=== PATIENT | male | born 1945 | race Caucasian/White ===

== ENCOUNTER 2018-10-06 15:22 | Emergency (ER) | payer OTHER ==
[2018-10-06 15:27] VITALS: TEMP 97.4; BMI 30.2
--- NOTE | 2018-10-06 16:39 | PDOC ---
History of Present Illness - General Chief Complaint: Urinary Catheter Problem Stated Complaint: CATHETER REPLACEMENT Time Seen by Provider: 10/06/18 16:17 History Source: Patient Exam Limitations: No Limitations - History of Present Illness Initial Comments: 10/06/18 16:38 Pedro Pablo Resendiz is a 73M with PMH DM, HTN, HLD presenting with hematuria after accidentally pulling his urinary catheter. Patient reports having 2 days of grossly bloody urine with dysuria. Urine was previously clear yellow about 2 days ago, but then suddenly became bloody. Thomas catheter was inserted under anesthesia due to patient complaining of great pain. Blood has not resolved for the last 2 days, Thomas removed this morning and bleeding persists. Complains of blood leaking from urethra, but denies flank pain, suprapubic pain, or polyuria. Is given "pain pills" for pain but are only mildly effective. Has also had bloody BM for the last 2-3 years. Unsure of why. Denies pain with BM. Says belly has increased in size over the last year, unsure of why. Denies CHO, N/V, fevers/chills. Says he has had bloody stools and lower back pain for a few years now, denies pain with BM, constipation, diarrhea.. Past History - Past Medical History Allergies/Adverse Reactions: Allergies Allergy/AdvReac Type Severity Reaction Status Date / Time Cephalosporins Allergy Intermediate Rash Verified 10/06/18 16:08 Penicillins Allergy Intermediate Rash Verified 10/06/18 16:08 Home Medications: Ambulatory Orders Ascorbic Acid [Vitamin C -] 500 mg PO DAILY 10/06/18 Aspirin [ASA -] 81 mg PO DAILY 10/06/18 Dulaglutide [Trulicity] 0.75 mg SQ WEEKLY 10/06/18 Famotidine 20 mg PO BID 10/06/18 Ferrous Sulfate [Feosol] 325 mg PO DAILY 10/06/18 Finasteride [Proscar -] 5 mg PO DAILY 10/06/18 Folic Acid - 1 mg PO DAILY 10/06/18 Folic Acid/Multivit,Iron,[employer] [One Daily Complete Tablet] 1 each PO DAILY 10/06 Furosemide [Lasix -] 60 mg PO DAILY 10/06/18 Insulin Glargine,Hum.rec.anlog [Lantus Solostar] 22 unit SQ HS 10/06/18 Lactulose (Oral Use) [Cephulac -] 20 gm PO BID 10/06/18 Losartan Potassium [Cozaar -] 50 mg PO DAILY 10/06/18 Metformin HCl [Glucophage] 1,000 mg PO BID 10/06/18 Polyvinyl Alcohol [Tears Again] 1 drop OU BID 10/06/18 Potassium Chloride [K-Dur -] 20 meq PO DAILY 10/06/18 Simethicone [Mylicon -] 80 mg PO TID 10/06/18 Simvastatin [Zocor -] 20 mg PO HS 10/06/18 Tamsulosin HCl [Flomax -] 0.4 mg PO DAILY 10/06/18 Thiamine HCl [Vitamin B1] 100 mg PO DAILY 10/06/18 Anemia: Yes COPD: No CHF: Yes Diabetes: Yes (Type 2) HTN: Yes Seizures: Yes - Suicide/Smoking/Psychosocial Hx Smoking History: Unknown if ever smoked If you are a former smoker, when did you quit?: 25 yrs ago Review of Systems - Review of Systems Constitutional: No: Chills, Fever, Weakness HEENTM: No: Blurred Vision, Hearing Loss, Throat Pain Respiratory: No: Cough, Orthopnea, Shortness of Breath Cardiac (ROS): No: Chest Pain, Lightheadedness, Palpitations ABD/GI: Yes: Abdominal Distended (last 1 year), Blood Streaked Bowels. No: Constipated, Diarrhea, Vomiting : Yes: Dysuria, Hematuria, Urgency. No: Discharge, Frequency, Flank Pain Musculoskeletal: Yes: Back Pain Integumentary: No: Bruising, Erythema Neurological: No: Headache, Numbness, Paresthesia, Unsteady Gait *Physical Exam - Vital Signs Last Vital Signs Temp Pulse Resp BP Pulse Ox 97.4 F L 88 18 127/72 100 10/06/18 15:25 10/06/18 15:25 10/06/18 15:25 10/06/18 15:25 10/06/18 15:25 - Physical Exam General Appearance: Yes: Nourished, Appropriately Dressed, Obese. No: Apparent Distress HEENT: positive: EOMI, ASHLEY, Normal Voice, Symmetrical, Hearing Grossly Normal. negative: Scleral Icterus (R), Scleral Icterus (L), Pharyngeal Erythema, Tonsillar Exudate, Rhinorrhea Neck: positive: Supple. negative: Tender, Lymphadenopathy (R), Lymphadenopathy (L) Respiratory/Chest: positive: Lungs Clear, Normal Breath Sounds. negative: Chest Tender, Respiratory Distress, Accessory Muscle Use, Crackles, Rales, Rhonchi Cardiovascular: positive: Regular Rhythm, Regular Rate. negative: Murmur Gastrointestinal/Abdominal: positive: Normal Bowel Sounds, Tender (Tender to suprapubic region), Soft, Protuberent, Rebound. negative: Organomegaly, Pulsatile Mass, Hernia Male Genitalia: positive: other (Uncircumcised penis with 1cm clot under foreskin, no signs of injury to meatus, tender to palpation. Scrotum grossly normal appearing, non-tender. Blood streaks on diaper.) Musculoskeletal: positive: Normal Inspection. negative: CVA Tenderness (R), CVA Tenderness (L) Extremity: positive: Normal Capillary Refill, Normal Inspection, Normal Range of Motion Integumentary: positive: Normal Color, Dry, Warm Neurologic: positive: Alert, Normal Mood/Affect, Normal Response ED Treatment Course - LABORATORY CBC & Chemistry Diagram: 10/06/18 18:15 10/06/18 17:18 Medical Decision Making - Medical Decision Making 10/06/18 16:38 Pedro Pablo Resendiz is a 73M with PMH DM, HTN, HLD presenting with hematuria after accidentally pulling his urinary catheter. Given blood at meatus with penile tenderness, will evaluate urethral bleeding via CMP, CBC, UA, UC, GC NAAT, and abd/bladder US. POCUS shows 188cc bladder volume with what appears to be 2 diverticuli and some scant clots. Bilateral kidneys grossly normal. Will proceed with UA and likely catheter placement. 10/06/18 18:16 Called [facility] for collateral, reports that patient had a cystoscopy on 10/04 for hematuria, had Thomas placed after but patient accidentally removed when standing out of bed, and is likely the cause of current penile pain and bleeding. Will contact Dr. Alvarado and Dr. Cruz his urologist for dispo. 10/06/18 19:[address] Cruz, urologist on-call, who recommended dispo home and f /u in office with Dr. Cruz. *DC/Admit/Observation/Transfer Diagnosis at time of Disposition: Hematuria Qualifiers: Hematuria type: gross Qualified Code(s): R31.0 - Gross hematuria Dislodged Thomas catheter Qualifiers: Encounter type: initial encounter Qualified Code(s): T83.021A - Displacement of indwelling urethral catheter, initial encounter - Discharge Dispostion Disposition: NURSING HOME FACILITY Condition at time of disposition: Improved Decision to Admit order: No - Referrals - Patient Instructions Printed Discharge Instructions: DI for Hematuria Additional Instructions: Today you were evaluated for blood in your urine. Because your catheter was pulled out today, you experienced an injury to your penis that is likely the cause of the blood in your urine. We have replaced the catheter by using some lidocaine so that it will not hurt, and evaluation of your urine shows signs of bleeding but no infection. We also performed an ultrasound evaluation of your bladder and kidneys, and while we found some pockets in your bladder, we did not see any significant clots that could cause you issues. We examined your blood, and your potassium was elevated, so we gave you a medication called kayexelate to bring this down. Please be mindful of your catheter in the future, and follow-up with your doctor Dr. Alvarado and urologist Dr. Cruz next week for check-up of your potassium and catheter placement. If you experience any worsening bleeding, worse pain in your belly, nausea, vomiting, headache, fever, or any other concerning symptoms, please return to an emergency room as soon as possible. - Post Discharge Activity
[2018-10-06] MEDS ORDERED: LIDOCAINE HCL 2% JELLY 10 ML CARTRIDGE ONE (17:55)
--- NOTE | 2018-10-06 18:11 | PDOC ---
Documentation entered by Vani Mcallister SCRIBE, acting as scribe for Franca Alvarez MD. Franca Alvarez MD: This documentation has been prepared by the Ary rios Nirvannie, SCRIBE, under my direction and personally reviewed by me in its entirety. I confirm that the documentation accurately reflects all work, treatment, procedures, and medical decision making performed by me. Attending Attestation - Resident Resident Name: Eitan Quintanilla - ED Attending Attestation I have performed the following: I have examined & evaluated the patient, The case was reviewed & discussed with the resident, I agree w/resident's findings & plan - HPI HPI: 10/06/18 17:21 The patient is a 73 year old male, with a significant past medical history of dementia, CHF, Depression, anemia, BPH, GERD, DM, HTN, HLD, who presents to the emergency department with, hematuria. Patient recently had a fernandez catheter placed for dysuria and hematuria. Fernandez catheter was removed today, however, hematuria persists prompting her arrival to the ED. He denies any recent chest pain or shortness of breath. Allergies: Cephalosporins, Penicillins Primary Care Physician: Jayjay. Dr. Lucho Alvarado - Physicial Exam PE: 10/06/18 18:07 awake alert lungs clear bilat heart rrr no mrg abd soft distended, mild suprapubic ttp ext wwp. testes nontender. penis uncircumcised, clot at meatus. - Medical Decision Making 10/06/18 18:08 73 yo male s/p fernandez pulled out. with blood at meatus. differential retention, traumatic urethritis, clot, plan focused ED us bladder and renal. us for bladder with small clot, noted irregular bladder wall with diverticuli, volume 188 mL will call [facility] for more information and get name urology. replace fernandez. iv hydration. 10/06/18 19:10 pt fernandez draining urine after being replaced, awaiting call back from pt urologist. awaiting call back. pt signed out to oncoming physician dr chamberlain. pending discussion with urologist if urine clears possible dc back to [facility].
[2018-10-06 18:36] LABS: BASO % 0.6 % (0-2.0); EOS % 4.4 % (0-4.5); HEMATOCRIT 34.3 % (35.4-49); HEMOGLOBIN 11.5 GM/dL (11.7-16.9); LYMPH % 27.2 % (8-40); MCHC 33.4 g/dl (32.0-35.9); MEAN CELL VOLUME 86.8 fl (80-96); MEAN PLT VOLUME 10.6 fl (7.5-11.1); MONO % 11.2 % (3.8-10.2); NEUT % 56.6 % (42.8-82.8); PLATELET COUNT 150 K/MM3 (134-434); RBC 3.95 M/mm3 (4.00-5.60); RDW 15.1 % (11.9-15.9); WHITE BLOOD COUNT 6.3 K/mm3 (4.0-10.0)
[2018-10-06 18:43] LABS: HYALINE CASTS 22 /lpf (0-8); PH,URINE 5.5 (5.0-8.0); URINE APPEARANCE TURBID; URINE BACTERIA 0.8 /hpf (NEGATIVE); URINE BILIRUBIN 1+ (NEGATIVE); URINE COLOR RED; URINE GLUCOSE (UA) NEGATIVE (NEGATIVE); URINE KETONE NEGATIVE (NEGATIVE); URINE LEUK ESTERASE 3+ (NEGATIVE); URINE NITRITE NEGATIVE (NEGATIVE); URINE PROTEIN 3+ (NEGATIVE); URINE RBC 7222 /hpf (0-4); URINE WBC 279 /hpf (0-5)
[2018-10-06 19:13] LABS: ALBUMIN 2.6 g/dl (3.4-5.0); BILIRUBIN,TOTAL 0.5 mg/dL (0.2-1); BLOOD UREA NITROGEN 18.8 mg/dL (7-18); CALCIUM 8.9 mg/dL (8.5-10.1); CREATININE 1.1 mg/dL (0.55-1.3); POTASSIUM 5.6 mmol/L (3.5-5.1); TOT PROT 6.8 g/dl (6.4-8.2)
[2018-10-06] MEDS ORDERED: SODIUM POLYSTYRENE SULFONATE 15 GM/60 ML BOTTLE PO ONE (19:27)
[2018-10-06] MEDS ORDERED: SODIUM POLYSTYRENE SULFONATE 15 GM/60 ML BOTTLE ONE ×2 (20:07→20:08)
[2018-10-06 20:20] VITALS: BP 147/68; PULSE 79
== END 2018-10-06 22:02 ==
LOC: JER 15:22
PROC: 0T9B70Z Drainage of Bladder with Drainage Device, Via Natural or Artificial Opening (ICD-10-PCS; principal; 2018-10-06)
DX: R31.0 Gross hematuria (principal); T83.021A Displacement of indwelling urethral catheter, initial encounter; Y73.1 Therapeutic (nonsurgical) and rehabilitative gastroenterology and urology devices associated with adverse incidents; Y92.89 Other specified places as the place of occurrence of the external cause; I11.0 Hypertensive heart disease with heart failure; E78.5 Hyperlipidemia, unspecified; F03.90 Unspecified dementia, unspecified severity, without behavioral disturbance, psychotic disturbance, mood disturbance, and anxiety; I50.9 Heart failure, unspecified; F32.9 Major depressive disorder, single episode, unspecified; D64.9 Anemia, unspecified; N40.0 Benign prostatic hyperplasia without lower urinary tract symptoms; K21.9 Gastro-esophageal reflux disease without esophagitis; E11.9 Type 2 diabetes mellitus without complications; G40.909 Epilepsy, unspecified, not intractable, without status epilepticus; E66.9 Obesity, unspecified; Z68.30 Body mass index [BMI] 30.0-30.9, adult; Z88.0 Allergy status to penicillin; Z88.1 Allergy status to other antibiotic agents; Z79.82 Long term (current) use of aspirin; Z79.4 Long term (current) use of insulin; Z79.84 Long term (current) use of oral hypoglycemic drugs
CPT/HCPCS: 36415; 51702; 80053; 81003; 85025; 87086; 87491; 87591; 87661; 99283-25

== ENCOUNTER 2018-11-17 19:32 | Emergency (ER) | payer OTHER ==
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
[2018-11-17] MEDS ORDERED: ACETAMINOPHEN 500 MG TABLET (FP) PO ONE (20:22)
[2018-11-17 21:01] VITALS: TEMP 97.8; BMI 30.9
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
[2018-11-17] MEDS ORDERED: ACETAMINOPHEN 325 MG TABLET (FP) ONE (22:19)
[2018-11-18 00:34] VITALS: BP 153/84; PULSE 80
[2018-11-18] MEDS ORDERED: LOSARTAN POTASSIUM 50 MG TABLET (FP) ONE (00:47)
[2018-11-18] MEDS ORDERED: LOSARTAN POTASSIUM 50 MG TABLET (FP) PO SCH (10:00)
== END 2018-11-18 01:12 ==
LOC: JER 19:32
DX: S09.8XXA Other specified injuries of head, initial encounter (principal); Y00.XXXA Assault by blunt object, initial encounter; Y93.89 Activity, other specified; Y92.122 Bedroom in nursing home as the place of occurrence of the external cause; Y99.8 Other external cause status; I11.0 Hypertensive heart disease with heart failure; Y07.9 Unspecified perpetrator of maltreatment and neglect; I50.9 Heart failure, unspecified; E11.9 Type 2 diabetes mellitus without complications; Z79.4 Long term (current) use of insulin; E78.00 Pure hypercholesterolemia, unspecified; G40.909 Epilepsy, unspecified, not intractable, without status epilepticus; F33.9 Major depressive disorder, recurrent, unspecified
CPT/HCPCS: 70450-TC; 72125-TC; 99281-25

== ENCOUNTER 2019-04-23 17:32 | Inpatient (IN) | payer OTHER ==
[2019-04-23] MEDS ORDERED: LIDOCAINE HCL 2% JELLY 10 ML CARTRIDGE ONE (19:09)
--- NOTE | 2019-04-23 19:15 | PDOC ---
Documentation entered by Kings Randall SCRIBE, acting as scribe for Elizabeth Ramirez DO. Elizbaeth Ramirez, : This documentation has been prepared by the Tonia rios Elijah, SCRIBE, under my direction and personally reviewed by me in its entirety. I confirm that the documentation accurately reflects all work, treatment, procedures, and medical decision making performed by me. History of Present Illness - General Chief Complaint: Abnormal Lab Results (Outside) Stated Complaint: LOW HEMOGLOBIN Time Seen by Provider: 04/23/19 18:28 History Source: Patient Exam Limitations: No Limitations - History of Present Illness Initial Comments: 04/23/19 18:44 Patient is a 74 year of male with a significant pmh of dementia, CHF, MDD, anemia, BPH, GERD, DM, HTN, HLD who presents today via [facility] with a low hemoglobin level of 6.8 as of yesterday. Patient reports that he had a fernandez catheter placed and has since associated dysuria and blood in the urine. Of note , patient has described intermittient CP. Patient denies blood in the stool and SOB. Allergies: Cephalosporins, Penicillins PCP: Dr. Karin High Past History - Past Medical History Allergies/Adverse Reactions: Allergies Allergy/AdvReac Type Severity Reaction Status Date / Time Cephalosporins Allergy Intermediate Rash Verified 04/23/19 17:54 Penicillins Allergy Intermediate Rash Verified 04/23/19 17:54 Home Medications: Ambulatory Orders Ascorbic Acid [Vitamin C -] 500 mg PO DAILY 10/06/18 Dulaglutide [Trulicity] 0.75 mg SQ WEEKLY 10/06/18 Famotidine 20 mg PO BID 10/06/18 Ferrous Sulfate [Feosol] 325 mg PO DAILY 10/06/18 Finasteride [Proscar -] 5 mg PO DAILY 10/06/18 Folic Acid - 1 mg PO DAILY 10/06/18 Folic Acid/Multivit,Iron,Schleicher [One Daily Complete Tablet] 1 each PO DAILY 10/06 Furosemide [Lasix -] 60 mg PO DAILY 10/06/18 Insulin Glargine,Hum.rec.anlog [Lantus Solostar] 24 unit SQ HS 10/06/18 Lactulose (Oral Use) [Cephulac -] 20 gm PO BID 10/06/18 Losartan Potassium [Cozaar -] 50 mg PO DAILY 10/06/18 Metformin HCl [Glucophage] 1,000 mg PO BID 10/06/18 Polyvinyl Alcohol [Tears Again] 1 drop OU BID 10/06/18 Potassium Chloride [K-Dur -] 20 meq PO DAILY 10/06/18 Simethicone [Mylicon -] 80 mg PO TID 10/06/18 Simvastatin [Zocor -] 20 mg PO HS 10/06/18 Tamsulosin HCl [Flomax -] 0.8 mg PO DAILY 10/06/18 Thiamine HCl [Vitamin B1] 100 mg PO DAILY 10/06/18 Guaifenesin [Christina-Tussin] 300 mg PO QID PRN 11/17/18 Ibuprofen [Motrin -] 400 mg PO QID PRN 11/17/18 Magnesium Hydrox 2400MG/30Ml [Milk of Magnesia -] 30 ml PO ONCE PRN 11/17/18 Anemia: Yes COPD: No CHF: Yes Diabetes: Yes (Type 2) HTN: Yes Seizures: Yes - Psycho Social/Smoking Cessation Hx Smoking History: Never smoked If you are a former smoker, when did you quit?: 25 yrs ago Review of Systems - Review of Systems Comments:: 04/23/19 18:55 GENERAL/CONSTITUTIONAL: No fever or chills. No weakness. HEAD, EYES, EARS, NOSE AND THROAT: No change in vision. No ear pain or discharge. No sore throat. GASTROINTESTINAL: No nausea, vomiting, diarrhea or constipation. GENITOURINARY: +dysuria +Blood in Urine. No Urinary frequency, or change in urination. CARDIOVASCULAR: +chest pain, No shortness of breath. RESPIRATORY: No cough, wheezing, or hemoptysis. MUSCULOSKELETAL: No joint or muscle swelling or pain. No neck or back pain. SKIN: No rash NEUROLOGIC: No headache, vertigo, loss of consciousness, or change in strength/ sensation. ENDOCRINE: No increased thirst. No abnormal weight change. HEMATOLOGIC/LYMPHATIC: No anemia, easy bleeding, or history of blood clots. ALLERGIC/IMMUNOLOGIC: No hives or skin allergy. *Physical Exam - Vital Signs Last Vital Signs Temp Pulse Resp BP Pulse Ox 97.5 F L 80 18 165/56 L 100 04/23/19 17:46 04/23/19 17:46 04/23/19 17:46 04/23/19 17:46 04/23/19 17:46 - Physical Exam 04/23/19 18:56 Constitutional: Awake, alert, oriented. No acute distress. Head: Normocephalic. Atraumatic Eyes: +Pale Conjunctiva +Pale Mucous Membrane ENT: Mucous membranes are moist and intact. Posterior pharynx without exudates or erythema. Uvula midline. Neck: Supple. Full ROM. No lymphadenopathy. Cardiovascular: Regular rate. Regular rhythm. S1, S2 regular. Distal pulses are 2+ and symmetric. Pulmonary/Chest: No evidence of respiratory distress. Clear to auscultation bilaterally No wheezing, rales or rhonchi. Abdominal: Soft and non-distended. There is no tenderness. No rebound, guarding or rigidity. No organomegaly. No palpable masses. Good bowel sounds. Rectal: No Masses. No Hemorrhoids. No Tone Pelvic Exam: + Dried Blood in Diaper, none active located by tip of miadus of Penis Back: No CVA tenderness. Musculoskeletal: No edema. No cyanosis. No clubbing. Full range of motion in all extremities. Nocalf tenderness. Radial/pedal pulses are intact and 2+ bilaterally Skin: Skin is warm and dry. No petechiae. No purpura. Neurological: Alert and oriented to person, place, and time. Cranial nerves II -XII are grossly intact. Normal speech. Strength is grossly symmetric. No sensory deficits. Psychiatric: Good eye contact. Normal interaction, affect and behavior. ED Treatment Course - LABORATORY CBC & Chemistry Diagram: 04/23/19 19:26 04/23/19 19:26 - RADIOLOGY Radiology Studies Ordered: Category Date Time Status CHEST X-RAY PORTABLE* [RAD] Stat Radiology 04/23/19 18:41 Ordered Medical Decision Making - Medical Decision Making 04/23/19 19:04 a/p: 74yo male presents to the ER for eval of low hgb -pt states he has had hematuria and blood in his urine since having a catheter -pt with small specks of dry blood in the diaper -pt with hgb 6.8 per the paperwork -pt states hematuria since having the catheter and feels like he needs to "have a baby" -denies blood in stool -will send labs, type and screen -pt with leopoldo hematuria in the ER -will place fernandez cathter -will most likely need transfusion and admission -Dr. Wendy Cruz is Urology and Dr. Davide Alvarado is PMD 04/23/19 20:36 pt with hbg 7 rosa maria will need blood transfusion 04/23/19 20:49 discussed with Lucretia Martín (patients sister) who gave verbal consent to blood transfusion verbal consent obtained with the nurse Kimber 04/23/19 21:00 cxr with mild congestive changes clear lungs, pulse ox normal 04/23/19 21:07 case discussed with CARLY Abel who accepts pt to service 04/23/19 21:07 pt with UTI will start merrem for uti Discharge - Discharge Information Problems reviewed: Yes Clinical Impression/Diagnosis: Hematuria, Anemia, ROSA MARIA (acute kidney injury) Condition: Guarded - Admission Yes - Follow up/Referral Referrals: Davide Alvarado MD [Primary Care Provider] - - Patient Discharge Instructions - Post Discharge Activity
[2019-04-23] MEDS ORDERED: LIDOCAINE HCL 2% JELLY 10 ML CARTRIDGE UR ONE (19:16)
[2019-04-23 20:03] LABS: BASO % 0.3 % (0-2.0); EOS % 1.4 % (0-4.5); HEMATOCRIT 21.8 % (35.4-49); LYMPH % 12.1 % (8-40); MCH 27.9 pg (25.7-33.7); MEAN PLT VOLUME 8.4 fl (7.5-11.1); MONO % 11.1 % (3.8-10.2); NEUT % 75.1 % (42.8-82.8); PLATELET COUNT 229 K/MM3 (134-434); RDW 14.6 % (11.9-15.9); WHITE BLOOD COUNT 7.6 K/mm3 (4.0-10.0)
[2019-04-23 20:18] LABS: INR 1.16 (0.83-1.09); PROTHROMBIN TIME (PATIENT) 13.7 SEC (9.7-13.0)
[2019-04-23 20:20] LABS: ACTIVATED PTT 33.9 SECONDS (25.2-36.5)
[2019-04-23 20:31] LABS: ALBUMIN 2.5 g/dl (3.4-5.0); ALK PHOS 130 U/L (45-117); ANION GAP 12 MMOL/L (8-16); BILIRUBIN,TOTAL 0.4 mg/dL (0.2-1); BLOOD UREA NITROGEN 54.2 mg/dL (7-18); CALCIUM 8.3 mg/dL (8.5-10.1); CHLORIDE 111 mmol/L (98-107); CO2 16 mmol/L (21-32); CREATININE 2.8 mg/dL (0.55-1.3); GLUCOSE,RANDOM 102 mg/dL (74-106); MAGNESIUM 2.4 mg/dL (1.8-2.4); POTASSIUM 5.7 mmol/L (3.5-5.1); SGOT/AST 20 U/L (15-37); SGPT/ALT 14 U/L (13-61); SODIUM 139 mmol/L (136-145); TOT PROT 6.6 g/dl (6.4-8.2)
[2019-04-23] MEDS ORDERED: ACETAMINOPHEN 325 MG TABLET (FP) PO ONE (20:38)
[2019-04-23] MEDS ORDERED: SODIUM CHLORIDE 0.9% 1000 ML INFUS.BAG IV ONE (20:38)
[2019-04-23 21:04] LABS: URINE APPEARANCE TURBID; URINE BILIRUBIN 1+ (NEGATIVE); URINE COLOR RED; URINE GLUCOSE (UA) NEGATIVE (NEGATIVE); URINE KETONE NEGATIVE (NEGATIVE); URINE LEUK ESTERASE 3+ (NEGATIVE); URINE NITRITE POSITIVE (NEGATIVE); URINE PROTEIN 2+ (NEGATIVE); URINE UROBILINOGEN 0.2 mg/dL (0.2-1.0)
[2019-04-23] MEDS ORDERED: MEROPENEM 1 GM in DEXTROSE 5%-WATER 100 ML IVPB ONE (21:05)
--- NOTE | 2019-04-23 21:14 | HP ---
Admitting History and Physical - Primary Care Physician PCP: Davide Alvarado - Admission Chief Complaint: Abnormal Lab Value, Hematuria History of Present Illness: This is a 74 y/o man from [facility] with a PMHx of Dementia, CHF, HTN, HLD, DM , GERD, Anemia, BPH, MDD. Who presents to the ED with an abnormal lab value and hematuria. Patient states" I was hurting down there" pointing to his diaper. Patient has Dementia unable to provide HPI. Patient denies fever, chills, cough , SOB, CP, palpitations, N/V. 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 Cardiovascular: Yes: CHF, HTN, Hyperlipdemia Gastrointestinal: Yes: GERD Renal/: Yes: BPH Heme/Onc: Yes: Anemia Psych: Yes: Depression Endocrine: Yes: Diabetes Mellitus - Smoking History Smoking history: Former smoker If you are a former smoker, when did you quit?: 25 yrs ago - Alcohol/Substance Use Hx Alcohol Use: Yes (Former) History of Substance Use: reports: None - Social History Usual Living Arrangement: Yes: [facility] ADL: Support Services History of Recent Travel: No Home Medications - Allergies Allergies/Adverse Reactions: Allergies Allergy/AdvReac Type Severity Reaction Status Date / Time Cephalosporins Allergy Intermediate Rash Verified 04/23/19 17:54 Penicillins Allergy Intermediate Rash Verified 04/23/19 17:54 - Home Medications Home Medications: Ambulatory Orders Ascorbic Acid [Vitamin C -] 500 mg PO DAILY 10/06/18 Dulaglutide [Trulicity] 0.75 mg SQ WEEKLY 10/06/18 Famotidine 20 mg PO BID 10/06/18 Ferrous Sulfate [Feosol] 325 mg PO DAILY 10/06/18 Finasteride [Proscar -] 5 mg PO DAILY 10/06/18 Folic Acid - 1 mg PO DAILY 10/06/18 Folic Acid/Multivit,Iron,Bartacker [One Daily Complete Tablet] 1 each PO DAILY 10/06 Furosemide [Lasix -] 60 mg PO DAILY 10/06/18 Insulin Glargine,Hum.rec.anlog [Lantus Solostar] 24 unit SQ HS 10/06/18 Lactulose (Oral Use) [Cephulac -] 20 gm PO BID 10/06/18 Losartan Potassium [Cozaar -] 50 mg PO DAILY 10/06/18 Metformin HCl [Glucophage] 1,000 mg PO BID 10/06/18 Polyvinyl Alcohol [Tears Again] 1 drop OU BID 10/06/18 Potassium Chloride [K-Dur -] 20 meq PO DAILY 10/06/18 Simethicone [Mylicon -] 80 mg PO TID 10/06/18 Simvastatin [Zocor -] 20 mg PO HS 10/06/18 Tamsulosin HCl [Flomax -] 0.8 mg PO DAILY 10/06/18 Thiamine HCl [Vitamin B1] 100 mg PO DAILY 10/06/18 Guaifenesin [Christina-Tussin] 300 mg PO QID PRN 11/17/18 Ibuprofen [Motrin -] 400 mg PO QID PRN 11/17/18 Magnesium Hydrox 2400MG/30Ml [Milk of Magnesia -] 30 ml PO ONCE PRN 11/17/18 Family Medical History Family History: Unable to Obtain Review of Systems Unable to obtain ROS, reason: Dementia Physical Examination Vital Signs: Vital Signs Temperature 97.5 F L 04/23/19 17:46 Pulse Rate 80 04/23/19 17:46 Respiratory Rate 18 04/23/19 17:46 Blood Pressure 165/56 L 04/23/19 17:46 O2 Sat by Pulse Oximetry (%) 98 04/23/19 18:28 Constitutional: Yes: No Distress, Calm Eyes: Yes: WNL, Conjunctiva Clear, EOM Intact, PERRL HENT: Yes: Atraumatic, Normocephalic, Other (Poor Dentition) Neck: Yes: WNL, Supple, Trachea Midline Cardiovascular: Yes: Regular Rate and Rhythm, S1, S2 Respiratory: Yes: Diminished, On Nasal O2, SOB on Exertion, Wheezes. No: Accessory Muscle Use, Tachypnea Gastrointestinal: Yes: Normal Bowel Sounds, Soft, Distention ...Rectal Exam: Yes: Guaiac Negative Renal/: Yes: Thomas Present (leopoldo blood noted in drainage bag) Breast(s): Yes: WNL Musculoskeletal: Yes: WNL Extremities: Yes: WNL Edema: No Peripheral Pulses WNL: Yes Neurological: Yes: Alert, Confusion, Cran Nerves II-XII Intact ...Motor Strength: WNL Psychiatric: Yes: Alert Labs: CBC, BMP 04/23/19 19:26 04/23/19 19:26 Laboratory Results - last 24 hr 04/23/19 04/23/19 04/23/19 17:00 19:26 19:26 WBC RBC Hgb Hct MCV MCH MCHC RDW Plt Count MPV Absolute Neuts (auto) Neutrophils % Lymphocytes % Monocytes % Eosinophils % Basophils % Nucleated RBC % PT with INR 13.70 H INR 1.16 H PTT (Actin FS) 33.9 Sodium 139 Potassium 5.7 H Chloride 111 H Carbon Dioxide 16 L Anion Gap 12 BUN 54.2 H Creatinine 2.8 H Est GFR (CKD-EPI)AfAm 24.29 Est GFR (CKD-EPI)NonAf 20.96 Random Glucose 102 Lactic Acid Calcium 8.3 L Magnesium 2.4 Total Bilirubin 0.4 AST 20 ALT 14 Alkaline Phosphatase 130 H Creatine Kinase 51 Troponin I < 0.02 B-Natriuretic Peptide Total Protein 6.6 Albumin 2.5 L Urine Color Red Urine Appearance Turbid Urine pH 5.0 Ur Specific [place] 1.015 Urine Protein 2+ H Urine Glucose (UA) Negative Urine Ketones Negative Urine Blood 1+ H Urine Nitrite Positive H Urine Bilirubin 1+ H Urine Urobilinogen 0.2 Ur Leukocyte Esterase 3+ H Stool Occult Blood Blood Type Antibody Screen Crossmatch 04/23/19 04/23/19 04/23/19 19:26 19:26 19:26 WBC 7.6 RBC 2.50 L Hgb 7.0 L Hct 21.8 L D MCV 87.0 MCH 27.9 MCHC 32.0 RDW 14.6 Plt Count 229 D MPV 8.4 D Absolute Neuts (auto) 5.7 Neutrophils % 75.1 D Lymphocytes % 12.1 D Monocytes % 11.1 H Eosinophils % 1.4 Basophils % 0.3 Nucleated RBC % 0 PT with INR INR PTT (Actin FS) Sodium Potassium Chloride Carbon Dioxide Anion Gap BUN Creatinine Est GFR (CKD-EPI)AfAm Est GFR (CKD-EPI)NonAf Random Glucose Lactic Acid 3.1 H* Calcium Magnesium Total Bilirubin AST ALT Alkaline Phosphatase Creatine Kinase Troponin I B-Natriuretic Peptide Total Protein Albumin Urine Color Urine Appearance Urine pH Ur Specific [place] Urine Protein Urine Glucose (UA) Urine Ketones Urine Blood Urine Nitrite Urine Bilirubin Urine Urobilinogen Ur Leukocyte Esterase Stool Occult Blood Blood Type O POSITIVE Antibody Screen Negative Crossmatch See Detail 04/23/19 04/23/19 04/23/19 19:26 19:35 21:10 WBC RBC Hgb Hct MCV MCH MCHC RDW Plt Count MPV Absolute Neuts (auto) Neutrophils % Lymphocytes % Monocytes % Eosinophils % Basophils % Nucleated RBC % PT with INR INR PTT (Actin FS) Sodium Potassium Chloride Carbon Dioxide Anion Gap BUN Creatinine Est GFR (CKD-EPI)AfAm Est GFR (CKD-EPI)NonAf Random Glucose Lactic Acid Calcium Magnesium Total Bilirubin AST ALT Alkaline Phosphatase Creatine Kinase Troponin I B-Natriuretic Peptide 1952.2 H Total Protein Albumin Urine Color Urine Appearance Urine pH Ur Specific [place] Urine Protein Urine Glucose (UA) Urine Ketones Urine Blood Urine Nitrite Urine Bilirubin Urine Urobilinogen Ur Leukocyte Esterase Stool Occult Blood Negative Blood Type O POSITIVE Antibody Screen Negative Crossmatch Intake & Output 04/20/19 04/21/19 04/22/19 04/23/19 23:59 23:59 23:59 23:59 Output Total 210 Balance -210 Weight 72.575 kg Current Medications Generic Name Dose Route Start Last Admin Trade Name Freq PRN Reason Stop Dose Admin Albuterol/Ipratropium 1 amp 04/23/19 22:24 Duoneb - NEB Q6H PRN SHORTNESS OF BREATH Artificial Tears 1 drop 04/24/19 10:00 Artificial Tears OU BID [facility] Atorvastatin Calcium 10 mg 04/24/19 22:00 Lipitor - PO HS [facility] Famotidine 20 mg 04/24/19 10:00 Pepcid - PO BID CHAVEZ Folic Acid 1 mg 04/24/19 10:00 Folic Acid - PO DAILY [facility] Losartan Potassium 50 mg 04/24/19 10:00 Cozaar - PO DAILY [facility]Z Tamsulosin HCl 0.8 mg 04/24/19 10:00 Flomax - PO DAILY CHAVEZ Thiamine HCl 100 mg 04/24/19 10:00 Vitamin B1 - PO DAILY [facility] Imaging - Results Chest X-ray: Report Reviewed, Image Reviewed Problem List - Problems (1) Anemia Assessment/Plan: hx JERMAINE Hgb 7.0 PRBC ordered in ED-pending Repeat CBC in am Continue ferrous Sulfate Check Folate, B12 Code(s): D64.9 - ANEMIA, UNSPECIFIED (2) UTI (urinary tract infection) Assessment/Plan: UA- +2 protein, +1 blood, + nitrate, +3 leukocyte esterase Urine Culture-pending PCN, Cephalosporin allergies Meropenem given in ED, will continue renal dosing Appreciate ID consult Monitor CBC, BMP Monitor vitals Code(s): N39.0 - URINARY TRACT INFECTION, SITE NOT SPECIFIED (3) Hematuria Assessment/Plan: Appreciate Urology consult Hold NSAIDs Monitor CBC Monitor vitals Code(s): R31.9 - HEMATURIA, UNSPECIFIED (4) ROSA MARIA (acute kidney injury) Assessment/Plan: Likely secondary to dehydration vs medication Cr 2.8 (baseline 1.7) NS bolus given in ED Monitor BMP Appreciate Nephrology consult Renal US r/o stenosis Code(s): N17.9 - ACUTE KIDNEY FAILURE, UNSPECIFIED (5) HTN (hypertension) Assessment/Plan: stable Continue home meds Monitor renal function Code(s): I10 - ESSENTIAL (PRIMARY) HYPERTENSION (6) HLD (hyperlipidemia) Assessment/Plan: stable Continue home med monitor LFTs Code(s): E78.5 - HYPERLIPIDEMIA, UNSPECIFIED (7) Diabetes mellitus Assessment/Plan: stable BGMs ISS Hold metformin secondary to Lactic Acid 3.1 Monitor BMP Code(s): E11.9 - TYPE 2 DIABETES MELLITUS WITHOUT COMPLICATIONS (8) Lactic acidosis Assessment/Plan: Likely due to UTI vs medication NS bolus given in ED Repeat Lactic Acid Monitor vitals Monitor CBC Code(s): E87.2 - ACIDOSIS (9) GERD (gastroesophageal reflux disease) Assessment/Plan: stable Continue Famotidine Code(s): K21.9 - GASTRO-ESOPHAGEAL REFLUX DISEASE WITHOUT ESOPHAGITIS (10) CHF (congestive heart failure) Assessment/Plan: Chest Xray- some congestive changes Continue Lasix Strict INOs Daily weight Code(s): I50.9 - HEART FAILURE, UNSPECIFIED (11) BPH (benign prostatic hyperplasia) Assessment/Plan: stable Continue Flomax Code(s): N40.0 - BENIGN PROSTATIC HYPERPLASIA WITHOUT LOWER URINRY TRACT SYMP (12) Dementia Assessment/Plan: continue home med Fall Precautions Code(s): F03.90 - UNSPECIFIED DEMENTIA WITHOUT BEHAVIORAL DISTURBANCE (13) MDD (major depressive disorder) Assessment/Plan: Continue home meds Code(s): F32.9 - MAJOR DEPRESSIVE DISORDER, SINGLE EPISODE, UNSPECIFIED Assessment/Plan This is a 74 y/o man from [facility] with a PMHx of Dementia, CHF, HTN, HLD, DM , GERD, Anemia, BPH, MDD. Admitted for Symptomatic Anemia, UTI, Hematuria, ROSA MARIA for further evaluation of their emergent condition. Plan: See Problem List FEN Fluid Restriction Replete lytes prn Low Na, Diabetic Diet DVT ppx OOB SCDs Hold AC secondary to Hematuria, Anemia Dispo: Requires Inpatient Care Visit type - Emergency Visit Emergency Visit: Yes ED Registration Date: 04/23/19 Care time: The patient presented to the Emergency Department on the above date and was hospitalized for further evaluation of their emergent condition. - New Patient This patient is new to me today: Yes Date on this admission: 04/23/19 - Critical Care Critical Care patient: No
[2019-04-23] MEDS ORDERED: ACETAMINOPHEN 325 MG TABLET (FP) ONE (23:39)
[2019-04-24 06:48] LABS: BASO % 0.2 % (0-2.0); EOS % 2.1 % (0-4.5); HEMATOCRIT 24.7 % (35.4-49); HEMOGLOBIN 8.2 GM/dL (11.7-16.9); LYMPH % 10.7 % (8-40); MCH 28.8 pg (25.7-33.7); MCHC 33.1 g/dl (32.0-35.9); MEAN CELL VOLUME 87.2 fl (80-96); MEAN PLT VOLUME 7.9 fl (7.5-11.1); MONO % 13.6 % (3.8-10.2); NEUT % 73.4 % (42.8-82.8); PLATELET COUNT 215 K/MM3 (134-434); RBC 2.83 M/mm3 (4.00-5.60); RDW 14.8 % (11.9-15.9); WHITE BLOOD COUNT 8.1 K/mm3 (4.0-10.0)
[2019-04-24 07:59] LABS: BLOOD UREA NITROGEN 56.2 mg/dL (7-18); CALCIUM 8.2 mg/dL (8.5-10.1); CREATININE 2.9 mg/dL (0.55-1.3); POTASSIUM 5.8 mmol/L (3.5-5.1)
[2019-04-24] MEDS: TAMSULOSIN HCL 0.4 MG CAP PO SCH (08:30)
[2019-04-24] MEDS ORDERED: LOSARTAN POTASSIUM 50 MG TABLET (FP) PO SCH (10:00)
[2019-04-24] MEDS: FOLIC ACID 1 MG TABLET (FP) PO SCH (10:45)
[2019-04-24] MEDS: FAMOTIDINE 20 MG TABLET PO SCH ×2 (10:45→23:08)
[2019-04-24] MEDS: THIAMINE HCL 100 MG TABLET (FP) PO SCH (10:45)
[2019-04-24] MEDS: ARTIFICIAL TEARS (POLYVINYL ALCOHOL) OPTH DROPS OU SCH ×2 (11:25→23:01)
[2019-04-24] MEDS ORDERED: MEROPENEM 500 MG in DEXTROSE 5%-WATER 100 ML IVPB SCH (12:00)
--- NOTE | 2019-04-24 13:22 | PN ---
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 (short form) - Note 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: Pt sent from [facility] for hematuria and acute severe anemia Confused at baseline He recently had cystscopy and bladder biospy done on 04/12/19-- done with DR Wendy Cruz Started to have hematuria for the last 2 days-- cbc done in [place] -- Hb 6.8 pt denies any pain no fever Vital Signs - 24 hr 04/23/19 04/23/19 04/23/19 17:46 18:28 22:50 Temperature 97.5 F L 98.2 F Pulse Rate 80 Pulse Rate [ Left Radial] Pulse Rate [ 82 Radial] Respiratory 18 18 Rate Blood Pressure 165/56 L Blood Pressure 160/54 L [Left Arm] Blood Pressure [Right Arm] O2 Sat by Pulse 100 98 99 Oximetry (%) 04/23/19 04/24/19 04/24/19 23:05 06:32 08:30 Temperature 98.2 F Pulse Rate Pulse Rate [ 77 80 Left Radial] Pulse Rate [ 83 Radial] Respiratory 18 18 18 Rate Blood Pressure Blood Pressure 159/62 [Left Arm] Blood Pressure 119/51 L 149/63 [Right Arm] O2 Sat by Pulse 100 100 100 Oximetry (%) 04/24/19 11:37 Temperature 98 F Pulse Rate Pulse Rate [ 80 Left Radial] Pulse Rate [ Radial] Respiratory 18 Rate Blood Pressure Blood Pressure [Left Arm] Blood Pressure 144/58 L [Right Arm] O2 Sat by Pulse 100 Oximetry (%) Current Medications Generic Name Dose Route Start Last Admin Trade Name Freq PRN Reason Stop Dose Admin Albuterol/Ipratropium 1 amp 04/23/19 22:24 Duoneb - NEB Q6H PRN SHORTNESS OF BREATH Artificial Tears 1 drop 04/24/19 10:00 04/24/19 11:25 Artificial Tears OU Not Given BID CHAVEZ Atorvastatin Calcium 10 mg 04/24/19 22:00 Lipitor - PO HS [facility]Z Famotidine 20 mg 04/24/19 10:00 04/24/19 10:45 Pepcid - PO 20 mg BID CHAVEZ Administration Folic Acid 1 mg 04/24/19 10:00 04/24/19 10:45 Folic Acid - PO 1 mg DAILY [facility]AVEZ Administration Meropenem 500 mg/ Dextrose 100 mls @ 200 mls/hr 04/24/19 12:00 IVPB Q12H CHAVEZ Meropenem 500 mg/ Dextrose 100 mls @ 200 mls/hr 04/24/19 12:00 IVPB 04/25/19 00:29 Q12H CHAVEZ Losartan Potassium 50 mg 04/24/19 10:00 04/24/19 10:45 Cozaar - PO 50 mg DAILY [facility]Z Administration Tamsulosin HCl 0.8 mg 04/24/19 08:30 04/24/19 08:30 Flomax - PO 0.8 mg DAILY@0830 CHAVEZ Administration Thiamine HCl 100 mg 04/24/19 10:00 04/24/19 10:45 Vitamin B1 - PO 100 mg DAILY [facility]Z Administration Laboratory Results - last 24 hr 04/23/19 04/23/19 04/23/19 17:00 19:26 19:26 WBC RBC Hgb Hct MCV MCH MCHC RDW Plt Count MPV Absolute Neuts (auto) Neutrophils % Lymphocytes % Monocytes % Eosinophils % Basophils % Nucleated RBC % PT with INR 13.70 H INR 1.16 H PTT (Actin FS) 33.9 Sodium 139 Potassium 5.7 H Chloride 111 H Carbon Dioxide 16 L Anion Gap 12 BUN 54.2 H Creatinine 2.8 H Est GFR (CKD-EPI)AfAm 24.29 Est GFR (CKD-EPI)NonAf 20.96 Random Glucose 102 Lactic Acid Calcium 8.3 L Magnesium 2.4 Total Bilirubin 0.4 AST 20 ALT 14 Alkaline Phosphatase 130 H Creatine Kinase 51 Troponin I < 0.02 B-Natriuretic Peptide Total Protein 6.6 Albumin 2.5 L Urine Color Red Urine Appearance Turbid Urine pH 5.0 Ur Specific [place] 1.015 Urine Protein 2+ H Urine Glucose (UA) Negative Urine Ketones Negative Urine Blood 1+ H Urine Nitrite Positive H Urine Bilirubin 1+ H Urine Urobilinogen 0.2 Ur Leukocyte Esterase 3+ H Stool Occult Blood Blood Type Antibody Screen Crossmatch 04/23/19 04/23/19 04/23/19 19:26 19:26 19:26 WBC 7.6 RBC 2.50 L Hgb 7.0 L Hct 21.8 L D MCV 87.0 MCH 27.9 MCHC 32.0 RDW 14.6 Plt Count 229 D MPV 8.4 D Absolute Neuts (auto) 5.7 Neutrophils % 75.1 D Lymphocytes % 12.1 D Monocytes % 11.1 H Eosinophils % 1.4 Basophils % 0.3 Nucleated RBC % 0 PT with INR INR PTT (Actin FS) Sodium Potassium Chloride Carbon Dioxide Anion Gap BUN Creatinine Est GFR (CKD-EPI)AfAm Est GFR (CKD-EPI)NonAf Random Glucose Lactic Acid 3.1 H* Calcium Magnesium Total Bilirubin AST ALT Alkaline Phosphatase Creatine Kinase Troponin I B-Natriuretic Peptide Total Protein Albumin Urine Color Urine Appearance Urine pH Ur Specific [place] Urine Protein Urine Glucose (UA) Urine Ketones Urine Blood Urine Nitrite Urine Bilirubin Urine Urobilinogen Ur Leukocyte Esterase Stool Occult Blood Blood Type O POSITIVE Antibody Screen Negative Crossmatch See Detail 04/23/19 04/23/19 04/23/19 19:26 19:35 21:10 WBC RBC Hgb Hct MCV MCH MCHC RDW Plt Count MPV Absolute Neuts (auto) Neutrophils % Lymphocytes % Monocytes % Eosinophils % Basophils % Nucleated RBC % PT with INR INR PTT (Actin FS) Sodium Potassium Chloride Carbon Dioxide Anion Gap BUN Creatinine Est GFR (CKD-EPI)AfAm Est GFR (CKD-EPI)NonAf Random Glucose Lactic Acid Calcium Magnesium Total Bilirubin AST ALT Alkaline Phosphatase Creatine Kinase Troponin I B-Natriuretic Peptide 1952.2 H Total Protein Albumin Urine Color Urine Appearance Urine pH Ur Specific [place] Urine Protein Urine Glucose (UA) Urine Ketones Urine Blood Urine Nitrite Urine Bilirubin Urine Urobilinogen Ur Leukocyte Esterase Stool Occult Blood Negative Blood Type O POSITIVE Antibody Screen Negative Crossmatch 04/24/19 04/24/19 04/24/19 05:40 06:30 06:30 WBC 8.1 RBC 2.83 L Hgb 8.2 L Hct 24.7 L MCV 87.2 MCH 28.8 MCHC 33.1 RDW 14.8 Plt Count 215 MPV 7.9 Absolute Neuts (auto) 6.0 Neutrophils % 73.4 Lymphocytes % 10.7 Monocytes % 13.6 H Eosinophils % 2.1 Basophils % 0.2 Nucleated RBC % 0 PT with INR INR PTT (Actin FS) Sodium 139 Potassium 5.8 H Chloride 114 H Carbon Dioxide 16 L Anion Gap 10 BUN 56.2 H Creatinine 2.9 H Est GFR (CKD-EPI)AfAm 23.29 Est GFR (CKD-EPI)NonAf 20.09 Random Glucose 96 Lactic Acid 1.6 Calcium 8.2 L Magnesium Total Bilirubin AST ALT Alkaline Phosphatase Creatine Kinase Troponin I B-Natriuretic Peptide Total Protein Albumin Urine Color Urine Appearance Urine pH Ur Specific [place] Urine Protein Urine Glucose (UA) Urine Ketones Urine Blood Urine Nitrite Urine Bilirubin Urine Urobilinogen Ur Leukocyte Esterase Stool Occult Blood Blood Type Antibody Screen Crossmatch S1 S2 RRR Lungs clear Abd- soft, obese, NT no edema Thomas-- hematuria++ PLAN Iv fluids Give kayexalate iv antibiotics Urology eval ID eval transfuse as needed Problem List - Problems (1) ROSA MARIA (acute kidney injury) Code(s): N17.9 - ACUTE KIDNEY FAILURE, UNSPECIFIED (2) Anemia Code(s): D64.9 - ANEMIA, UNSPECIFIED (3) BPH (benign prostatic hyperplasia) Code(s): N40.0 - BENIGN PROSTATIC HYPERPLASIA WITHOUT LOWER URINRY TRACT SYMP (4) Dementia Code(s): F03.90 - UNSPECIFIED DEMENTIA WITHOUT BEHAVIORAL DISTURBANCE (5) Diabetes mellitus Code(s): E11.9 - TYPE 2 DIABETES MELLITUS WITHOUT COMPLICATIONS (6) HLD (hyperlipidemia) Code(s): E78.5 - HYPERLIPIDEMIA, UNSPECIFIED
[2019-04-24] MEDS ORDERED: SODIUM POLYSTYRENE SULFONATE 15 GM/60 ML BOTTLE PO ONE (13:45)
[2019-04-24] MEDS: SODIUM CHLORIDE 1,000 ML IV SCH (14:00)
[2019-04-24] MEDS ORDERED: SODIUM POLYSTYRENE SULFONATE 15 GM/60 ML BOTTLE ONE (14:24)
--- NOTE | 2019-04-24 14:26 | EKG ---
Test Reason : Blood Pressure : / mmHG Vent. Rate : 083 BPM Atrial Rate : 083 BPM P-R Int : 194 ms QRS Dur : 084 ms QT Int : 382 ms P-R-T Axes : 082 029 062 degrees QTc Int : 448 ms NORMAL SINUS RHYTHM NONSPECIFIC ST ABNORMALITY ABNORMAL ECG NO PREVIOUS ECGS AVAILABLE Confirmed by MARY BLACK, ANUJ ([id number]) on 04/24/2019 2:25:41 PM Referred By: Confirmed By:ANUJ HERNANDEZ MD
[2019-04-24] MEDS: INSULIN SLIDING SCALE (NOVOLOG) 1 VIAL SQ SCH (17:36)
--- NOTE | 2019-04-24 18:26 | PN ---
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 (short form) - Note 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: ID consult dictated imp/reccd 74 yo man s/p cystoscopy and bladder biopsy admitted with anemia and gross hematuria urine culture is pending multiple antiibotic allergies no fevers, normal wbc received meropenem in the ED will switch to azactam adjsuted for his renal failure and f/u cultures Problem List - Problems (1) Hematuria Code(s): R31.9 - HEMATURIA, UNSPECIFIED (2) Anemia Code(s): D64.9 - ANEMIA, UNSPECIFIED (3) Bladder cancer Code(s): C67.9 - MALIGNANT NEOPLASM OF BLADDER, UNSPECIFIED (4) Allergy to multiple antibiotics Code(s): Z88.1 - ALLERGY STATUS TO OTHER ANTIBIOTIC AGENTS STATUS
--- NOTE | 2019-04-24 20:04 | CONS ---
DATE OF CONSULTATION: DATE OF DICTATION: 04/24/2019 HISTORY OF PRESENT ILLNESS: This is a 74-year-old man who was sent to the emergency room yesterday evening for [facility]. She has a history of confusion at baseline, and he had a recent cystoscopy and bladder biopsy done on April [address] Cruz. He started having hematuria for the last 2 days. He was found to be very anemic with a hemoglobin of 6.8 in the penitentiary and was transferred to the hospital for further evaluation. He has no pain, and he has not been having any fever. I am asked to see him for possible UTI. PAST MEDICAL HISTORY: He has a past medical history of hypertension, anemia, chronic systolic heart failure, diabetes, depression. Allergies to antibiotics. He is allergic to PENICILLIN and CEPHALOSPORIN; the nature of the allergies is not known, and he has had cellulitis in the past. MEDICATION: His medications [facility] the [facility] include: 1. Folic acid. 2. Multivitamins. 3. D1. 4. Flomax. 5. Potassium. 6. Lasix. 7. Simethicone. 8. Simvastatin. 9. Metformin. 10. Proscar. 11. Losartan. 12. Famotidine. 13. Feosol. 14. Motrin as needed. 15. Trulicity. 16. Insulin. Per Dr. High, his bleeding was reported only for the last 2 days. The patient states he has been bleeding for months. He is a resident of the penitentiary, it is unclear for how long. REVIEW OF SYSTEMS: As per HPI. PHYSICAL EXAMINATION: Vital Signs: Temperature is 98, blood pressure 142/68, respiratory rate 18, heart rate 80, saturating 100% on 2 L. He is in no distress. HEENT: Normocephalic. Eyes are anicteric. Neck: Supple. Lungs: Clear to auscultation. Abdomen: Mildly distended. The Thomas is draining very blood urine. Extremities: Venous stasis changes. LABORATORY: White count 8.1, hemoglobin is 8.2, platelets are 215, INR is 1. BUN and creatinine are 56 and 2.9. Lactic acid was 3.1 and on repeat was 1.6. Urinalysis had 3+ leukocytes, no differential was done. Blood cultures are pending. He was started on meropenem in the ER given his unspecified allergies to PENICILLIN and CEPHALOSPORINS. IMPRESSION: In summary, this is a 74-year-old man who is status post recent bladder biopsy and cysto who now has gross hematuria. Awaiting results of the pathology. His acute renal failure is probably multifactorial related to probably medications as well as benign prostatic hypertrophy. I doubt he has a urinary tract infection, suspect what we are seeing is just the gross blood from probably this biopsy site, but until the cultures are back, it would be reasonable to continue antibiotics. Would treat him with aztreonam adjusted for his renal failure at this time. His complete blood count will be monitored and he is to be seen by urology as well. PAULA VILCHIS M.D. [id number] MTDPatrick
--- NOTE | 2019-04-24 20:04 | CONSULT ---
Consult - text type - Consultation Consultation Note: Patient is a 74 year of male with a significant pmh of dementia, CHF, MDD, anemia, BPH, GERD, DM, HTN, HLD who presents today via [facility] with a low hemoglobin level of 6.8 as of yesterday. Patient reports that he had a fernandez catheter placed and has since associated dysuria and blood in the urine. verbal, tnential, incoherent. speaks full sentences, tangent[place]. Reports that he is estranged from his family Not oriented in place and time Allergies: Cephalosporins, Penicillins Allergies/Adverse Reactions: Allergies Allergy/AdvReac Type Severity Reaction Status Date / Time Cephalosporins Allergy Intermediate Rash Verified 04/23/19 17:54 Penicillins Allergy Intermediate Rash Verified 04/23/19 17:54 Home Medications: Ambulatory Orders Ascorbic Acid [Vitamin C -] 500 mg PO DAILY 10/06/18 Dulaglutide [Trulicity] 0.75 mg SQ WEEKLY 10/06/18 Famotidine 20 mg PO BID 10/06/18 Ferrous Sulfate [Feosol] 325 mg PO DAILY 10/06/18 Finasteride [Proscar -] 5 mg PO DAILY 10/06/18 Folic Acid - 1 mg PO DAILY 10/06/18 Folic Acid/Multivit,Iron,[place] [One Daily Complete Tablet] 1 each PO DAILY 10/06 Furosemide [Lasix -] 60 mg PO DAILY 10/06/18 Insulin Glargine,Hum.rec.anlog [Lantus Solostar] 24 unit SQ HS 10/06/18 Lactulose (Oral Use) [Cephulac -] 20 gm PO BID 10/06/18 Losartan Potassium [Cozaar -] 50 mg PO DAILY 10/06/18 Metformin HCl [Glucophage] 1,000 mg PO BID 10/06/18 Polyvinyl Alcohol [Tears Again] 1 drop OU BID 10/06/18 Potassium Chloride [K-Dur -] 20 meq PO DAILY 10/06/18 Simethicone [Mylicon -] 80 mg PO TID 10/06/18 Simvastatin [Zocor -] 20 mg PO HS 10/06/18 Tamsulosin HCl [Flomax -] 0.8 mg PO DAILY 10/06/18 Thiamine HCl [Vitamin B1] 100 mg PO DAILY 10/06/18 Guaifenesin [Christina-Tussin] 300 mg PO QID PRN 11/17/18 Ibuprofen [Motrin -] 400 mg PO QID PRN 11/17/18 Magnesium Hydrox 2400MG/30Ml [Milk of Magnesia -] 30 ml PO ONCE PRN 11/17/18 Anemia: Yes CHF: Yes Diabetes: Yes (Type 2) HTN: Yes Seizures: Yes - Psycho Social/Smoking Cessation Hx Smoking History: Never smoked - Vital Signs Last Vital Signs Temp Pulse Resp BP Pulse Ox 99.3 F 92 H 20 156/68 100 04/24/19 18:54 04/24/19 18:54 04/24/19 18:54 04/24/19 18:54 04/24/19 18:54 Cor: RSR, No murmurs, No gallops Lungs: Clear to P&A Abd: Soft, Normal bowel sounds, No organomegaly Ext:No significant edema Abnormal Lab Results 04/23/19 04/23/19 04/23/19 17:00 19:26 19:26 RBC Hgb Hct Monocytes % PT with INR 13.70 H INR 1.16 H Potassium 5.7 H Chloride 111 H Carbon Dioxide 16 L BUN 54.2 H Creatinine 2.8 H Lactic Acid Calcium 8.3 L Alkaline Phosphatase 130 H B-Natriuretic Peptide Albumin 2.5 L Urine Protein 2+ H Urine Blood 1+ H Urine Nitrite Positive H Urine Bilirubin 1+ H Ur Leukocyte Esterase 3+ H Crossmatch 04/23/19 04/23/19 04/23/19 19:26 19:26 19:26 RBC Hgb Hct Monocytes % PT with INR INR Potassium Chloride Carbon Dioxide BUN Creatinine Lactic Acid 3.1 H* Calcium Alkaline Phosphatase B-Natriuretic Peptide 1952.2 H Albumin Urine Protein Urine Blood Urine Nitrite Urine Bilirubin Ur Leukocyte Esterase Crossmatch See Detail 04/24/19 04/24/19 06:30 06:30 RBC 2.83 L Hgb 8.2 L Hct 24.7 L Monocytes % 13.6 H PT with INR INR Potassium 5.8 H Chloride 114 H Carbon Dioxide 16 L BUN 56.2 H Creatinine 2.9 H Lactic Acid Calcium 8.2 L Alkaline Phosphatase B-Natriuretic Peptide Albumin Urine Protein Urine Blood Urine Nitrite Urine Bilirubin Ur Leukocyte Esterase Crossmatch Home Medication List Medication Instructions Recorded Confirmed Type Ascorbic Acid [Vitamin C -] 500 mg PO DAILY 10/06/18 04/23/19 History Dulaglutide [Trulicity] 0.75 mg SQ WEEKLY 10/06/18 04/23/19 History Famotidine 20 mg PO BID 10/06/18 04/23/19 History Ferrous Sulfate [Feosol] 325 mg PO DAILY 10/06/18 04/23/19 History Finasteride [Proscar -] 5 mg PO DAILY 10/06/18 04/23/19 History Folic Acid - 1 mg PO DAILY 10/06/18 04/23/19 History Folic Acid/Multivit,Iron,[place] 1 each PO DAILY 10/06/18 04/23/19 History [One Daily Complete Tablet] Furosemide [Lasix -] 60 mg PO DAILY 10/06/18 04/23/19 History Insulin Glargine,Hum.rec.anlog 24 unit SQ 10/06/18 04/23/19 History [Lantus Solostar] Lactulose (Oral Use) [Cephulac -] 20 gm PO BID 10/06/18 04/23/19 History Losartan Potassium [Cozaar -] 50 mg PO DAILY 10/06/18 04/23/19 History Metformin HCl [Glucophage] 1,000 mg PO BID 10/06/18 04/23/19 History Polyvinyl Alcohol [Tears Again] 1 drop OU BID 10/06/18 04/23/19 History Potassium Chloride [K-Dur -] 20 meq PO DAILY 10/06/18 04/23/19 History Simethicone [Mylicon -] 80 mg PO TID 10/06/18 04/23/19 History Simvastatin [Zocor -] 20 mg PO HS 10/06/18 04/23/19 History Tamsulosin HCl [Flomax -] 0.8 mg PO DAILY 10/06/18 04/23/19 History Thiamine HCl [Vitamin B1] 100 mg PO DAILY 10/06/18 04/23/19 History Guaifenesin [Christina-Tussin] 300 mg PO QID PRN 11/17/18 04/23/19 History Ibuprofen [Motrin -] 400 mg PO QID PRN 11/17/18 04/23/19 History Magnesium Hydrox 2400MG/30Ml [Milk 30 ml PO ONCE PRN 11/17/18 04/23/19 History of Magnesia -] Active Medications Generic Name Dose Route Start Last Admin Trade Name Jefry PRN Reason Stop Dose Admin Albuterol/Ipratropium 1 amp 04/23/19 22:24 Duoneb - NEB Q6H PRN SHORTNESS OF BREATH Artificial Tears 1 drop 04/24/19 10:00 04/24/19 11:25 Artificial Tears OU Not Given BID CHAVEZ Atorvastatin Calcium 10 mg 04/24/19 22:00 Lipitor - PO HS CHAVEZ Famotidine 20 mg 04/24/19 10:00 04/24/19 10:45 Pepcid - PO 20 mg BID CHAVEZ Administration Finasteride 5 mg 04/25/19 10:00 Proscar - PO DAILY CHAVEZ Folic Acid 1 mg 04/24/19 10:00 04/24/19 10:45 Folic Acid - PO 1 mg DAILY CHAVEZ Administration Sodium Chloride 1,000 mls @ 83 mls/hr 04/24/19 13:30 04/24/19 14:00 Normal Saline - IV 83 mls/hr ASDIR CHAVEZ Administration Aztreonam 1 gm/ Dextrose 50 mls @ 100 mls/hr 04/24/19 22:00 IVPB Q12H [facility] Protocol Insulin Aspart 1 vial 04/24/19 16:30 04/24/19 17:36 Novolog Vial Sliding Scale - SQ Not Given TIDAC [facility] Protocol Insulin Detemir 10 units 04/24/19 22:00 Levemir Vial SQ BID@0700,2200 [facility] Tamsulosin HCl 0.8 mg 04/24/19 08:30 04/24/19 08:30 Flomax - PO 0.8 mg DAILY@0830 CHAVEZ Administration Thiamine HCl 100 mg 04/24/19 10:00 04/24/19 10:45 Vitamin B1 - PO 100 mg DAILY CHAVEZ Administration A/P Patient is a 74 year of male with a significant pmh of dementia, CHF, MDD, anemia, BPH, GERD, DM, HTN, HLD who presents via [facility] with a low hemoglobin level of 6.8 /hematuria s/p cystoscopy/ biopsy --? prelimimarily carcinoma On broad spectrum antibiotics pending urine cultures also acute renall failure Also h/o Cirhosis/varices/splenomegaly on imaging in 02/04 last scans 02/05/19 will discuss with urology
[2019-04-24] MEDS ORDERED: AZTREONAM 1 GM VIAL (RESTRICTED TO ID) ONE (22:56)
[2019-04-24] MEDS ORDERED: DEXTROSE 5%-WATER - 50 ML IVPB ONE (22:56)
[2019-04-24] MEDS: AZTREONAM 1 GM in DEXTROSE 5%-WATER - 50 ML IVPB SCH (22:58)
[2019-04-24] MEDS: INSULIN (LEVEMIR) 100 UNITS/ML UNITS SQ SCH (22:59)
[2019-04-24] MEDS: ATORVASTATIN CA 10 MG TABLET (FP) PO SCH (22:59)
[2019-04-25] MEDS: INSULIN SLIDING SCALE (NOVOLOG) 1 VIAL SQ SCH ×3 (06:47→18:13)
[2019-04-25] MEDS: INSULIN (LEVEMIR) 100 UNITS/ML UNITS SQ SCH ×2 (06:47→22:22)
[2019-04-25 08:34] LABS: BASO % 0.3 % (0-2.0); EOS % 1.2 % (0-4.5); HEMATOCRIT 23.3 % (35.4-49); HEMOGLOBIN 7.7 GM/dL (11.7-16.9); LYMPH % 10.7 % (8-40); MCH 28.9 pg (25.7-33.7); MCHC 32.9 g/dl (32.0-35.9); MEAN CELL VOLUME 87.9 fl (80-96); MEAN PLT VOLUME 8.1 fl (7.5-11.1); MONO % 13.7 % (3.8-10.2); NEUT % 74.1 % (42.8-82.8); PLATELET COUNT 231 K/MM3 (134-434); RBC 2.65 M/mm3 (4.00-5.60); RDW 14.7 % (11.9-15.9); WHITE BLOOD COUNT 8.5 K/mm3 (4.0-10.0)
[2019-04-25 09:00] LABS: ALBUMIN 2.1 g/dl (3.4-5.0); BILIRUBIN,TOTAL 0.6 mg/dL (0.2-1); CALCIUM 7.7 mg/dL (8.5-10.1); CREATININE 2.9 mg/dL (0.55-1.3); POTASSIUM 5.1 mmol/L (3.5-5.1)
[2019-04-25] MEDS ORDERED: AZTREONAM 1 GM VIAL (RESTRICTED TO ID) ONE (09:54)
[2019-04-25] MEDS ORDERED: DEXTROSE 5%-WATER - 50 ML IVPB ONE (09:54)
[2019-04-25] MEDS: AZTREONAM 1 GM in DEXTROSE 5%-WATER - 50 ML IVPB SCH (10:29)
[2019-04-25] MEDS: FAMOTIDINE 20 MG TABLET PO SCH ×2 (10:29→22:22)
[2019-04-25] MEDS: SODIUM CHLORIDE 1,000 ML IV SCH ×2 (10:30→18:13)
[2019-04-25] MEDS: FINASTERIDE 5 MG TABLET (FP) PO SCH (10:30)
[2019-04-25] MEDS: THIAMINE HCL 100 MG TABLET (FP) PO SCH (10:30)
[2019-04-25] MEDS: FOLIC ACID 1 MG TABLET (FP) PO SCH (10:30)
[2019-04-25] MEDS: TAMSULOSIN HCL 0.4 MG CAP PO SCH (10:30)
--- NOTE | 2019-04-25 10:59 | PN ---
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, Physician History of Present Illness: Pt seen/ examined chart is reviewed awake/ comfortable feels better denies pain afebrile - Current Medication List Current Medications: Active Medications Albuterol/Ipratropium (Duoneb -) 1 amp NEB Q6H PRN PRN Reason: SHORTNESS OF BREATH Artificial Tears (Artificial Tears) 1 drop OU BID [facility] Last Admin: 04/24/19 23:01 Dose: Not Given Atorvastatin Calcium (Lipitor -) 10 mg PO HS [facility] Last Admin: 04/24/19 22:59 Dose: 10 mg Famotidine (Pepcid -) 20 mg PO BID [facility] Last Admin: 04/25/19 10:29 Dose: 20 mg Finasteride (Proscar -) 5 mg PO DAILY [facility] Last Admin: 04/25/19 10:30 Dose: 5 mg Folic Acid (Folic Acid -) 1 mg PO DAILY [facility] Last Admin: 04/25/19 10:30 Dose: 1 mg Sodium Chloride (Normal Saline -) 1,000 mls @ 83 mls/hr IV ASDIR [facility] Last Admin: 04/25/19 10:30 Dose: 83 mls/hr Aztreonam 1 gm/ Dextrose 50 mls @ 100 mls/hr IVPB Q12H [facility]; Protocol Last Admin: 04/25/19 10:29 Dose: 100 mls/hr Insulin Aspart (Novolog Vial Sliding Scale -) 1 vial SQ TIDAC [facility]; Protocol Last Admin: 04/25/19 06:47 Dose: Not Given Insulin Detemir (Levemir Vial) 10 units SQ BID@0700,2200 [facility] Last Admin: 04/25/19 06:47 Dose: 10 units Tamsulosin HCl (Flomax -) 0.8 mg PO DAILY@0830 [facility] Last Admin: 04/25/19 10:30 Dose: 0.8 mg Thiamine HCl (Vitamin B1 -) 100 mg PO DAILY [facility] Last Admin: 04/25/19 10:30 Dose: 100 mg - Objective Vital Signs: Vital Signs Temperature 98.4 F 04/25/19 06:00 Pulse Rate 79 04/25/19 06:00 Respiratory Rate 20 04/25/19 06:00 Blood Pressure 143/67 04/25/19 06:00 O2 Sat by Pulse Oximetry (%) 99 04/24/19 21:00 Constitutional: Yes: No Distress, Calm Eyes: Yes: Conjunctiva Clear Neck: Yes: Supple Cardiovascular: Yes: Regular Rate and Rhythm Respiratory: Yes: Diminished Gastrointestinal: Yes: Soft, Abdomen, Obese Genitourinary: Yes: Thomas Present, Hematuria Edema: No Neurological: Yes: Alert Labs: CBC, BMP 04/25/19 08:10 04/25/19 08:10 INR, PTT INR 1.16 (0.83-1.09) H 04/23/19 19:26 Problem List - Problems (1) Bladder cancer Code(s): C67.9 - MALIGNANT NEOPLASM OF BLADDER, UNSPECIFIED (2) Cirrhosis Code(s): K74.60 - UNSPECIFIED CIRRHOSIS OF LIVER (3) ROSA MARIA (acute kidney injury) Code(s): N17.9 - ACUTE KIDNEY FAILURE, UNSPECIFIED (4) Anemia Code(s): D64.9 - ANEMIA, UNSPECIFIED (5) HTN (hypertension) Code(s): I10 - ESSENTIAL (PRIMARY) HYPERTENSION (6) Hematuria Code(s): R31.9 - HEMATURIA, UNSPECIFIED Assessment/Plan Continue present care abx monitor lytes transfuse prn Maintain Thomas Will follow d/w Rn also
[2019-04-25] MEDS: ARTIFICIAL TEARS (POLYVINYL ALCOHOL) OPTH DROPS OU SCH ×2 (12:42→22:23)
--- NOTE | 2019-04-25 17:07 | PN ---
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 (short form) - Note 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: complains of suprapubic pain fernandez with hematuria Vital Signs Period Temp Pulse Resp BP Sys/Gordon Pulse Ox Last 24 Hr 98.3 F-99.3 F 77-92 20-20 140-159/54-71 99-100 cor-rrr lungs clear abd soft, suprapubic discomfort to palpation ext no edema CBC, BMP 04/25/19 08:10 04/25/19 08:10 Microbiology 04/23/19 17:00 Urine - Urine Fernandez Urine Culture - Final NO GROWTH OBTAINED a/p 74 yo man s/p cystoscopy and bladder biopsy admitted with anemia and gross hematuria urine culture is negative no fevers, normal wbc will d/c antibiotics forest/ckd- per primary service awaiting urology f/u multiple antibiotic allergies please call back if needed- no active ID issues at this time
--- NOTE | 2019-04-25 17:29 | CONSULT ---
Consult Consult Specialty:: UROLOGY Reason for Consultation:: Gross hematuria - History of Present Illness Chief Complaint: 74 Y/O male patient with history of Bladder tumor S/P TURBT with high grade bladder tumor, he developed gross hematuria, no fever no pain. leaking around the catheter. O/E distended bladder. [address] - Past Medical History [employer]: Yes: Dementia Cardio/Vascular: Yes: CHF, HTN, Hyperlipdemia Gastrointestinal: Yes: GERD Renal/: Yes: BPH Psych: Yes: Depression Endocrine: Yes: Diabetes Mellitus - Alcohol/Substance Use Hx Alcohol Use: Yes (Former) History of Substance Use: reports: None - Smoking History Smoking history: Former smoker Have you smoked in the past 12 months: No If you are a former smoker, when did you quit?: 25 yrs ago - Social History ADL: Support Services History of Recent Travel: No Home Medications - Allergies Allergies/Adverse Reactions: Allergies Allergy/AdvReac Type Severity Reaction Status Date / Time Cephalosporins Allergy Intermediate Rash Verified 04/23/19 17:54 Penicillins Allergy Intermediate Rash Verified 04/23/19 17:54 - Home Medications Home Medications: Ambulatory Orders Ascorbic Acid [Vitamin C -] 500 mg PO DAILY 10/06/18 Dulaglutide [Trulicity] 0.75 mg SQ WEEKLY 10/06/18 Famotidine 20 mg PO BID 10/06/18 Ferrous Sulfate [Feosol] 325 mg PO DAILY 10/06/18 Finasteride [Proscar -] 5 mg PO DAILY 10/06/18 Folic Acid - 1 mg PO DAILY 10/06/18 Folic Acid/Multivit,Iron,[place] [One Daily Complete Tablet] 1 each PO DAILY 10/06 Furosemide [Lasix -] 60 mg PO DAILY 10/06/18 Insulin Glargine,Hum.rec.anlog [Lantus Solostar] 24 unit SQ HS 10/06/18 Lactulose (Oral Use) [Cephulac -] 20 gm PO BID 10/06/18 Losartan Potassium [Cozaar -] 50 mg PO DAILY 10/06/18 Metformin HCl [Glucophage] 1,000 mg PO BID 10/06/18 Polyvinyl Alcohol [Tears Again] 1 drop OU BID 10/06/18 Potassium Chloride [K-Dur -] 20 meq PO DAILY 10/06/18 Simethicone [Mylicon -] 80 mg PO TID 10/06/18 Simvastatin [Zocor -] 20 mg PO HS 10/06/18 Tamsulosin HCl [Flomax -] 0.8 mg PO DAILY 10/06/18 Thiamine HCl [Vitamin B1] 100 mg PO DAILY 10/06/18 Guaifenesin [Christina-Tussin] 300 mg PO QID PRN 11/17/18 Ibuprofen [Motrin -] 400 mg PO QID PRN 11/17/18 Magnesium Hydrox 2400MG/30Ml [Milk of Magnesia -] 30 ml PO ONCE PRN 11/17/18 Physical Exam Vital Signs: Vital Signs Temperature 98.3 F 04/25/19 14:00 Pulse Rate 79 04/25/19 14:00 Respiratory Rate 20 04/25/19 14:00 Blood Pressure 150/70 04/25/19 14:00 O2 Sat by Pulse Oximetry (%) 99 04/25/19 09:00 Labs: CBC, BMP 04/25/19 08:10 04/25/19 08:10 Assessment/Plan Bladder tumor S/P TURBT Gross hematuria ROSA MARIA [address] catheter inserted, bladder irrigation done and connected into CBI Plan: Renal and pelvic U/S keep fernandez catheter with CBI will do BCG bladder installation later
[2019-04-25] MEDS: ACETAMINOPHEN 325 MG TABLET (FP) PO PRN (20:21)
[2019-04-25] MEDS: ATORVASTATIN CA 10 MG TABLET (FP) PO SCH (22:22)
--- NOTE | 2019-04-26 01:53 | HOSP ---
Subjective - Review of Symptoms Events since last encounter: Hospitalist Encounter Notified by the RN that the patient is reporting bladder pain. Bladder scan showed 436ml. Per the RN, there appears to be leaking around the tube. Was asked to assess. Arrived at bedside, patient is awake, alert at baseline, moaning and grimacing when abdomen/bladder was palpated. Inspected the fernandez catheter and tubing.Leaking noted around catheter. Diaper appears wet. Dark Red/brown colored urine noted in drainage bag. Advised the RN to check the Fernandez balloon, to see if possible deflated. Reviewed Urology's note from 04/25/19, same noted. Assessment: This is a 74 y/o man from [facility] with a PMHx of Dementia, CHF, HTN, HLD, DM , GERD, Anemia, BPH, MDD. Admitted for Symptomatic Anemia, UTI, Hematuria, ROSA MARIA Plan: Morphine Sulfate IV ordered Gastrointestinal: Yes: Abdominal Pain Genitourinary: Yes: Other (bladder distention) Physical Examination Vital Signs: Vital Signs Temperature 99.5 F 04/25/19 21:00 Pulse Rate 92 H 04/25/19 21:00 Respiratory Rate 04/25/19 21:00 Blood Pressure 152/64 04/25/19 21:00 O2 Sat by Pulse Oximetry (%) 99 04/25/19 09:00 Constitutional: Yes: Mild Distress, Other (moaning) Eyes: Yes: WNL, Conjunctiva Clear, PERRL HENT: Yes: WNL, Atraumatic, Normocephalic Neck: Yes: WNL, Supple, Trachea Midline Cardiovascular: Yes: WNL, Regular Rate and Rhythm, S1, S2 Respiratory: Yes: WNL, Regular, CTA Bilaterally Gastrointestinal: Yes: Normal Bowel Sounds, Distention Renal/: Yes: Fernandez Present, Hematuria Edema: No Peripheral Pulses WNL: Yes Neurological: Yes: Alert Psychiatric: Yes: Alert Labs: CBC, BMP 04/25/19 08:10 04/25/19 08:10 Laboratory Results - last 24 hr 04/25/19 04/25/19 04/25/19 05:40 08:10 08:10 WBC 8.5 RBC 2.65 L Hgb 7.7 L Hct 23.3 L MCV 87.9 MCH 28.9 MCHC 32.9 RDW 14.7 Plt Count 231 MPV 8.1 Absolute Neuts (auto) 6.3 Neutrophils % 74.1 Lymphocytes % 10.7 Monocytes % 13.7 H Eosinophils % 1.2 Basophils % 0.3 Nucleated RBC % 0 Sodium 142 Potassium 5.1 Chloride 118 H Carbon Dioxide 16 L Anion Gap 8 BUN 44.0 H Creatinine 2.9 H Est GFR (CKD-EPI)AfAm 23.29 Est GFR (CKD-EPI)NonAf 20.09 POC Glucometer 95 Random Glucose 91 Calcium 7.7 L Total Bilirubin 0.6 AST 23 ALT 13 Alkaline Phosphatase 105 Total Protein 6.0 L Albumin 2.1 L 04/25/19 04/25/19 04/25/19 11:38 16:47 22:08 WBC RBC Hgb Hct MCV MCH MCHC RDW Plt Count MPV Absolute Neuts (auto) Neutrophils % Lymphocytes % Monocytes % Eosinophils % Basophils % Nucleated RBC % Sodium Potassium Chloride Carbon Dioxide Anion Gap BUN Creatinine Est GFR (CKD-EPI)AfAm Est GFR (CKD-EPI)NonAf POC Glucometer 127 134 152 Random Glucose Calcium Total Bilirubin AST ALT Alkaline Phosphatase Total Protein Albumin Current Medications Generic Name Dose Route Start Last Admin Trade Name Freq PRN Reason Stop Dose Admin Acetaminophen 650 mg 04/25/19 19:59 04/25/19 20:21 Tylenol - PO 650 mg Q6H PRN Administration PAIN LEVEL 6-10 Albuterol/Ipratropium 1 amp 04/23/19 22:24 Duoneb - NEB Q6H PRN SHORTNESS OF BREATH Artificial Tears 1 drop 04/24/19 10:00 04/25/19 22:23 Artificial Tears OU 1 drop BID CHAVEZ Administration Atorvastatin Calcium 10 mg 04/24/19 22:00 04/25/19 22:22 Lipitor - PO 10 mg HS CHAVEZ Administration Famotidine 20 mg 04/24/19 10:00 04/25/19 22:22 Pepcid - PO 20 mg BID CHAVEZ Administration Finasteride 5 mg 04/25/19 10:00 04/25/19 10:30 Proscar - PO 5 mg DAILY CHAVEZ Administration Folic Acid 1 mg 04/24/19 10:00 04/25/19 10:30 Folic Acid - PO 1 mg DAILY CHAVEZ Administration Sodium Chloride 1,000 mls @ 83 mls/hr 04/24/19 13:30 04/25/19 18:13 Normal Saline - IV Not Given ASDIR CHAVEZ Insulin Aspart 1 vial 04/24/19 16:30 04/25/19 18:13 Novolog Vial Sliding Scale - SQ Not Given TIDAC [facility] Protocol Insulin Detemir 10 units 04/24/19 22:00 04/25/19 22:22 Levemir Vial SQ 10 units BID@0700,2200 CHAVEZ Administration Morphine Sulfate 1 mg 04/26/19 01:46 Morphine Sulfate IVPUSH Q6H PRN PAIN LEVEL 7 - 10 Tamsulosin HCl 0.8 mg 04/24/19 08:30 04/25/19 10:30 Flomax - PO 0.8 mg DAILY@0830 [facility] Administration Thiamine HCl 100 mg 04/24/19 10:00 04/25/19 10:30 Vitamin B1 - PO 100 mg DAILY CHAVEZ Administration Intake & Output 04/23/19 04/24/19 04/25/19 04/26/19 23:59 23:59 23:59 23:59 Intake Total 400 410 Output Total 210 1500 950 Balance -210 1100 -540 Weight 72.575 kg 75.325 kg 73.164 kg
[2019-04-26] MEDS: MORPHINE SULFATE 2 MG/ML VIAL IVPUSH PRN ×2 (02:10→10:17)
[2019-04-26] MEDS: ACETAMINOPHEN 325 MG TABLET (FP) PO PRN ×3 (03:30→21:06)
[2019-04-26] MEDS: SODIUM CHLORIDE 1,000 ML IV SCH (05:37)
[2019-04-26] MEDS: INSULIN (LEVEMIR) 100 UNITS/ML UNITS SQ SCH ×2 (06:35→22:29)
[2019-04-26] MEDS: INSULIN SLIDING SCALE (NOVOLOG) 1 VIAL SQ SCH ×3 (06:36→17:48)
[2019-04-26] MEDS: FOLIC ACID 1 MG TABLET (FP) PO SCH (09:18)
[2019-04-26] MEDS: FINASTERIDE 5 MG TABLET (FP) PO SCH (09:18)
[2019-04-26] MEDS: THIAMINE HCL 100 MG TABLET (FP) PO SCH (09:18)
[2019-04-26] MEDS: FAMOTIDINE 20 MG TABLET PO SCH ×2 (09:18→21:05)
[2019-04-26] MEDS: ARTIFICIAL TEARS (POLYVINYL ALCOHOL) OPTH DROPS OU SCH ×2 (09:19→22:16)
[2019-04-26] MEDS: TAMSULOSIN HCL 0.4 MG CAP PO SCH (09:19)
[2019-04-26 09:45] LABS: BASO % 0.3 % (0-2.0); EOS % 0.6 % (0-4.5); HEMATOCRIT 19.6 % (35.4-49); MCHC 33.6 g/dl (32.0-35.9); MEAN CELL VOLUME 86.3 fl (80-96); MEAN PLT VOLUME 7.6 fl (7.5-11.1); MONO % 11.8 % (3.8-10.2); NEUT % 79.3 % (42.8-82.8); PLATELET COUNT 206 K/MM3 (134-434); RBC 2.27 M/mm3 (4.00-5.60); RDW 14.9 % (11.9-15.9); WHITE BLOOD COUNT 8.9 K/mm3 (4.0-10.0)
[2019-04-26 09:51] LABS: HEMOGLOBIN 6.6 GM/dL (11.7-16.9)
[2019-04-26 09:58] LABS: INR 1.32 (0.83-1.09); PROTHROMBIN TIME (PATIENT) 15.6 SEC (9.7-13.0)
[2019-04-26 10:00] LABS: ACTIVATED PTT 30.8 SECONDS (25.2-36.5)
[2019-04-26 10:17] LABS: BILIRUBIN,TOTAL 0.5 mg/dL (0.2-1); BLOOD UREA NITROGEN 49.5 mg/dL (7-18); CALCIUM 7.2 mg/dL (8.5-10.1); CREATININE 3.3 mg/dL (0.55-1.3); POTASSIUM 4.8 mmol/L (3.5-5.1); TOT PROT 5.4 g/dl (6.4-8.2)
--- NOTE | 2019-04-26 10:29 | PN ---
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 (short form) - Note 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: GUfollow up. 74year old male with hx of Invasive Ca of the bladder S/P TURBT was admiited with gross hematuria. Atpresent has CBI. C/O lower abd discomfort. CBI return pinkish. Some leakge around meatus noted. ? Bladder spasms. Will continue CBI slowly. Await renal sono. Will follow
--- NOTE | 2019-04-26 12:11 | PN ---
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 (short form) - Note 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: CBI not running properly pt has abd pain no fever Vital Signs - 24 hr 04/25/19 04/25/19 04/26/19 18:00 21:00 02:00 Temperature 98.1 F 99.5 F 97.7 F Pulse Rate 76 92 H 86 Respiratory 20 20 20 Rate Blood Pressure 143/62 152/64 136/70 O2 Sat by Pulse 98 Oximetry (%) 04/26/19 04/26/19 04/26/19 06:00 12:50 13:30 Temperature 97.4 F L 98.1 F 98.4 F Pulse Rate 77 80 86 Respiratory 20 20 20 Rate Blood Pressure 144/69 161/70 160/74 O2 Sat by Pulse Oximetry (%) 04/26/19 15:00 Temperature 99.2 F Pulse Rate 90 Respiratory 21 H Rate Blood Pressure 151/63 O2 Sat by Pulse Oximetry (%) Current Medications Generic Name Dose Route Start Last Admin Trade Name Freq PRN Reason Stop Dose Admin Acetaminophen 650 mg 04/25/19 19:59 04/26/19 03:30 Tylenol - PO 650 mg Q6H PRN Administration PAIN LEVEL 6-10 Albuterol/Ipratropium 1 amp 04/23/19 22:24 Duoneb - NEB Q6H PRN SHORTNESS OF BREATH Artificial Tears 1 drop 04/24/19 10:00 04/26/19 09:19 Artificial Tears OU 1 drop BID CHAVEZ Administration Atorvastatin Calcium 10 mg 04/24/19 22:00 04/25/19 22:22 Lipitor - PO 10 mg HS CHAVEZ Administration Famotidine 20 mg 04/24/19 10:00 04/26/19 09:18 Pepcid - PO 20 mg BID CHAVEZ Administration Finasteride 5 mg 04/25/19 10:00 04/26/19 09:18 Proscar - PO 5 mg DAILY CHAVEZ Administration Folic Acid 1 mg 04/24/19 10:00 04/26/19 09:18 Folic Acid - PO 1 mg DAILY CHAVEZ Administration Insulin Aspart 1 vial 04/24/19 16:30 04/26/19 10:59 Novolog Vial Sliding Scale - SQ Not Given TIDAC [facility] Protocol Insulin Detemir 10 units 04/24/19 22:00 04/26/19 06:35 Levemir Vial SQ 10 units BID@0700,2200 CHAVEZ Administration Morphine Sulfate 1 mg 04/26/19 01:46 04/26/19 10:17 Morphine Sulfate IVPUSH 1 mg Q6H PRN Administration PAIN LEVEL 7 - 10 Tamsulosin HCl 0.8 mg 04/24/19 08:30 04/26/19 09:19 Flomax - PO 0.8 mg DAILY@0830 CHAVEZ Administration Thiamine HCl 100 mg 04/24/19 10:00 04/26/19 09:18 Vitamin B1 - PO 100 mg DAILY CHAVEZ Administration Laboratory Results - last 24 hr 04/23/19 04/25/19 04/25/19 21:10 16:47 22:08 WBC RBC Hgb Hct MCV MCH MCHC RDW Plt Count MPV Absolute Neuts (auto) Neutrophils % Lymphocytes % Monocytes % Eosinophils % Basophils % Nucleated RBC % PT with INR INR PTT (Actin FS) Sodium Potassium Chloride Carbon Dioxide Anion Gap BUN Creatinine Est GFR (CKD-EPI)AfAm Est GFR (CKD-EPI)NonAf POC Glucometer 134 152 Random Glucose Calcium Total Bilirubin AST ALT Alkaline Phosphatase Total Protein Albumin Blood Type O POSITIVE Antibody Screen Negative Crossmatch See Detail 04/26/19 04/26/19 04/26/19 06:00 06:32 07:52 WBC 8.9 RBC 2.27 L Hgb 6.6 L* Hct 19.6 L D MCV 86.3 MCH 29.0 MCHC 33.6 RDW 14.9 Plt Count 206 MPV 7.6 Absolute Neuts (auto) 7.1 Neutrophils % 79.3 Lymphocytes % 8.0 D Monocytes % 11.8 H Eosinophils % 0.6 Basophils % 0.3 Nucleated RBC % 0 PT with INR INR PTT (Actin FS) Sodium 141 Potassium 4.8 Chloride 116 H Carbon Dioxide 16 L Anion Gap 9 BUN 49.5 H Creatinine 3.3 H Est GFR (CKD-EPI)AfAm 19.92 Est GFR (CKD-EPI)NonAf 17.19 POC Glucometer 111 Random Glucose 100 Calcium 7.2 L Total Bilirubin 0.5 AST 20 ALT 13 Alkaline Phosphatase 101 Total Protein 5.4 L Albumin 2.0 L Blood Type Antibody Screen Crossmatch 04/26/19 04/26/19 07:52 10:38 WBC RBC Hgb Hct MCV MCH MCHC RDW Plt Count MPV Absolute Neuts (auto) Neutrophils % Lymphocytes % Monocytes % Eosinophils % Basophils % Nucleated RBC % PT with INR 15.60 H INR 1.32 H PTT (Actin FS) 30.8 Sodium Potassium Chloride Carbon Dioxide Anion Gap BUN Creatinine Est GFR (CKD-EPI)AfAm Est GFR (CKD-EPI)NonAf POC Glucometer 148 Random Glucose Calcium Total Bilirubin AST ALT Alkaline Phosphatase Total Protein Albumin Blood Type Antibody Screen Crossmatch S1 S2 RRR Lungs clear Abd- soft, obese, NT no edema Thomas-- clogged PLAN Iv fluids dc for now needs PRBC spoke with Dr Smith who will come in to look at pt iv antibiotics Problem List - Problems (1) ROSA MARIA (acute kidney injury) Code(s): N17.9 - ACUTE KIDNEY FAILURE, UNSPECIFIED (2) Anemia Code(s): D64.9 - ANEMIA, UNSPECIFIED (3) BPH (benign prostatic hyperplasia) Code(s): N40.0 - BENIGN PROSTATIC HYPERPLASIA WITHOUT LOWER URINRY TRACT SYMP (4) Dementia Code(s): F03.90 - UNSPECIFIED DEMENTIA WITHOUT BEHAVIORAL DISTURBANCE (5) Diabetes mellitus Code(s): E11.9 - TYPE 2 DIABETES MELLITUS WITHOUT COMPLICATIONS (6) HLD (hyperlipidemia) Code(s): E78.5 - HYPERLIPIDEMIA, UNSPECIFIED
--- NOTE | 2019-04-26 14:16 | PN ---
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 (short form) - Note 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: Called to see the pt. C/O severe pain. Bladder distended. Thomas obstructed with clots. Irrigated free of clots. CBI is running OK. Continue CBI. Pt. receiving transfusion. Will follow,
--- NOTE | 2019-04-26 15:18 | RAPID ---
Physical Examination Vital Signs: Vital Signs Temperature 99.2 F 04/26/19 15:00 Pulse Rate 90 04/26/19 15:00 Respiratory Rate 21 H 04/26/19 15:00 Blood Pressure 151/63 04/26/19 15:00 O2 Sat by Pulse Oximetry (%) 98 04/25/19 21:00 Tmax 99.9F, HR 92, BP 180/66 then 151/64 on repeat Findings/Remarks: Rapid Response(@13:15) called for new complaint of severe Right-sided neck pain. Nurse found patient lethargic with pooling drool when patient endorsed neck pain. Morning complicated by intermittent cloggage of bladder irrigation tubing. Pt admitted for hematuria, anemia requiring transfusion. Constitutional: Yes: Calm. No: Mild Distress Eyes: Yes: Conjunctiva Clear, EOM Intact. No: Ptosis HENT: Yes: Atraumatic, Normocephalic Neck: Yes: Supple, Trachea Midline, Tenderness (TTP of Right trapezius muscle) Cardiovascular: No: Tachycardia, Pulse Irregular, Murmur Respiratory: Yes: On Nasal O2, Wheezes (b/l bases). No: Accessory Muscle Use Gastrointestinal: Yes: Soft, Ascites, Other (protuberant belly.). No: Tenderness Renal/: Yes: Thomas Present (No suprapubic tenderness. Thomas in place with CBI running. Luis E blood in tubing.), Hematuria. No: Bladder Distention Musculoskeletal: Yes: Other (Right trapezius pain) Extremities: No: Calf Tenderness Edema: LLE: Trace, RLE: Trace Neurological: Yes: Alert, Cran Nerves II-XII Intact. No: Confusion ...Motor Strength: WNL Labs: CBC, BMP 04/26/19 07:52 04/26/19 06:00 Rapid Response - Rapid Response Assessment: # Neck pain likely MSK-related. # SOB cough be mild excerbation vs fluid overload from blood transfusion # Hematuria 2/2 malignancy and CBI Outcome: - duonebs and CXR for b/l wheezes. No lasix given d/t ROSA MARIA --CXR imaging review: old rib fx noted, Left CPA sharper than compared to 04/23. No major abn otherwise. Awaiting Rad read - acetaminophen for neck pain - bladder scan to r/o urinary retention from clots - sign to be given to Dr High Primary Physician Notified: Lacy High
[2019-04-26] MEDS ORDERED: MORPHINE SULFATE 2 MG/ML VIAL IVPUSH ONE (15:30)
[2019-04-26] MEDS: amLODIPine BESYLATE 5 MG TABLET (FP) PO SCH (15:55)
[2019-04-26] MEDS: ALBUTEROL SO4 2.5/IPRATROPIUM 0.5 INH SOL 3 ML VIAL.NEB. NEB PRN (16:12)
[2019-04-26 17:13] LABS: HEMATOCRIT 24.6 % (35.4-49); MCH 29.1 pg (25.7-33.7); MCHC 32.5 g/dl (32.0-35.9); MEAN CELL VOLUME 89.6 fl (80-96); MEAN PLT VOLUME 7.7 fl (7.5-11.1); PLATELET COUNT 223 K/MM3 (134-434); RBC 2.75 M/mm3 (4.00-5.60); RDW 14.9 % (11.9-15.9); WHITE BLOOD COUNT 10.9 K/mm3 (4.0-10.0)
[2019-04-26] MEDS ORDERED: SODIUM CHLORIDE 0.45% 1,000 ML IV SCH (17:30)
[2019-04-26] MEDS: ATORVASTATIN CA 10 MG TABLET (FP) PO SCH (21:05)
[2019-04-26] MEDS ORDERED: INSULIN (NOVOLOG) ASPART 100 UNITS/ML 10ML VIAL ONE (22:25)
[2019-04-27] MEDS: MORPHINE SULFATE 2 MG/ML VIAL IVPUSH PRN (02:33)
[2019-04-27] MEDS: INSULIN SLIDING SCALE (NOVOLOG) 1 VIAL SQ SCH ×3 (06:00→16:58)
[2019-04-27] MEDS: INSULIN (LEVEMIR) 100 UNITS/ML UNITS SQ SCH ×2 (06:34→21:24)
[2019-04-27] MEDS: ALBUTEROL SO4 2.5/IPRATROPIUM 0.5 INH SOL 3 ML VIAL.NEB. NEB PRN ×2 (07:25→11:41)
[2019-04-27 09:57] LABS: BASO % 0.1 % (0-2.0); EOS % 0.4 % (0-4.5); HEMATOCRIT 25.4 % (35.4-49); HEMOGLOBIN 8.4 GM/dL (11.7-16.9); LYMPH % 3.6 % (8-40); MCH 29.1 pg (25.7-33.7); MCHC 33.1 g/dl (32.0-35.9); MEAN PLT VOLUME 7.8 fl (7.5-11.1); MONO % 8.1 % (3.8-10.2); NEUT % 87.8 % (42.8-82.8); PLATELET COUNT 220 K/MM3 (134-434); RBC 2.89 M/mm3 (4.00-5.60); RDW 14.7 % (11.9-15.9)
[2019-04-27] MEDS: ARTIFICIAL TEARS (POLYVINYL ALCOHOL) OPTH DROPS OU SCH ×2 (09:59→21:16)
[2019-04-27] MEDS: amLODIPine BESYLATE 5 MG TABLET (FP) PO SCH (09:59)
[2019-04-27] MEDS: FINASTERIDE 5 MG TABLET (FP) PO SCH (09:59)
[2019-04-27] MEDS: FAMOTIDINE 20 MG TABLET PO SCH ×2 (09:59→21:15)
[2019-04-27] MEDS: TAMSULOSIN HCL 0.4 MG CAP PO SCH (09:59)
[2019-04-27] MEDS: FOLIC ACID 1 MG TABLET (FP) PO SCH (09:59)
[2019-04-27] MEDS: THIAMINE HCL 100 MG TABLET (FP) PO SCH (10:00)
[2019-04-27 10:20] LABS: ALBUMIN 1.9 g/dl (3.4-5.0); BILIRUBIN,TOTAL 0.8 mg/dL (0.2-1); BLOOD UREA NITROGEN 47.6 mg/dL (7-18); CALCIUM 7.2 mg/dL (8.5-10.1); CREATININE 4.3 mg/dL (0.55-1.3); POTASSIUM 5.1 mmol/L (3.5-5.1); TOT PROT 5.8 g/dl (6.4-8.2)
--- NOTE | 2019-04-27 10:54 | PN ---
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 (short form) - Note 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: CBI in progress pt has abd pain no fever no sob rapid response yesterday for elevated BP and neck pain during transfusion-- he received about 250cc blood but discarded the rest 150cc after he developed symptoms. Was thought to have a transfusion reaction - but he received 2nd unit without any issues.Just had musculoskeletal pain Vital Signs - 24 hr 04/26/19 04/26/19 04/27/19 21:00 22:21 02:00 Temperature 98.7 F 98.5 F Pulse Rate 81 75 Respiratory 18 18 Rate Blood Pressure 140/64 132/70 O2 Sat by Pulse 96 Oximetry (%) 04/27/19 04/27/19 04/27/19 06:00 09:00 09:26 Temperature 99.1 F 99.5 F Pulse Rate 88 92 H Respiratory 18 20 Rate Blood Pressure 125/65 130/54 L O2 Sat by Pulse 98 Oximetry (%) 04/27/19 04/27/19 04/27/19 15:42 18:00 20:14 Temperature 98.5 F 99.3 F 98.9 F Pulse Rate 97 H 96 H 86 Respiratory 20 20 22 H Rate Blood Pressure 156/64 172/70 H 130/55 L O2 Sat by Pulse Oximetry (%) Current Medications Generic Name Dose Route Start Last Admin Trade Name Freq PRN Reason Stop Dose Admin Acetaminophen 650 mg 04/25/19 19:59 04/27/19 18:11 Tylenol - PO 650 mg Q6H PRN Administration PAIN LEVEL 6-10 Albuterol/Ipratropium 1 amp 04/23/19 22:24 04/27/19 11:41 Duoneb - NEB 1 amp Q6H PRN Administration SHORTNESS OF BREATH Amlodipine Besylate 5 mg 04/26/19 15:30 04/27/19 09:59 Norvasc - PO 5 mg DAILY CHAVEZ Administration Artificial Tears 1 drop 04/24/19 10:00 04/27/19 09:59 Artificial Tears OU 1 drop BID CHAVEZ Administration Atorvastatin Calcium 10 mg 04/24/19 22:00 04/26/19 21:05 Lipitor - PO 10 mg HS CHAVEZ Administration Famotidine 20 mg 04/24/19 10:00 04/27/19 09:59 Pepcid - PO 20 mg BID CHAVEZ Administration Finasteride 5 mg 04/25/19 10:00 04/27/19 09:59 Proscar - PO 5 mg DAILY CHAVEZ Administration Folic Acid 1 mg 04/24/19 10:00 04/27/19 09:59 Folic Acid - PO 1 mg DAILY CHAVEZ Administration Insulin Aspart 1 vial 04/24/19 16:30 04/27/19 16:58 Novolog Vial Sliding Scale - SQ Not Given TIDAC [facility] Protocol Insulin Detemir 10 units 04/24/19 22:00 04/27/19 06:34 Levemir Vial SQ 10 units BID@0700,2200 [facility] Administration Lidocaine 1 patch 04/27/19 11:15 04/27/19 13:08 Lidoderm Patch - TP 1 patch DAILY CHAVEZ Administration Miscellaneous 1 each 04/27/19 22:00 Lidoderm Patch Removal MC DAILY@2199 [facility] Morphine Sulfate 1 mg 04/26/19 01:46 04/27/19 02:33 Morphine Sulfate IVPUSH 1 mg Q6H PRN Administration PAIN LEVEL 7 - 10 Sodium Bicarbonate 650 mg 04/27/19 18:10 Sodium Bicarbonate - PO TID [facility] Tamsulosin HCl 0.8 mg 04/24/19 08:30 04/27/19 09:59 Flomax - PO 0.8 mg DAILY@0830 [facility] Administration Thiamine HCl 100 mg 04/24/19 10:00 04/27/19 10:00 Vitamin B1 - PO 100 mg DAILY CHAVEZ Administration Laboratory Results - last 24 hr 04/23/19 04/23/19 04/26/19 19:26 21:10 22:28 WBC RBC Hgb Hct MCV MCH MCHC RDW Plt Count MPV Absolute Neuts (auto) Neutrophils % Lymphocytes % Monocytes % Eosinophils % Basophils % Nucleated RBC % Sodium Potassium Chloride Carbon Dioxide Anion Gap BUN Creatinine Est GFR (CKD-EPI)AfAm Est GFR (CKD-EPI)NonAf POC Glucometer 166 Random Glucose Calcium Total Bilirubin AST ALT Alkaline Phosphatase Total Protein Albumin Blood Type O POSITIVE Antibody Screen Negative Crossmatch See Detail See Detail 04/27/19 04/27/19 04/27/19 05:36 09:15 09:15 WBC 14.0 H RBC 2.89 L Hgb 8.4 L Hct 25.4 L MCV 88.0 MCH 29.1 MCHC 33.1 RDW 14.7 Plt Count 220 MPV 7.8 Absolute Neuts (auto) 12.3 H Neutrophils % 87.8 H Lymphocytes % 3.6 L D Monocytes % 8.1 Eosinophils % 0.4 Basophils % 0.1 Nucleated RBC % 0 Sodium 138 Potassium 5.1 Chloride 112 H Carbon Dioxide 15 L Anion Gap 11 BUN 47.6 H Creatinine 4.3 H Est GFR (CKD-EPI)AfAm 14.46 Est GFR (CKD-EPI)NonAf 12.48 POC Glucometer 105 Random Glucose 155 H Calcium 7.2 L Total Bilirubin 0.8 AST 29 ALT 14 Alkaline Phosphatase 98 Total Protein 5.8 L Albumin 1.9 L Blood Type Antibody Screen Crossmatch 04/27/19 04/27/19 12:01 16:46 WBC RBC Hgb Hct MCV MCH MCHC RDW Plt Count MPV Absolute Neuts (auto) Neutrophils % Lymphocytes % Monocytes % Eosinophils % Basophils % Nucleated RBC % Sodium Potassium Chloride Carbon Dioxide Anion Gap BUN Creatinine Est GFR (CKD-EPI)AfAm Est GFR (CKD-EPI)NonAf POC Glucometer 158 140 Random Glucose Calcium Total Bilirubin AST ALT Alkaline Phosphatase Total Protein Albumin Blood Type Antibody Screen Crossmatch S1 S2 RRR Lungs clear Abd- soft, obese, NT no edema Thomas-+ PLAN Iv fluids off iv antibiotics Renal eval for acute on chronic renal failure Urology follow up --- may need TURBT PRBC as needed Problem List - Problems (1) ROSA MARIA (acute kidney injury) Code(s): N17.9 - ACUTE KIDNEY FAILURE, UNSPECIFIED (2) Anemia Code(s): D64.9 - ANEMIA, UNSPECIFIED (3) BPH (benign prostatic hyperplasia) Code(s): N40.0 - BENIGN PROSTATIC HYPERPLASIA WITHOUT LOWER URINRY TRACT SYMP (4) Dementia Code(s): F03.90 - UNSPECIFIED DEMENTIA WITHOUT BEHAVIORAL DISTURBANCE (5) Diabetes mellitus Code(s): E11.9 - TYPE 2 DIABETES MELLITUS WITHOUT COMPLICATIONS (6) HLD (hyperlipidemia) Code(s): E78.5 - HYPERLIPIDEMIA, UNSPECIFIED
[2019-04-27] MEDS ORDERED: SODIUM CHLORIDE 0.45% 1,000 ML IV SCH (11:05)
[2019-04-27] MEDS: LIDOCAINE 5% TOPICAL PATCH TP SCH (13:08)
--- NOTE | 2019-04-27 18:04 | CONSULT ---
Consult Consult Specialty:: Nephrology Reason for Consultation:: ROSA MARIA - History of Present Illness Chief Complaint: hematuria History of Present Illness: Pt is a 74 year old male with pmhx of dementia, chf, htn, hld, dm, gerd, anemia , bph, and MDD [facility] and dysuria. he complains of suprapubic discomfort. he was found to have worsening renal function and I was called to evaluate him. He was found to have clots in the fernandez yesterday and was placed on cbi by urology. He now was found to have bilateral hydro on ultrasound. - History Source History Provided By: Patient, Medical Record - Past Medical History [employer]: Yes: Dementia Cardio/Vascular: Yes: CHF, HTN, Hyperlipdemia Gastrointestinal: Yes: GERD Renal/: Yes: BPH Psych: Yes: Depression Endocrine: Yes: Diabetes Mellitus - Alcohol/Substance Use Hx Alcohol Use: Yes (Former) History of Substance Use: reports: None - Smoking History Smoking history: Former smoker Have you smoked in the past 12 months: No If you are a former smoker, when did you quit?: 25 yrs ago - Social History ADL: Support Services History of Recent Travel: No Home Medications - Allergies Allergies/Adverse Reactions: Allergies Allergy/AdvReac Type Severity Reaction Status Date / Time Cephalosporins Allergy Intermediate Rash Verified 04/23/19 17:54 Penicillins Allergy Intermediate Rash Verified 04/23/19 17:54 - Home Medications Home Medications: Ambulatory Orders Ascorbic Acid [Vitamin C -] 500 mg PO DAILY 10/06/18 Dulaglutide [Trulicity] 0.75 mg SQ WEEKLY 10/06/18 Famotidine 20 mg PO BID 10/06/18 Ferrous Sulfate [Feosol] 325 mg PO DAILY 10/06/18 Finasteride [Proscar -] 5 mg PO DAILY 10/06/18 Folic Acid - 1 mg PO DAILY 10/06/18 Folic Acid/Multivit,Iron,[place] [One Daily Complete Tablet] 1 each PO DAILY 10/06 Furosemide [Lasix -] 60 mg PO DAILY 10/06/18 Insulin Glargine,Hum.rec.anlog [Lantus Solostar] 24 unit SQ HS 10/06/18 Lactulose (Oral Use) [Cephulac -] 20 gm PO BID 10/06/18 Losartan Potassium [Cozaar -] 50 mg PO DAILY 10/06/18 Metformin HCl [Glucophage] 1,000 mg PO BID 10/06/18 Polyvinyl Alcohol [Tears Again] 1 drop OU BID 10/06/18 Potassium Chloride [K-Dur -] 20 meq PO DAILY 10/06/18 Simethicone [Mylicon -] 80 mg PO TID 10/06/18 Simvastatin [Zocor -] 20 mg PO HS 10/06/18 Tamsulosin HCl [Flomax -] 0.8 mg PO DAILY 10/06/18 Thiamine HCl [Vitamin B1] 100 mg PO DAILY 10/06/18 Guaifenesin [Christina-Tussin] 300 mg PO QID PRN 11/17/18 Ibuprofen [Motrin -] 400 mg PO QID PRN 11/17/18 Magnesium Hydrox 2400MG/30Ml [Milk of Magnesia -] 30 ml PO ONCE PRN 11/17/18 Family Medical History Family History: Denies Review of Systems - Review of Systems Constitutional: reports: Malaise Eyes: reports: No Symptoms HENT: reports: No Symptoms Neck: reports: No Symptoms Cardiovascular: reports: No Symptoms Respiratory: reports: No Symptoms Gastrointestinal: reports: No Symptoms Genitourinary: reports: Other (suprapubic pain) Musculoskeletal: reports: No Symptoms Neurological: reports: No Symptoms Hematology/Lymphatic: reports: No Symptoms Physical Exam Vital Signs: Vital Signs Temperature 98.5 F 04/27/19 15:42 Pulse Rate 97 H 04/27/19 15:42 Respiratory Rate 20 04/27/19 15:42 Blood Pressure 156/64 04/27/19 15:42 O2 Sat by Pulse Oximetry (%) 98 04/27/19 09:00 Constitutional: Yes: Calm Eyes: Yes: Conjunctiva Clear HENT: Yes: Atraumatic Cardiovascular: Yes: S1, S2 Respiratory: Yes: CTA Bilaterally Gastrointestinal: Yes: Soft Renal/: Yes: Fernandez Present, Other (pt on CBI) Musculoskeletal: Yes: WNL Edema: No Neurological: Yes: Oriented Labs: CBC, BMP 04/27/19 09:15 04/27/19 09:15 Laboratory Tests 04/23/19 04/24/19 04/25/19 19:26 06:30 08:10 Creatinine 2.8 H 2.9 H 2.9 H 04/26/19 04/27/19 06:00 09:15 Creatinine 3.3 H 4.3 H Imaging - Results Ultrasound: Report Reviewed Problem List - Problems (1) ROSA MARIA (acute kidney injury) Code(s): N17.9 - ACUTE KIDNEY FAILURE, UNSPECIFIED (2) BPH (benign prostatic hyperplasia) Code(s): N40.0 - BENIGN PROSTATIC HYPERPLASIA WITHOUT LOWER URINRY TRACT SYMP (3) Bladder cancer Code(s): C67.9 - MALIGNANT NEOPLASM OF BLADDER, UNSPECIFIED (4) CHF (congestive heart failure) Code(s): I50.9 - HEART FAILURE, UNSPECIFIED Assessment/Plan Current Medications Generic Name Dose Route Start Last Admin Trade Name Freq PRN Reason Stop Dose Admin Acetaminophen 650 mg 04/25/19 19:59 04/26/19 21:06 Tylenol - PO 650 mg Q6H PRN Administration PAIN LEVEL 6-10 Albuterol/Ipratropium 1 amp 04/23/19 22:24 04/27/19 11:41 Duoneb - NEB 1 amp Q6H PRN Administration SHORTNESS OF BREATH Amlodipine Besylate 5 mg 04/26/19 15:30 04/27/19 09:59 Norvasc - PO 5 mg DAILY CHAVEZ Administration Artificial Tears 1 drop 04/24/19 10:00 04/27/19 09:59 Artificial Tears OU 1 drop BID CHAVEZ Administration Atorvastatin Calcium 10 mg 04/24/19 22:00 04/26/19 21:05 Lipitor - PO 10 mg HS CHAVEZ Administration Famotidine 20 mg 04/24/19 10:00 04/27/19 09:59 Pepcid - PO 20 mg BID CHAVEZ Administration Finasteride 5 mg 04/25/19 10:00 04/27/19 09:59 Proscar - PO 5 mg DAILY CHAVEZ Administration Folic Acid 1 mg 04/24/19 10:00 04/27/19 09:59 Folic Acid - PO 1 mg DAILY CHAVEZ Administration Sodium Chloride 1,000 mls @ 100 mls/hr 04/27/19 11:05 04/27/19 13:07 1/2 Normal Saline IV 100 mls/hr ASDIR CHAVEZ Administration Insulin Aspart 1 vial 04/24/19 16:30 04/27/19 16:58 Novolog Vial Sliding Scale - SQ Not Given TIDAC [facility] Protocol Insulin Detemir 10 units 04/24/19 22:00 04/27/19 06:34 Levemir Vial SQ 10 units BID@0700,2200 CH[facility]Z Administration Lidocaine 1 patch 04/27/19 11:15 04/27/19 13:08 Lidoderm Patch - TP 1 patch DAILY CHAVEZ Administration Miscellaneous 1 each 04/27/19 22:00 Lidoderm Patch Removal MC DAILY@2200 CHAVEZ Morphine Sulfate 1 mg 04/26/19 01:46 04/27/19 02:33 Morphine Sulfate IVPUSH 1 mg Q6H PRN Administration PAIN LEVEL 7 - 10 Tamsulosin HCl 0.8 mg 04/24/19 08:30 04/27/19 09:59 Flomax - PO 0.8 mg DAILY@0830 CHAVEZ Administration Thiamine HCl 100 mg 04/24/19 10:00 04/27/19 10:00 Vitamin B1 - PO 100 mg DAILY CHAVEZ Administration Impression 1. ROSA MARIA 2. hydronephrosis 3. hematuria 4. dementia 5. chf 6. dm 7. gerd 8. anemia Plan - recall urology for follow up - hold fluids in light of worsening hydro - repeat labs in am - unable to check urine studies as he is on CBI - start po bicarb for now
[2019-04-27] MEDS: ACETAMINOPHEN 325 MG TABLET (FP) PO PRN (18:11)
[2019-04-27] MEDS: ATORVASTATIN CA 10 MG TABLET (FP) PO SCH (21:15)
[2019-04-27] MEDS: LIDOCAINE PATCH REMOVAL MC SCH (21:15)
[2019-04-27] MEDS: SODIUM BICARBONATE 650 MG TABLET PO SCH (21:15)
[2019-04-28] MEDS: SODIUM BICARBONATE 650 MG TABLET PO SCH ×4 (00:12→21:19)
[2019-04-28] MEDS: MORPHINE SULFATE 2 MG/ML VIAL IVPUSH PRN (00:56)
[2019-04-28] MEDS: ACETAMINOPHEN 325 MG TABLET (FP) PO PRN (05:21)
[2019-04-28] MEDS: INSULIN SLIDING SCALE (NOVOLOG) 1 VIAL SQ SCH ×3 (06:07→16:08)
[2019-04-28] MEDS: INSULIN (LEVEMIR) 100 UNITS/ML UNITS SQ SCH ×3 (06:25→21:18)
[2019-04-28] MEDS: ALBUTEROL SO4 2.5/IPRATROPIUM 0.5 INH SOL 3 ML VIAL.NEB. NEB PRN ×2 (07:35→22:05)
[2019-04-28] MEDS: FAMOTIDINE 20 MG TABLET PO SCH ×2 (09:15→21:19)
[2019-04-28] MEDS: TAMSULOSIN HCL 0.4 MG CAP PO SCH (09:15)
[2019-04-28] MEDS: FOLIC ACID 1 MG TABLET (FP) PO SCH (09:15)
[2019-04-28] MEDS: THIAMINE HCL 100 MG TABLET (FP) PO SCH (09:15)
[2019-04-28] MEDS: amLODIPine BESYLATE 5 MG TABLET (FP) PO SCH (09:16)
[2019-04-28] MEDS: FINASTERIDE 5 MG TABLET (FP) PO SCH (09:16)
[2019-04-28] MEDS: LIDOCAINE 5% TOPICAL PATCH TP SCH (09:16)
[2019-04-28] MEDS: ARTIFICIAL TEARS (POLYVINYL ALCOHOL) OPTH DROPS OU SCH ×2 (09:23→21:18)
[2019-04-28 10:04] LABS: HEMATOCRIT 23.2 % (35.4-49); HEMOGLOBIN 7.8 GM/dL (11.7-16.9); MCH 29.1 pg (25.7-33.7); MCHC 33.5 g/dl (32.0-35.9); MEAN CELL VOLUME 86.9 fl (80-96); MEAN PLT VOLUME 7.5 fl (7.5-11.1); PLATELET COUNT 188 K/MM3 (134-434); RBC 2.67 M/mm3 (4.00-5.60); WHITE BLOOD COUNT 16.7 K/mm3 (4.0-10.0)
[2019-04-28 10:32] LABS: ALBUMIN 1.7 g/dl (3.4-5.0); CREATININE 4.7 mg/dL (0.55-1.3); MAGNESIUM 2.3 mg/dL (1.8-2.4); POTASSIUM 4.6 mmol/L (3.5-5.1); TOT PROT 5.1 g/dl (6.4-8.2)
--- NOTE | 2019-04-28 11:52 | PN ---
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 (short form) - Note 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: Pt seen/ examined chart reviewed drowsy arousable no distress passing urine-- clearing afebrile increased wbcs Vital Signs Temp 98.8 F 04/28/19 06:40 Pulse 87 04/28/19 06:40 Resp 22 H 04/28/19 06:40 BP 131/54 L 04/28/19 06:40 Pulse Ox 98 04/28/19 08:39 Intake & Output 04/27/19 04/27/19 04/28/19 11:59 23:59 11:59 Intake Total 6950 7050 9000 Output Total 6000 44718 8100 Balance 950 -4250 900 Intake: IV 500 600 1/2 Normal Saline 1,000 300 ml @ 100 mls/hr IV ASDIR CHAVEZ Rx#:[id number] 1/2 Normal Saline 1,000 500 300 ml @ 75 mls/hr IV ASDIR CHAVEZ Rx#:[id number] IVPB 100 Oral 450 Packed Cells 350 CBI Intake 6000 6000 9000 Output: Urine 6000 33047 8100 Thomas 6000 15259 8100 Other: Voiding Method Indwelling Catheter Indwelling Catheter Indwelling Catheter Bowel Movement No No No Active Medications Acetaminophen (Tylenol -) 650 mg PO Q6H PRN PRN Reason: PAIN LEVEL 6-10 Last Admin: 04/28/19 05:21 Dose: 650 mg Albuterol/Ipratropium (Duoneb -) 1 amp NEB Q6H PRN PRN Reason: SHORTNESS OF BREATH Last Admin: 04/28/19 07:35 Dose: 1 amp Amlodipine Besylate (Norvasc -) 5 mg PO DAILY [facility] Last Admin: 04/28/19 09:16 Dose: 5 mg Artificial Tears (Artificial Tears) 1 drop OU BID [facility] Last Admin: 04/28/19 09:23 Dose: 1 drop Atorvastatin Calcium (Lipitor -) 10 mg PO HS [facility] Last Admin: 04/27/19 21:15 Dose: 10 mg Famotidine (Pepcid -) 20 mg PO BID [facility] Last Admin: 04/28/19 09:15 Dose: 20 mg Finasteride (Proscar -) 5 mg PO DAILY [facility] Last Admin: 04/28/19 09:16 Dose: 5 mg Folic Acid (Folic Acid -) 1 mg PO DAILY [facility] Last Admin: 04/28/19 09:15 Dose: 1 mg Insulin Aspart (Novolog Vial Sliding Scale -) 1 vial SQ TIDAC [facility]; Protocol Last Admin: 04/28/19 06:07 Dose: Not Given Insulin Detemir (Levemir Vial) 10 units SQ BID@0700,2200 [facility] Last Admin: 04/28/19 07:22 Dose: Not Given Lidocaine (Lidoderm Patch -) 1 patch TP DAILY [facility] Last Admin: 04/28/19 09:16 Dose: 1 patch Miscellaneous (Lidoderm Patch Removal) 1 each MC DAILY@2200 [facility] Last Admin: 04/27/19 21:15 Dose: 1 each Morphine Sulfate (Morphine Sulfate) 1 mg IVPUSH Q6H PRN PRN Reason: PAIN LEVEL 7 - 10 Last Admin: 04/28/19 00:56 Dose: 1 mg Polyethylene Glycol (Miralax (For Daily Use) -) 17 gm PO DAILY [facility] Sodium Bicarbonate (Sodium Bicarbonate -) 650 mg PO TID [facility] Last Admin: 04/28/19 05:15 Dose: 650 mg Tamsulosin HCl (Flomax -) 0.8 mg PO DAILY@0830 [facility] Last Admin: 04/28/19 09:15 Dose: 0.8 mg Thiamine HCl (Vitamin B1 -) 100 mg PO DAILY [facility] Last Admin: 04/28/19 09:15 Dose: 100 mg CBC, BMP 04/28/19 08:00 04/28/19 08:00 Physical S1 S2 RRR Lungs clear Abd- soft, obese, distended no edema Thomas-+ PLAN discussed with RN off iv antibiotics D/W renal also Urology follow up --- may need Nephrostomy tubes PRBC as needed Monitor labs Monitor for fever Miralax as no BM x few days as per RN Problem List - Problems (1) ROSA MARIA (acute kidney injury) Code(s): N17.9 - ACUTE KIDNEY FAILURE, UNSPECIFIED (2) Anemia Code(s): D64.9 - ANEMIA, UNSPECIFIED (3) BPH (benign prostatic hyperplasia) Code(s): N40.0 - BENIGN PROSTATIC HYPERPLASIA WITHOUT LOWER URINRY TRACT SYMP (4) Dementia Code(s): F03.90 - UNSPECIFIED DEMENTIA WITHOUT BEHAVIORAL DISTURBANCE (5) Diabetes mellitus Code(s): E11.9 - TYPE 2 DIABETES MELLITUS WITHOUT COMPLICATIONS (6) HLD (hyperlipidemia) Code(s): E78.5 - HYPERLIPIDEMIA, UNSPECIFIED Problem List - Problems (1) Bladder cancer Code(s): C67.9 - MALIGNANT NEOPLASM OF BLADDER, UNSPECIFIED (2) Cirrhosis Code(s): K74.60 - UNSPECIFIED CIRRHOSIS OF LIVER (3) ROSA MARIA (acute kidney injury) Code(s): N17.9 - ACUTE KIDNEY FAILURE, UNSPECIFIED (4) Anemia Code(s): D64.9 - ANEMIA, UNSPECIFIED (5) HTN (hypertension) Code(s): I10 - ESSENTIAL (PRIMARY) HYPERTENSION (6) Hematuria Code(s): R31.9 - HEMATURIA, UNSPECIFIED
[2019-04-28] MEDS: POLYETHYLENE GLYCOL 3350 119 GM BTL PO SCH (12:03)
--- NOTE | 2019-04-28 19:37 | PN ---
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 (short form) - Note 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: UROLOGY NOTE: 74 Y/O male patient with history of Bladder tumor S/P TURBT on 04/12/2019 with high grade bladder tumor, he developed gross hematuria with clots. Thomas with CBI has been started. Return is clear with no clots. Bladder u/s reveals b/l hydro, bladder lesion, and bladder stone in diverticulum. Renal function is deteriorating. Will recommend cysto w/ possible TURB lesion, possible clot evacuation, possible laser lithotripsy, possible b/l retrograde, possible b/l jj stents. Above procedure if patient is medically cleared.
[2019-04-28] MEDS ORDERED: SODIUM BICARBONATE 8.4% 50 MEQ/50 ML DISP.SYRIN IVPUSH ONE (20:01)
--- NOTE | 2019-04-28 20:04 | PN ---
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, Physician History of Present Illness: Pt seen and examined at bedside. He denies shortness of breath. - Current Medication List Current Medications: Active Medications Acetaminophen (Tylenol -) 650 mg PO Q6H PRN PRN Reason: PAIN LEVEL 6-10 Last Admin: 04/28/19 05:21 Dose: 650 mg Albuterol/Ipratropium (Duoneb -) 1 amp NEB Q6H PRN PRN Reason: SHORTNESS OF BREATH Last Admin: 04/28/19 07:35 Dose: 1 amp Amlodipine Besylate (Norvasc -) 5 mg PO DAILY [facility] Last Admin: 04/28/19 09:16 Dose: 5 mg Artificial Tears (Artificial Tears) 1 drop OU BID [facility] Last Admin: 04/28/19 09:23 Dose: 1 drop Atorvastatin Calcium (Lipitor -) 10 mg PO HS [facility] Last Admin: 04/27/19 21:15 Dose: 10 mg Famotidine (Pepcid -) 20 mg PO BID [facility] Last Admin: 04/28/19 09:15 Dose: 20 mg Finasteride (Proscar -) 5 mg PO DAILY [facility] Last Admin: 04/28/19 09:16 Dose: 5 mg Folic Acid (Folic Acid -) 1 mg PO DAILY [facility] Last Admin: 04/28/19 09:15 Dose: 1 mg Insulin Aspart (Novolog Vial Sliding Scale -) 1 vial SQ TIDAC [facility]; Protocol Last Admin: 04/28/19 16:08 Dose: 2 units Insulin Detemir (Levemir Vial) 10 units SQ BID@0700,2200 [facility] Last Admin: 04/28/19 07:22 Dose: Not Given Lidocaine (Lidoderm Patch -) 1 patch TP DAILY [facility] Last Admin: 04/28/19 09:16 Dose: 1 patch Miscellaneous (Lidoderm Patch Removal) 1 each MC DAILY@2200 [facility] Last Admin: 04/27/19 21:15 Dose: 1 each Morphine Sulfate (Morphine Sulfate) 1 mg IVPUSH Q6H PRN PRN Reason: PAIN LEVEL 7 - 10 Last Admin: 04/28/19 00:56 Dose: 1 mg Polyethylene Glycol (Miralax (For Daily Use) -) 17 gm PO DAILY [facility] Last Admin: 04/28/19 12:03 Dose: 17 gm Sodium Bicarbonate (Sodium Bicarbonate -) 650 mg PO TID [facility] Last Admin: 04/28/19 13:38 Dose: 650 mg Sodium Bicarbonate (Sodium Bicarbonate 8.4% -) 50 meq IVPUSH ONCE ONE Stop: 04/28/19 20:02 Tamsulosin HCl (Flomax -) 0.8 mg PO DAILY@0830 [facility] Last Admin: 04/28/19 09:15 Dose: 0.8 mg Thiamine HCl (Vitamin B1 -) 100 mg PO DAILY [facility] Last Admin: 04/28/19 09:15 Dose: 100 mg - Objective Vital Signs: Vital Signs Temperature 99.4 F 04/28/19 18:00 Pulse Rate 89 04/28/19 18:00 Respiratory Rate 22 H 04/28/19 18:00 Blood Pressure 142/68 04/28/19 18:00 O2 Sat by Pulse Oximetry (%) 98 04/28/19 08:39 Constitutional: Yes: Calm Eyes: Yes: Conjunctiva Clear HENT: Yes: Atraumatic Neck: Yes: Supple Cardiovascular: Yes: S1, S2 Respiratory: Yes: CTA Bilaterally Gastrointestinal: Yes: Soft Genitourinary: Yes: Thomas Present, Other (on cbi) Musculoskeletal: Yes: WNL Edema: LLE: Trace, RLE: Trace Neurological: Yes: Oriented Psychiatric: Yes: Agitated Labs: CBC, BMP 04/28/19 08:00 04/28/19 08:00 INR, PTT INR 1.32 (0.83-1.09) H 04/26/19 07:52 Problem List - Problems (1) ROSA MARIA (acute kidney injury) Code(s): N17.9 - ACUTE KIDNEY FAILURE, UNSPECIFIED (2) BPH (benign prostatic hyperplasia) Code(s): N40.0 - BENIGN PROSTATIC HYPERPLASIA WITHOUT LOWER URINRY TRACT SYMP (3) Bladder cancer Code(s): C67.9 - MALIGNANT NEOPLASM OF BLADDER, UNSPECIFIED (4) CHF (congestive heart failure) Code(s): I50.9 - HEART FAILURE, UNSPECIFIED Assessment/Plan Current Medications Generic Name Dose Route Start Last Admin Trade Name Freq PRN Reason Stop Dose Admin Acetaminophen 650 mg 04/25/19 19:59 04/28/19 05:21 Tylenol - PO 650 mg Q6H PRN Administration PAIN LEVEL 6-10 Albuterol/Ipratropium 1 amp 04/23/19 22:24 04/28/19 07:35 Duoneb - NEB 1 amp Q6H PRN Administration SHORTNESS OF BREATH Amlodipine Besylate 5 mg 04/26/19 15:30 04/28/19 09:16 Norvasc - PO 5 mg DAILY [facility] Administration Artificial Tears 1 drop 04/24/19 10:00 04/28/19 09:23 Artificial Tears OU 1 drop BID [facility] Administration Atorvastatin Calcium 10 mg 04/24/19 22:00 04/27/19 21:15 Lipitor - PO 10 mg HS [facility] Administration Famotidine 20 mg 04/24/19 10:00 04/28/19 09:15 Pepcid - PO 20 mg BID [facility] Administration Finasteride 5 mg 04/25/19 10:00 04/28/19 09:16 Proscar - PO 5 mg DAILY [facility] Administration Folic Acid 1 mg 04/24/19 10:00 04/28/19 09:15 Folic Acid - PO 1 mg DAILY [facility] Administration Insulin Aspart 1 vial 04/24/19 16:30 04/28/19 16:08 Novolog Vial Sliding Scale - SQ 2 units TIDAC [facility] Administration Protocol Insulin Detemir 10 units 04/24/19 22:00 04/28/19 07:22 Levemir Vial SQ Not Given BID@0700,2200 [facility] Lidocaine 1 patch 04/27/19 11:15 04/28/19 09:16 Lidoderm Patch - TP 1 patch DAILY [facility] Administration Miscellaneous 1 each 04/27/19 22:00 04/27/19 21:15 Lidoderm Patch Removal MC 1 each DAILY@2200 [facility] Administration Morphine Sulfate 1 mg 04/26/19 01:46 04/28/19 00:56 Morphine Sulfate IVPUSH 1 mg Q6H PRN Administration PAIN LEVEL 7 - 10 Polyethylene Glycol 17 gm 04/28/19 12:00 04/28/19 12:03 Miralax (For Daily Use) - PO 17 gm DAILY [facility] Administration Sodium Bicarbonate 650 mg 04/27/19 18:10 04/28/19 13:38 Sodium Bicarbonate - PO 650 mg TID [facility] Administration Sodium Bicarbonate 50 meq 04/28/19 20:01 Sodium Bicarbonate 8.4% - IVPUSH 04/28/19 20:02 ONCE ONE Tamsulosin HCl 0.8 mg 04/24/19 08:30 04/28/19 09:15 Flomax - PO 0.8 mg DAILY@0830 [facility] Administration Thiamine HCl 100 mg 02/06/20 10:00 04/28/19 09:15 Vitamin B1 - PO 100 mg DAILY [facility] Administration Impression 1. ROSA MARIA 2. hydronephrosis 3. hematuria 4. dementia 5. chf 6. dm 7. gerd 8. anemia Plan - hold fluids - will give bicarb - called urology to evaluate patient - renal function worsening - hydro on ultrasound - repeat labs in am - unable to check urine studies as he is on CBI
[2019-04-28] MEDS: LIDOCAINE PATCH REMOVAL MC SCH (21:19)
[2019-04-28] MEDS: ATORVASTATIN CA 10 MG TABLET (FP) PO SCH (21:19)
[2019-04-29] MEDS: MORPHINE SULFATE 2 MG/ML VIAL IVPUSH PRN ×2 (01:08→20:56)
[2019-04-29] MEDS: INSULIN SLIDING SCALE (NOVOLOG) 1 VIAL SQ SCH ×3 (06:47→17:31)
[2019-04-29] MEDS: INSULIN (LEVEMIR) 100 UNITS/ML UNITS SQ SCH ×2 (06:47→21:48)
[2019-04-29] MEDS: SODIUM BICARBONATE 650 MG TABLET PO SCH ×3 (06:48→21:47)
[2019-04-29 09:10] LABS: BASO % 0.3 % (0-2.0); EOS % 1.2 % (0-4.5); HEMATOCRIT 24.3 % (35.4-49); LYMPH % 4.6 % (8-40); MCHC 33.1 g/dl (32.0-35.9); MEAN CELL VOLUME 87.5 fl (80-96); MEAN PLT VOLUME 7.6 fl (7.5-11.1); MONO % 9.7 % (3.8-10.2); NEUT % 84.2 % (42.8-82.8); PLATELET COUNT 203 K/MM3 (134-434); RBC 2.77 M/mm3 (4.00-5.60); RDW 15.2 % (11.9-15.9); WHITE BLOOD COUNT 12.9 K/mm3 (4.0-10.0)
[2019-04-29 09:31] LABS: ALBUMIN 1.7 g/dl (3.4-5.0); BILIRUBIN,TOTAL 0.8 mg/dL (0.2-1); CALCIUM 7.1 mg/dL (8.5-10.1); CREATININE 5.5 mg/dL (0.55-1.3); POTASSIUM 4.7 mmol/L (3.5-5.1); TOT PROT 5.4 g/dl (6.4-8.2)
[2019-04-29] MEDS: TAMSULOSIN HCL 0.4 MG CAP PO SCH (09:32)
[2019-04-29] MEDS: amLODIPine BESYLATE 5 MG TABLET (FP) PO SCH (09:33)
[2019-04-29] MEDS: FOLIC ACID 1 MG TABLET (FP) PO SCH (09:33)
[2019-04-29] MEDS: THIAMINE HCL 100 MG TABLET (FP) PO SCH (09:33)
[2019-04-29] MEDS: FAMOTIDINE 20 MG TABLET PO SCH ×2 (09:33→21:48)
[2019-04-29] MEDS: FINASTERIDE 5 MG TABLET (FP) PO SCH (09:33)
[2019-04-29] MEDS: POLYETHYLENE GLYCOL 3350 119 GM BTL PO SCH (09:33)
[2019-04-29] MEDS: ARTIFICIAL TEARS (POLYVINYL ALCOHOL) OPTH DROPS OU SCH ×2 (09:34→21:47)
[2019-04-29] MEDS: LIDOCAINE 5% TOPICAL PATCH TP SCH (09:34)
--- NOTE | 2019-04-29 11:26 | PN ---
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 (short form) - Note 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: CBI in progress no distress no fever no sob Vital Signs - 24 hr 04/28/19 04/28/19 04/28/19 15:00 18:00 21:00 Temperature 98.6 F 99.4 F Pulse Rate 96 H 89 Respiratory 22 H 22 H 22 H Rate Blood Pressure 155/62 142/68 O2 Sat by Pulse 99 Oximetry (%) 04/29/19 04/29/19 06:00 09:40 Temperature 98.1 F 98.4 F Pulse Rate 81 82 Respiratory 18 20 Rate Blood Pressure 122/51 L 130/54 L O2 Sat by Pulse Oximetry (%) Current Medications Generic Name Dose Route Start Last Admin Trade Name Freq PRN Reason Stop Dose Admin Acetaminophen 650 mg 04/25/19 19:59 04/28/19 05:21 Tylenol - PO 650 mg Q6H PRN Administration PAIN LEVEL 6-10 Albuterol/Ipratropium 1 amp 04/23/19 22:24 04/28/19 22:05 Duoneb - NEB 1 amp Q6H PRN Administration SHORTNESS OF BREATH Amlodipine Besylate 5 mg 04/26/19 15:30 04/29/19 09:33 Norvasc - PO 5 mg DAILY [facility] Administration Artificial Tears 1 drop 04/24/19 10:00 04/29/19 09:34 Artificial Tears OU 1 drop BID [facility] Administration Atorvastatin Calcium 10 mg 04/24/19 22:00 04/28/19 21:19 Lipitor - PO 10 mg HS [facility] Administration Famotidine 20 mg 04/24/19 10:00 04/29/19 09:33 Pepcid - PO 20 mg BID [facility] Administration Finasteride 5 mg 04/25/19 10:00 04/29/19 09:33 Proscar - PO 5 mg DAILY [facility] Administration Folic Acid 1 mg 04/24/19 10:00 04/29/19 09:33 Folic Acid - PO 1 mg DAILY [facility] Administration Insulin Aspart 1 vial 04/24/19 16:30 04/29/19 06:47 Novolog Vial Sliding Scale - SQ Not Given TIDAC [facility] Protocol Insulin Detemir 10 units 04/24/19 22:00 04/29/19 06:47 Levemir Vial SQ Not Given BID@0700,2200 [facility] Lidocaine 1 patch 04/27/19 11:15 04/29/19 09:34 Lidoderm Patch - TP 1 patch DAILY [facility] Administration Miscellaneous 1 each 04/27/19 22:00 04/28/19 21:19 Lidoderm Patch Removal MC 1 each DAILY@2200 [facility] Administration Morphine Sulfate 1 mg 04/26/19 01:46 04/29/19 01:08 Morphine Sulfate IVPUSH 1 mg Q6H PRN Administration PAIN LEVEL 7 - 10 Polyethylene Glycol 17 gm 04/28/19 12:00 04/29/19 09:33 Miralax (For Daily Use) - PO 17 gm DAILY [facility] Administration Sodium Bicarbonate 650 mg 04/27/19 18:10 04/29/19 06:48 Sodium Bicarbonate - PO 650 mg TID [facility] Administration Tamsulosin HCl 0.8 mg 04/24/19 08:30 04/29/19 09:32 Flomax - PO 0.8 mg DAILY@0830 [facility] Administration Thiamine HCl 100 mg 04/24/19 10:00 04/29/19 09:33 Vitamin B1 - PO 100 mg DAILY [facility] Administration Laboratory Results - last 24 hr 04/28/19 04/28/19 04/29/19 12:01 16:05 06:02 WBC RBC Hgb Hct MCV MCH MCHC RDW Plt Count MPV Absolute Neuts (auto) Neutrophils % Lymphocytes % Monocytes % Eosinophils % Basophils % Nucleated RBC % Sodium Potassium Chloride Carbon Dioxide Anion Gap BUN Creatinine Est GFR (CKD-EPI)AfAm Est GFR (CKD-EPI)NonAf POC Glucometer 148 199 79 Random Glucose Calcium Total Bilirubin AST ALT Alkaline Phosphatase Total Protein Albumin 04/29/19 04/29/19 08:13 08:13 WBC 12.9 H RBC 2.77 L Hgb 8.0 L Hct 24.3 L MCV 87.5 MCH 29.0 MCHC 33.1 RDW 15.2 Plt Count 203 MPV 7.6 Absolute Neuts (auto) 10.9 H Neutrophils % 84.2 H Lymphocytes % 4.6 L D Monocytes % 9.7 Eosinophils % 1.2 D Basophils % 0.3 Nucleated RBC % 0 Sodium 138 Potassium 4.7 Chloride 112 H Carbon Dioxide 14 L Anion Gap 11 BUN 62.0 H Creatinine 5.5 H Est GFR (CKD-EPI)AfAm 10.74 Est GFR (CKD-EPI)NonAf 9.27 POC Glucometer Random Glucose 90 Calcium 7.1 L Total Bilirubin 0.8 AST 30 ALT 15 Alkaline Phosphatase 111 Total Protein 5.4 L Albumin 1.7 L S1 S2 RRR Lungs clear Abd- soft, obese, NT no edema Thomas-+ PLAN off iv antibiotics Renal eval noted cardiology eval for clearance check Echo Urology follow up --- will be arranging for surgery PRBC as needed spoke with sister today Problem List - Problems (1) ROSA MARIA (acute kidney injury) Code(s): N17.9 - ACUTE KIDNEY FAILURE, UNSPECIFIED (2) Anemia Code(s): D64.9 - ANEMIA, UNSPECIFIED (3) BPH (benign prostatic hyperplasia) Code(s): N40.0 - BENIGN PROSTATIC HYPERPLASIA WITHOUT LOWER URINRY TRACT SYMP (4) Dementia Code(s): F03.90 - UNSPECIFIED DEMENTIA WITHOUT BEHAVIORAL DISTURBANCE (5) Diabetes mellitus Code(s): E11.9 - TYPE 2 DIABETES MELLITUS WITHOUT COMPLICATIONS (6) HLD (hyperlipidemia) Code(s): E78.5 - HYPERLIPIDEMIA, UNSPECIFIED
[2019-04-29] MEDS ORDERED: SODIUM BICARBONATE 8.4% 50 MEQ/50 ML VIAL IVPUSH ONE (14:43)
--- NOTE | 2019-04-29 14:47 | PN ---
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, Physician History of Present Illness: Pt seen and examined at bedside. He appears more comfortable than yesterday. - Current Medication List Current Medications: Active Medications Acetaminophen (Tylenol -) 650 mg PO Q6H PRN PRN Reason: PAIN LEVEL 6-10 Last Admin: 04/28/19 05:21 Dose: 650 mg Albuterol/Ipratropium (Duoneb -) 1 amp NEB Q6H PRN PRN Reason: SHORTNESS OF BREATH Last Admin: 04/28/19 22:05 Dose: 1 amp Amlodipine Besylate (Norvasc -) 5 mg PO DAILY [facility] Last Admin: 04/29/19 09:33 Dose: 5 mg Artificial Tears (Artificial Tears) 1 drop OU BID [facility] Last Admin: 04/29/19 09:34 Dose: 1 drop Atorvastatin Calcium (Lipitor -) 10 mg PO HS [facility] Last Admin: 04/28/19 21:19 Dose: 10 mg Famotidine (Pepcid -) 20 mg PO BID [facility] Last Admin: 04/29/19 09:33 Dose: 20 mg Finasteride (Proscar -) 5 mg PO DAILY [facility] Last Admin: 04/29/19 09:33 Dose: 5 mg Folic Acid (Folic Acid -) 1 mg PO DAILY [facility] Last Admin: 04/29/19 09:33 Dose: 1 mg Insulin Aspart (Novolog Vial Sliding Scale -) 1 vial SQ TIDAC [facility]; Protocol Last Admin: 04/29/19 11:47 Dose: Not Given Insulin Detemir (Levemir Vial) 10 units SQ BID@0700,2200 [facility] Last Admin: 04/29/19 06:47 Dose: Not Given Lidocaine (Lidoderm Patch -) 1 patch TP DAILY [facility] Last Admin: 04/29/19 09:34 Dose: 1 patch Miscellaneous (Lidoderm Patch Removal) 1 each MC DAILY@2200 [facility] Last Admin: 04/28/19 21:19 Dose: 1 each Morphine Sulfate (Morphine Sulfate) 1 mg IVPUSH Q6H PRN PRN Reason: PAIN LEVEL 7 - 10 Last Admin: 04/29/19 01:08 Dose: 1 mg Polyethylene Glycol (Miralax (For Daily Use) -) 17 gm PO DAILY [facility] Last Admin: 04/29/19 09:33 Dose: 17 gm Sodium Bicarbonate (Sodium Bicarbonate -) 650 mg PO TID [facility] Last Admin: 04/29/19 13:20 Dose: 650 mg Sodium Bicarbonate (Sodium Bicarbonate 8.4% -) 50 meq IVPUSH ONCE ONE Stop: 04/29/19 14:44 Tamsulosin HCl (Flomax -) 0.8 mg PO DAILY@0830 [facility] Last Admin: 04/29/19 09:32 Dose: 0.8 mg Thiamine HCl (Vitamin B1 -) 100 mg PO DAILY [facility] Last Admin: 04/29/19 09:33 Dose: 100 mg - Objective Vital Signs: Vital Signs Temperature 98.4 F 04/29/19 09:40 Pulse Rate 82 04/29/19 09:40 Respiratory Rate 04/29/19 09:40 Blood Pressure 130/54 L 04/29/19 09:40 O2 Sat by Pulse Oximetry (%) 97 04/29/19 09:00 Constitutional: Yes: Calm Eyes: Yes: Conjunctiva Clear HENT: Yes: Atraumatic Neck: Yes: Supple Cardiovascular: Yes: S1, S2 Respiratory: Yes: CTA Bilaterally Gastrointestinal: Yes: Soft Genitourinary: Yes: Thomas Present, Other (on cbi) Musculoskeletal: Yes: WNL Edema: No Neurological: Yes: Oriented Psychiatric: Yes: Oriented Labs: CBC, BMP 04/29/19 08:13 04/29/19 08:13 INR, PTT INR 1.32 (0.83-1.09) H 04/26/19 07:52 Problem List - Problems (1) ROSA MARIA (acute kidney injury) Code(s): N17.9 - ACUTE KIDNEY FAILURE, UNSPECIFIED (2) BPH (benign prostatic hyperplasia) Code(s): N40.0 - BENIGN PROSTATIC HYPERPLASIA WITHOUT LOWER URINRY TRACT SYMP (3) Bladder cancer Code(s): C67.9 - MALIGNANT NEOPLASM OF BLADDER, UNSPECIFIED (4) CHF (congestive heart failure) Code(s): I50.9 - HEART FAILURE, UNSPECIFIED Assessment/Plan Current Medications Generic Name Dose Route Start Last Admin Trade Name Freq PRN Reason Stop Dose Admin Acetaminophen 650 mg 04/25/19 19:59 04/28/19 05:21 Tylenol - PO 650 mg Q6H PRN Administration PAIN LEVEL 6-10 Albuterol/Ipratropium 1 amp 04/23/19 22:24 04/28/19 22:05 Duoneb - NEB 1 amp Q6H PRN Administration SHORTNESS OF BREATH Amlodipine Besylate 5 mg 04/26/19 15:30 04/29/19 09:33 Norvasc - PO 5 mg DAILY [facility] Administration Artificial Tears 1 drop 04/24/19 10:00 04/29/19 09:34 Artificial Tears OU 1 drop BID [facility] Administration Atorvastatin Calcium 10 mg 04/24/19 22:00 04/28/19 21:19 Lipitor - PO 10 mg HS [facility] Administration Famotidine 20 mg 04/24/19 10:00 04/29/19 09:33 Pepcid - PO 20 mg BID [facility] Administration Finasteride 5 mg 04/25/19 10:00 04/29/19 09:33 Proscar - PO 5 mg DAILY [facility] Administration Folic Acid 1 mg 04/24/19 10:00 04/29/19 09:33 Folic Acid - PO 1 mg DAILY [facility] Administration Insulin Aspart 1 vial 04/24/19 16:30 04/29/19 11:47 Novolog Vial Sliding Scale - SQ Not Given TIDAC [facility] Protocol Insulin Detemir 10 units 04/24/19 22:00 04/29/19 06:47 Levemir Vial SQ Not Given BID@0700,2200 [facility] Lidocaine 1 patch 04/27/19 11:15 04/29/19 09:34 Lidoderm Patch - TP 1 patch DAILY [facility] Administration Miscellaneous 1 each 04/27/19 22:00 04/28/19 21:19 Lidoderm Patch Removal MC 1 each DAILY@2200 [facility] Administration Morphine Sulfate 1 mg 04/26/19 01:46 04/29/19 01:08 Morphine Sulfate IVPUSH 1 mg Q6H PRN Administration PAIN LEVEL 7 - 10 Polyethylene Glycol 17 gm 04/28/19 12:00 04/29/19 09:33 Miralax (For Daily Use) - PO 17 gm DAILY [facility] Administration Sodium Bicarbonate 650 mg 04/27/19 18:10 04/29/19 13:20 Sodium Bicarbonate - PO 650 mg TID [facility] Administration Sodium Bicarbonate 50 meq 04/29/19 14:43 Sodium Bicarbonate 8.4% - IVPUSH 04/29/19 14:44 ONCE ONE Tamsulosin HCl 0.8 mg 04/24/19 08:30 04/29/19 09:32 Flomax - PO 0.8 mg DAILY@0830 [facility] Administration Thiamine HCl 100 mg 04/24/19 10:00 04/29/19 09:33 Vitamin B1 - PO 100 mg DAILY [facility] Administration Impression 1. ROSA MARIA 2. hydronephrosis 3. hematuria 4. dementia 5. chf 6. dm 7. gerd 8. anemia Plan - renal function is worsening - monitor service tech after obstruction is relieved - urology follow up - will give bicarb - hydro on ultrasound - repeat labs in am - discussed with medical attending - unable to check urine studies as he is on CBI
--- NOTE | 2019-04-29 14:56 | CON.CARD ---
Consult Consult Specialty:: Cardiology Referred by:: Dr. Lcay Gupta Reason for Consultation:: Cardiac evaluation - History of Present Illness Chief Complaint: Hematuria History of Present Illness: Patient is a 74 year old male with underlying history of HTN, hypercholesterolemia, diabetes mellitus, GERD, BPH, MDD, anemia and dementia who presented from [place] with anemia and hematuria. He was evaluated by service and currently is planned for cystoscopy with possible TURB lesion, laser lithotripsy and possible stenting. Cardiac clearance was requested. He denies shortness of breath or palpitations. He complains of abdominal discomfort and complains of vague chest discomfort intermittently. He denies paroxysmal nocturnal dyspnea or orthopnea. He denies fever or chills. He denies nausea, vomiting, diarrhea or abdominal pain. He denies headache or lightheadedness. 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 Cardio/Vascular: Yes: CHF, HTN, Hyperlipdemia Gastrointestinal: Yes: GERD Renal/: Yes: BPH Psych: Yes: Depression Endocrine: Yes: Diabetes Mellitus - Alcohol/Substance Use Hx Alcohol Use: Yes (Former) History of Substance Use: reports: None - Smoking History Smoking history: Former smoker Have you smoked in the past 12 months: No If you are a former smoker, when did you quit?: 25 yrs ago - Social History ADL: Support Services History of Recent Travel: No Home Medications - Allergies Allergies/Adverse Reactions: Allergies Allergy/AdvReac Type Severity Reaction Status Date / Time Cephalosporins Allergy Intermediate Rash Verified 04/23/19 17:54 Penicillins Allergy Intermediate Rash Verified 04/23/19 17:54 - Home Medications Home Medications: Ambulatory Orders Ascorbic Acid [Vitamin C -] 500 mg PO DAILY 10/06/18 Dulaglutide [Trulicity] 0.75 mg SQ WEEKLY 10/06/18 Famotidine 20 mg PO BID 10/06/18 Ferrous Sulfate [Feosol] 325 mg PO DAILY 10/06/18 Finasteride [Proscar -] 5 mg PO DAILY 10/06/18 Folic Acid - 1 mg PO DAILY 10/06/18 Folic Acid/Multivit,Iron,Tullos [One Daily Complete Tablet] 1 each PO DAILY 10/06 Furosemide [Lasix -] 60 mg PO DAILY 10/06/18 Insulin Glargine,Hum.rec.anlog [Lantus Solostar] 24 unit SQ HS 10/06/18 Lactulose (Oral Use) [Cephulac -] 20 gm PO BID 10/06/18 Losartan Potassium [Cozaar -] 50 mg PO DAILY 10/06/18 Metformin HCl [Glucophage] 1,000 mg PO BID 10/06/18 Polyvinyl Alcohol [Tears Again] 1 drop OU BID 10/06/18 Potassium Chloride [K-Dur -] 20 meq PO DAILY 10/06/18 Simethicone [Mylicon -] 80 mg PO TID 10/06/18 Simvastatin [Zocor -] 20 mg PO HS 10/06/18 Tamsulosin HCl [Flomax -] 0.8 mg PO DAILY 10/06/18 Thiamine HCl [Vitamin B1] 100 mg PO DAILY 10/06/18 Guaifenesin [Christina-Tussin] 300 mg PO QID PRN 11/17/18 Ibuprofen [Motrin -] 400 mg PO QID PRN 11/17/18 Magnesium Hydrox 2400MG/30Ml [Milk of Magnesia -] 30 ml PO ONCE PRN 11/17/18 Review of Systems - Review of Systems Constitutional: denies: Chills, Fever Cardiovascular: reports: Chest Pain. denies: Palpitations, Shortness of Breath Respiratory: denies: Cough, Hemoptysis, Orthopnea, PND, SOB, SOB on Exertion Gastrointestinal: reports: Abdominal Pain. denies: Constipation, Diarrhea, Melena, Nausea, Rectal Bleeding, Vomiting Genitourinary: reports: Hematuria Musculoskeletal: denies: Back Pain, Joint Pain Neurological: denies: Dizziness, Headache, Seizure, Syncope Vital Signs: Vital Signs Temperature 98.4 F 04/29/19 09:40 Pulse Rate 82 04/29/19 09:40 Respiratory Rate 04/29/19 09:40 Blood Pressure 130/54 L 04/29/19 09:40 O2 Sat by Pulse Oximetry (%) 97 04/29/19 09:00 Neck: Yes: Supple Respiratory: Yes: Diminished Gastrointestinal: Yes: Normal Bowel Sounds, Soft, Distention Cardiovascular: Yes: Regular Rate and Rhythm JVD: No PMI: Non-Displaced Heart Sounds: Yes: S1, S2 Edema: No - Other Data Labs, Other Data: CBC, BMP 04/29/19 08:13 04/29/19 08:13 INR, PTT INR 1.32 (0.83-1.09) H 04/26/19 07:52 Laboratory Results - last 24 hr 04/29/19 04/29/19 04/29/19 08:13 08:13 11:46 WBC 12.9 H RBC 2.77 L Hgb 8.0 L Hct 24.3 L MCV 87.5 MCH 29.0 MCHC 33.1 RDW 15.2 Plt Count 203 MPV 7.6 Absolute Neuts (auto) 10.9 H Neutrophils % 84.2 H Lymphocytes % 4.6 L D Monocytes % 9.7 Eosinophils % 1.2 D Basophils % 0.3 Nucleated RBC % 0 Sodium 138 Potassium 4.7 Chloride 112 H Carbon Dioxide 14 L Anion Gap 11 BUN 62.0 H Creatinine 5.5 H Est GFR (CKD-EPI)AfAm 10.74 Est GFR (CKD-EPI)NonAf 9.27 POC Glucometer 134 Random Glucose 90 Calcium 7.1 L Total Bilirubin 0.8 AST 30 ALT 15 Alkaline Phosphatase 111 Total Protein 5.4 L Albumin 1.7 L Blood Type Antibody Screen Crossmatch Normal sinus rhythm with nonspecific ST abnormality Imaging - Results Chest X-ray: Report Reviewed (Unremarkable) Ultrasound: Report Reviewed (Abdominal US - bladder density, cholelithiasis) EKG: Report Reviewed Problem List - Problems (1) ROSA MARIA (acute kidney injury) Code(s): N17.9 - ACUTE KIDNEY FAILURE, UNSPECIFIED (2) Anemia Code(s): D64.9 - ANEMIA, UNSPECIFIED (3) BPH (benign prostatic hyperplasia) Code(s): N40.0 - BENIGN PROSTATIC HYPERPLASIA WITHOUT LOWER URINRY TRACT SYMP (4) Dementia Code(s): F03.90 - UNSPECIFIED DEMENTIA WITHOUT BEHAVIORAL DISTURBANCE (5) Diabetes mellitus Code(s): E11.9 - TYPE 2 DIABETES MELLITUS WITHOUT COMPLICATIONS (6) GERD (gastroesophageal reflux disease) Code(s): K21.9 - GASTRO-ESOPHAGEAL REFLUX DISEASE WITHOUT ESOPHAGITIS (7) HLD (hyperlipidemia) Code(s): E78.5 - HYPERLIPIDEMIA, UNSPECIFIED (8) HTN (hypertension) Code(s): I10 - ESSENTIAL (PRIMARY) HYPERTENSION Assessment/Plan 1. Hematuria and anemia 2. HTN 3. Hypercholesterolemia 4. DM 5. BPH 6. Dementia 7. MDD 8. ROSA MARIA/CKD PLAN: 1. Continue current medical therapy - Amlodipine 5 mg QD 2. Continue Atorvastatin 10 mg QHS 3. Echocardiography to assess LV/RV and valvular function 4. Renal input noted 5. No absolute contraindication for intervention in view of absence of ischemic symptoms, decompensated congestive heart failure or malignant arrhythmia Further plans are to follow Rigo Garrido MD
--- NOTE | 2019-04-29 16:11 | ECHO ---
Name: INO ELDER Exam:Adult Echocardiogram Study Date: 04/29/2019 02:26 PM Age: 74 yrs Reason For Study: CHF Height: 64 in Weight: 161 lb BSA: 1.8 m2 MMode/2D Measurements & Calculations IVSd: 1.2 cm Ao root diam: 3.1 cm LVIDd: 4.3 cm LA dimension: 3.4 cm LVIDs: 2.8 cm LVPWd: 1.2 cm LVPWs: 1.3 cm EDV(Teich): 83.0 ml ESV(Teich): 30.0 ml LVOT diam: 1.8 cm LAV (MOD-bp): 93.8 ml RV S Luigi: 12.1 cm/sec Doppler Measurements & Calculations MV V2 max: 130.3 cm/sec MV E max luigi: 113.3 cm/sec MV max P.8 mmHg MV A max luigi: 48.0 cm/sec MV V2 mean: 80.9 cm/sec MV E/A: 2.4 MV mean P.1 mmHg MV dec time: 0.17 sec MV V2 VTI: 37.0 cm Ao V2 max: 150.0 cm/sec LV V1 max P.9 mmHg Ao max P.0 mmHg LV V1 max: 131.0 cm/sec ANDREA(V,D): 2.3 cm2 MR max luigi: 508.2 cm/sec PA V2 max: 141.2 cm/sec MR max P.3 mmHg PA max P.0 mmHg Med Peak E' Luigi: 6.7 cm/sec Med E/e': 16.8 Lat Peak E' Luigi: 11.4 cm/sec Lat E/e': 9.9 Left Ventricle The left ventricular size, thickness and function are normal. Right Ventricle The right ventricular systolic function is normal. Atria Normal left and right atrial size and function. Mitral Valve The mitral valve is grossly normal. There is mild mitral regurgitation. Tricuspid Valve The tricuspid valve is not well visualized, but is grossly normal. There is Trace to mild tricuspid regurgitation. Aortic Valve The aortic valve is normal in structure and function. Pulmonic Valve The pulmonic valve is not well seen, but is grossly normal. Great Vessels The aortic root is normal size. Pericardium/Pleura There is no pericardial effusion. Interpretation Summary The left ventricular size, thickness and function are normal The right ventricular systolic function is normal. Normal left and right atrial size and function. The mitral valve is grossly normal. There is mild mitral regurgitation. The tricuspid valve is not well visualized, but is grossly normal. There is Trace to mild tricuspid regurgitation. The aortic valve is normal in structure and function. The aortic root is normal size. There is no pericardial effusion. EF 61% PASP 13 mmHg MD Lenny Calvin 04/29/2019 04:10 PM
[2019-04-29] MEDS: ATORVASTATIN CA 10 MG TABLET (FP) PO SCH (21:47)
[2019-04-29] MEDS: LIDOCAINE PATCH REMOVAL MC SCH (21:48)
[2019-04-30] MEDS: INSULIN (LEVEMIR) 100 UNITS/ML UNITS SQ SCH ×2 (06:28→22:54)
[2019-04-30] MEDS: SODIUM BICARBONATE 650 MG TABLET PO SCH ×3 (06:28→22:53)
[2019-04-30] MEDS: INSULIN SLIDING SCALE (NOVOLOG) 1 VIAL SQ SCH ×3 (06:29→18:20)
[2019-04-30] MEDS: TAMSULOSIN HCL 0.4 MG CAP PO SCH (10:48)
[2019-04-30] MEDS: ARTIFICIAL TEARS (POLYVINYL ALCOHOL) OPTH DROPS OU SCH ×2 (10:48→22:55)
[2019-04-30] MEDS: POLYETHYLENE GLYCOL 3350 119 GM BTL PO SCH (10:49)
[2019-04-30] MEDS: FOLIC ACID 1 MG TABLET (FP) PO SCH (10:49)
[2019-04-30] MEDS: amLODIPine BESYLATE 5 MG TABLET (FP) PO SCH (10:50)
[2019-04-30] MEDS: FAMOTIDINE 20 MG TABLET PO SCH ×2 (10:50→22:53)
[2019-04-30] MEDS: THIAMINE HCL 100 MG TABLET (FP) PO SCH (10:51)
[2019-04-30 11:07] LABS: HEMATOCRIT 22.7 % (35.4-49); HEMOGLOBIN 7.6 GM/dL (11.7-16.9); MCH 28.9 pg (25.7-33.7); MCHC 33.4 g/dl (32.0-35.9); MEAN CELL VOLUME 86.3 fl (80-96); MEAN PLT VOLUME 7.6 fl (7.5-11.1); PLATELET COUNT 213 K/MM3 (134-434); RBC 2.63 M/mm3 (4.00-5.60); RDW 15.5 % (11.9-15.9); WHITE BLOOD COUNT 12.5 K/mm3 (4.0-10.0)
[2019-04-30] MEDS ORDERED: PROPOFOL 20 ML ONE (11:35)
[2019-04-30 11:38] LABS: BLOOD UREA NITROGEN 69.8 mg/dL (7-18); CALCIUM 7.6 mg/dL (8.5-10.1); CREATININE 6.4 mg/dL (0.55-1.3); POTASSIUM 4.9 mmol/L (3.5-5.1)
--- NOTE | 2019-04-30 12:59 | PN ---
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, Physician History of Present Illness: Pt seen and examined at bedside. He was supposed to get a cysto with stent placement however was cleared by anesthesia. - Current Medication List Current Medications: Active Medications Acetaminophen (Tylenol -) 650 mg PO Q6H PRN PRN Reason: PAIN LEVEL 6-10 Last Admin: 04/28/19 05:21 Dose: 650 mg Albuterol/Ipratropium (Duoneb -) 1 amp NEB Q6H PRN PRN Reason: SHORTNESS OF BREATH Last Admin: 04/28/19 22:05 Dose: 1 amp Amlodipine Besylate (Norvasc -) 5 mg PO DAILY [facility] Last Admin: 04/30/19 10:50 Dose: Not Given Artificial Tears (Artificial Tears) 1 drop OU BID [facility] Last Admin: 04/30/19 10:48 Dose: 1 drop Atorvastatin Calcium (Lipitor -) 10 mg PO HS [facility] Last Admin: 04/29/19 21:47 Dose: 10 mg Famotidine (Pepcid -) 20 mg PO BID [facility] Last Admin: 04/30/19 10:50 Dose: Not Given Finasteride (Proscar -) 5 mg PO DAILY [facility] Last Admin: 04/29/19 09:33 Dose: 5 mg Folic Acid (Folic Acid -) 1 mg PO DAILY [facility] Last Admin: 04/30/19 10:49 Dose: Not Given Insulin Aspart (Novolog Vial Sliding Scale -) 1 vial SQ TIDAC [facility]; Protocol Last Admin: 04/30/19 06:29 Dose: Not Given Insulin Detemir (Levemir Vial) 10 units SQ BID@0700,2200 [facility] Last Admin: 04/30/19 06:28 Dose: Not Given Lidocaine (Lidoderm Patch -) 1 patch TP DAILY [facility] Last Admin: 04/29/19 09:34 Dose: 1 patch Miscellaneous (Lidoderm Patch Removal) 1 each MC DAILY@2200 [facility] Last Admin: 04/29/19 21:48 Dose: 1 each Polyethylene Glycol (Miralax (For Daily Use) -) 17 gm PO DAILY [facility] Last Admin: 04/30/19 10:49 Dose: Not Given Sodium Bicarbonate (Sodium Bicarbonate -) 650 mg PO TID [facility] Last Admin: 04/30/19 06:28 Dose: Not Given Tamsulosin HCl (Flomax -) 0.8 mg PO DAILY@0830 [facility] Last Admin: 04/30/19 10:48 Dose: Not Given Thiamine HCl (Vitamin B1 -) 100 mg PO DAILY [facility] Last Admin: 04/30/19 10:51 Dose: Not Given - Objective Vital Signs: Vital Signs Temperature 98.6 F 04/30/19 10:58 Pulse Rate 85 04/30/19 10:58 Respiratory Rate 20 04/30/19 10:58 Blood Pressure 138/55 L 04/30/19 10:58 O2 Sat by Pulse Oximetry (%) 99 04/30/19 09:00 Constitutional: Yes: Anxious Eyes: Yes: Conjunctiva Clear HENT: Yes: Atraumatic Cardiovascular: Yes: S1, S2 Respiratory: Yes: CTA Bilaterally Gastrointestinal: Yes: Distention Genitourinary: Yes: Thomas Present, Hematuria Edema: Yes Edema: LLE: Trace, RLE: Trace Neurological: Yes: Oriented Labs: CBC, BMP 04/30/19 10:33 04/30/19 10:33 INR, PTT INR 1.32 (0.83-1.09) H 04/26/19 07:52 Problem List - Problems (1) ROSA MARIA (acute kidney injury) Code(s): N17.9 - ACUTE KIDNEY FAILURE, UNSPECIFIED (2) BPH (benign prostatic hyperplasia) Code(s): N40.0 - BENIGN PROSTATIC HYPERPLASIA WITHOUT LOWER URINRY TRACT SYMP (3) Bladder cancer Code(s): C67.9 - MALIGNANT NEOPLASM OF BLADDER, UNSPECIFIED (4) CHF (congestive heart failure) Code(s): I50.9 - HEART FAILURE, UNSPECIFIED Assessment/Plan Current Medications Generic Name Dose Route Start Last Admin Trade Name Jefry PRN Reason Stop Dose Admin Acetaminophen 650 mg 04/25/19 19:59 04/28/19 05:21 Tylenol - PO 650 mg Q6H PRN Administration PAIN LEVEL 6-10 Albuterol/Ipratropium 1 amp 04/23/19 22:24 04/28/19 22:05 Duoneb - NEB 1 amp Q6H PRN Administration SHORTNESS OF BREATH Amlodipine Besylate 5 mg 04/26/19 15:30 04/30/19 10:50 Norvasc - PO Not Given DAILY [facility] Artificial Tears 1 drop 04/24/19 10:00 04/30/19 10:48 Artificial Tears OU 1 drop BID [facility] Administration Atorvastatin Calcium 10 mg 04/24/19 22:00 04/29/19 21:47 Lipitor - PO 10 mg HS [facility] Administration Famotidine 20 mg 04/24/19 10:00 04/30/19 10:50 Pepcid - PO Not Given BID [facility] Finasteride 5 mg 04/25/19 10:00 04/29/19 09:33 Proscar - PO 5 mg DAILY [facility] Administration Folic Acid 1 mg 04/24/19 10:00 04/30/19 10:49 Folic Acid - PO Not Given DAILY [facility] Insulin Aspart 1 vial 04/24/19 16:30 04/30/19 06:29 Novolog Vial Sliding Scale - SQ Not Given TIDAC [facility] Protocol Insulin Detemir 10 units 04/24/19 22:00 04/30/19 06:28 Levemir Vial SQ Not Given BID@0700,2200 [facility] Lidocaine 1 patch 04/27/19 11:15 04/29/19 09:34 Lidoderm Patch - TP 1 patch DAILY [facility] Administration Miscellaneous 1 each 04/27/19 22:00 04/29/19 21:48 Lidoderm Patch Removal MC 1 each DAILY@2200 [facility] Administration Polyethylene Glycol 17 gm 04/28/19 12:00 04/30/19 10:49 Miralax (For Daily Use) - PO Not Given DAILY [facility] Sodium Bicarbonate 650 mg 04/27/19 18:10 04/30/19 06:28 Sodium Bicarbonate - PO Not Given TID [facility] Tamsulosin HCl 0.8 mg 04/24/19 08:30 04/30/19 10:48 Flomax - PO Not Given DAILY@0830 [facility] Thiamine HCl 100 mg 04/24/19 10:00 04/30/19 10:51 Vitamin B1 - PO Not Given DAILY [facility] Impression 1. ROSA MARIA 2. hydronephrosis 3. hematuria 4. dementia 5. chf 6. dm 7. gerd 8. 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
--- NOTE | 2019-04-30 13:18 | PN ---
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 (short form) - Note 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: PT WAS SENT BACK FROM OR THE ANESTHESIOLOGIST FELT HE WAS CONGESTED AND ALSO HE NEEDED PRBC Pt upset has no pain no SOB or chest pain Vital Signs - 24 hr 04/29/19 04/29/19 04/29/19 15:28 17:00 21:00 Temperature 98.1 F 98.7 F Pulse Rate 81 85 Respiratory 18 18 18 Rate Blood Pressure 131/58 L 131/60 O2 Sat by Pulse 97 Oximetry (%) 04/30/19 04/30/19 04/30/19 06:00 09:00 10:58 Temperature 98.7 F 98.6 F Pulse Rate 88 85 Respiratory 20 20 20 Rate Blood Pressure 146/57 L 138/55 L O2 Sat by Pulse 99 Oximetry (%) Current Medications Generic Name Dose Route Start Last Admin Trade Name Freq PRN Reason Stop Dose Admin Acetaminophen 650 mg 04/25/19 19:59 04/28/19 05:21 Tylenol - PO 650 mg Q6H PRN Administration PAIN LEVEL 6-10 Albuterol/Ipratropium 1 amp 04/23/19 22:24 04/28/19 22:05 Duoneb - NEB 1 amp Q6H PRN Administration SHORTNESS OF BREATH Amlodipine Besylate 5 mg 04/26/19 15:30 04/30/19 10:50 Norvasc - PO Not Given DAILY [facility] Artificial Tears 1 drop 04/24/19 10:00 04/30/19 10:48 Artificial Tears OU 1 drop BID [facility] Administration Atorvastatin Calcium 10 mg 04/24/19 22:00 04/29/19 21:47 Lipitor - PO 10 mg HS [facility] Administration Famotidine 20 mg 04/24/19 10:00 04/30/19 10:50 Pepcid - PO Not Given BID [facility] Finasteride 5 mg 04/25/19 10:00 04/29/19 09:33 Proscar - PO 5 mg DAILY [facility] Administration Folic Acid 1 mg 04/24/19 10:00 04/30/19 10:49 Folic Acid - PO Not Given DAILY [facility] Insulin Aspart 1 vial 04/24/19 16:30 04/30/19 06:29 Novolog Vial Sliding Scale - SQ Not Given TIDAC [facility] Protocol Insulin Detemir 10 units 04/24/19 22:00 04/30/19 06:28 Levemir Vial SQ Not Given BID@0700,2200 [facility] Lidocaine 1 patch 04/27/19 11:15 04/29/19 09:34 Lidoderm Patch - TP 1 patch DAILY [facility] Administration Miscellaneous 1 each 04/27/19 22:00 04/29/19 21:48 Lidoderm Patch Removal MC 1 each DAILY@2200 [facility] Administration Polyethylene Glycol 17 gm 04/28/19 12:00 04/30/19 10:49 Miralax (For Daily Use) - PO Not Given DAILY [facility] Sodium Bicarbonate 650 mg 04/27/19 18:10 04/30/19 06:28 Sodium Bicarbonate - PO Not Given TID [facility] Tamsulosin HCl 0.8 mg 04/24/19 08:30 04/30/19 10:48 Flomax - PO Not Given DAILY@0830 [facility] Thiamine HCl 100 mg 04/24/19 10:00 04/30/19 10:51 Vitamin B1 - PO Not Given DAILY [facility] Laboratory Results - last 24 hr 04/23/19 04/29/19 04/30/19 19:26 17:30 06:14 WBC RBC Hgb Hct MCV MCH MCHC RDW Plt Count MPV Sodium Potassium Chloride Carbon Dioxide Anion Gap BUN Creatinine Est GFR (CKD-EPI)AfAm Est GFR (CKD-EPI)NonAf POC Glucometer 115 137 Random Glucose Calcium Blood Type O POSITIVE Antibody Screen Negative Crossmatch See Detail 04/30/19 04/30/19 04/30/19 10:33 10:33 12:40 WBC 12.5 H RBC 2.63 L Hgb 7.6 L Hct 22.7 L MCV 86.3 MCH 28.9 MCHC 33.4 RDW 15.5 Plt Count 213 MPV 7.6 Sodium 141 Potassium 4.9 Chloride 112 H Carbon Dioxide 16 L Anion Gap 12 BUN 69.8 H Creatinine 6.4 H Est GFR (CKD-EPI)AfAm 8.94 Est GFR (CKD-EPI)NonAf 7.72 POC Glucometer Random Glucose 113 H Calcium 7.6 L Blood Type Antibody Screen Crossmatch See Detail S1 S2 RRR Lungs clear Abd- soft, obese, NT no edema Thomas-+ PLAN spoke with Urology , Renal , IR I will transfuse 2 units PRBC today Keep NPO Pt will be going for percutaneous nephrostomy drainage today -->worsening renal function -->need to relieve the obstruction Urology will take him to [place] this Sunday monitor cbc continue CBI Problem List - Problems (1) ROSA MARIA (acute kidney injury) Code(s): N17.9 - ACUTE KIDNEY FAILURE, UNSPECIFIED (2) Anemia Code(s): D64.9 - ANEMIA, UNSPECIFIED (3) BPH (benign prostatic hyperplasia) Code(s): N40.0 - BENIGN PROSTATIC HYPERPLASIA WITHOUT LOWER URINRY TRACT SYMP (4) Dementia Code(s): F03.90 - UNSPECIFIED DEMENTIA WITHOUT BEHAVIORAL DISTURBANCE (5) Diabetes mellitus Code(s): E11.9 - TYPE 2 DIABETES MELLITUS WITHOUT COMPLICATIONS (6) HLD (hyperlipidemia) Code(s): E78.5 - HYPERLIPIDEMIA, UNSPECIFIED
[2019-04-30] MEDS: FINASTERIDE 5 MG TABLET (FP) PO SCH (13:28)
[2019-04-30] MEDS: LIDOCAINE 5% TOPICAL PATCH TP SCH (13:28)
[2019-04-30] MEDS ORDERED: MORPHINE SULFATE 2 MG/ML VIAL ONE (14:05)
[2019-04-30] MEDS: MORPHINE SULFATE 2 MG/ML VIAL IVPUSH PRN (14:10)
--- NOTE | 2019-04-30 17:53 | PN ---
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, Physician History of Present Illness: s/p PCN, hematuria. - Current Medication List Current Medications: Active Medications Acetaminophen (Tylenol -) 650 mg PO Q6H PRN PRN Reason: PAIN LEVEL 6-10 Last Admin: 04/28/19 05:21 Dose: 650 mg Albuterol/Ipratropium (Duoneb -) 1 amp NEB Q6H PRN PRN Reason: SHORTNESS OF BREATH Last Admin: 04/28/19 22:05 Dose: 1 amp Amlodipine Besylate (Norvasc -) 5 mg PO DAILY [facility] Last Admin: 04/30/19 10:50 Dose: Not Given Artificial Tears (Artificial Tears) 1 drop OU BID [facility] Last Admin: 04/30/19 10:48 Dose: 1 drop Atorvastatin Calcium (Lipitor -) 10 mg PO HS [facility] Last Admin: 04/29/19 21:47 Dose: 10 mg Famotidine (Pepcid -) 20 mg PO BID [facility] Last Admin: 04/30/19 10:50 Dose: Not Given Finasteride (Proscar -) 5 mg PO DAILY [facility] Last Admin: 04/30/19 13:28 Dose: Not Given Folic Acid (Folic Acid -) 1 mg PO DAILY [facility] Last Admin: 04/30/19 10:49 Dose: Not Given Insulin Aspart ([facility]ial Sliding Scale -) [facility] Last Admin: 04/30/19 13:28 Dose: Not Given Insulin Detemir (Levemir Vial) 10 units SQ BID@0700,2200 [facility] Last Admin: 04/30/19 06:28 Dose: Not Given Lidocaine (Lidoderm Patch -) 1 patch TP DAILY [facility] Last Admin: 04/30/19 13:28 Dose: Not Given Miscellaneous (Lidoderm Patch Removal) 1 each MC DAILY@2200 [facility] Last Admin: 04/29/19 21:48 Dose: 1 each Morphine Sulfate (Morphine Sulfate) 1 mg IVPUSH Q4H PRN PRN Reason: PAIN LEVEL 6-10 Polyethylene Glycol (Miralax (For Daily Use) -) 17 gm PO DAILY [facility] Last Admin: 04/30/19 10:49 Dose: Not Given Sodium Bicarbonate (Sodium Bicarbonate -) 650 mg PO TID [facility] Last Admin: 04/30/19 06:28 Dose: Not Given Tamsulosin HCl (Flomax -) 0.8 mg PO DAILY@0830 [facility] Last Admin: 04/30/19 10:48 Dose: Not Given Thiamine HCl (Vitamin B1 -) 100 mg PO DAILY [facility] Last Admin: 04/30/19 10:51 Dose: Not Given - Objective Vital Signs: Vital Signs Temperature 98.8 F 04/30/19 15:45 Pulse Rate 95 H 04/30/19 16:19 Respiratory Rate 15 04/30/19 16:19 Blood Pressure 167/72 04/30/19 16:19 O2 Sat by Pulse Oximetry (%) 99 04/30/19 16:19 Constitutional: Yes: No Distress, Calm Neck: Yes: Supple Cardiovascular: Yes: Regular Rate and Rhythm Respiratory: Yes: Regular, CTA Bilaterally Gastrointestinal: Yes: Normal Bowel Sounds, Soft Genitourinary: Yes: Thomas Present, Hematuria Edema: No Labs: CBC, BMP 04/30/19 10:33 04/30/19 10:33 INR, PTT INR 1.32 (0.83-1.09) H 04/26/19 07:52 Problem List - Problems (1) Hydronephrosis Code(s): N13.30 - UNSPECIFIED HYDRONEPHROSIS Qualifiers: Hydronephrosis type: unspecified Qualified Code(s): N13.30 - Unspecified hydronephrosis (2) ROSA MARIA (acute kidney injury) Code(s): N17.9 - ACUTE KIDNEY FAILURE, UNSPECIFIED (3) Anemia Code(s): D64.9 - ANEMIA, UNSPECIFIED (4) CHF (congestive heart failure) Code(s): I50.9 - HEART FAILURE, UNSPECIFIED Qualifiers: Heart failure type: unspecified (5) Diabetes mellitus Code(s): E11.9 - TYPE 2 DIABETES MELLITUS WITHOUT COMPLICATIONS Qualifiers: Diabetes mellitus type: type 2 (6) HLD (hyperlipidemia) Code(s): E78.5 - HYPERLIPIDEMIA, UNSPECIFIED (7) HTN (hypertension) Code(s): I10 - ESSENTIAL (PRIMARY) HYPERTENSION (8) Hematuria Code(s): R31.9 - HEMATURIA, UNSPECIFIED Assessment/Plan 04/29/2019 Normal LV and RV size and fxn, mild MR, tr-mild TR, LVEF 61% 1. ROSA MARIA/CKD->hydronephrosis post percutaneous nephrostomy 2. Hematuria and anemia 3. HTN 4. Hypercholesterolemia 5. DM 6. BPH 7. Dementia 8. MDD PLAN: 1. Continue current medical therapy - Amlodipine 5 mg QD 2. Continue Atorvastatin 10 mg QHS 3. Renal input noted, tam renal recovery
--- NOTE | 2019-04-30 19:48 | PN ---
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 (short form) - Note 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: UROLOGY NOTE. PT. STILL WITH HEMATURIA AND BELINDA. HYDRO, S/P PERC. NEPHROSTOMY. PLAN- OR ON SUNDAY FOR CYSTO, BELINDA. JJ STENTS AND POSS. TURBT.
[2019-04-30] MEDS: ATORVASTATIN CA 10 MG TABLET (FP) PO SCH (22:53)
[2019-04-30] MEDS: LIDOCAINE PATCH REMOVAL MC SCH (23:01)
[2019-05-01] MEDS: ACETAMINOPHEN 325 MG TABLET (FP) PO PRN ×2 (05:52→10:55)
[2019-05-01] MEDS: SODIUM BICARBONATE 650 MG TABLET PO SCH ×3 (05:54→21:32)
[2019-05-01] MEDS: INSULIN (LEVEMIR) 100 UNITS/ML UNITS SQ SCH ×2 (06:49→21:30)
[2019-05-01] MEDS: INSULIN SLIDING SCALE (NOVOLOG) 1 VIAL SQ SCH ×3 (06:51→17:59)
[2019-05-01] MEDS ORDERED: INSULIN (NOVOLOG) ASPART 100 UNITS/ML 10ML VIAL ONE (07:50)
[2019-05-01 09:11] LABS: BASO % 0.2 % (0-2.0); EOS % 1.1 % (0-4.5); HEMOGLOBIN 8.4 GM/dL (11.7-16.9); MCH 29.3 pg (25.7-33.7); MCHC 33.7 g/dl (32.0-35.9); MEAN CELL VOLUME 86.9 fl (80-96); MEAN PLT VOLUME 7.5 fl (7.5-11.1); MONO % 10.7 % (3.8-10.2); PLATELET COUNT 224 K/MM3 (134-434); RBC 2.88 M/mm3 (4.00-5.60); RDW 14.4 % (11.9-15.9); WHITE BLOOD COUNT 11.5 K/mm3 (4.0-10.0)
[2019-05-01 09:32] LABS: BLOOD UREA NITROGEN 62.4 mg/dL (7-18); CALCIUM 7.5 mg/dL (8.5-10.1); CREATININE 5.3 mg/dL (0.55-1.3); POTASSIUM 4.6 mmol/L (3.5-5.1)
[2019-05-01] MEDS: TAMSULOSIN HCL 0.4 MG CAP PO SCH (10:10)
[2019-05-01] MEDS: LIDOCAINE 5% TOPICAL PATCH TP SCH (10:10)
[2019-05-01] MEDS: ARTIFICIAL TEARS (POLYVINYL ALCOHOL) OPTH DROPS OU SCH ×2 (10:11→21:29)
[2019-05-01] MEDS: FOLIC ACID 1 MG TABLET (FP) PO SCH (10:12)
[2019-05-01] MEDS: THIAMINE HCL 100 MG TABLET (FP) PO SCH (10:12)
[2019-05-01] MEDS: POLYETHYLENE GLYCOL 3350 119 GM BTL PO SCH (10:12)
[2019-05-01] MEDS: FINASTERIDE 5 MG TABLET (FP) PO SCH (10:13)
[2019-05-01] MEDS: amLODIPine BESYLATE 5 MG TABLET (FP) PO SCH (10:14)
[2019-05-01] MEDS: FAMOTIDINE 20 MG TABLET PO SCH ×2 (10:15→21:32)
--- NOTE | 2019-05-01 11:44 | PN ---
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 His last TURB came back as high-grade, superficial tumors. He was scheduled to undergo intravesical BCG treatments but was readmitted to the hospital with gross hematuria, clots, was also found to be in acute renal failure with bilateral hydroureteronephrosis. There appeared to be a bladder diverticulum with a stone. Therefore, patient was scheduled to undergo a cystoscopy, a TURBT, laser lithotripsy of a bladder stone, bilateral retrograde pyelograms, possible bilateral double J stents. Today it was found that the patient's hemoglobin, hematocrit had dropped back down to hemoglobin 7.6, hematocrit 22.7. His white count is 12,000. His BUN 69 and creatinine 6.4. Patient also appears to be in mild congestive heart failure. We will delay surgery and optimize patient's cardiac status and transfuse patient 2 more units of packed red blood cells. We will reschedule patient Sunday morning, May 02, 2019. Guillermina [id number]
--- NOTE | 2019-05-01 12:17 | PN ---
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 (short form) - Note 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: had left nephrostomy tube placed by IR-- will be going today per RN for Rt nephrostomy has pain Vital Signs - 24 hr 04/30/19 04/30/19 04/30/19 15:11 15:45 15:53 Temperature 98.8 F Pulse Rate 91 H 88 Pulse Rate [ 85 Right Upper Arm ] Respiratory 17 22 H Rate Respiratory 17 Rate [Right Upper Arm] Blood Pressure 170/80 146/66 Blood Pressure 172/74 H [Right Upper Arm] O2 Sat by Pulse 99 Oximetry (%) O2 Sat by Pulse 99 Oximetry (%) [ Right Upper Arm ] 04/30/19 04/30/19 04/30/19 16:03 16:13 16:19 Temperature Pulse Rate 95 H Pulse Rate [ 89 93 H Right Upper Arm ] Respiratory 15 Rate Respiratory 17 15 Rate [Right Upper Arm] Blood Pressure 167/72 Blood Pressure 168/78 167/72 [Right Upper Arm] O2 Sat by Pulse 99 Oximetry (%) O2 Sat by Pulse 99 98 Oximetry (%) [ Right Upper Arm ] 04/30/19 04/30/19 04/30/19 18:00 21:00 22:00 Temperature 97.9 F 98.9 F Pulse Rate 90 91 H Pulse Rate [ Right Upper Arm ] Respiratory 20 20 Rate Respiratory Rate [Right Upper Arm] Blood Pressure 148/71 148/68 Blood Pressure [Right Upper Arm] O2 Sat by Pulse 99 Oximetry (%) O2 Sat by Pulse Oximetry (%) [ Right Upper Arm ] 05/01/19 05/01/19 05/01/19 02:00 02:47 06:00 Temperature 99.0 F 98.8 F 99.0 F Pulse Rate 89 86 100 H Pulse Rate [ Right Upper Arm ] Respiratory 20 20 20 Rate Respiratory Rate [Right Upper Arm] Blood Pressure 154/69 152/65 149/62 Blood Pressure [Right Upper Arm] O2 Sat by Pulse Oximetry (%) O2 Sat by Pulse Oximetry (%) [ Right Upper Arm ] 05/01/19 06:44 Temperature 98.1 F Pulse Rate 80 Pulse Rate [ Right Upper Arm ] Respiratory 20 Rate Respiratory Rate [Right Upper Arm] Blood Pressure 153/69 Blood Pressure [Right Upper Arm] O2 Sat by Pulse Oximetry (%) O2 Sat by Pulse Oximetry (%) [ Right Upper Arm ] Current Medications Generic Name Dose Route Start Last Admin Trade Name Freq PRN Reason Stop Dose Admin Acetaminophen 650 mg 04/25/19 19:59 05/01/19 10:55 Tylenol - PO 650 mg Q6H PRN Administration PAIN LEVEL 6-10 Albuterol/Ipratropium 1 amp 04/23/19 22:24 04/28/19 22:05 Duoneb - NEB 1 amp Q6H PRN Administration SHORTNESS OF BREATH Amlodipine Besylate 5 mg 04/26/19 15:30 05/01/19 10:14 Norvasc - PO 5 mg DAILY [facility] Administration Artificial Tears 1 drop 04/24/19 10:00 05/01/19 10:11 Artificial Tears OU 1 drop BID [facility] Administration Atorvastatin Calcium 10 mg 04/24/19 22:00 04/30/19 22:53 Lipitor - PO 10 mg HS [facility] Administration Famotidine 20 mg 04/24/19 10:00 05/01/19 10:15 Pepcid - PO 20 mg BID [facility] Administration Finasteride 5 mg 04/25/19 10:00 05/01/19 10:13 Proscar - PO 5 mg DAILY [facility] Administration Folic Acid 1 mg 04/24/19 10:00 05/01/19 10:12 Folic Acid - PO 1 mg DAILY [facility] Administration IV Flush 4 ml 05/01/19 12:14 Triple Lumen Flush IVPUSH PRN PRN Protocol Insulin Aspart 1 vial 04/24/19 16:30 05/01/19 06:51 Novolog Vial Sliding Scale - SQ Not Given TIDAC [facility] Protocol Insulin Detemir 10 units 04/24/19 22:00 05/01/19 06:49 Levemir Vial SQ 10 units BID@0700,2200 [facility] Administration Lidocaine 1 patch 04/27/19 11:15 05/01/19 10:10 Lidoderm Patch - TP 1 patch DAILY [facility] Administration Miscellaneous 1 each 04/27/19 22:00 04/30/19 23:01 Lidoderm Patch Removal MC Not Given DAILY@2200 [facility] Morphine Sulfate 1 mg 04/30/19 16:10 04/30/19 14:10 Morphine Sulfate IVPUSH 1 mg Q4H PRN Administration PAIN LEVEL 6-10 Polyethylene Glycol 17 gm 04/28/19 12:00 05/01/19 10:12 Miralax (For Daily Use) - PO Not Given DAILY [facility] Sodium Bicarbonate 650 mg 04/27/19 18:10 05/01/19 05:54 Sodium Bicarbonate - PO 650 mg TID [facility] Administration Tamsulosin HCl 0.8 mg 04/24/19 08:30 05/01/19 10:10 Flomax - PO 0.8 mg DAILY@0830 [facility] Administration Thiamine HCl 100 mg 04/24/19 10:00 05/01/19 10:12 Vitamin B1 - PO 100 mg DAILY [facility] Administration Laboratory Results - last 24 hr 04/30/19 04/30/19 05/01/19 12:40 22:48 05:58 WBC RBC Hgb Hct MCV MCH MCHC RDW Plt Count MPV Absolute Neuts (auto) Neutrophils % Lymphocytes % Monocytes % Eosinophils % Basophils % Nucleated RBC % Sodium Potassium Chloride Carbon Dioxide Anion Gap BUN Creatinine Est GFR (CKD-EPI)AfAm Est GFR (CKD-EPI)NonAf POC Glucometer 130 112 Random Glucose Calcium Blood Type O POSITIVE Antibody Screen Negative Crossmatch See Detail 05/01/19 05/01/19 08:45 08:45 WBC 11.5 H RBC 2.88 L Hgb 8.4 L Hct 25.0 L MCV 86.9 MCH 29.3 MCHC 33.7 RDW 14.4 Plt Count 224 MPV 7.5 Absolute Neuts (auto) 9.5 H Neutrophils % 83.0 H Lymphocytes % 5.0 L Monocytes % 10.7 H Eosinophils % 1.1 Basophils % 0.2 Nucleated RBC % 0 Sodium 145 Potassium 4.6 Chloride 118 H Carbon Dioxide 18 L Anion Gap 10 BUN 62.4 H Creatinine 5.3 H Est GFR (CKD-EPI)AfAm 11.23 Est GFR (CKD-EPI)NonAf 9.69 POC Glucometer Random Glucose 92 Calcium 7.5 L Blood Type Antibody Screen Crossmatch S1 S2 RRR Lungs clear Abd- soft, obese, NT no edema Thomas-+ left Nephrostomty tube+ PLAN has no iv access- needs PRBC prior to surgery tomorrow will order TLC by IR spoke with Urology , Renal , IR Pt will be going for percutaneous nephrostomy drainage today for the right kidney--tomorrow he will be going to OR for TURBT, stents Urology will take him to OR this Sunday monitor cbc continue CBI Problem List - Problems (1) ROSA MARIA (acute kidney injury) Code(s): N17.9 - ACUTE KIDNEY FAILURE, UNSPECIFIED (2) Anemia Code(s): D64.9 - ANEMIA, UNSPECIFIED (3) BPH (benign prostatic hyperplasia) Code(s): N40.0 - BENIGN PROSTATIC HYPERPLASIA WITHOUT LOWER URINRY TRACT SYMP (4) Dementia Code(s): F03.90 - UNSPECIFIED DEMENTIA WITHOUT BEHAVIORAL DISTURBANCE (5) Diabetes mellitus Code(s): E11.9 - TYPE 2 DIABETES MELLITUS WITHOUT COMPLICATIONS Qualifiers: Diabetes mellitus type: type 2 (6) HLD (hyperlipidemia) Code(s): E78.5 - HYPERLIPIDEMIA, UNSPECIFIED
--- NOTE | 2019-05-01 12:56 | PN ---
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, Physician History of Present Illness: s/p PCN, hematuria. - Current Medication List Current Medications: Active Medications Acetaminophen (Tylenol -) 650 mg PO Q6H PRN PRN Reason: PAIN LEVEL 6-10 Last Admin: 05/01/19 10:55 Dose: 650 mg Albuterol/Ipratropium (Duoneb -) 1 amp NEB Q6H PRN PRN Reason: SHORTNESS OF BREATH Last Admin: 04/28/19 22:05 Dose: 1 amp Amlodipine Besylate (Norvasc -) 5 mg PO DAILY [facility] Last Admin: 05/01/19 10:14 Dose: 5 mg Artificial Tears (Artificial Tears) 1 drop OU BID [facility] Last Admin: 05/01/19 10:11 Dose: 1 drop Atorvastatin Calcium (Lipitor -) 10 mg PO HS [facility] Last Admin: 04/30/19 22:53 Dose: 10 mg Famotidine (Pepcid -) 20 mg PO BID [facility] Last Admin: 05/01/19 10:15 Dose: 20 mg Finasteride (Proscar -) 5 mg PO DAILY [facility] Last Admin: 05/01/19 10:13 Dose: 5 mg Folic Acid (Folic Acid -) 1 mg PO DAILY [facility] Last Admin: 05/01/19 10:12 Dose: 1 mg IV Flush (Triple Lumen Flush) 4 ml IVPUSH PRN PRN PRN Reason: Protocol Insulin Aspart (Novolog Vial Sliding Scale -) 1 vial SQ TIDAC [facility]; Protocol Last Admin: 05/01/19 12:44 Dose: Not Given Insulin Detemir (Levemir Vial) 10 units SQ BID@0700,2200 [facility] Last Admin: 05/01/19 06:49 Dose: 10 units Lidocaine (Lidoderm Patch -) 1 patch TP DAILY [facility] Last Admin: 05/01/19 10:10 Dose: 1 patch Miscellaneous (Lidoderm Patch Removal) 1 each MC DAILY@2200 [facility] Last Admin: 04/30/19 23:01 Dose: Not Given Morphine Sulfate (Morphine Sulfate) 1 mg IVPUSH Q4H PRN PRN Reason: PAIN LEVEL 6-10 Last Admin: 04/30/19 14:10 Dose: 1 mg Polyethylene Glycol (Miralax (For Daily Use) -) 17 gm PO DAILY [facility] Last Admin: 05/01/19 10:12 Dose: Not Given Sodium Bicarbonate (Sodium Bicarbonate -) 650 mg PO TID [facility] Last Admin: 05/01/19 05:54 Dose: 650 mg Tamsulosin HCl (Flomax -) 0.8 mg PO DAILY@0830 [facility] Last Admin: 05/01/19 10:10 Dose: 0.8 mg Thiamine HCl (Vitamin B1 -) 100 mg PO DAILY [facility] Last Admin: 05/01/19 10:12 Dose: 100 mg - Objective Vital Signs: Vital Signs Temperature 98.1 F 05/01/19 06:44 Pulse Rate 80 05/01/19 06:44 Respiratory Rate 05/01/19 06:44 Blood Pressure 153/69 05/01/19 06:44 O2 Sat by Pulse Oximetry (%) 99 04/30/19 21:00 Constitutional: Yes: No Distress, Calm Neck: Yes: Supple Cardiovascular: Yes: Regular Rate and Rhythm Respiratory: Yes: Regular, CTA Bilaterally Gastrointestinal: Yes: Normal Bowel Sounds, Soft Genitourinary: Yes: Thomas Present, Hematuria Edema: No Labs: CBC, BMP 05/01/19 08:45 05/01/19 08:45 INR, PTT INR 1.32 (0.83-1.09) H 04/26/19 07:52 Problem List - Problems (1) Hydronephrosis Code(s): N13.30 - UNSPECIFIED HYDRONEPHROSIS Qualifiers: Hydronephrosis type: unspecified Qualified Code(s): N13.30 - Unspecified hydronephrosis (2) ROSA MARIA (acute kidney injury) Code(s): N17.9 - ACUTE KIDNEY FAILURE, UNSPECIFIED (3) Anemia Code(s): D64.9 - ANEMIA, UNSPECIFIED (4) CHF (congestive heart failure) Code(s): I50.9 - HEART FAILURE, UNSPECIFIED Qualifiers: Heart failure type: unspecified (5) Diabetes mellitus Code(s): E11.9 - TYPE 2 DIABETES MELLITUS WITHOUT COMPLICATIONS Qualifiers: Diabetes mellitus type: type 2 (6) HLD (hyperlipidemia) Code(s): E78.5 - HYPERLIPIDEMIA, UNSPECIFIED (7) HTN (hypertension) Code(s): I10 - ESSENTIAL (PRIMARY) HYPERTENSION (8) Hematuria Code(s): R31.9 - HEMATURIA, UNSPECIFIED Assessment/Plan 04/29/2019 Normal LV and RV size and fxn, mild MR, tr-mild TR, LVEF 61% 1. ROSA MARIA/CKD->hydronephrosis post percutaneous nephrostomy 2. Hematuria and anemia 3. HTN 4. Hypercholesterolemia 5. DM 6. BPH 7. Dementia 8. MDD PLAN: 1. Continue current medical therapy - Amlodipine 5 mg QD 2. Continue Atorvastatin 10 mg QHS 3. Renal input noted, montor renal recovery 4. Plan for cysto, bilateral JJ stents and possible TURBT
[2019-05-01 14:45] VITALS: BMI 27.6
--- NOTE | 2019-05-01 15:11 | PN ---
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, Physician History of Present Illness: Pt seen and examined at bedside. He appears more comfortable. - Current Medication List Current Medications: Active Medications Acetaminophen (Tylenol -) 650 mg PO Q6H PRN PRN Reason: PAIN LEVEL 6-10 Last Admin: 05/01/19 10:55 Dose: 650 mg Albuterol/Ipratropium (Duoneb -) 1 amp NEB Q6H PRN PRN Reason: SHORTNESS OF BREATH Last Admin: 04/28/19 22:05 Dose: 1 amp Amlodipine Besylate (Norvasc -) 5 mg PO DAILY [facility] Last Admin: 05/01/19 10:14 Dose: 5 mg Artificial Tears (Artificial Tears) 1 drop OU BID [facility] Last Admin: 05/01/19 10:11 Dose: 1 drop Atorvastatin Calcium (Lipitor -) 10 mg PO HS [facility] Last Admin: 04/30/19 22:53 Dose: 10 mg Famotidine (Pepcid -) 20 mg PO BID [facility] Last Admin: 05/01/19 10:15 Dose: 20 mg Finasteride (Proscar -) 5 mg PO DAILY [facility] Last Admin: 05/01/19 10:13 Dose: 5 mg Folic Acid (Folic Acid -) 1 mg PO DAILY [facility] Last Admin: 05/01/19 10:12 Dose: 1 mg IV Flush (Triple Lumen Flush) 4 ml IVPUSH PRN PRN PRN Reason: Protocol Insulin Aspart (Novolog Vial Sliding Scale -) 1 vial SQ TIDAC [facility]; Protocol Last Admin: 05/01/19 12:44 Dose: Not Given Insulin Detemir (Levemir Vial) 10 units SQ BID@0700,2200 [facility] Last Admin: 05/01/19 06:49 Dose: 10 units Lidocaine (Lidoderm Patch -) 1 patch TP DAILY [facility] Last Admin: 05/01/19 10:10 Dose: 1 patch Miscellaneous (Lidoderm Patch Removal) 1 each MC DAILY@2200 [facility] Last Admin: 04/30/19 23:01 Dose: Not Given Morphine Sulfate (Morphine Sulfate) 1 mg IVPUSH Q4H PRN PRN Reason: PAIN LEVEL 6-10 Last Admin: 04/30/19 14:10 Dose: 1 mg Polyethylene Glycol (Miralax (For Daily Use) -) 17 gm PO DAILY [facility] Last Admin: 05/01/19 10:12 Dose: Not Given Sodium Bicarbonate (Sodium Bicarbonate -) 650 mg PO TID [facility] Last Admin: 05/01/19 05:54 Dose: 650 mg Tamsulosin HCl (Flomax -) 0.8 mg PO DAILY@0830 [facility] Last Admin: 05/01/19 10:10 Dose: 0.8 mg Thiamine HCl (Vitamin B1 -) 100 mg PO DAILY [facility] Last Admin: 05/01/19 10:12 Dose: 100 mg - Objective Vital Signs: Vital Signs Temperature 98.1 F 05/01/19 06:44 Pulse Rate 80 05/01/19 06:44 Respiratory Rate 05/01/19 06:44 Blood Pressure 153/69 05/01/19 06:44 O2 Sat by Pulse Oximetry (%) 99 04/30/19 21:00 Constitutional: Yes: Calm Eyes: Yes: Conjunctiva Clear HENT: Yes: Atraumatic Cardiovascular: Yes: S1, S2 Respiratory: Yes: CTA Bilaterally Gastrointestinal: Yes: Soft Genitourinary: Yes: Thomas Present, Other (left nephrostomy) Edema: No Neurological: Yes: Oriented Labs: CBC, BMP 05/01/19 08:45 05/01/19 08:45 INR, PTT INR 1.32 (0.83-1.09) H 04/26/19 07:52 Problem List - Problems (1) ROSA MARIA (acute kidney injury) Code(s): N17.9 - ACUTE KIDNEY FAILURE, UNSPECIFIED (2) BPH (benign prostatic hyperplasia) Code(s): N40.0 - BENIGN PROSTATIC HYPERPLASIA WITHOUT LOWER URINRY TRACT SYMP (3) Bladder cancer Code(s): C67.9 - MALIGNANT NEOPLASM OF BLADDER, UNSPECIFIED (4) CHF (congestive heart failure) Code(s): I50.9 - HEART FAILURE, UNSPECIFIED Qualifiers: Heart failure type: unspecified Assessment/Plan Current Medications Generic Name Dose Route Start Last Admin Trade Name Freq PRN Reason Stop Dose Admin Acetaminophen 650 mg 04/25/19 19:59 05/01/19 10:55 Tylenol - PO 650 mg Q6H PRN Administration PAIN LEVEL 6-10 Albuterol/Ipratropium 1 amp 04/23/19 22:24 04/28/19 22:05 Duoneb - NEB 1 amp Q6H PRN Administration SHORTNESS OF BREATH Amlodipine Besylate 5 mg 04/26/19 15:30 05/01/19 10:14 Norvasc - PO 5 mg DAILY [facility] Administration Artificial Tears 1 drop 04/24/19 10:00 05/01/19 10:11 Artificial Tears OU 1 drop BID [facility] Administration Atorvastatin Calcium 10 mg 04/24/19 22:00 04/30/19 22:53 Lipitor - PO 10 mg HS [facility] Administration Famotidine 20 mg 04/24/19 10:00 05/01/19 10:15 Pepcid - PO 20 mg BID [facility] Administration Finasteride 5 mg 04/25/19 10:00 05/01/19 10:13 Proscar - PO 5 mg DAILY [facility] Administration Folic Acid 1 mg 04/24/19 10:00 05/01/19 10:12 Folic Acid - PO 1 mg DAILY [facility] Administration IV Flush 4 ml 05/01/19 12:14 Triple Lumen Flush IVPUSH PRN PRN Protocol Insulin Aspart 1 vial 04/24/19 16:30 05/01/19 12:44 Novolog Vial Sliding Scale - SQ Not Given TIDAC [facility] Protocol Insulin Detemir 10 units 04/24/19 22:00 05/01/19 06:49 Levemir Vial SQ 10 units BID@0700,2200 [facility] Administration Lidocaine 1 patch 04/27/19 11:15 05/01/19 10:10 Lidoderm Patch - TP 1 patch DAILY [facility] Administration Miscellaneous 1 each 04/27/19 22:00 04/30/19 23:01 Lidoderm Patch Removal MC Not Given DAILY@2200 [facility] Morphine Sulfate 1 mg 04/30/19 16:10 04/30/19 14:10 Morphine Sulfate IVPUSH 1 mg Q4H PRN Administration PAIN LEVEL 6-10 Polyethylene Glycol 17 gm 04/28/19 12:00 05/01/19 10:12 Miralax (For Daily Use) - PO Not Given DAILY [facility] Sodium Bicarbonate 650 mg 04/27/19 18:10 05/01/19 05:54 Sodium Bicarbonate - PO 650 mg TID [facility] Administration Tamsulosin HCl 0.8 mg 04/24/19 08:30 05/01/19 10:10 Flomax - PO 0.8 mg DAILY@0830 [facility] Administration Thiamine HCl 100 mg 04/24/19 10:00 05/01/19 10:12 Vitamin B1 - PO 100 mg DAILY [facility] Administration Impression 1. ROSA MARIA 2. hydronephrosis 3. hematuria 4. dementia 5. chf 6. dm 7. gerd 8. anemia Plan - renal function is starting to improve - pt has left nephrostomy tube which is draining - urology follow up - monitor for post obstructive diuresis - cont to monitor renal function - repeat labs in am
--- NOTE | 2019-05-01 17:03 | PN ---
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 (short form) - Note 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: Called by patient's RN as they are having a difficult time trying to establish peripheral IV greater than 20 ga as it's needed for PRBC transfusion. Placed 20ga in patient's right hand; thumb. Aspirates/flushes easily. Secured in position with occlusive dressing. Ok to use line. Patient can benefit from Midline. Surgery Team to re-eval in AM Problem List - Problems (1) Difficult intravenous access Code(s): Z78.9 - OTHER SPECIFIED HEALTH STATUS (2) Bladder cancer Code(s): C67.9 - MALIGNANT NEOPLASM OF BLADDER, UNSPECIFIED (3) Diabetes mellitus Code(s): E11.9 - TYPE 2 DIABETES MELLITUS WITHOUT COMPLICATIONS Qualifiers: Diabetes mellitus type: type 2
[2019-05-01] MEDS: MORPHINE SULFATE 2 MG/ML VIAL IVPUSH PRN (17:26)
[2019-05-01] MEDS ORDERED: PT OWN MED DRAWER 7, Y5N ONE (21:25)
[2019-05-01] MEDS: ATORVASTATIN CA 10 MG TABLET (FP) PO SCH (21:31)
[2019-05-01] MEDS: LIDOCAINE PATCH REMOVAL MC SCH ×2 (21:35→21:51)
[2019-05-02] MEDS: MORPHINE SULFATE 2 MG/ML VIAL IVPUSH PRN ×3 (03:57→18:00)
[2019-05-02] MEDS: SODIUM BICARBONATE 650 MG TABLET PO SCH ×3 (05:29→21:43)
[2019-05-02] MEDS: INSULIN (LEVEMIR) 100 UNITS/ML UNITS SQ SCH ×2 (06:29→21:42)
[2019-05-02] MEDS: INSULIN SLIDING SCALE (NOVOLOG) 1 VIAL SQ SCH ×3 (06:30→17:43)
[2019-05-02] MEDS: TAMSULOSIN HCL 0.4 MG CAP PO SCH (08:37)
[2019-05-02] MEDS ORDERED: DEXTROSE 5%-0.45% SALINE 1,000 ML IV SCH (09:30)
--- NOTE | 2019-05-02 09:34 | PROC ---
Central Line Insertion - Procedure Note TIME OUT performed prior to this procedure with verbal confirmation of correct patient identity, correct side, agreement of the procedure, correct patient position, availability of necessary equipment. The consent form is complete and accurate. Risk of possible infection, bleeding and pneumothorax have been discussed with the patient. Safety precautions based on patient history or medication use has been addressed. INR 1.32 Not on any AC. Indication: Poor Venous Access Consent on Chart: Yes Central Line: Triple Lumen Catheter Position: Supine Area prepped with Chlorhexidine solution then draped using sterile barrier protection. Anesthesia: Lidocaine 1% Technique used: Seldinger Ultrasound Guided Assistance: Yes Site: Right Internal Jugular Dark venous non-pulsatile flow noted from hub of needle. The catheter was introduced. Guide wire removed intact. Each port aspirated then flushed with sterile normal saline and capped. Line secured to skin with nylon suture. Biopatch placed around base of line. Sterile occlusive dressing applied. No complications. Patient tolerated the procedure well. STAT chest xray ordered to confirm position and rule out pneumothorax
[2019-05-02] MEDS: LIDOCAINE 5% TOPICAL PATCH TP SCH (10:26)
[2019-05-02] MEDS: FINASTERIDE 5 MG TABLET (FP) PO SCH (10:37)
[2019-05-02] MEDS: THIAMINE HCL 100 MG TABLET (FP) PO SCH (10:37)
[2019-05-02] MEDS: amLODIPine BESYLATE 5 MG TABLET (FP) PO SCH (10:37)
[2019-05-02] MEDS: FOLIC ACID 1 MG TABLET (FP) PO SCH (10:37)
[2019-05-02] MEDS: POLYETHYLENE GLYCOL 3350 119 GM BTL PO SCH (10:38)
[2019-05-02] MEDS: ARTIFICIAL TEARS (POLYVINYL ALCOHOL) OPTH DROPS OU SCH ×2 (10:38→21:42)
[2019-05-02] MEDS: FAMOTIDINE 20 MG TABLET PO SCH ×2 (10:40→21:43)
--- NOTE | 2019-05-02 10:43 | PN ---
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 (short form) - Note 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: Pt seen/ examined chart is reviewed awake/ comfortable for OR today Just placed central line-Right IJ Started on mild hydration as B Sugar is low and pt is NPO hb around 8 Will transfuse now as has access now Active Medications Acetaminophen (Tylenol -) 650 mg PO Q6H PRN PRN Reason: PAIN LEVEL 6-10 Last Admin: 05/01/19 10:55 Dose: 650 mg Albuterol/Ipratropium (Duoneb -) 1 amp NEB Q6H PRN PRN Reason: SHORTNESS OF BREATH Last Admin: 04/28/19 22:05 Dose: 1 amp Amlodipine Besylate (Norvasc -) 5 mg PO DAILY [facility] Last Admin: 05/02/19 10:37 Dose: 5 mg Artificial Tears (Artificial Tears) 1 drop OU BID [facility] Last Admin: 05/02/19 10:38 Dose: 1 drop Atorvastatin Calcium (Lipitor -) 10 mg PO HS [facility] Last Admin: 05/01/19 21:31 Dose: 10 mg Famotidine (Pepcid -) 20 mg PO BID [facility] Last Admin: 05/02/19 10:40 Dose: 20 mg Finasteride (Proscar -) 5 mg PO DAILY [facility] Last Admin: 05/02/19 10:37 Dose: 5 mg Folic Acid (Folic Acid -) 1 mg PO DAILY [facility] Last Admin: 05/02/19 10:37 Dose: 1 mg IV Flush (Triple Lumen Flush) 4 ml IVPUSH PRN PRN PRN Reason: Protocol Dextrose/Sodium Chloride (D5-1/2ns -) 1,000 mls @ 42 mls/hr IV ASDIR [facility] Last Admin: 05/02/19 08:55 Dose: 42 mls/hr Insulin Aspart (Novolog Vial Sliding Scale -) 1 vial SQ TIDAC [facility]; Protocol Last Admin: 05/02/19 06:30 Dose: Not Given Insulin Detemir (Levemir Vial) 10 units SQ BID@0700,2200 [facility] Last Admin: 05/02/19 06:29 Dose: Not Given Lidocaine (Lidoderm Patch -) 1 patch TP DAILY [facility] Last Admin: 05/02/19 10:26 Dose: 1 patch Miscellaneous (Lidoderm Patch Removal) 1 each MC DAILY@2200 [facility] Last Admin: 05/01/19 21:51 Dose: 1 each Morphine Sulfate (Morphine Sulfate) 1 mg IVPUSH Q4H PRN PRN Reason: PAIN LEVEL 6-10 Last Admin: 05/02/19 09:57 Dose: 1 mg Polyethylene Glycol (Miralax (For Daily Use) -) 17 gm PO DAILY [facility] Last Admin: 05/02/19 10:38 Dose: Not Given Sodium Bicarbonate (Sodium Bicarbonate -) 650 mg PO TID [facility] Last Admin: 05/02/19 05:29 Dose: Not Given Tamsulosin HCl (Flomax -) 0.8 mg PO DAILY@0830 [facility] Last Admin: 05/02/19 08:37 Dose: 0.8 mg Thiamine HCl (Vitamin B1 -) 100 mg PO DAILY [facility] Last Admin: 05/02/19 10:37 Dose: 100 mg CBC, BMP 05/01/19 08:45 05/01/19 08:45 Vital Signs Temp 99.2 F 05/02/19 06:00 Pulse 88 05/02/19 06:00 Resp 20 05/02/19 06:00 BP 151/79 05/02/19 06:00 Pulse Ox 100 05/01/19 21:00 Intake & Output 05/01/19 05/01/19 05/02/19 11:59 23:59 11:59 Intake Total 3140 6450 8000 Output Total 8050 36489 72153 Balance -4910 -7050 -3575 Weight 161 lb Intake: IVPB 50 Oral 740 450 Packed Cells 350 CBI Intake 2000 6000 8000 Output: Urine 8050 55576 00497 Thomas 5550 20330 9700 Left Nephrostomy 2500 1200 700 Right Nephrostomy 950 1175 Other: Voiding Method Indwelling Catheter Indwelling Catheter Indwelling Catheter Bowel Movement No No No # Bowel Movements 1 Height 5 ft 4 in Body Mass Index (BMI) 27.6 Active Medications Acetaminophen (Tylenol -) 650 mg PO Q6H PRN PRN Reason: PAIN LEVEL 6-10 Last Admin: 05/01/19 10:55 Dose: 650 mg Albuterol/Ipratropium (Duoneb -) 1 amp NEB Q6H PRN PRN Reason: SHORTNESS OF BREATH Last Admin: 04/28/19 22:05 Dose: 1 amp Amlodipine Besylate (Norvasc -) 5 mg PO DAILY [facility] Last Admin: 05/02/19 10:37 Dose: 5 mg Artificial Tears (Artificial Tears) 1 drop OU BID [facility] Last Admin: 05/02/19 10:38 Dose: 1 drop Atorvastatin Calcium (Lipitor -) 10 mg PO HS [facility] Last Admin: 05/01/19 21:31 Dose: 10 mg Famotidine (Pepcid -) 20 mg PO BID [facility] Last Admin: 05/02/19 10:40 Dose: 20 mg Finasteride (Proscar -) 5 mg PO DAILY [facility] Last Admin: 05/02/19 10:37 Dose: 5 mg Folic Acid (Folic Acid -) 1 mg PO DAILY [facility] Last Admin: 05/02/19 10:37 Dose: 1 mg IV Flush (Triple Lumen Flush) 4 ml IVPUSH PRN PRN PRN Reason: Protocol Dextrose/Sodium Chloride (D5-1/2ns -) 1,000 mls @ 42 mls/hr IV ASDIR [facility] Last Admin: 05/02/19 08:55 Dose: 42 mls/hr Insulin Aspart (Novolog Vial Sliding Scale -) 1 vial SQ TIDAC [facility]; Protocol Last Admin: 05/02/19 06:30 Dose: Not Given Insulin Detemir (Levemir Vial) 10 units SQ BID@0700,2200 [facility] Last Admin: 05/02/19 06:29 Dose: Not Given Lidocaine (Lidoderm Patch -) 1 patch TP DAILY [facility] Last Admin: 05/02/19 10:26 Dose: 1 patch Miscellaneous (Lidoderm Patch Removal) 1 each MC DAILY@2200 [facility] Last Admin: 05/01/19 21:51 Dose: 1 each Morphine Sulfate (Morphine Sulfate) 1 mg IVPUSH Q4H PRN PRN Reason: PAIN LEVEL 6-10 Last Admin: 05/02/19 09:57 Dose: 1 mg Polyethylene Glycol (Miralax (For Daily Use) -) 17 gm PO DAILY [facility] Last Admin: 05/02/19 10:38 Dose: Not Given Sodium Bicarbonate (Sodium Bicarbonate -) 650 mg PO TID [facility] Last Admin: 05/02/19 05:29 Dose: Not Given Tamsulosin HCl (Flomax -) 0.8 mg PO DAILY@0830 [facility] Last Admin: 05/02/19 08:37 Dose: 0.8 mg Thiamine HCl (Vitamin B1 -) 100 mg PO DAILY [facility] Last Admin: 05/02/19 10:37 Dose: 100 mg Physical Exam . Awake/ No distress central line - Righr side S1 S2 RRR Lungs clear Abd- soft, obese, NT no edema Thomas-+ Bilateral Nephrostomty tube+ PLAN transfuse today Pt will be going to OR for TURBT, stents today monitor cbc continue CBI Monitor bgm Medically stable for proposed procedure Problem List - Problems (1) ROSA MARIA (acute kidney injury) Code(s): N17.9 - ACUTE KIDNEY FAILURE, UNSPECIFIED (2) Anemia Code(s): D64.9 - ANEMIA, UNSPECIFIED (3) BPH (benign prostatic hyperplasia) Code(s): N40.0 - BENIGN PROSTATIC HYPERPLASIA WITHOUT LOWER URINRY TRACT SYMP (4) Dementia Code(s): F03.90 - UNSPECIFIED DEMENTIA WITHOUT BEHAVIORAL DISTURBANCE (5) Diabetes mellitus Code(s): E11.9 - TYPE 2 DIABETES MELLITUS WITHOUT COMPLICATIONS Qualifiers: Diabetes mellitus type: type 2 (6) HLD (hyperlipidemia) Code(s): E78.5 - HYPERLIPIDEMIA, UNSPECIFIED Problem List - Problems (1) Bladder cancer Code(s): C67.9 - MALIGNANT NEOPLASM OF BLADDER, UNSPECIFIED (2) Cirrhosis Code(s): K74.60 - UNSPECIFIED CIRRHOSIS OF LIVER (3) ROSA MARIA (acute kidney injury) Code(s): N17.9 - ACUTE KIDNEY FAILURE, UNSPECIFIED (4) Anemia Code(s): D64.9 - ANEMIA, UNSPECIFIED (5) HTN (hypertension) Code(s): I10 - ESSENTIAL (PRIMARY) HYPERTENSION (6) Hematuria Code(s): R31.9 - HEMATURIA, UNSPECIFIED
[2019-05-02] MEDS ORDERED: MIDAZOLAM HCL 2 MG/2 ML SINGLE DOSE VIAL ONE (12:47)
[2019-05-02] MEDS ORDERED: ISOSULFAN BLUE 10 MG/ML VIAL SQ ONE (14:14)
--- NOTE | 2019-05-02 14:16 | PN ---
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 He did have a TUR bladder tumor last month. This came back as high-grade superficial tumor. Patient was scheduled to undergo intravesical BCG, but was readmitted to the hospital with gross total painless hematuria, as well as clots. Patient was also found to be in acute renal failure with evidence of bilateral hydroureteronephrosis. Also on inspection of the pelvis, there appeared to be a bladder diverticulum with a large stone lodged in the diverticulum; therefore the patient is scheduled to undergo a cystourethroscopy, possible TURBT, cystoscopic laser lithotripsy, bilateral retrograde pyelograms and possible bilateral JJ stents. This was explained in detail to patient's sister and she agrees. ARIAS JUNIOR M.D. [id number]
[2019-05-02] MEDS ORDERED: METHYLENE BLUE 50 MG/10 ML AMPUL NR ONE (14:30)
[2019-05-02] MEDS ORDERED: LIDOCAINE HCL/PF 2% SDV 5ML VIAL ONE (14:46)
[2019-05-02] MEDS ORDERED: PROPOFOL 20 ML ONE (14:46)
[2019-05-02] MEDS ORDERED: DEXAMETHASONE SOD PHOSPHATE 4 MG/1 ML VIAL ONE (15:02)
--- NOTE | 2019-05-02 15:05 | PN ---
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, Physician History of Present Illness: s/p PCN, hematuria. - Current Medication List Current Medications: Active Medications Acetaminophen (Tylenol -) 650 mg PO Q6H PRN PRN Reason: PAIN LEVEL 6-10 Last Admin: 05/01/19 10:55 Dose: 650 mg Amlodipine Besylate (Norvasc -) 5 mg PO DAILY [facility] Last Admin: 05/02/19 10:37 Dose: 5 mg Artificial Tears (Artificial Tears) 1 drop OU BID [facility] Last Admin: 05/02/19 10:38 Dose: 1 drop Atorvastatin Calcium (Lipitor -) 10 mg PO HS [facility] Last Admin: 05/01/19 21:31 Dose: 10 mg Famotidine (Pepcid -) 20 mg PO BID [facility] Last Admin: 05/02/19 10:40 Dose: 20 mg Finasteride (Proscar -) 5 mg PO DAILY [facility] Last Admin: 05/02/19 10:37 Dose: 5 mg Folic Acid (Folic Acid -) 1 mg PO DAILY [facility] Last Admin: 05/02/19 10:37 Dose: 1 mg IV Flush (Triple Lumen Flush) 4 ml IVPUSH PRN PRN PRN Reason: Protocol Dextrose/Sodium Chloride (D5-1/2ns -) 1,000 mls @ 42 mls/hr IV ASDIR [facility] Last Admin: 05/02/19 08:55 Dose: 42 mls/hr Insulin Aspart (Novolog Vial Sliding Scale -) 1 vial SQ TIDAC [facility]; Protocol Last Admin: 05/02/19 12:38 Dose: Not Given Insulin Detemir (Levemir Vial) 10 units SQ BID@0700,2200 [facility] Last Admin: 05/02/19 06:29 Dose: Not Given Lidocaine (Lidoderm Patch -) 1 patch TP DAILY [facility] Last Admin: 05/02/19 10:26 Dose: 1 patch Miscellaneous (Lidoderm Patch Removal) 1 each MC DAILY@2200 [facility] Last Admin: 05/01/19 21:51 Dose: 1 each Morphine Sulfate (Morphine Sulfate) 1 mg IVPUSH Q4H PRN PRN Reason: PAIN LEVEL 6-10 Last Admin: 05/02/19 09:57 Dose: 1 mg Polyethylene Glycol (Miralax (For Daily Use) -) 17 gm PO DAILY [facility] Last Admin: 05/02/19 10:38 Dose: Not Given Sodium Bicarbonate (Sodium Bicarbonate -) 650 mg PO TID [facility] Last Admin: 05/02/19 05:29 Dose: Not Given Tamsulosin HCl (Flomax -) 0.8 mg PO DAILY@0830 [facility] Last Admin: 05/02/19 08:37 Dose: 0.8 mg Thiamine HCl (Vitamin B1 -) 100 mg PO DAILY [facility] Last Admin: 05/02/19 10:37 Dose: 100 mg - Objective Vital Signs: Vital Signs Temperature 99.2 F 05/02/19 06:00 Pulse Rate 88 05/02/19 06:00 Respiratory Rate 05/02/19 09:00 Blood Pressure 151/79 05/02/19 06:00 O2 Sat by Pulse Oximetry (%) 100 05/02/19 09:00 Constitutional: Yes: No Distress, Calm, Thin Respiratory: Yes: Regular, Diminished Gastrointestinal: Yes: Normal Bowel Sounds, Soft Genitourinary: Yes: Thomas Present, Hematuria Edema: No Labs: CBC, BMP 05/01/19 08:45 05/01/19 08:45 INR, PTT INR 1.32 (0.83-1.09) H 04/26/19 07:52 Problem List - Problems (1) Hydronephrosis Code(s): N13.30 - UNSPECIFIED HYDRONEPHROSIS Qualifiers: Hydronephrosis type: unspecified Qualified Code(s): N13.30 - Unspecified hydronephrosis (2) ROSA MARIA (acute kidney injury) Code(s): N17.9 - ACUTE KIDNEY FAILURE, UNSPECIFIED (3) Anemia Code(s): D64.9 - ANEMIA, UNSPECIFIED (4) CHF (congestive heart failure) Code(s): I50.9 - HEART FAILURE, UNSPECIFIED Qualifiers: Heart failure type: unspecified (5) Diabetes mellitus Code(s): E11.9 - TYPE 2 DIABETES MELLITUS WITHOUT COMPLICATIONS Qualifiers: Diabetes mellitus type: type 2 (6) HLD (hyperlipidemia) Code(s): E78.5 - HYPERLIPIDEMIA, UNSPECIFIED (7) HTN (hypertension) Code(s): I10 - ESSENTIAL (PRIMARY) HYPERTENSION (8) Hematuria Code(s): R31.9 - HEMATURIA, UNSPECIFIED Assessment/Plan 04/29/2019 Normal LV and RV size and fxn, mild MR, tr-mild TR, LVEF 61% 1. ROSA MARIA/CKD->hydronephrosis post percutaneous nephrostomy 2. Hematuria and anemia 3. HTN 4. Hypercholesterolemia 5. DM 6. BPH 7. Dementia 8. MDD PLAN: 1. Continue current medical therapy - Amlodipine 5 mg QD 2. Continue Atorvastatin 10 mg QHS 3. Renal input noted, montor renal recovery 4. Plan for cysto, bilateral JJ stents and possible TURBT
--- NOTE | 2019-05-02 15:53 | OP ---
Operative Note - Note: Operative Date: 05/02/19 Pre-Operative Diagnosis: bladder tumor, emilia. hydroureteralnephrosis,gross hematuria Operation: cysto, attempted emilia retrogrades, antigrade nephrotogram, turbt ( large) Findings: large bleeding extensive bladder tumor with complete ureteral obstruction Post-Operative Diagnosis: Same as Pre-op Surgeon: Wendy Cruz Anesthesia: General Specimens Removed: bladder tumor chips Estimated Blood Loss (mls): 100 Drains & Tubes with Location: 26f 10cc 3-way fernandez Drains, Volume Out (mls): 0 Blood Volume Replaced (mls): 0 Fluid Volume Replaced (mls): 0 Operative Report Dictated: Yes
--- NOTE | 2019-05-02 16:18 | OP ---
DATE OF OPERATION: 05/02/2019 HISTORY: Patient is a 74-year-old male with known history of recurrent bladder tumor. PREOPERATIVE DIAGNOSIS: Bilateral hydroureteronephrosis, gross total, painless hematuria. POSTOPERATIVE DIAGNOSIS: Large bladder tumor, bilateral ureteral orifice obliteration. OPERATIVE PROCEDURE: Cystourethroscopy, attempt at ureteral catheterization, antegrade nephrostograms, TURP bladder tumor, and fulguration. ANESTHESIA: General. DESCRIPTION OF PROCEDURE: Under above-stated anesthesia, patient is prepped and draped in the usual sterile manner. He is placed in the dorsal lithotomy position. Cystoscopy under direct vision revealed a normal anterior urethra. Prostatic urethra revealed bipolar hypertrophy of the prostate. There was also hemorrhagic prostate mucosa. The bladder was entered. A large amount of clots was noted. An neoSaej evacuator was used, and 200 mL of clots were evacuated. Inspection of the bladder revealed necrotic bladder tumor throughout the bladder involving the right and left hemitrigone, right and left wall, posterior and anterior dome of the bladder. Multiple tumors were papillary in nature. Some were polypoid. Several were bleeding. Resectoscope was inserted, and resection of the bleeding tumor was performed in the usual fashion. A VaporTrode was introduced, and some of the tumors were vaporized down to the bladder mucosa. Again, inspection of the ureteral orifices was unable to reveal their ureteral orifices. Methylene blue was then injected into the right and left percutaneous nephrostomy, and visualization of the trigone revealed no evidence of the Methylene blue, therefore, indicating complete ureteral obstruction. Tumor chips were evacuated with an Ellik evacuator. No active bleeding was noted. A 24-Greek 30-mL 3-way Thomas was inserted. This was connected to continuous bladder irrigation. The patient tolerated the procedure well. He returned to the recovery room in good condition. Guillermina [id number]
--- NOTE | 2019-05-02 17:23 | PN ---
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, Physician History of Present Illness: Pt seen and examined at bedside. He is s/p cysto. He is still in the recovery room. - Current Medication List Current Medications: Active Medications Acetaminophen (Tylenol -) 650 mg PO Q6H PRN PRN Reason: PAIN LEVEL 6-10 Last Admin: 05/01/19 10:55 Dose: 650 mg Amlodipine Besylate (Norvasc -) 5 mg PO DAILY [facility] Last Admin: 05/02/19 10:37 Dose: 5 mg Artificial Tears (Artificial Tears) 1 drop OU BID [facility] Last Admin: 05/02/19 10:38 Dose: 1 drop Atorvastatin Calcium (Lipitor -) 10 mg PO HS [facility] Last Admin: 05/01/19 21:31 Dose: 10 mg Famotidine (Pepcid -) 20 mg PO BID [facility] Last Admin: 05/02/19 10:40 Dose: 20 mg Finasteride (Proscar -) 5 mg PO DAILY [facility] Last Admin: 05/02/19 10:37 Dose: 5 mg Folic Acid (Folic Acid -) 1 mg PO DAILY [facility] Last Admin: 05/02/19 10:37 Dose: 1 mg IV Flush (Triple Lumen Flush) 4 ml IVPUSH PRN PRN PRN Reason: Protocol Dextrose/Sodium Chloride (D5-1/2ns -) 1,000 mls @ 42 mls/hr IV ASDIR [facility] Last Admin: 05/02/19 08:55 Dose: 42 mls/hr Insulin Aspart (Novolog Vial Sliding Scale -) 1 vial SQ TIDAC [facility]; Protocol Last Admin: 05/02/19 12:38 Dose: Not Given Insulin Detemir (Levemir Vial) 10 units SQ BID@0700,2200 [facility] Last Admin: 05/02/19 06:29 Dose: Not Given Lidocaine (Lidoderm Patch -) 1 patch TP DAILY [facility] Last Admin: 05/02/19 10:26 Dose: 1 patch Miscellaneous (Lidoderm Patch Removal) 1 each MC DAILY@2200 [facility] Last Admin: 05/01/19 21:51 Dose: 1 each Morphine Sulfate (Morphine Sulfate) 1 mg IVPUSH Q4H PRN PRN Reason: PAIN LEVEL 6-10 Last Admin: 05/02/19 09:57 Dose: 1 mg Polyethylene Glycol (Miralax (For Daily Use) -) 17 gm PO DAILY [facility] Last Admin: 05/02/19 10:38 Dose: Not Given Sodium Bicarbonate (Sodium Bicarbonate -) 650 mg PO TID [facility] Last Admin: 05/02/19 05:29 Dose: Not Given Tamsulosin HCl (Flomax -) 0.8 mg PO DAILY@0830 [facility] Last Admin: 05/02/19 08:37 Dose: 0.8 mg Thiamine HCl (Vitamin B1 -) 100 mg PO DAILY [facility] Last Admin: 05/02/19 10:37 Dose: 100 mg - Objective Vital Signs: Vital Signs Temperature 98.1 F 05/02/19 17:16 Pulse Rate 83 05/02/19 17:16 Respiratory Rate 12 05/02/19 17:16 Blood Pressure 164/63 05/02/19 17:16 O2 Sat by Pulse Oximetry (%) 100 05/02/19 17:16 Constitutional: Yes: Calm Eyes: Yes: Conjunctiva Clear HENT: Yes: Atraumatic Cardiovascular: Yes: S1, S2 Respiratory: Yes: CTA Bilaterally Gastrointestinal: Yes: Soft Genitourinary: Yes: Thomas Present, Other (bilateral nephrostomy tubes, pt on CBI ) Musculoskeletal: Yes: WNL Edema: No Neurological: Yes: Oriented Psychiatric: Yes: Oriented Labs: CBC, BMP 05/01/19 08:45 05/01/19 08:45 INR, PTT INR 1.32 (0.83-1.09) H 04/26/19 07:52 Problem List - Problems (1) ROSA MARIA (acute kidney injury) Code(s): N17.9 - ACUTE KIDNEY FAILURE, UNSPECIFIED (2) BPH (benign prostatic hyperplasia) Code(s): N40.0 - BENIGN PROSTATIC HYPERPLASIA WITHOUT LOWER URINRY TRACT SYMP (3) Bladder cancer Code(s): C67.9 - MALIGNANT NEOPLASM OF BLADDER, UNSPECIFIED (4) CHF (congestive heart failure) Code(s): I50.9 - HEART FAILURE, UNSPECIFIED Qualifiers: Heart failure type: unspecified Assessment/Plan Current Medications Generic Name Dose Route Start Last Admin Trade Name Freq PRN Reason Stop Dose Admin Acetaminophen 650 mg 04/25/19 19:59 05/01/19 10:55 Tylenol - PO 650 mg Q6H PRN Administration PAIN LEVEL 6-10 Amlodipine Besylate 5 mg 04/26/19 15:30 05/02/19 10:37 Norvasc - PO 5 mg DAILY [facility] Administration Artificial Tears 1 drop 04/24/19 10:00 05/02/19 10:38 Artificial Tears OU 1 drop BID [facility] Administration Atorvastatin Calcium 10 mg 04/24/19 22:00 05/01/19 21:31 Lipitor - PO 10 mg HS [facility] Administration Famotidine 20 mg 04/24/19 10:00 05/02/19 10:40 Pepcid - PO 20 mg BID [facility] Administration Finasteride 5 mg 04/25/19 10:00 05/02/19 10:37 Proscar - PO 5 mg DAILY [facility] Administration Folic Acid 1 mg 04/24/19 10:00 05/02/19 10:37 Folic Acid - PO 1 mg DAILY [facility] Administration IV Flush 4 ml 05/01/19 12:14 Triple Lumen Flush IVPUSH PRN PRN Protocol Dextrose/Sodium Chloride 1,000 mls @ 42 mls/hr 05/02/19 09:30 05/02/19 08:55 D5-1/2ns - IV 42 mls/hr [facility] Administration Insulin Aspart 1 vial 04/24/19 16:30 05/02/19 12:38 Novolog Vial Sliding Scale - SQ Not Given TIDAC [facility] Protocol Insulin Detemir 10 units 04/24/19 22:00 05/02/19 06:29 Levemir Vial SQ Not Given BID@0700,2200 [facility] Lidocaine 1 patch 04/27/19 11:15 05/02/19 10:26 Lidoderm Patch - TP 1 patch DAILY [facility] Administration Miscellaneous 1 each 04/27/19 22:00 05/01/19 21:51 Lidoderm Patch Removal MC 1 each DAILY@2199 [facility] Administration Morphine Sulfate 1 mg 04/30/19 16:10 05/02/19 09:57 Morphine Sulfate IVPUSH 1 mg Q4H PRN Administration PAIN LEVEL 6-10 Polyethylene Glycol 17 gm 04/28/19 12:00 05/02/19 10:38 Miralax (For Daily Use) - PO Not Given DAILY [facility] Sodium Bicarbonate 650 mg 04/27/19 18:10 05/02/19 05:29 Sodium Bicarbonate - PO Not Given TID [facility] Tamsulosin HCl 0.8 mg 04/24/19 08:30 05/02/19 08:37 Flomax - PO 0.8 mg DAILY@0830 [facility] Administration Thiamine HCl 100 mg 04/24/19 10:00 05/02/19 10:37 Vitamin B1 - PO 100 mg DAILY [facility] Administration Impression 1. ROSA MARIA 2. hydronephrosis 3. hematuria 4. dementia 5. chf 6. dm 7. gerd 8. anemia Plan - pt s/p cysto - nephrostomy tube care - monitor renal function - monitor for post obstructive diuresis - repeat labs in am
[2019-05-02] MEDS: ATORVASTATIN CA 10 MG TABLET (FP) PO SCH (21:43)
[2019-05-02] MEDS: LIDOCAINE PATCH REMOVAL MC SCH (21:46)
[2019-05-02] MEDS: TRIPLE LUMEN FLUSH 4 ML ML IVPUSH PRN (23:14)
[2019-05-03] MEDS: INSULIN (LEVEMIR) 100 UNITS/ML UNITS SQ SCH ×2 (06:21→22:31)
[2019-05-03] MEDS: SODIUM BICARBONATE 650 MG TABLET PO SCH ×3 (06:21→22:32)
[2019-05-03] MEDS: INSULIN SLIDING SCALE (NOVOLOG) 1 VIAL SQ SCH ×3 (06:22→17:03)
[2019-05-03] MEDS: THIAMINE HCL 100 MG TABLET (FP) PO SCH (09:44)
[2019-05-03] MEDS: FINASTERIDE 5 MG TABLET (FP) PO SCH (09:44)
[2019-05-03] MEDS: TAMSULOSIN HCL 0.4 MG CAP PO SCH (09:45)
[2019-05-03] MEDS: amLODIPine BESYLATE 5 MG TABLET (FP) PO SCH (09:45)
[2019-05-03] MEDS: FAMOTIDINE 20 MG TABLET PO SCH ×2 (09:45→22:31)
[2019-05-03] MEDS: ARTIFICIAL TEARS (POLYVINYL ALCOHOL) OPTH DROPS OU SCH ×2 (09:45→22:31)
[2019-05-03] MEDS: FOLIC ACID 1 MG TABLET (FP) PO SCH (09:45)
[2019-05-03] MEDS: LIDOCAINE 5% TOPICAL PATCH TP SCH (09:47)
[2019-05-03] MEDS: POLYETHYLENE GLYCOL 3350 119 GM BTL PO SCH (09:48)
--- NOTE | 2019-05-03 11:24 | PN ---
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 (short form) - Note 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: RENAL Pt is awake and alert c/o his call villanueva not being properly placed Last Vital Signs Temp Pulse Resp BP Pulse Ox 98.1 F 83 20 158/70 100 05/03/19 09:43 05/03/19 09:43 05/03/19 09:43 05/03/19 09:43 05/03/19 09:00 lungs clear has bilat perc abd soft ext no edema neuro a+ox3 CBC, BMP 05/01/19 08:45 05/01/19 08:45 Current Medications Generic Name Dose Route Start Last Admin Trade Name Freq PRN Reason Stop Dose Admin Acetaminophen 650 mg 04/25/19 19:59 05/01/19 10:55 Tylenol - PO 650 mg Q6H PRN Administration PAIN LEVEL 6-10 Amlodipine Besylate 5 mg 04/26/19 15:30 05/03/19 09:45 Norvasc - PO 5 mg DAILY [facility] Administration Artificial Tears 1 drop 04/24/19 10:00 05/03/19 09:45 Artificial Tears OU 1 drop BID [facility] Administration Atorvastatin Calcium 10 mg 04/24/19 22:00 05/02/19 21:43 Lipitor - PO 10 mg HS [facility] Administration Famotidine 20 mg 04/24/19 10:00 05/03/19 09:45 Pepcid - PO 20 mg BID [facility] Administration Finasteride 5 mg 04/25/19 10:00 05/03/19 09:44 Proscar - PO 5 mg DAILY [facility] Administration Folic Acid 1 mg 04/24/19 10:00 05/03/19 09:45 Folic Acid - PO 1 mg DAILY [facility] Administration IV Flush 4 ml 05/01/19 12:14 05/02/19 23:14 Triple Lumen Flush IVPUSH 4 ml PRN PRN Administration Protocol Insulin Aspart 1 vial 04/24/19 16:30 05/03/19 11:18 Novolog Vial Sliding Scale - SQ 2 units TIDAC [facility] Administration Protocol Insulin Detemir 10 units 04/24/19 22:00 05/03/19 06:21 Levemir Vial SQ 10 units BID@0700,2200 [facility] Administration Lidocaine 1 patch 04/27/19 11:15 05/03/19 09:47 Lidoderm Patch - TP 1 patch DAILY [facility] Administration Miscellaneous 1 each 04/27/19 22:00 05/02/19 21:46 Lidoderm Patch Removal MC 1 each DAILY@2200 [facility] Administration Morphine Sulfate 1 mg 04/30/19 16:10 05/02/19 18:00 Morphine Sulfate IVPUSH 1 mg Q4H PRN Administration PAIN LEVEL 6-10 Polyethylene Glycol 17 gm 04/28/19 12:00 05/03/19 09:48 Miralax (For Daily Use) - PO Not Given DAILY [facility] Sodium Bicarbonate 650 mg 04/27/19 18:10 05/03/19 06:21 Sodium Bicarbonate - PO 650 mg TID [facility] Administration Tamsulosin HCl 0.8 mg 04/24/19 08:30 05/03/19 09:45 Flomax - PO 0.8 mg DAILY@0830 [facility] Administration Thiamine HCl 100 mg 04/24/19 10:00 05/03/19 09:44 Vitamin B1 - PO 100 mg DAILY [facility] Administration Impression 1. ROSA MARIA 2. hydronephrosis 3. hematuria 4. dementia 5. chf 6. dm 7. gerd 8. anemia Plan - pt s/p cysto - nephrostomy tube care - will order labs for today [facility]
--- NOTE | 2019-05-03 11:40 | PN ---
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 (short form) - Note 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: Pt seen/ examined awake/ comfortable feels better denies pain POD #1 got transfused yesterday Vital Signs Temp 98.1 F 05/03/19 09:43 Pulse 83 05/03/19 09:43 Resp 20 05/03/19 09:43 BP 158/70 05/03/19 09:43 Pulse Ox 100 05/03/19 09:00 Intake & Output 05/02/19 05/02/19 05/03/19 11:59 23:59 11:59 Intake Total 8000 82507 6000 Output Total 61444 10997 6550 Balance -4075 -735 -550 Intake: IV 1200 D5-1/2Ns - 1,000 ml @ 42 1000 mls/hr IV ASDIR [facility] Rx#: [id number] Oral 790 Blood Product 350 Packed Cells 350 CBI Intake 8000 8000 6000 Output: Urine 37925 99766 6550 Thomas 31613 8800 5700 Left Nephrostomy 700 1450 850 Right Nephrostomy 1175 625 Estimated Blood Loss 100 Other: Voiding Method Indwelling Catheter Indwelling Catheter Indwelling Catheter Bowel Movement No No No Active Medications Acetaminophen (Tylenol -) 650 mg PO Q6H PRN PRN Reason: PAIN LEVEL 6-10 Last Admin: 05/01/19 10:55 Dose: 650 mg Amlodipine Besylate (Norvasc -) 5 mg PO DAILY [facility] Last Admin: 05/03/19 09:45 Dose: 5 mg Artificial Tears (Artificial Tears) 1 drop OU BID [facility] Last Admin: 05/03/19 09:45 Dose: 1 drop Atorvastatin Calcium (Lipitor -) 10 mg PO HS [facility] Last Admin: 05/02/19 21:43 Dose: 10 mg Famotidine (Pepcid -) 20 mg PO BID [facility] Last Admin: 05/03/19 09:45 Dose: 20 mg Finasteride (Proscar -) 5 mg PO DAILY [facility] Last Admin: 05/03/19 09:44 Dose: 5 mg Folic Acid (Folic Acid -) 1 mg PO DAILY [facility] Last Admin: 05/03/19 09:45 Dose: 1 mg IV Flush (Triple Lumen Flush) 4 ml IVPUSH PRN PRN PRN Reason: Protocol Last Admin: 05/02/19 23:14 Dose: 4 ml Insulin Aspart (Novolog Vial Sliding Scale -) 1 vial SQ TIDAC [facility]; Protocol Last Admin: 05/03/19 11:18 Dose: 2 units Insulin Detemir (Levemir Vial) 10 units SQ BID@0700,2200 [facility] Last Admin: 05/03/19 06:21 Dose: 10 units Lidocaine (Lidoderm Patch -) 1 patch TP DAILY [facility] Last Admin: 05/03/19 09:47 Dose: 1 patch Miscellaneous (Lidoderm Patch Removal) 1 each MC DAILY@2200 [facility] Last Admin: 05/02/19 21:46 Dose: 1 each Morphine Sulfate (Morphine Sulfate) 1 mg IVPUSH Q4H PRN PRN Reason: PAIN LEVEL 6-10 Last Admin: 05/02/19 18:00 Dose: 1 mg Polyethylene Glycol (Miralax (For Daily Use) -) 17 gm PO DAILY [facility] Last Admin: 05/03/19 09:48 Dose: Not Given Sodium Bicarbonate (Sodium Bicarbonate -) 650 mg PO TID [facility] Last Admin: 05/03/19 06:21 Dose: 650 mg Tamsulosin HCl (Flomax -) 0.8 mg PO DAILY@0830 [facility] Last Admin: 05/03/19 09:45 Dose: 0.8 mg Thiamine HCl (Vitamin B1 -) 100 mg PO DAILY [facility] Last Admin: 05/03/19 09:44 Dose: 100 mg CBC, BMP 05/01/19 08:45 05/01/19 08:45 Physical Exam . Awake/ No distress central line - Right side S1 S2 RRR Lungs clear Abd- soft, obese, NT no edema Thomas-+ Bilateral Nephrostomty tube+ PLAN Clinically looks better POD #1 Pre-Operative Diagnosis: bladder tumor, emilia. hydroureteralnephrosis,gross hematuria Operation: cysto, attempted emilia retrogrades, antigrade nephrotogram, turbt ( large) findings Large bleeding extensive bladder tumor with complete ureteral obstruction transfuse when necessary Pt will be going to OR for TURBT, stents today monitor cbc/ electrolytes continue CBI Monitor bgm labs ordered for today will follow Discussed with nursing staff also Problem List - Problems (1) ROSA MARIA (acute kidney injury) Code(s): N17.9 - ACUTE KIDNEY FAILURE, UNSPECIFIED (2) Anemia Code(s): D64.9 - ANEMIA, UNSPECIFIED (3) BPH (benign prostatic hyperplasia) Code(s): N40.0 - BENIGN PROSTATIC HYPERPLASIA WITHOUT LOWER URINRY TRACT SYMP (4) Dementia Code(s): F03.90 - UNSPECIFIED DEMENTIA WITHOUT BEHAVIORAL DISTURBANCE (5) Diabetes mellitus Code(s): E11.9 - TYPE 2 DIABETES MELLITUS WITHOUT COMPLICATIONS Qualifiers: Diabetes mellitus type: type 2 (6) HLD (hyperlipidemia) Code(s): E78.5 - HYPERLIPIDEMIA, UNSPECIFIED Problem List - Problems (1) Bladder cancer Code(s): C67.9 - MALIGNANT NEOPLASM OF BLADDER, UNSPECIFIED (2) Cirrhosis Code(s): K74.60 - UNSPECIFIED CIRRHOSIS OF LIVER (3) ROSA MARIA (acute kidney injury) Code(s): N17.9 - ACUTE KIDNEY FAILURE, UNSPECIFIED (4) Anemia Code(s): D64.9 - ANEMIA, UNSPECIFIED (5) HTN (hypertension) Code(s): I10 - ESSENTIAL (PRIMARY) HYPERTENSION (6) Hematuria Code(s): R31.9 - HEMATURIA, UNSPECIFIED
[2019-05-03] MEDS: ATORVASTATIN CA 10 MG TABLET (FP) PO SCH (22:31)
[2019-05-03] MEDS: LIDOCAINE PATCH REMOVAL MC SCH (22:33)
[2019-05-04] MEDS: INSULIN SLIDING SCALE (NOVOLOG) 1 VIAL SQ SCH ×3 (06:34→17:12)
[2019-05-04] MEDS: SODIUM BICARBONATE 650 MG TABLET PO SCH (06:41)
[2019-05-04] MEDS: INSULIN (LEVEMIR) 100 UNITS/ML UNITS SQ SCH ×2 (06:41→22:37)
[2019-05-04 08:48] LABS: BASO % 0.2 % (0-2.0); EOS % 0.7 % (0-4.5); HEMOGLOBIN 8.6 GM/dL (11.7-16.9); LYMPH % 6.6 % (8-40); MCH 29.8 pg (25.7-33.7); MCHC 34.4 g/dl (32.0-35.9); MEAN CELL VOLUME 86.5 fl (80-96); MEAN PLT VOLUME 7.5 fl (7.5-11.1); NEUT % 81.5 % (42.8-82.8); PLATELET COUNT 183 K/MM3 (134-434); RBC 2.89 M/mm3 (4.00-5.60); RDW 14.4 % (11.9-15.9); WHITE BLOOD COUNT 11.7 K/mm3 (4.0-10.0)
[2019-05-04 09:13] LABS: ALBUMIN 1.6 g/dl (3.4-5.0); BILIRUBIN,TOTAL 0.7 mg/dL (0.2-1); CALCIUM 7.4 mg/dL (8.5-10.1); CREATININE 1.9 mg/dL (0.55-1.3); POTASSIUM 3.4 mmol/L (3.5-5.1); TOT PROT 5.4 g/dl (6.4-8.2)
[2019-05-04] MEDS: THIAMINE HCL 100 MG TABLET (FP) PO SCH (10:31)
[2019-05-04] MEDS: FOLIC ACID 1 MG TABLET (FP) PO SCH (10:31)
[2019-05-04] MEDS: amLODIPine BESYLATE 5 MG TABLET (FP) PO SCH (10:32)
[2019-05-04] MEDS: ARTIFICIAL TEARS (POLYVINYL ALCOHOL) OPTH DROPS OU SCH ×2 (10:32→21:51)
[2019-05-04] MEDS: FINASTERIDE 5 MG TABLET (FP) PO SCH (10:32)
[2019-05-04] MEDS: POLYETHYLENE GLYCOL 3350 119 GM BTL PO SCH (10:32)
[2019-05-04] MEDS: TAMSULOSIN HCL 0.4 MG CAP PO SCH (10:32)
[2019-05-04] MEDS: LIDOCAINE 5% TOPICAL PATCH TP SCH (10:32)
[2019-05-04] MEDS: FAMOTIDINE 20 MG TABLET PO SCH ×2 (10:32→21:51)
--- NOTE | 2019-05-04 11:48 | PN ---
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 (short form) - Note 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: Chief Complaint: Events noted, notes reviewed, resting in bed, no distress History of Present Illness: Seen and examined. Events noted, notes reviewed, resting in bed, no distress Medications: Current Medications Acetaminophen (Tylenol -) 650 mg PO Q6H PRN PRN Reason: PAIN LEVEL 6-10 Last Admin: 05/01/19 10:55 Dose: 650 mg Amlodipine Besylate (Norvasc -) 5 mg PO DAILY [facility] Last Admin: 05/04/19 10:32 Dose: 5 mg Artificial Tears (Artificial Tears) 1 drop OU BID [facility] Last Admin: 05/04/19 10:32 Dose: 1 drop Atorvastatin Calcium (Lipitor -) 10 mg PO HS [facility] Last Admin: 05/03/19 22:31 Dose: 10 mg Famotidine (Pepcid -) 20 mg PO BID [facility] Last Admin: 05/04/19 10:32 Dose: 20 mg Finasteride (Proscar -) 5 mg PO DAILY [facility] Last Admin: 05/04/19 10:32 Dose: 5 mg Folic Acid (Folic Acid -) 1 mg PO DAILY [facility] Last Admin: 05/04/19 10:31 Dose: 1 mg IV Flush (Triple Lumen Flush) 4 ml IVPUSH PRN PRN PRN Reason: Protocol Last Admin: 05/02/19 23:14 Dose: 4 ml Insulin Aspart (Novolog Vial Sliding Scale -) 1 vial SQ TIDAC [facility]; Protocol Last Admin: 05/04/19 06:34 Dose: Not Given Insulin Detemir (Levemir Vial) 10 units SQ BID@0700,2200 [facility] Last Admin: 05/04/19 06:41 Dose: 10 units Lidocaine (Lidoderm Patch -) 1 patch TP DAILY [facility] Last Admin: 05/04/19 10:32 Dose: 1 patch Miscellaneous (Lidoderm Patch Removal) 1 each MC DAILY@2200 [facility] Last Admin: 05/03/19 22:33 Dose: 1 each Polyethylene Glycol (Miralax (For Daily Use) -) 17 gm PO DAILY [facility] Last Admin: 05/04/19 10:32 Dose: Not Given Sodium Bicarbonate (Sodium Bicarbonate -) 650 mg PO TID [facility] Last Admin: 05/04/19 06:41 Dose: 650 mg Tamsulosin HCl (Flomax -) 0.8 mg PO DAILY@0830 [facility] Last Admin: 05/04/19 10:32 Dose: 0.8 mg Thiamine HCl (Vitamin B1 -) 100 mg PO DAILY [facility] Last Admin: 05/04/19 10:31 Dose: 100 mg Vital Signs: Last Vital Signs Temp Pulse Resp BP Pulse Ox 98.9 F 80 20 145/70 97 05/04/19 10:00 05/04/19 10:00 05/04/19 10:00 05/04/19 10:00 05/03/19 21:00 Intake & Output 05/01/19 05/02/19 05/03/19 05/04/19 23:59 23:59 23:59 23:59 Intake Total 9589 29716 53202 9200 Output Total 38159 86052 21725 45289 Balance -62228 -2903 -7617 -2700 Weight 161 lb Constitutional: No Distress, Calm Neck: Supple Negative JVD Respiratory: Clear to A&P Bilaterally Cardiovascular: S1 S2 Regular Rate and Rhythm Gastrointestinal: Soft Benign Normal Bowel Sounds Ext: No Edema Labs: CBC, BMP 05/04/19 08:15 05/04/19 08:15 Hepatic Panel Total Bilirubin 0.7 mg/dL (0.2-1) 05/04/19 08:15 AST 70 U/L (15-37) H 05/04/19 08:15 ALT 30 U/L (13-61) 05/04/19 08:15 Alkaline Phosphatase 143 U/L (45-117) H 05/04/19 08:15 Albumin 1.6 g/dl (3.4-5.0) L 05/04/19 08:15 INR, PTT INR 1.32 (0.83-1.09) H 04/26/19 07:52 Assessment/Plan ASSESSMENT: 1. ROSA MARIA/CKD, hydronephrosis post percutaneous nephrostomy 2. Hematuria, bladder carcinoma 3. HTN 4. DM 5. Hypercholesterolemia 6. Organic brain syndrome/dementia 7. MDD, anemia 8. BPH PLAN: 1. Continue Norvasc 2. Continue Lipitor 3. Transfuse as needed to maintain Hg equal or > 8.0 Janny Howell MD
[2019-05-04] MEDS ORDERED: POTASSIUM CHLORIDE ORAL LIQUID 20 MEQ/15 ML PO ONE (13:01)
--- NOTE | 2019-05-04 13:07 | PN ---
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 (short form) - Note 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: pt seen/ examined feels much better denies pain urine clearing up-- h/h stable cr much better denies cp/sob Vital Signs Temp 98.9 F 05/04/19 10:00 Pulse 80 05/04/19 10:00 Resp 20 05/04/19 10:00 BP 145/70 05/04/19 10:00 Pulse Ox 100 05/04/19 09:00 Intake & Output 05/03/19 05/04/19 05/04/19 23:59 11:59 23:59 Intake Total 6000 9200 Output Total 50586 65130 Balance -6500 -4100 Intake: Oral 200 CBI Intake 6000 9000 Output: Urine 74291 52680 Thomas 52973 81035 Left Nephrostomy 500 1900 Other: Voiding Method Indwelling Catheter Indwelling Catheter Bowel Movement No Yes # Bowel Movements 1 Active Medications Acetaminophen (Tylenol -) 650 mg PO Q6H PRN PRN Reason: PAIN LEVEL 6-10 Last Admin: 05/01/19 10:55 Dose: 650 mg Amlodipine Besylate (Norvasc -) 5 mg PO DAILY [facility] Last Admin: 05/04/19 10:32 Dose: 5 mg Artificial Tears (Artificial Tears) 1 drop OU BID [facility] Last Admin: 05/04/19 10:32 Dose: 1 drop Atorvastatin Calcium (Lipitor -) 10 mg PO HS [facility] Last Admin: 05/03/19 22:31 Dose: 10 mg Famotidine (Pepcid -) 20 mg PO BID [facility] Last Admin: 05/04/19 10:32 Dose: 20 mg Finasteride (Proscar -) 5 mg PO DAILY [facility] Last Admin: 05/04/19 10:32 Dose: 5 mg Folic Acid (Folic Acid -) 1 mg PO DAILY [facility] Last Admin: 05/04/19 10:31 Dose: 1 mg IV Flush (Triple Lumen Flush) 4 ml IVPUSH PRN PRN PRN Reason: Protocol Last Admin: 05/02/19 23:14 Dose: 4 ml Insulin Aspart (Novolog Vial Sliding Scale -) 1 vial SQ TIDAC [facility]; Protocol Last Admin: 05/04/19 11:57 Dose: Not Given Insulin Detemir (Levemir Vial) 10 units SQ BID@0700,2200 [facility] Last Admin: 05/04/19 06:41 Dose: 10 units Lidocaine (Lidoderm Patch -) 1 patch TP DAILY [facility] Last Admin: 05/04/19 10:32 Dose: 1 patch Miscellaneous (Lidoderm Patch Removal) 1 each MC DAILY@2200 [facility] Last Admin: 05/03/19 22:33 Dose: 1 each Polyethylene Glycol (Miralax (For Daily Use) -) 17 gm PO DAILY [facility] Last Admin: 05/04/19 10:32 Dose: Not Given Potassium Chloride (Potassium Chloride Oral Liquid) 40 meq PO ONCE ONE Stop: 05/04/19 13:02 Tamsulosin HCl (Flomax -) 0.8 mg PO DAILY@0830 [facility] Last Admin: 05/04/19 10:32 Dose: 0.8 mg Thiamine HCl (Vitamin B1 -) 100 mg PO DAILY [facility] Last Admin: 05/04/19 10:31 Dose: 100 mg CBC, BMP 05/04/19 08:15 05/04/19 08:15 Physical Exam . Awake/ No distress central line - Right side S1 S2 RRR Lungs clear Abd- soft, obese, NT no edema Thomas-+ Bilateral Nephrostomty tube+ PLAN Clinically much better POD #2 Pre-Operative Diagnosis: bladder tumor, emilia. hydroureteralnephrosis,gross hematuria Operation: cysto, attempted emilia retrogrades, antigrade nephrotogram, turbt ( large) findings Large bleeding extensive bladder tumor with complete ureteral obstruction transfuse when necessary monitor cbc/ electrolytes continue CBI Monitor bgm labs ordered for tomorrow will follow k supplement d/c NaHco3 for now Discussed with nursing staff also Problem List - Problems (1) ROSA MARIA (acute kidney injury) Code(s): N17.9 - ACUTE KIDNEY FAILURE, UNSPECIFIED (2) Anemia Code(s): D64.9 - ANEMIA, UNSPECIFIED (3) BPH (benign prostatic hyperplasia) Code(s): N40.0 - BENIGN PROSTATIC HYPERPLASIA WITHOUT LOWER URINRY TRACT SYMP (4) Dementia Code(s): F03.90 - UNSPECIFIED DEMENTIA WITHOUT BEHAVIORAL DISTURBANCE (5) Diabetes mellitus Code(s): E11.9 - TYPE 2 DIABETES MELLITUS WITHOUT COMPLICATIONS Qualifiers: Diabetes mellitus type: type 2 (6) HLD (hyperlipidemia) Code(s): E78.5 - HYPERLIPIDEMIA, UNSPECIFIED Problem List - Problems (1) Bladder cancer Code(s): C67.9 - MALIGNANT NEOPLASM OF BLADDER, UNSPECIFIED (2) Cirrhosis Code(s): K74.60 - UNSPECIFIED CIRRHOSIS OF LIVER (3) ROSA MARIA (acute kidney injury) Code(s): N17.9 - ACUTE KIDNEY FAILURE, UNSPECIFIED (4) Anemia Code(s): D64.9 - ANEMIA, UNSPECIFIED (5) HTN (hypertension) Code(s): I10 - ESSENTIAL (PRIMARY) HYPERTENSION (6) Hematuria Code(s): R31.9 - HEMATURIA, UNSPECIFIED Problem List - Problems (1) Bladder cancer Code(s): C67.9 - MALIGNANT NEOPLASM OF BLADDER, UNSPECIFIED (2) Cirrhosis Code(s): K74.60 - UNSPECIFIED CIRRHOSIS OF LIVER (3) ROSA MARIA (acute kidney injury) Code(s): N17.9 - ACUTE KIDNEY FAILURE, UNSPECIFIED (4) Anemia Code(s): D64.9 - ANEMIA, UNSPECIFIED (5) HTN (hypertension) Code(s): I10 - ESSENTIAL (PRIMARY) HYPERTENSION (6) Hematuria Code(s): R31.9 - HEMATURIA, UNSPECIFIED
--- NOTE | 2019-05-04 13:33 | PN ---
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 (short form) - Note 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: RENAL Pt is awake and alert Last Vital Signs Temp Pulse Resp BP Pulse Ox 98.9 F 80 20 145/70 100 05/04/19 10:00 05/04/19 10:00 05/04/19 10:00 05/04/19 10:00 05/04/19 09:00 lungs clear has bilat perc abd soft ext no edema neuro a+ox3 urine is clearing CBC, BMP 05/04/19 08:15 05/04/19 08:15 Current Medications Generic Name Dose Route Start Last Admin Trade Name Freq PRN Reason Stop Dose Admin Acetaminophen 650 mg 04/25/19 19:59 05/01/19 10:55 Tylenol - PO 650 mg Q6H PRN Administration PAIN LEVEL 6-10 Amlodipine Besylate 5 mg 04/26/19 15:30 05/04/19 10:32 Norvasc - PO 5 mg DAILY [facility] Administration Artificial Tears 1 drop 04/24/19 10:00 05/04/19 10:32 Artificial Tears OU 1 drop BID [facility] Administration Atorvastatin Calcium 10 mg 04/24/19 22:00 05/03/19 22:31 Lipitor - PO 10 mg HS [facility] Administration Famotidine 20 mg 04/24/19 10:00 05/04/19 10:32 Pepcid - PO 20 mg BID [facility] Administration Finasteride 5 mg 04/25/19 10:00 05/04/19 10:32 Proscar - PO 5 mg DAILY [facility] Administration Folic Acid 1 mg 04/24/19 10:00 05/04/19 10:31 Folic Acid - PO 1 mg DAILY [facility] Administration IV Flush 4 ml 05/01/19 12:14 05/02/19 23:14 Triple Lumen Flush IVPUSH 4 ml PRN PRN Administration Protocol Insulin Aspart 1 vial 04/24/19 16:30 05/04/19 11:57 Novolog Vial Sliding Scale - SQ Not Given TIDAC [facility] Protocol Insulin Detemir 10 units 04/24/19 22:00 05/04/19 06:41 Levemir Vial SQ 10 units BID@0700,2200 [facility] Administration Lidocaine 1 patch 04/27/19 11:15 05/04/19 10:32 Lidoderm Patch - TP 1 patch DAILY [facility] Administration Miscellaneous 1 each 04/27/19 22:00 05/03/19 22:33 Lidoderm Patch Removal MC 1 each DAILY@2200 [facility] Administration Polyethylene Glycol 17 gm 04/28/19 12:00 05/04/19 10:32 Miralax (For Daily Use) - PO Not Given DAILY [facility] Tamsulosin HCl 0.8 mg 04/24/19 08:30 05/04/19 10:32 Flomax - PO 0.8 mg DAILY@0830 [facility] Administration Thiamine HCl 100 mg 04/24/19 10:00 05/04/19 10:31 Vitamin B1 - PO 100 mg DAILY [facility] Administration Impression 1. ROSA MARIA 2. hydronephrosis 3. hematuria 4. dementia 5. chf 6. dm 7. gerd 8. anemia Plan - pt s/p cysto - nephrostomy tube care - will order labs for today -start fluids given diuresis MV
[2019-05-04] MEDS: SODIUM CHLORIDE 0.45%/POT 20 MEQ/1,000 ML INFUS.BAG IV SCH (14:28)
[2019-05-04] MEDS: ACETAMINOPHEN 325 MG TABLET (FP) PO PRN (17:58)
[2019-05-04] MEDS: ATORVASTATIN CA 10 MG TABLET (FP) PO SCH (21:51)
[2019-05-04] MEDS: LIDOCAINE PATCH REMOVAL MC SCH (23:23)
[2019-05-05] MEDS: SODIUM CHLORIDE 0.45%/POT 20 MEQ/1,000 ML INFUS.BAG IV SCH ×2 (03:38→16:07)
[2019-05-05] MEDS: INSULIN SLIDING SCALE (NOVOLOG) 1 VIAL SQ SCH ×3 (06:17→18:04)
[2019-05-05] MEDS: INSULIN (LEVEMIR) 100 UNITS/ML UNITS SQ SCH ×2 (06:23→21:36)
[2019-05-05 08:08] LABS: ALBUMIN 1.6 g/dl (3.4-5.0); BASO % 0.2 % (0-2.0); BILIRUBIN,TOTAL 0.7 mg/dL (0.2-1); BLOOD UREA NITROGEN 25.9 mg/dL (7-18); CALCIUM 7.2 mg/dL (8.5-10.1); CREATININE 1.8 mg/dL (0.55-1.3); EOS % 2.7 % (0-4.5); HEMATOCRIT 25.9 % (35.4-49); HEMOGLOBIN 8.9 GM/dL (11.7-16.9); LYMPH % 7.8 % (8-40); MCH 30.1 pg (25.7-33.7); MCHC 34.6 g/dl (32.0-35.9); MEAN PLT VOLUME 8.3 fl (7.5-11.1); MONO % 11.5 % (3.8-10.2); NEUT % 77.8 % (42.8-82.8); PLATELET COUNT 163 K/MM3 (134-434); POTASSIUM 4.1 mmol/L (3.5-5.1); RBC 2.97 M/mm3 (4.00-5.60); RDW 14.8 % (11.9-15.9); TOT PROT 5.4 g/dl (6.4-8.2); WHITE BLOOD COUNT 10.1 K/mm3 (4.0-10.0)
--- NOTE | 2019-05-05 09:04 | PN ---
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 (short form) - Note 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: VASCULAR SURGERY Right IJ TLC placed 05/02. Change dressing as ordered. Call Surgery PAs when ready to have dorian freeman Problem List - Problems (1) Difficult intravenous access Code(s): Z78.9 - OTHER SPECIFIED HEALTH STATUS (2) Bladder cancer Code(s): C67.9 - MALIGNANT NEOPLASM OF BLADDER, UNSPECIFIED (3) Diabetes mellitus Code(s): E11.9 - TYPE 2 DIABETES MELLITUS WITHOUT COMPLICATIONS Qualifiers: Diabetes mellitus type: type 2
[2019-05-05] MEDS ORDERED: PT OWN MED DRAWER 7, Y5N ONE (10:10)
[2019-05-05] MEDS: TAMSULOSIN HCL 0.4 MG CAP PO SCH (10:41)
[2019-05-05] MEDS: THIAMINE HCL 100 MG TABLET (FP) PO SCH (10:41)
[2019-05-05] MEDS: FOLIC ACID 1 MG TABLET (FP) PO SCH (10:41)
[2019-05-05] MEDS: FINASTERIDE 5 MG TABLET (FP) PO SCH (10:42)
[2019-05-05] MEDS: amLODIPine BESYLATE 5 MG TABLET (FP) PO SCH (10:42)
[2019-05-05] MEDS: FAMOTIDINE 20 MG TABLET PO SCH ×2 (10:42→21:36)
[2019-05-05] MEDS: LIDOCAINE 5% TOPICAL PATCH TP SCH (10:44)
[2019-05-05] MEDS: ARTIFICIAL TEARS (POLYVINYL ALCOHOL) OPTH DROPS OU SCH ×2 (10:45→21:37)
[2019-05-05] MEDS: POLYETHYLENE GLYCOL 3350 119 GM BTL PO SCH (10:45)
--- NOTE | 2019-05-05 10:58 | PN ---
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 (short form) - Note 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: pt seen/ examined awake/comfortable feels ok all f/u noted Vital Signs Temp 99.4 F 05/05/19 06:00 Pulse 83 05/05/19 06:00 Resp 20 05/05/19 06:00 BP 151/77 05/05/19 06:00 Pulse Ox 100 05/04/19 09:00 Intake & Output 05/04/19 05/04/19 05/05/19 11:59 23:59 11:59 Intake Total 9200 6000 5000 Output Total 94457 35071 4800 Balance -4100 -5500 200 Intake: IV 1000 1/2NS+20MEQ KCL 20 meq In 1000 1,000 ml @ 83 mls/hr IV ASDIR [facility] Rx#:[id number] Oral 200 CBI Intake 9000 6000 4000 Output: Urine 06771 59478 4800 Thomas 55756 82921 3900 Left Nephrostomy 1900 1100 900 Other: Voiding Method Indwelling Catheter Indwelling Catheter Indwelling Catheter Bowel Movement Yes Yes # Bowel Movements 1 1 Active Medications Acetaminophen (Tylenol -) 650 mg PO Q6H PRN PRN Reason: PAIN LEVEL 6-10 Last Admin: 05/04/19 17:58 Dose: 650 mg Amlodipine Besylate (Norvasc -) 5 mg PO DAILY [facility] Last Admin: 05/05/19 10:42 Dose: 5 mg Artificial Tears (Artificial Tears) 1 drop OU BID [facility] Last Admin: 05/05/19 10:45 Dose: 1 drop Atorvastatin Calcium (Lipitor -) 10 mg PO HS [facility] Last Admin: 05/04/19 21:51 Dose: 10 mg Famotidine (Pepcid -) 20 mg PO BID [facility] Last Admin: 05/05/19 10:42 Dose: 20 mg Finasteride (Proscar -) 5 mg PO DAILY [facility] Last Admin: 05/05/19 10:42 Dose: 5 mg Folic Acid (Folic Acid -) 1 mg PO DAILY [facility] Last Admin: 05/05/19 10:41 Dose: 1 mg IV Flush (Triple Lumen Flush) 4 ml IVPUSH PRN PRN PRN Reason: Protocol Last Admin: 05/02/19 23:14 Dose: 4 ml Potassium Chloride/Sodium Chloride (1/2ns+20meq Kcl) 20 meq in 1,000 mls @ 83 mls/hr IV ASDIR [facility] Last Admin: 05/05/19 03:38 Dose: 83 mls/hr Insulin Aspart (Novolog Vial Sliding Scale -) 1 vial SQ TIDAC [facility]; Protocol Last Admin: 05/05/19 06:17 Dose: Not Given Insulin Detemir (Levemir Vial) 10 units SQ BID@0700,2200 [facility] Last Admin: 05/05/19 06:23 Dose: 10 units Lidocaine (Lidoderm Patch -) 1 patch TP DAILY [facility] Last Admin: 05/05/19 10:44 Dose: 1 patch Miscellaneous (Lidoderm Patch Removal) 1 each MC DAILY@2200 [facility] Last Admin: 05/04/19 23:23 Dose: 1 each Polyethylene Glycol (Miralax (For Daily Use) -) 17 gm PO DAILY [facility] Last Admin: 05/05/19 10:45 Dose: Not Given Tamsulosin HCl (Flomax -) 0.8 mg PO DAILY@0830 [facility] Last Admin: 05/05/19 10:41 Dose: 0.8 mg Thiamine HCl (Vitamin B1 -) 100 mg PO DAILY [facility] Last Admin: 05/05/19 10:41 Dose: 100 mg CBC, BMP 05/05/19 06:00 05/05/19 06:00 Physical Exam . Awake/ No distress central line - Right side S1 S2 RRR Lungs clear Abd- soft, obese, NT no edema Thomas-+ Bilateral Nephrostomty tube+ PLAN Clinically much better POD #3 Pre-Operative Diagnosis: bladder tumor, emilia. hydroureteralnephrosis,gross hematuria Operation: cysto, attempted emilia retrogrades, antigrade nephrotogram, turbt ( large) findings Large bleeding extensive bladder tumor with complete ureteral obstruction transfuse when necessary monitor cbc/ electrolytes continue CBI Monitor bgm started on mild hydration by renal yesterday urology to follow Discussed with nursing staff also will follow Problem List - Problems (1) Bladder cancer Code(s): C67.9 - MALIGNANT NEOPLASM OF BLADDER, UNSPECIFIED (2) Cirrhosis Code(s): K74.60 - UNSPECIFIED CIRRHOSIS OF LIVER (3) ROSA MARIA (acute kidney injury) Code(s): N17.9 - ACUTE KIDNEY FAILURE, UNSPECIFIED (4) Anemia Code(s): D64.9 - ANEMIA, UNSPECIFIED (5) HTN (hypertension) Code(s): I10 - ESSENTIAL (PRIMARY) HYPERTENSION (6) Hematuria Code(s): R31.9 - HEMATURIA, UNSPECIFIED
--- NOTE | 2019-05-05 14:03 | PN ---
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, Physician History of Present Illness: Pt seen and examined at bedside. He appears comfortable. - Current Medication List Current Medications: Active Medications Acetaminophen (Tylenol -) 650 mg PO Q6H PRN PRN Reason: PAIN LEVEL 6-10 Last Admin: 05/04/19 17:58 Dose: 650 mg Amlodipine Besylate (Norvasc -) 5 mg PO DAILY [facility] Last Admin: 05/05/19 10:42 Dose: 5 mg Artificial Tears (Artificial Tears) 1 drop OU BID [facility] Last Admin: 05/05/19 10:45 Dose: 1 drop Atorvastatin Calcium (Lipitor -) 10 mg PO HS [facility] Last Admin: 05/04/19 21:51 Dose: 10 mg Famotidine (Pepcid -) 20 mg PO BID [facility] Last Admin: 05/05/19 10:42 Dose: 20 mg Finasteride (Proscar -) 5 mg PO DAILY [facility] Last Admin: 05/05/19 10:42 Dose: 5 mg Folic Acid (Folic Acid -) 1 mg PO DAILY [facility] Last Admin: 05/05/19 10:41 Dose: 1 mg IV Flush (Triple Lumen Flush) 4 ml IVPUSH PRN PRN PRN Reason: Protocol Last Admin: 05/02/19 23:14 Dose: 4 ml Potassium Chloride/Sodium Chloride (1/2ns+20meq Kcl) 20 meq in 1,000 mls @ 83 mls/hr IV ASDIR [facility] Last Admin: 05/05/19 03:38 Dose: 83 mls/hr Insulin Aspart (Novolog Vial Sliding Scale -) 1 vial SQ TIDAC [facility]; Protocol Last Admin: 05/05/19 12:29 Dose: Not Given Insulin Detemir (Levemir Vial) 10 units SQ BID@0700,2200 [facility] Last Admin: 05/05/19 06:23 Dose: 10 units Lidocaine (Lidoderm Patch -) 1 patch TP DAILY [facility] Last Admin: 05/05/19 10:44 Dose: 1 patch Miscellaneous (Lidoderm Patch Removal) 1 each MC DAILY@2200 [facility] Last Admin: 05/04/19 23:23 Dose: 1 each Polyethylene Glycol (Miralax (For Daily Use) -) 17 gm PO DAILY [facility] Last Admin: 05/05/19 10:45 Dose: Not Given Tamsulosin HCl (Flomax -) 0.8 mg PO DAILY@0830 [facility] Last Admin: 05/05/19 10:41 Dose: 0.8 mg Thiamine HCl (Vitamin B1 -) 100 mg PO DAILY [facility] Last Admin: 05/05/19 10:41 Dose: 100 mg - Objective Vital Signs: Vital Signs Temperature 98.9 F 05/05/19 11:04 Pulse Rate 87 05/05/19 11:04 Respiratory Rate 05/05/19 11:04 Blood Pressure 152/74 05/05/19 11:04 O2 Sat by Pulse Oximetry (%) 100 05/04/19 09:00 Constitutional: Yes: Calm Eyes: Yes: Conjunctiva Clear HENT: Yes: Atraumatic Neck: Yes: Supple Cardiovascular: Yes: S1, S2 Respiratory: Yes: CTA Bilaterally Gastrointestinal: Yes: Soft Genitourinary: Yes: Thomas Present, Other (bilateral nephrostomy tubes) Musculoskeletal: Yes: Muscle Weakness Edema: No Neurological: Yes: Oriented Labs: CBC, BMP 05/05/19 06:00 05/05/19 06:00 INR, PTT INR 1.32 (0.83-1.09) H 04/26/19 07:52 Problem List - Problems (1) ROSA MARIA (acute kidney injury) Code(s): N17.9 - ACUTE KIDNEY FAILURE, UNSPECIFIED (2) BPH (benign prostatic hyperplasia) Code(s): N40.0 - BENIGN PROSTATIC HYPERPLASIA WITHOUT LOWER URINRY TRACT SYMP (3) Bladder cancer Code(s): C67.9 - MALIGNANT NEOPLASM OF BLADDER, UNSPECIFIED (4) CHF (congestive heart failure) Code(s): I50.9 - HEART FAILURE, UNSPECIFIED Qualifiers: Heart failure type: unspecified Assessment/Plan Current Medications Generic Name Dose Route Start Last Admin Trade Name Freq PRN Reason Stop Dose Admin Acetaminophen 650 mg 04/25/19 19:59 05/04/19 17:58 Tylenol - PO 650 mg Q6H PRN Administration PAIN LEVEL 6-10 Amlodipine Besylate 5 mg 04/26/19 15:30 05/05/19 10:42 Norvasc - PO 5 mg DAILY [facility] Administration Artificial Tears 1 drop 04/24/19 10:00 05/05/19 10:45 Artificial Tears OU 1 drop BID [facility] Administration Atorvastatin Calcium 10 mg 04/24/19 22:00 05/04/19 21:51 Lipitor - PO 10 mg HS [facility] Administration Famotidine 20 mg 04/24/19 10:00 05/05/19 10:42 Pepcid - PO 20 mg BID [facility] Administration Finasteride 5 mg 04/25/19 10:00 05/05/19 10:42 Proscar - PO 5 mg DAILY [facility] Administration Folic Acid 1 mg 04/24/19 10:00 05/05/19 10:41 Folic Acid - PO 1 mg DAILY [facility] Administration IV Flush 4 ml 05/01/19 12:14 05/02/19 23:14 Triple Lumen Flush IVPUSH 4 ml PRN PRN Administration Protocol Potassium Chloride/Sodium Chloride 20 meq in 1,000 mls @ 83 mls/hr 05/04/19 13 :45 05/05/19 03:38 1/2ns+20meq Kcl IV 83 mls/hr ASDIR [facility] Administration Insulin Aspart 1 vial 04/24/19 16:30 05/05/19 12:29 Novolog Vial Sliding Scale - SQ Not Given TIDAC [facility] Protocol Insulin Detemir 10 units 04/24/19 22:00 05/05/19 06:23 Levemir Vial SQ 10 units BID@0700,2200 [facility] Administration Lidocaine 1 patch 04/27/19 11:15 05/05/19 10:44 Lidoderm Patch - TP 1 patch DAILY [facility] Administration Miscellaneous 1 each 04/27/19 22:00 05/04/19 23:23 Lidoderm Patch Removal MC 1 each DAILY@2200 [facility] Administration Polyethylene Glycol 17 gm 04/28/19 12:00 05/05/19 10:45 Miralax (For Daily Use) - PO Not Given DAILY [facility] Tamsulosin HCl 0.8 mg 04/24/19 08:30 05/05/19 10:41 Flomax - PO 0.8 mg DAILY@0830 [facility] Administration Thiamine HCl 100 mg 04/24/19 10:00 05/05/19 10:41 Vitamin B1 - PO 100 mg DAILY [facility] Administration Impression 1. ROSA MARIA 2. hydronephrosis 3. hematuria 4. dementia 5. chf 6. dm 7. gerd 8. anemia Plan - d/c bicarb - cont fluids - renal function is improving - repeat labs in am
--- NOTE | 2019-05-05 14:11 | PN ---
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 (short form) - Note 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: Chief Complaint: Events noted, notes reviewed, resting in bed, no distress History of Present Illness: Seen and examined. Events noted, notes reviewed, resting in bed, no distress Medications: Current Medications Acetaminophen (Tylenol -) 650 mg PO Q6H PRN PRN Reason: PAIN LEVEL 6-10 Last Admin: 05/04/19 17:58 Dose: 650 mg Amlodipine Besylate (Norvasc -) 5 mg PO DAILY [facility] Last Admin: 05/05/19 10:42 Dose: 5 mg Artificial Tears (Artificial Tears) 1 drop OU BID [facility] Last Admin: 05/05/19 10:45 Dose: 1 drop Atorvastatin Calcium (Lipitor -) 10 mg PO HS [facility] Last Admin: 05/04/19 21:51 Dose: 10 mg Famotidine (Pepcid -) 20 mg PO BID [facility] Last Admin: 05/05/19 10:42 Dose: 20 mg Finasteride (Proscar -) 5 mg PO DAILY [facility] Last Admin: 05/05/19 10:42 Dose: 5 mg Folic Acid (Folic Acid -) 1 mg PO DAILY [facility] Last Admin: 05/05/19 10:41 Dose: 1 mg IV Flush (Triple Lumen Flush) 4 ml IVPUSH PRN PRN PRN Reason: Protocol Last Admin: 05/02/19 23:14 Dose: 4 ml Potassium Chloride/Sodium Chloride (1/2ns+20meq Kcl) 20 meq in 1,000 mls @ 83 mls/hr IV ASDIR [facility] Last Admin: 05/05/19 03:38 Dose: 83 mls/hr Insulin Aspart (Novolog Vial Sliding Scale -) 1 vial SQ TIDAC [facility]; Protocol Last Admin: 05/05/19 12:29 Dose: Not Given Insulin Detemir (Levemir Vial) 10 units SQ BID@0700,2200 [facility] Last Admin: 05/05/19 06:23 Dose: 10 units Lidocaine (Lidoderm Patch -) 1 patch TP DAILY [facility] Last Admin: 05/05/19 10:44 Dose: 1 patch Miscellaneous (Lidoderm Patch Removal) 1 each MC DAILY@2200 [facility] Last Admin: 05/04/19 23:23 Dose: 1 each Polyethylene Glycol (Miralax (For Daily Use) -) 17 gm PO DAILY [facility] Last Admin: 02/17/20 10:45 Dose: Not Given Tamsulosin HCl (Flomax -) 0.8 mg PO DAILY@0830 [facility] Last Admin: 05/05/19 10:41 Dose: 0.8 mg Thiamine HCl (Vitamin B1 -) 100 mg PO DAILY [facility] Last Admin: 05/05/19 10:41 Dose: 100 mg Vital Signs: Last Vital Signs Temp Pulse Resp BP Pulse Ox 98.9 F 87 20 152/74 100 05/05/19 11:04 05/05/19 11:04 05/05/19 11:04 05/05/19 11:04 05/04/19 09:00 Intake & Output 05/02/19 05/03/19 05/04/19 05/05/19 23:59 23:59 23:59 23:59 Intake Total 75000 67639 56509 5000 Output Total 50823 58069 72455 4800 Balance -4810 -7800 -9600 200 Constitutional: No Distress, Calm Neck: Supple Negative JVD Respiratory: Clear to A&P Bilaterally Cardiovascular: S1 S2 Regular Rate and Rhythm Gastrointestinal: Soft Benign Normal Bowel Sounds Ext: No Edema Labs: CBC, BMP 05/05/19 06:00 05/05/19 06:00 Assessment/Plan ASSESSMENT: 1. ROSA MARIA/CKD, hydronephrosis post percutaneous nephrostomy 2. Hematuria, bladder carcinoma 3. HTN 4. DM 5. Hypercholesterolemia 6. Organic brain syndrome/dementia 7. MDD, anemia 8. BPH PLAN: 1. Continue Norvasc 2. Continue Lipitor 3. Transfuse as needed to maintain Hg equal or > 8.0 Janny Howell MD
[2019-05-05] MEDS: ACETAMINOPHEN 325 MG TABLET (FP) PO PRN (18:07)
[2019-05-05] MEDS: ATORVASTATIN CA 10 MG TABLET (FP) PO SCH (21:36)
[2019-05-06] MEDS: LIDOCAINE PATCH REMOVAL MC SCH ×2 (00:39→22:01)
[2019-05-06] MEDS: SODIUM CHLORIDE 0.45%/POT 20 MEQ/1,000 ML INFUS.BAG IV SCH ×2 (05:48→16:25)
[2019-05-06] MEDS: INSULIN SLIDING SCALE (NOVOLOG) 1 VIAL SQ SCH ×3 (06:02→16:25)
[2019-05-06] MEDS: INSULIN (LEVEMIR) 100 UNITS/ML UNITS SQ SCH ×2 (07:38→22:01)
[2019-05-06] MEDS ORDERED: INSULIN (NOVOLOG) ASPART 100 UNITS/ML 10ML VIAL ONE (08:28)
[2019-05-06] MEDS: TAMSULOSIN HCL 0.4 MG CAP PO SCH (09:36)
[2019-05-06] MEDS: FOLIC ACID 1 MG TABLET (FP) PO SCH (09:37)
[2019-05-06] MEDS: amLODIPine BESYLATE 5 MG TABLET (FP) PO SCH (09:37)
[2019-05-06] MEDS: FINASTERIDE 5 MG TABLET (FP) PO SCH (09:37)
[2019-05-06] MEDS: THIAMINE HCL 100 MG TABLET (FP) PO SCH (09:37)
[2019-05-06] MEDS: FAMOTIDINE 20 MG TABLET PO SCH ×2 (09:37→22:01)
[2019-05-06] MEDS: ACETAMINOPHEN 325 MG TABLET (FP) PO PRN ×2 (09:37→16:29)
[2019-05-06] MEDS: POLYETHYLENE GLYCOL 3350 119 GM BTL PO SCH (09:38)
[2019-05-06] MEDS: ARTIFICIAL TEARS (POLYVINYL ALCOHOL) OPTH DROPS OU SCH ×2 (09:38→22:01)
[2019-05-06] MEDS: LIDOCAINE 5% TOPICAL PATCH TP SCH (09:38)
[2019-05-06 10:01] LABS: ALBUMIN 1.4 g/dl (3.4-5.0); BILIRUBIN,TOTAL 0.6 mg/dL (0.2-1); BLOOD UREA NITROGEN 20.6 mg/dL (7-18); CALCIUM 7.1 mg/dL (8.5-10.1); CREATININE 1.5 mg/dL (0.55-1.3); POTASSIUM 4.2 mmol/L (3.5-5.1)
--- NOTE | 2019-05-06 11:32 | PN ---
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 (short form) - Note 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: s/p TURBT c/o pain appears depressed Vital Signs - 24 hr 05/05/19 05/05/19 05/06/19 21:00 23:50 02:00 Temperature 98.8 F 98.5 F Pulse Rate 81 81 Respiratory 20 20 Rate Blood Pressure 141/65 154/63 O2 Sat by Pulse 100 Oximetry (%) 05/06/19 05/06/19 05/06/19 06:00 08:53 09:20 Temperature 98.5 F 99.0 F Pulse Rate 80 83 Respiratory 20 20 Rate Blood Pressure 154/66 153/63 O2 Sat by Pulse 100 Oximetry (%) 05/06/19 15:36 Temperature 99.1 F Pulse Rate 82 Respiratory 20 Rate Blood Pressure 128/51 L O2 Sat by Pulse Oximetry (%) Current Medications Generic Name Dose Route Start Last Admin Trade Name Freq PRN Reason Stop Dose Admin Acetaminophen 650 mg 04/25/19 19:59 05/06/19 16:29 Tylenol - PO 650 mg Q6H PRN Administration PAIN LEVEL 6-10 Amlodipine Besylate 5 mg 04/26/19 15:30 05/06/19 09:37 Norvasc - PO 5 mg DAILY [facility] Administration Artificial Tears 1 drop 04/24/19 10:00 05/06/19 09:38 Artificial Tears OU 1 drop BID [facility] Administration Atorvastatin Calcium 10 mg 04/24/19 22:00 05/05/19 21:36 Lipitor - PO 10 mg HS [facility] Administration Famotidine 20 mg 04/24/19 10:00 05/06/19 09:37 Pepcid - PO 20 mg BID [facility] Administration Finasteride 5 mg 04/25/19 10:00 05/06/19 09:37 Proscar - PO 5 mg DAILY [facility] Administration Folic Acid 1 mg 04/24/19 10:00 05/06/19 09:37 Folic Acid - PO 1 mg DAILY [facility] Administration IV Flush 4 ml 05/01/19 12:14 05/02/19 23:14 Triple Lumen Flush IVPUSH 4 ml PRN PRN Administration Protocol Potassium Chloride/Sodium Chloride 20 meq in 1,000 mls @ 83 mls/hr 05/04/19 13 :45 05/06/19 16:25 1/2ns+20meq Kcl IV 83 mls/hr ASDIR [facility] Administration Insulin Aspart 1 vial 04/24/19 16:30 05/06/19 16:25 Novolog Vial Sliding Scale - SQ Not Given TIDAC [facility] Protocol Insulin Detemir 10 units 04/24/19 22:00 05/06/19 07:38 Levemir Vial SQ Not Given BID@0700,2200 [facility] Lidocaine 1 patch 04/27/19 11:15 05/06/19 09:38 Lidoderm Patch - TP 1 patch DAILY [facility] Administration Miscellaneous 1 each 04/27/19 22:00 05/06/19 00:39 Lidoderm Patch Removal MC 1 each DAILY@2200 [facility] Administration Polyethylene Glycol 17 gm 04/28/19 12:00 05/06/19 09:38 Miralax (For Daily Use) - PO Not Given DAILY [facility] Tamsulosin HCl 0.8 mg 04/24/19 08:30 05/06/19 09:36 Flomax - PO 0.8 mg DAILY@0830 [facility] Administration Thiamine HCl 100 mg 04/24/19 10:00 05/06/19 09:37 Vitamin B1 - PO 100 mg DAILY [facility] Administration Laboratory Results - last 24 hr 05/05/19 05/06/19 05/06/19 21:35 05:36 06:00 Sodium 140 Potassium 4.2 Chloride 114 H Carbon Dioxide 18 L Anion Gap 8 BUN 20.6 H Creatinine 1.5 H Est GFR (CKD-EPI)AfAm 51.67 Est GFR (CKD-EPI)NonAf 44.58 POC Glucometer 125 85 Random Glucose 77 Calcium 7.1 L Total Bilirubin 0.6 AST 74 H ALT 36 Alkaline Phosphatase 162 H Total Protein 5.0 L Albumin 1.4 L 05/06/19 05/06/19 11:03 16:23 Sodium Potassium Chloride Carbon Dioxide Anion Gap BUN Creatinine Est GFR (CKD-EPI)AfAm Est GFR (CKD-EPI)NonAf POC Glucometer 131 158 Random Glucose Calcium Total Bilirubin AST ALT Alkaline Phosphatase Total Protein Albumin S1 S2 RRR Lungs clear Abd- soft, obese, NT no edema Thomas-+ PLAN PLAN add Oxycodone prn for pain POD #4 Pre-Operative Diagnosis: bladder tumor, emilia. hydroureteralnephrosis,gross hematuria Operation: cysto, attempted emilia retrogrades, antigrade nephrotogram, turbt ( large) findings Large bleeding extensive bladder tumor with complete ureteral obstruction transfuse when necessary monitor cbc/ electrolytes continue CBI Monitor bgm mild hydration Urology and hematology follow up -- decide plan with regards to bladder cancer management Problem List - Problems (1) ROSA MARIA (acute kidney injury) Code(s): N17.9 - ACUTE KIDNEY FAILURE, UNSPECIFIED (2) Anemia Code(s): D64.9 - ANEMIA, UNSPECIFIED (3) BPH (benign prostatic hyperplasia) Code(s): N40.0 - BENIGN PROSTATIC HYPERPLASIA WITHOUT LOWER URINRY TRACT SYMP (4) Dementia Code(s): F03.90 - UNSPECIFIED DEMENTIA WITHOUT BEHAVIORAL DISTURBANCE (5) Diabetes mellitus Code(s): E11.9 - TYPE 2 DIABETES MELLITUS WITHOUT COMPLICATIONS Qualifiers: Diabetes mellitus type: type 2 (6) HLD (hyperlipidemia) Code(s): E78.5 - HYPERLIPIDEMIA, UNSPECIFIED
--- NOTE | 2019-05-06 15:54 | PN ---
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, Physician History of Present Illness: Pt seen and examined at bedside. He is awake and appears comfortable. - Current Medication List Current Medications: Active Medications Acetaminophen (Tylenol -) 650 mg PO Q6H PRN PRN Reason: PAIN LEVEL 6-10 Last Admin: 05/06/19 09:37 Dose: 650 mg Amlodipine Besylate (Norvasc -) 5 mg PO DAILY [facility] Last Admin: 05/06/19 09:37 Dose: 5 mg Artificial Tears (Artificial Tears) 1 drop OU BID [facility] Last Admin: 05/06/19 09:38 Dose: 1 drop Atorvastatin Calcium (Lipitor -) 10 mg PO HS [facility] Last Admin: 05/05/19 21:36 Dose: 10 mg Famotidine (Pepcid -) 20 mg PO BID [facility] Last Admin: 05/06/19 09:37 Dose: 20 mg Finasteride (Proscar -) 5 mg PO DAILY [facility] Last Admin: 05/06/19 09:37 Dose: 5 mg Folic Acid (Folic Acid -) 1 mg PO DAILY [facility] Last Admin: 05/06/19 09:37 Dose: 1 mg IV Flush (Triple Lumen Flush) 4 ml IVPUSH PRN PRN PRN Reason: Protocol Last Admin: 05/02/19 23:14 Dose: 4 ml Potassium Chloride/Sodium Chloride (1/2ns+20meq Kcl) 20 meq in 1,000 mls @ 83 mls/hr IV ASDIR [facility] Last Admin: 05/06/19 05:48 Dose: 83 mls/hr Insulin Aspart (Novolog Vial Sliding Scale -) 1 vial SQ TIDAC [facility]; Protocol Last Admin: 05/06/19 11:05 Dose: Not Given Insulin Detemir (Levemir Vial) 10 units SQ BID@0700,2200 [facility] Last Admin: 05/06/19 07:38 Dose: Not Given Lidocaine (Lidoderm Patch -) 1 patch TP DAILY [facility] Last Admin: 05/06/19 09:38 Dose: 1 patch Miscellaneous (Lidoderm Patch Removal) 1 each MC DAILY@2200 [facility] Last Admin: 05/06/19 00:39 Dose: 1 each Polyethylene Glycol (Miralax (For Daily Use) -) 17 gm PO DAILY [facility] Last Admin: 05/06/19 09:38 Dose: Not Given Tamsulosin HCl (Flomax -) 0.8 mg PO DAILY@0830 [facility] Last Admin: 05/06/19 09:36 Dose: 0.8 mg Thiamine HCl (Vitamin B1 -) 100 mg PO DAILY [facility] Last Admin: 05/06/19 09:37 Dose: 100 mg - Objective Vital Signs: Vital Signs Temperature 99.1 F 05/06/19 15:36 Pulse Rate 82 05/06/19 15:36 Respiratory Rate 20 05/06/19 15:36 Blood Pressure 128/51 L 05/06/19 15:36 O2 Sat by Pulse Oximetry (%) 100 05/06/19 08:53 Constitutional: Yes: Calm Eyes: Yes: Conjunctiva Clear HENT: Yes: Atraumatic Neck: Yes: Supple Cardiovascular: Yes: S1, S2 Respiratory: Yes: CTA Bilaterally Gastrointestinal: Yes: Soft Genitourinary: Yes: Thomas Present, Other (nephrostomies) Musculoskeletal: Yes: WNL Edema: Yes Edema: LLE: 1+, RLE: 1+ Neurological: Yes: Oriented Psychiatric: Yes: Oriented Labs: CBC, BMP 05/05/19 06:00 05/06/19 06:00 INR, PTT INR 1.32 (0.83-1.09) H 04/26/19 07:52 Problem List - Problems (1) ROSA MARIA (acute kidney injury) Code(s): N17.9 - ACUTE KIDNEY FAILURE, UNSPECIFIED (2) BPH (benign prostatic hyperplasia) Code(s): N40.0 - BENIGN PROSTATIC HYPERPLASIA WITHOUT LOWER URINRY TRACT SYMP (3) Bladder cancer Code(s): C67.9 - MALIGNANT NEOPLASM OF BLADDER, UNSPECIFIED (4) CHF (congestive heart failure) Code(s): I50.9 - HEART FAILURE, UNSPECIFIED Qualifiers: Heart failure type: unspecified Assessment/Plan Current Medications Generic Name Dose Route Start Last Admin Trade Name Freq PRN Reason Stop Dose Admin Acetaminophen 650 mg 04/25/19 19:59 05/06/19 09:37 Tylenol - PO 650 mg Q6H PRN Administration PAIN LEVEL 6-10 Amlodipine Besylate 5 mg 04/26/19 15:30 05/06/19 09:37 Norvasc - PO 5 mg DAILY [facility] Administration Artificial Tears 1 drop 04/24/19 10:00 05/06/19 09:38 Artificial Tears OU 1 drop BID [facility] Administration Atorvastatin Calcium 10 mg 04/24/19 22:00 02/17/20 21:36 Lipitor - PO 10 mg HS [facility] Administration Famotidine 20 mg 04/24/19 10:00 05/06/19 09:37 Pepcid - PO 20 mg BID [facility] Administration Finasteride 5 mg 04/25/19 10:00 05/06/19 09:37 Proscar - PO 5 mg DAILY [facility] Administration Folic Acid 1 mg 04/24/19 10:00 05/06/19 09:37 Folic Acid - PO 1 mg DAILY [facility] Administration IV Flush 4 ml 05/01/19 12:14 05/02/19 23:14 Triple Lumen Flush IVPUSH 4 ml PRN PRN Administration Protocol Potassium Chloride/Sodium Chloride 20 meq in 1,000 mls @ 83 mls/hr 05/04/19 13 :45 05/06/19 05:48 1/2ns+20meq Kcl IV 83 mls/hr ASDIR [facility] Administration Insulin Aspart 1 vial 04/24/19 16:30 05/06/19 11:05 Novolog Vial Sliding Scale - SQ Not Given TIDAC [facility] Protocol Insulin Detemir 10 units 04/24/19 22:00 05/06/19 07:38 Levemir Vial SQ Not Given BID@0700,2200 [facility] Lidocaine 1 patch 04/27/19 11:15 05/06/19 09:38 Lidoderm Patch - TP 1 patch DAILY [facility] Administration Miscellaneous 1 each 04/27/19 22:00 05/06/19 00:39 Lidoderm Patch Removal MC 1 each DAILY@2200 [facility] Administration Polyethylene Glycol 17 gm 04/28/19 12:00 05/06/19 09:38 Miralax (For Daily Use) - PO Not Given DAILY [facility] Tamsulosin HCl 0.8 mg 04/24/19 08:30 05/06/19 09:36 Flomax - PO 0.8 mg DAILY@0830 [facility] Administration Thiamine HCl 100 mg 04/24/19 10:00 05/06/19 09:37 Vitamin B1 - PO 100 mg DAILY [facility] Administration Impression 1. ROSA MARIA 2. hydronephrosis 3. hematuria 4. dementia 5. chf 6. dm 7. gerd 8. anemia Plan - renal function is improving - urology follow up - repeat labs in am - monitor output
[2019-05-06] MEDS: ATORVASTATIN CA 10 MG TABLET (FP) PO SCH (22:01)
[2019-05-06] MEDS: oxyCODONE HCL 5 MG TABLET PO PRN (22:02)
[2019-05-07] MEDS: ACETAMINOPHEN 325 MG TABLET (FP) PO PRN (03:17)
[2019-05-07] MEDS: INSULIN SLIDING SCALE (NOVOLOG) 1 VIAL SQ SCH ×3 (06:33→16:44)
[2019-05-07] MEDS: INSULIN (LEVEMIR) 100 UNITS/ML UNITS SQ SCH ×2 (06:34→22:53)
[2019-05-07] MEDS: SODIUM CHLORIDE 0.45%/POT 20 MEQ/1,000 ML INFUS.BAG IV SCH ×2 (07:09→16:44)
[2019-05-07 08:58] LABS: HEMATOCRIT 23.3 % (35.4-49); HEMOGLOBIN 7.9 GM/dL (11.7-16.9); MCH 29.9 pg (25.7-33.7); MEAN CELL VOLUME 88.1 fl (80-96); MEAN PLT VOLUME 8.8 fl (7.5-11.1); PLATELET COUNT 158 K/MM3 (134-434); RBC 2.65 M/mm3 (4.00-5.60); RDW 14.9 % (11.9-15.9); WHITE BLOOD COUNT 10.9 K/mm3 (4.0-10.0)
[2019-05-07] MEDS: TAMSULOSIN HCL 0.4 MG CAP PO SCH (09:27)
[2019-05-07] MEDS: FINASTERIDE 5 MG TABLET (FP) PO SCH (09:27)
[2019-05-07] MEDS: FOLIC ACID 1 MG TABLET (FP) PO SCH (09:28)
[2019-05-07] MEDS: FAMOTIDINE 20 MG TABLET PO SCH ×2 (09:28→21:56)
[2019-05-07] MEDS: amLODIPine BESYLATE 5 MG TABLET (FP) PO SCH (09:28)
[2019-05-07] MEDS: oxyCODONE HCL 5 MG TABLET PO PRN ×3 (09:28→21:56)
[2019-05-07] MEDS: LIDOCAINE 5% TOPICAL PATCH TP SCH (09:29)
[2019-05-07] MEDS: ARTIFICIAL TEARS (POLYVINYL ALCOHOL) OPTH DROPS OU SCH ×2 (09:29→23:13)
[2019-05-07] MEDS: THIAMINE HCL 100 MG TABLET (FP) PO SCH (09:29)
[2019-05-07] MEDS: POLYETHYLENE GLYCOL 3350 119 GM BTL PO SCH (09:29)
--- NOTE | 2019-05-07 12:47 | PN ---
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 (short form) - Note 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: s/p TURBT pain better controlled Vital Signs - 24 hr 05/06/19 05/06/19 05/06/19 15:36 19:00 21:00 Temperature 99.1 F 98.7 F Pulse Rate 82 81 Respiratory 20 20 20 Rate Blood Pressure 128/51 L 134/56 L O2 Sat by Pulse 100 Oximetry (%) 05/06/19 05/07/19 05/07/19 22:09 02:00 06:00 Temperature 97.9 F 99.5 F 99.7 F H Pulse Rate 86 97 H 87 Respiratory 20 20 20 Rate Blood Pressure 150/66 141/56 L 134/53 L O2 Sat by Pulse Oximetry (%) 05/07/19 05/07/19 09:00 10:00 Temperature 98.0 F Pulse Rate 77 Respiratory 20 Rate Blood Pressure 126/62 O2 Sat by Pulse 100 Oximetry (%) Current Medications Generic Name Dose Route Start Last Admin Trade Name Freq PRN Reason Stop Dose Admin Acetaminophen 650 mg 04/25/19 19:59 05/07/19 03:17 Tylenol - PO 650 mg Q6H PRN Administration PAIN LEVEL 6-10 Amlodipine Besylate 5 mg 04/26/19 15:30 05/07/19 09:28 Norvasc - PO 5 mg DAILY [facility] Administration Artificial Tears 1 drop 04/24/19 10:00 05/07/19 09:29 Artificial Tears OU 1 drop BID [facility] Administration Atorvastatin Calcium 10 mg 04/24/19 22:00 05/06/19 22:01 Lipitor - PO 10 mg HS [facility] Administration Famotidine 20 mg 04/24/19 10:00 05/07/19 09:28 Pepcid - PO 20 mg BID [facility] Administration Finasteride 5 mg 04/25/19 10:00 05/07/19 09:27 Proscar - PO 5 mg DAILY [facility] Administration Folic Acid 1 mg 04/24/19 10:00 05/07/19 09:28 Folic Acid - PO 1 mg DAILY [facility] Administration IV Flush 4 ml 05/01/19 12:14 05/02/19 23:14 Triple Lumen Flush IVPUSH 4 ml PRN PRN Administration Protocol Potassium Chloride/Sodium Chloride 20 meq in 1,000 mls @ 83 mls/hr 05/04/19 13 :45 02/19/20 07:09 1/2ns+20meq Kcl IV 83 mls/hr ASDIR [facility] Administration Insulin Aspart 1 vial 04/24/19 16:30 05/07/19 11:32 Novolog Vial Sliding Scale - SQ Not Given TIDAC [facility] Protocol Insulin Detemir 10 units 04/24/19 22:00 05/07/19 06:34 Levemir Vial SQ 10 units BID@0700,2200 [facility] Administration Lidocaine 1 patch 04/27/19 11:15 05/07/19 09:29 Lidoderm Patch - TP 1 patch DAILY [facility] Administration Miscellaneous 1 each 04/27/19 22:00 05/06/19 22:01 Lidoderm Patch Removal MC 1 each DAILY@2200 [facility] Administration Oxycodone HCl 5 mg 05/06/19 18:34 05/07/19 09:28 Roxicodone - PO 5 mg Q4H PRN Administration PAIN LEVEL 6-10 Polyethylene Glycol 17 gm 04/28/19 12:00 05/07/19 09:29 Miralax (For Daily Use) - PO Not Given DAILY [facility] Tamsulosin HCl 0.8 mg 04/24/19 08:30 05/07/19 09:27 Flomax - PO 0.8 mg DAILY@0830 [facility] Administration Thiamine HCl 100 mg 04/24/19 10:00 05/07/19 09:29 Vitamin B1 - PO 100 mg DAILY [facility] Administration Laboratory Results - last 24 hr 05/06/19 05/06/19 05/07/19 16:23 21:56 06:01 WBC RBC Hgb Hct MCV MCH MCHC RDW Plt Count MPV POC Glucometer 158 185 167 05/07/19 05/07/19 07:07 11:29 WBC 10.9 H RBC 2.65 L Hgb 7.9 L Hct 23.3 L MCV 88.1 MCH 29.9 MCHC 34.0 RDW 14.9 Plt Count 158 MPV 8.8 POC Glucometer 81 S1 S2 RRR Lungs clear Abd- soft, obese, NT no edema left nephrostomy + Thomas-+ PLAN PLAN add Oxycodone prn for pain POD #5 Pre-Operative Diagnosis: bladder tumor, emilia. hydroureteralnephrosis,gross hematuria Operation: cysto, attempted emilia retrogrades, antigrade nephrotogram, turbt ( large) findings Large bleeding extensive bladder tumor with complete ureteral obstruction transfuse when necessary monitor cbc/ electrolytes continue CBI if needed Monitor bgm mild hydration Urology and hematology follow up pending -- decide plan with regards to bladder cancer management Problem List - Problems (1) ROSA MARIA (acute kidney injury) Code(s): N17.9 - ACUTE KIDNEY FAILURE, UNSPECIFIED (2) Anemia Code(s): D64.9 - ANEMIA, UNSPECIFIED (3) BPH (benign prostatic hyperplasia) Code(s): N40.0 - BENIGN PROSTATIC HYPERPLASIA WITHOUT LOWER URINRY TRACT SYMP (4) Dementia Code(s): F03.90 - UNSPECIFIED DEMENTIA WITHOUT BEHAVIORAL DISTURBANCE (5) Diabetes mellitus Code(s): E11.9 - TYPE 2 DIABETES MELLITUS WITHOUT COMPLICATIONS Qualifiers: Diabetes mellitus type: type 2 (6) HLD (hyperlipidemia) Code(s): E78.5 - HYPERLIPIDEMIA, UNSPECIFIED
--- NOTE | 2019-05-07 13:06 | PN ---
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, Physician History of Present Illness: Pt seen and examined at bedside. he appears comfortable. - Current Medication List Current Medications: Active Medications Acetaminophen (Tylenol -) 650 mg PO Q6H PRN PRN Reason: PAIN LEVEL 6-10 Last Admin: 05/07/19 03:17 Dose: 650 mg Amino Acids (Prosource No Carb Liquid Pkt) 30 ml PO BID@0800,1730 [facility] Amlodipine Besylate (Norvasc -) 5 mg PO DAILY [facility] Last Admin: 05/07/19 09:28 Dose: 5 mg Artificial Tears (Artificial Tears) 1 drop OU BID [facility] Last Admin: 05/07/19 09:29 Dose: 1 drop Atorvastatin Calcium (Lipitor -) 10 mg PO HS [facility] Last Admin: 05/06/19 22:01 Dose: 10 mg Famotidine (Pepcid -) 20 mg PO BID [facility] Last Admin: 05/07/19 09:28 Dose: 20 mg Finasteride (Proscar -) 5 mg PO DAILY [facility] Last Admin: 05/07/19 09:27 Dose: 5 mg Folic Acid (Folic Acid -) 1 mg PO DAILY [facility] Last Admin: 05/07/19 09:28 Dose: 1 mg IV Flush (Triple Lumen Flush) 4 ml IVPUSH PRN PRN PRN Reason: Protocol Last Admin: 05/02/19 23:14 Dose: 4 ml Potassium Chloride/Sodium Chloride (1/2ns+20meq Kcl) 20 meq in 1,000 mls @ 83 mls/hr IV ASDIR [facility] Last Admin: 05/07/19 07:09 Dose: 83 mls/hr Insulin Aspart (Novolog Vial Sliding Scale -) 1 vial SQ TIDAC [facility]; Protocol Last Admin: 05/07/19 11:32 Dose: Not Given Insulin Detemir (Levemir Vial) 10 units SQ BID@0700,2200 [facility] Last Admin: 05/07/19 06:34 Dose: 10 units Lidocaine (Lidoderm Patch -) 1 patch TP DAILY [facility] Last Admin: 05/07/19 09:29 Dose: 1 patch Miscellaneous (Lidoderm Patch Removal) 1 each MC DAILY@2200 [facility] Last Admin: 05/06/19 22:01 Dose: 1 each Multivitamins/Minerals (Certavite-Antioxidant Liquid) 15 ml PO DAILY [facility] Oxycodone HCl (Roxicodone -) 5 mg PO Q4H PRN PRN Reason: PAIN LEVEL 6-10 Last Admin: 05/07/19 09:28 Dose: 5 mg Polyethylene Glycol (Miralax (For Daily Use) -) 17 gm PO DAILY [facility] Last Admin: 05/07/19 09:29 Dose: Not Given Tamsulosin HCl (Flomax -) 0.8 mg PO DAILY@0830 [facility] Last Admin: 05/07/19 09:27 Dose: 0.8 mg Thiamine HCl (Vitamin B1 -) 100 mg PO DAILY [facility] Last Admin: 05/07/19 09:29 Dose: 100 mg - Objective Vital Signs: Vital Signs Temperature 98.0 F 05/07/19 10:00 Pulse Rate 77 05/07/19 10:00 Respiratory Rate 20 05/07/19 10:00 Blood Pressure 126/62 05/07/19 10:00 O2 Sat by Pulse Oximetry (%) 100 05/07/19 09:00 Constitutional: Yes: Calm Eyes: Yes: Conjunctiva Clear HENT: Yes: Atraumatic Neck: Yes: Supple Cardiovascular: Yes: S1, S2 Respiratory: Yes: CTA Bilaterally Gastrointestinal: Yes: Soft Genitourinary: Yes: Thomas Present, Hematuria, Other (bilateral nephrostomy tubes ) Edema: No Neurological: Yes: Oriented Psychiatric: Yes: Oriented Labs: CBC, BMP 05/07/19 07:07 05/06/19 06:00 INR, PTT INR 1.32 (0.83-1.09) H 04/26/19 07:52 Problem List - Problems (1) ROSA MARIA (acute kidney injury) Code(s): N17.9 - ACUTE KIDNEY FAILURE, UNSPECIFIED (2) BPH (benign prostatic hyperplasia) Code(s): N40.0 - BENIGN PROSTATIC HYPERPLASIA WITHOUT LOWER URINRY TRACT SYMP (3) Bladder cancer Code(s): C67.9 - MALIGNANT NEOPLASM OF BLADDER, UNSPECIFIED (4) CHF (congestive heart failure) Code(s): I50.9 - HEART FAILURE, UNSPECIFIED Qualifiers: Heart failure type: unspecified Assessment/Plan Current Medications Generic Name Dose Route Start Last Admin Trade Name Freq PRN Reason Stop Dose Admin Acetaminophen 650 mg 04/25/19 19:59 05/07/19 03:17 Tylenol - PO 650 mg Q6H PRN Administration PAIN LEVEL 6-10 Amino Acids 30 ml 05/07/19 17:30 Prosource No Carb Liquid Pkt PO BID@0800,1730 [facility] Amlodipine Besylate 5 mg 04/26/19 15:30 05/07/19 09:28 Norvasc - PO 5 mg DAILY [facility] Administration Artificial Tears 1 drop 04/24/19 10:00 05/07/19 09:29 Artificial Tears OU 1 drop BID [facility] Administration Atorvastatin Calcium 10 mg 04/24/19 22:00 05/06/19 22:01 Lipitor - PO 10 mg HS [facility] Administration Famotidine 20 mg 04/24/19 10:00 05/07/19 09:28 Pepcid - PO 20 mg BID [facility] Administration Finasteride 5 mg 04/25/19 10:00 05/07/19 09:27 Proscar - PO 5 mg DAILY [facility] Administration Folic Acid 1 mg 04/24/19 10:00 05/07/19 09:28 Folic Acid - PO 1 mg DAILY [facility] Administration IV Flush 4 ml 05/01/19 12:14 05/02/19 23:14 Triple Lumen Flush IVPUSH 4 ml PRN PRN Administration Protocol Potassium Chloride/Sodium Chloride 20 meq in 1,000 mls @ 83 mls/hr 05/04/19 13 :45 05/07/19 07:09 1/2ns+20meq Kcl IV 83 mls/hr ASDIR [facility] Administration Insulin Aspart 1 vial 04/24/19 16:30 05/07/19 11:32 Novolog Vial Sliding Scale - SQ Not Given TIDAC [facility] Protocol Insulin Detemir 10 units 04/24/19 22:00 05/07/19 06:34 Levemir Vial SQ 10 units BID@699,2199 [facility] Administration Lidocaine 1 patch 04/27/19 11:15 05/07/19 09:29 Lidoderm Patch - TP 1 patch DAILY [facility] Administration Miscellaneous 1 each 04/27/19 22:00 05/06/19 22:01 Lidoderm Patch Removal MC 1 each DAILY@2199 [facility] Administration Multivitamins/Minerals 15 ml 05/07/19 13:00 Certavite-Antioxidant Liquid PO DAILY [facility] Oxycodone HCl 5 mg 05/06/19 18:34 05/07/19 09:28 Roxicodone - PO 5 mg Q4H PRN Administration PAIN LEVEL 6-10 Polyethylene Glycol 17 gm 04/28/19 12:00 05/07/19 09:29 Miralax (For Daily Use) - PO Not Given DAILY [facility] Tamsulosin HCl 0.8 mg 04/24/19 08:30 05/07/19 09:27 Flomax - PO 0.8 mg DAILY@0830 [facility] Administration Thiamine HCl 100 mg 04/24/19 10:00 05/07/19 09:29 Vitamin B1 - PO 100 mg DAILY [facility] Administration Impression 1. ROSA MARIA 2. hydronephrosis 3. hematuria 4. dementia 5. chf 6. dm 7. gerd 8. anemia Plan - decrease rate of fluids - repeat labs in am - urology follow up - mental status improved - monitor output
--- NOTE | 2019-05-07 14:18 | PN ---
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 (short form) - Note 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: Urology Follow up. Pt with aggressive invasive Ca of the bladder with obs. hydronephrosis. Has indwelling fernandez draining some what bloody urine. Fernandez appears patent. Had pcn drainage of the kidney. Upon discharge pt. will be followed in the office for possible BCG or Mitomycin intravesical therapy. Will follow as necessary.
--- NOTE | 2019-05-07 15:21 | PATH ---
Surgical Pathology Report Patient Name: INO ELDER Med. Rec. #: [id number] /Age/Gender: 1945 (Age: 74) / M Account: [id number] Location: [address] [place] [address] Taken: 05/02/2019 Received: 05/05/2019 Reported: 05/07/2019 Physicians: Guillermina Lopez M.D. Nagai S. Rajendran, M.D. 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 CARCINOMA INVADES THE MUSCULARIS PROPRIA AND FOCALLY FIBROADIPOSE TISSUE. SEE COMMENT. Comment: Immunohistochemical stains performed at [place], [place] ([id number]) and interpreted at [facility] show the tumor is positive for AE1/3, CK7 (patchy), GUERRERO-3 and thrombomodulin (CD141, focal); while negative for Uroplakin, HMW cytokeratin, PSA, PSAP, and CK20. NKX3.1 shows rare weak staining. Morphology and immunophenotype supports the diagnosis. Case seen in intradepartmental review with consensus on diagnosis. Findings discussed with Dr. Dent, 05/07/19. Positive and negative controls (internal if applicable) show appropriate results. Electronically Signed Radha Chong M.D. Gross Description Received in formalin labeled "bladder chips," is a 5.8 x 4.5 x 0.8 cm aggregate of reyes-brown soft tissue fragments. The formalin is filtered and the specimen is entirely submitted in 8 cassettes. /05/05/2019 saudi/05/05/2019
[2019-05-07] MEDS: MULTIVIT-MINERALS ORAL LIQUID PO SCH (16:30)
--- NOTE | 2019-05-07 16:42 | PN ---
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, Physician History of Present Illness: s/p PCN, hematuria. - Current Medication List Current Medications: Active Medications Acetaminophen (Tylenol -) 650 mg PO Q6H PRN PRN Reason: PAIN LEVEL 6-10 Last Admin: 05/07/19 03:17 Dose: 650 mg Amino Acids (Prosource No Carb Liquid Pkt) 30 ml PO BID@0800,1730 [facility] Amlodipine Besylate (Norvasc -) 5 mg PO DAILY [facility] Last Admin: 05/07/19 09:28 Dose: 5 mg Artificial Tears (Artificial Tears) 1 drop OU BID [facility] Last Admin: 05/07/19 09:29 Dose: 1 drop Atorvastatin Calcium (Lipitor -) 10 mg PO HS [facility] Last Admin: 05/06/19 22:01 Dose: 10 mg Famotidine (Pepcid -) 20 mg PO BID [facility] Last Admin: 05/07/19 09:28 Dose: 20 mg Finasteride (Proscar -) 5 mg PO DAILY [facility] Last Admin: 05/07/19 09:27 Dose: 5 mg Folic Acid (Folic Acid -) 1 mg PO DAILY [facility] Last Admin: 05/07/19 09:28 Dose: 1 mg IV Flush (Triple Lumen Flush) 4 ml IVPUSH PRN PRN PRN Reason: Protocol Last Admin: 05/02/19 23:14 Dose: 4 ml Potassium Chloride/Sodium Chloride (1/2ns+20meq Kcl) 20 meq in 1,000 mls @ 42 mls/hr IV ASDIR [facility] Insulin Aspart (Novolog Vial Sliding Scale -) 1 vial SQ TIDAC [facility]; Protocol Last Admin: 05/07/19 11:32 Dose: Not Given Insulin Detemir (Levemir Vial) 10 units SQ BID@0700,2200 [facility] Last Admin: 05/07/19 06:34 Dose: 10 units Lidocaine (Lidoderm Patch -) 1 patch TP DAILY [facility] Last Admin: 05/07/19 09:29 Dose: 1 patch Miscellaneous (Lidoderm Patch Removal) 1 each MC DAILY@2200 [facility] Last Admin: 05/06/19 22:01 Dose: 1 each Multivitamins/Minerals (Certavite-Antioxidant Liquid) 15 ml PO DAILY [facility] Last Admin: 05/07/19 16:30 Dose: Not Given Oxycodone HCl (Roxicodone -) 5 mg PO Q4H PRN PRN Reason: PAIN LEVEL 6-10 Last Admin: 05/07/19 09:28 Dose: 5 mg Polyethylene Glycol (Miralax (For Daily Use) -) 17 gm PO DAILY [facility] Last Admin: 05/07/19 09:29 Dose: Not Given Tamsulosin HCl (Flomax -) 0.8 mg PO DAILY@0830 [facility] Last Admin: 05/07/19 09:27 Dose: 0.8 mg Thiamine HCl (Vitamin B1 -) 100 mg PO DAILY [facility] Last Admin: 05/07/19 09:29 Dose: 100 mg - Objective Vital Signs: Vital Signs Temperature 99.1 F 05/07/19 14:00 Pulse Rate 90 05/07/19 14:00 Respiratory Rate 20 05/07/19 14:00 Blood Pressure 132/51 L 05/07/19 14:00 O2 Sat by Pulse Oximetry (%) 100 05/07/19 09:00 Constitutional: Yes: No Distress, Calm, Thin Neck: Yes: Supple Cardiovascular: Yes: Regular Rate and Rhythm Respiratory: Yes: Regular, CTA Bilaterally Gastrointestinal: Yes: Normal Bowel Sounds, Soft Genitourinary: Yes: Thomas Present Edema: No Labs: CBC, BMP 05/07/19 07:07 05/06/19 06:00 INR, PTT INR 1.32 (0.83-1.09) H 04/26/19 07:52 Problem List - Problems (1) Hydronephrosis Code(s): N13.30 - UNSPECIFIED HYDRONEPHROSIS Qualifiers: Hydronephrosis type: unspecified Qualified Code(s): N13.30 - Unspecified hydronephrosis (2) ROSA MARIA (acute kidney injury) Code(s): N17.9 - ACUTE KIDNEY FAILURE, UNSPECIFIED (3) Anemia Code(s): D64.9 - ANEMIA, UNSPECIFIED (4) CHF (congestive heart failure) Code(s): I50.9 - HEART FAILURE, UNSPECIFIED Qualifiers: Heart failure type: unspecified (5) Diabetes mellitus Code(s): E11.9 - TYPE 2 DIABETES MELLITUS WITHOUT COMPLICATIONS Qualifiers: Diabetes mellitus type: type 2 (6) HLD (hyperlipidemia) Code(s): E78.5 - HYPERLIPIDEMIA, UNSPECIFIED (7) HTN (hypertension) Code(s): I10 - ESSENTIAL (PRIMARY) HYPERTENSION (8) Hematuria Code(s): R31.9 - HEMATURIA, UNSPECIFIED Assessment/Plan 04/29/2019 Normal LV and RV size and fxn, mild MR, tr-mild TR, LVEF 61% ASSESSMENT: 1. ROSA MARIA/CKD, obstructive hydronephrosis post percutaneous nephrostomy 2. Hematuria, bladder carcinoma 3. HTN 4. DM 5. Hypercholesterolemia 6. Organic brain syndrome/dementia 7. MDD, anemia 8. BPH PLAN: 1. Continue Norvasc 5 qd 2. Continue Lipitor 10 qhs 3. Transfuse as needed to maintain Hg equal or > 8.0 4. Urology office f/u for possible BCG or Mitomycin intravesical therapy
[2019-05-07] MEDS: AMINO ACIDS/PROTEIN HYDROLYS 30 ML LIQUID.PKT PO SCH (16:48)
[2019-05-07] MEDS: ATORVASTATIN CA 10 MG TABLET (FP) PO SCH (21:56)
[2019-05-07] MEDS: LIDOCAINE PATCH REMOVAL MC SCH (21:57)
[2019-05-08] MEDS ORDERED: ACETAMINOPHEN/CAFFEINE/BUTALBITAL 1 TAB PO ONE (05:42)
[2019-05-08] MEDS: TRIPLE LUMEN FLUSH 4 ML ML IVPUSH PRN (06:15)
[2019-05-08] MEDS: INSULIN SLIDING SCALE (NOVOLOG) 1 VIAL SQ SCH ×3 (06:48→16:52)
[2019-05-08] MEDS: TAMSULOSIN HCL 0.4 MG CAP PO SCH (08:22)
[2019-05-08] MEDS: AMINO ACIDS/PROTEIN HYDROLYS 30 ML LIQUID.PKT PO SCH ×2 (08:22→17:34)
[2019-05-08 08:25] LABS: HEMATOCRIT 22.9 % (35.4-49); HEMOGLOBIN 7.7 GM/dL (11.7-16.9); MCH 29.4 pg (25.7-33.7); MCHC 33.7 g/dl (32.0-35.9); MEAN CELL VOLUME 87.4 fl (80-96); MEAN PLT VOLUME 8.7 fl (7.5-11.1); PLATELET COUNT 180 K/MM3 (134-434); RBC 2.62 M/mm3 (4.00-5.60); RDW 14.9 % (11.9-15.9); WHITE BLOOD COUNT 11.7 K/mm3 (4.0-10.0)
[2019-05-08 08:47] LABS: ALBUMIN 1.4 g/dl (3.4-5.0); BILIRUBIN,TOTAL 0.8 mg/dL (0.2-1); CREATININE 1.3 mg/dL (0.55-1.3); MAGNESIUM 1.3 mg/dL (1.8-2.4); POTASSIUM 4.2 mmol/L (3.5-5.1); TOT PROT 5.2 g/dl (6.4-8.2)
--- NOTE | 2019-05-08 08:59 | PN ---
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, Physician History of Present Illness: s/p PCN, hematuria undergoing CBI. - Current Medication List Current Medications: Active Medications Acetaminophen (Tylenol -) 650 mg PO Q6H PRN PRN Reason: PAIN LEVEL 6-10 Last Admin: 05/07/19 03:17 Dose: 650 mg Amino Acids (Prosource No Carb Liquid Pkt) 30 ml PO BID@0800,1730 [facility] Last Admin: 05/08/19 08:22 Dose: 30 ml Amlodipine Besylate (Norvasc -) 5 mg PO DAILY [facility] Last Admin: 05/07/19 09:28 Dose: 5 mg Artificial Tears (Artificial Tears) 1 drop OU BID [facility] Last Admin: 05/07/19 23:13 Dose: 1 drop Atorvastatin Calcium (Lipitor -) 10 mg PO HS [facility] Last Admin: 05/07/19 21:56 Dose: 10 mg Famotidine (Pepcid -) 20 mg PO BID [facility] Last Admin: 05/07/19 21:56 Dose: 20 mg Finasteride (Proscar -) 5 mg PO DAILY [facility] Last Admin: 05/07/19 09:27 Dose: 5 mg Folic Acid (Folic Acid -) 1 mg PO DAILY [facility] Last Admin: 05/07/19 09:28 Dose: 1 mg IV Flush (Triple Lumen Flush) 4 ml IVPUSH PRN PRN PRN Reason: Protocol Last Admin: 05/08/19 06:15 Dose: 4 ml Potassium Chloride/Sodium Chloride (1/2ns+20meq Kcl) 20 meq in 1,000 mls @ 42 mls/hr IV ASDIR [facility] Last Admin: 05/07/19 16:44 Dose: 42 mls/hr Insulin Aspart (Novolog Vial Sliding Scale -) 1 vial SQ TIDAC [facility]; Protocol Last Admin: 05/08/19 06:48 Dose: Not Given Insulin Detemir (Levemir Vial) 10 units SQ BID@0700,2200 [facility] Last Admin: 05/07/19 22:53 Dose: Not Given Lidocaine (Lidoderm Patch -) 1 patch TP DAILY [facility] Last Admin: 05/07/19 09:29 Dose: 1 patch Miscellaneous (Lidoderm Patch Removal) 1 each MC DAILY@2200 [facility] Last Admin: 05/07/19 21:57 Dose: 1 each Multivitamins/Minerals (Certavite-Antioxidant Liquid) 15 ml PO DAILY [facility] Last Admin: 05/07/19 16:30 Dose: Not Given Oxycodone HCl (Roxicodone -) 5 mg PO Q4H PRN PRN Reason: PAIN LEVEL 6-10 Last Admin: 05/07/19 21:56 Dose: 5 mg Polyethylene Glycol (Miralax (For Daily Use) -) 17 gm PO DAILY [facility] Last Admin: 05/07/19 09:29 Dose: Not Given Tamsulosin HCl (Flomax -) 0.8 mg PO DAILY@0830 [facility] Last Admin: 05/08/19 08:22 Dose: 0.8 mg Thiamine HCl (Vitamin B1 -) 100 mg PO DAILY [facility] Last Admin: 05/07/19 09:29 Dose: 100 mg - Objective Vital Signs: Vital Signs Temperature 101.1 F H 05/08/19 06:15 Pulse Rate 94 H 05/08/19 06:00 Respiratory Rate 05/08/19 06:00 Blood Pressure 135/75 05/08/19 06:00 O2 Sat by Pulse Oximetry (%) 100 05/07/19 21:00 Constitutional: Yes: No Distress, Calm Neck: Yes: Supple Cardiovascular: Yes: Regular Rate and Rhythm Respiratory: Yes: Regular, Diminished Gastrointestinal: Yes: Normal Bowel Sounds, Soft, Abdomen, Obese Genitourinary: Yes: Thomas Present, Hematuria Edema: No Labs: CBC, BMP 05/08/19 06:20 05/08/19 06:00 INR, PTT INR 1.32 (0.83-1.09) H 04/26/19 07:52 Problem List - Problems (1) Hydronephrosis Code(s): N13.30 - UNSPECIFIED HYDRONEPHROSIS Qualifiers: Hydronephrosis type: unspecified Qualified Code(s): N13.30 - Unspecified hydronephrosis (2) ROSA MARIA (acute kidney injury) Code(s): N17.9 - ACUTE KIDNEY FAILURE, UNSPECIFIED (3) Anemia Code(s): D64.9 - ANEMIA, UNSPECIFIED (4) CHF (congestive heart failure) Code(s): I50.9 - HEART FAILURE, UNSPECIFIED Qualifiers: Heart failure type: unspecified (5) Diabetes mellitus Code(s): E11.9 - TYPE 2 DIABETES MELLITUS WITHOUT COMPLICATIONS Qualifiers: Diabetes mellitus type: type 2 (6) HLD (hyperlipidemia) Code(s): E78.5 - HYPERLIPIDEMIA, UNSPECIFIED (7) HTN (hypertension) Code(s): I10 - ESSENTIAL (PRIMARY) HYPERTENSION (8) Hematuria Code(s): R31.9 - HEMATURIA, UNSPECIFIED (9) Bladder cancer Code(s): C67.9 - MALIGNANT NEOPLASM OF BLADDER, UNSPECIFIED Qualifiers: Bladder location: unspecified site Qualified Code(s): C67.9 - Malignant neoplasm of bladder, unspecified (10) BPH (benign prostatic hyperplasia) Code(s): N40.0 - BENIGN PROSTATIC HYPERPLASIA WITHOUT LOWER URINRY TRACT SYMP Qualifiers: Lower urinary tract symptom presence: unspecified whether lower urinary tract symptoms present Qualified Code(s): N40.0 - Benign prostatic hyperplasia without lower urinary tract symptoms (11) Dementia Code(s): F03.90 - UNSPECIFIED DEMENTIA WITHOUT BEHAVIORAL DISTURBANCE Qualifiers: Dementia type: unspecified type Assessment/Plan 04/29/2019 Normal LV and RV size and fxn, mild MR, tr-mild TR, LVEF 61% 1. ROSA MARIA/CKD->obstructive hydronephrosis post percutaneous nephrostomy 2. Hematuria and acute blood loss anemia 2/2 aggressive invasive Ca of the bladder 3. HTN 4. Hypercholesterolemia 5. DM 6. BPH 7. Dementia 8. MDD PLAN: 1. Continue Amlodipine 5 mg QD and Atorvastatin 10 mg QHS 2. Renal input noted, montor renal recovery 3. CBI pending hematuria clearance, planned for possible outpatient BCG or Mitomycin intravesical therapy. 4. Transfuse pRBC to maintain Hgb>8.0
[2019-05-08 09:43] LABS: EPI CELLS 0.7 /HPF (0-5/HPF); HYALINE CASTS 0 /lpf (0-8); URINE APPEARANCE CLEAR; URINE BACTERIA 0.7 /hpf (NEGATIVE); URINE BILIRUBIN NEGATIVE (NEGATIVE); URINE COLOR YELLOW; URINE GLUCOSE (UA) NEGATIVE (NEGATIVE); URINE KETONE NEGATIVE (NEGATIVE); URINE LEUK ESTERASE TRACE (NEGATIVE); URINE NITRITE NEGATIVE (NEGATIVE); URINE PROTEIN NEGATIVE (NEGATIVE); URINE RBC 26 /hpf (0-4); URINE UROBILINOGEN 0.2 mg/dL (0.2-1.0); URINE WBC 4 /hpf (0-5)
[2019-05-08] MEDS: FAMOTIDINE 20 MG TABLET PO SCH ×2 (09:47→22:48)
[2019-05-08] MEDS: LIDOCAINE 5% TOPICAL PATCH TP SCH (09:47)
[2019-05-08] MEDS: POLYETHYLENE GLYCOL 3350 119 GM BTL PO SCH (09:47)
[2019-05-08] MEDS: FINASTERIDE 5 MG TABLET (FP) PO SCH (09:47)
[2019-05-08] MEDS: amLODIPine BESYLATE 5 MG TABLET (FP) PO SCH (09:47)
[2019-05-08] MEDS: THIAMINE HCL 100 MG TABLET (FP) PO SCH (09:47)
[2019-05-08] MEDS: FOLIC ACID 1 MG TABLET (FP) PO SCH (09:47)
[2019-05-08] MEDS: ARTIFICIAL TEARS (POLYVINYL ALCOHOL) OPTH DROPS OU SCH ×2 (11:32→22:49)
[2019-05-08] MEDS ORDERED: PT OWN MED DRAWER 7, Y5N ONE (11:59)
[2019-05-08] MEDS: oxyCODONE HCL 5 MG TABLET PO PRN (12:28)
[2019-05-08] MEDS: MULTIVIT-MINERALS ORAL LIQUID PO SCH (12:29)
--- NOTE | 2019-05-08 12:37 | PN ---
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 (short form) - Note 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: s/p TURBT pain better controlled sleepy Vital Signs - 24 hr 05/07/19 05/07/19 05/07/19 14:00 18:00 21:00 Temperature 99.1 F 98.2 F Pulse Rate 90 97 H Respiratory 20 20 20 Rate Blood Pressure 132/51 L 139/65 O2 Sat by Pulse 100 Oximetry (%) 05/07/19 05/08/19 05/08/19 22:00 01:56 06:00 Temperature 99.0 F 99.0 F 100.8 F H Pulse Rate 92 H 84 94 H Respiratory 20 20 20 Rate Blood Pressure 145/65 145/65 135/75 O2 Sat by Pulse Oximetry (%) 05/08/19 06:15 Temperature 101.1 F H Pulse Rate Respiratory Rate Blood Pressure O2 Sat by Pulse Oximetry (%) Current Medications Generic Name Dose Route Start Last Admin Trade Name Freq PRN Reason Stop Dose Admin Acetaminophen 650 mg 04/25/19 19:59 05/07/19 03:17 Tylenol - PO 650 mg Q6H PRN Administration PAIN LEVEL 6-10 Amino Acids 30 ml 05/07/19 17:30 05/08/19 08:22 Prosource No Carb Liquid Pkt PO 30 ml BID@0800,1730 [facility] Administration Amlodipine Besylate 5 mg 04/26/19 15:30 05/08/19 09:47 Norvasc - PO 5 mg DAILY [facility] Administration Artificial Tears 1 drop 04/24/19 10:00 05/08/19 11:32 Artificial Tears OU 1 drop BID [facility] Administration Atorvastatin Calcium 10 mg 04/24/19 22:00 05/07/19 21:56 Lipitor - PO 10 mg HS [facility] Administration Famotidine 20 mg 04/24/19 10:00 05/08/19 09:47 Pepcid - PO 20 mg BID [facility] Administration Finasteride 5 mg 04/25/19 10:00 05/08/19 09:47 Proscar - PO 5 mg DAILY [facility] Administration Folic Acid 1 mg 04/24/19 10:00 05/08/19 09:47 Folic Acid - PO 1 mg DAILY [facility] Administration IV Flush 4 ml 05/01/19 12:14 05/08/19 06:15 Triple Lumen Flush IVPUSH 4 ml PRN PRN Administration Protocol Potassium Chloride/Sodium Chloride 20 meq in 1,000 mls @ 42 mls/hr 05/07/19 13 :06 05/07/19 16:44 1/2ns+20meq Kcl IV 42 mls/hr ASDIR [facility] Administration Insulin Aspart 1 vial 04/24/19 16:30 05/08/19 11:33 Novolog Vial Sliding Scale - SQ Not Given TIDAC [facility] Protocol Insulin Detemir 10 units 04/24/19 22:00 05/07/19 22:53 Levemir Vial SQ Not Given BID@0700,2199 [facility] Lidocaine 1 patch 04/27/19 11:15 05/08/19 09:47 Lidoderm Patch - TP 1 patch DAILY [facility] Administration Miscellaneous 1 each 04/27/19 22:00 05/07/19 21:57 Lidoderm Patch Removal MC 1 each DAILY@2199 [facility] Administration Multivitamins/Minerals 15 ml 05/07/19 13:00 05/08/19 12:29 Certavite-Antioxidant Liquid PO 15 ml DAILY [facility] Administration Oxycodone HCl 5 mg 05/06/19 18:34 05/08/19 12:28 Roxicodone - PO 5 mg Q4H PRN Administration PAIN LEVEL 6-10 Polyethylene Glycol 17 gm 04/28/19 12:00 05/08/19 09:47 Miralax (For Daily Use) - PO 17 gm DAILY [facility] Administration Tamsulosin HCl 0.8 mg 04/24/19 08:30 05/08/19 08:22 Flomax - PO 0.8 mg DAILY@0830 [facility] Administration Thiamine HCl 100 mg 04/24/19 10:00 05/08/19 09:47 Vitamin B1 - PO 100 mg DAILY [facility] Administration Laboratory Results - last 24 hr 05/07/19 05/07/19 05/08/19 16:43 21:48 05:27 WBC RBC Hgb Hct MCV MCH MCHC RDW Plt Count MPV Sodium Potassium Chloride Carbon Dioxide Anion Gap BUN Creatinine Est GFR (CKD-EPI)AfAm Est GFR (CKD-EPI)NonAf POC Glucometer 145 94 103 Random Glucose Calcium Magnesium Total Bilirubin AST ALT Alkaline Phosphatase Total Protein Albumin Urine Color Urine Appearance Urine pH Ur Specific [place] Urine Protein Urine Glucose (UA) Urine Ketones Urine Blood Urine Nitrite Urine Bilirubin Urine Urobilinogen Ur Leukocyte Esterase Urine WBC (Auto) Urine RBC (Auto) Urine Casts (Auto) U Epithel Cells (Auto) Urine Bacteria (Auto) 05/08/19 05/08/19 05/08/19 06:00 06:00 06:20 WBC 11.7 H RBC 2.62 L Hgb 7.7 L Hct 22.9 L MCV 87.4 MCH 29.4 MCHC 33.7 RDW 14.9 Plt Count 180 MPV 8.7 Sodium 141 Potassium 4.2 Chloride 115 H Carbon Dioxide 18 L Anion Gap 9 BUN 17.0 Creatinine 1.3 Est GFR (CKD-EPI)AfAm 61.43 Est GFR (CKD-EPI)NonAf 53.00 POC Glucometer Random Glucose 97 Calcium 7.0 L Magnesium 1.3 L Total Bilirubin 0.8 AST 44 H ALT 25 Alkaline Phosphatase 148 H Total Protein 5.2 L Albumin 1.4 L Urine Color Yellow Urine Appearance Clear Urine pH 5.0 Ur Specific [place] 1.005 L Urine Protein Negative Urine Glucose (UA) Negative Urine Ketones Negative Urine Blood 2+ H Urine Nitrite Negative Urine Bilirubin Negative Urine Urobilinogen 0.2 Ur Leukocyte Esterase Trace Urine WBC (Auto) 4 Urine RBC (Auto) 26 Urine Casts (Auto) 0 U Epithel Cells (Auto) 0.7 Urine Bacteria (Auto) 0.7 05/08/19 11:30 WBC RBC Hgb Hct MCV MCH MCHC RDW Plt Count MPV Sodium Potassium Chloride Carbon Dioxide Anion Gap BUN Creatinine Est GFR (CKD-EPI)AfAm Est GFR (CKD-EPI)NonAf POC Glucometer 148 Random Glucose Calcium Magnesium Total Bilirubin AST ALT Alkaline Phosphatase Total Protein Albumin Urine Color Urine Appearance Urine pH Ur Specific [place] Urine Protein Urine Glucose (UA) Urine Ketones Urine Blood Urine Nitrite Urine Bilirubin Urine Urobilinogen Ur Leukocyte Esterase Urine WBC (Auto) Urine RBC (Auto) Urine Casts (Auto) U Epithel Cells (Auto) Urine Bacteria (Auto) S1 S2 RRR Lungs clear Abd- soft, obese, NT no edema B/L nephrostomy + Thomas-+ PLAN PLAN add Oxycodone prn for pain POD #6 Pre-Operative Diagnosis: bladder tumor, emilia. hydroureteralnephrosis,gross hematuria Operation: cysto, attempted emilia retrogrades, antigrade nephrotogram, turbt ( large) findings Large bleeding extensive bladder tumor with complete ureteral obstruction transfuse when necessary monitor cbc/ electrolytes continue CBI if needed Monitor bgm mild hydration Urology and hematology follow up pending -- decide plan with regards to bladder cancer management Fever -- recurrent --reculture pt -- check CXR -- ID eval Problem List - Problems (1) ROSA MARIA (acute kidney injury) Code(s): N17.9 - ACUTE KIDNEY FAILURE, UNSPECIFIED (2) Anemia Code(s): D64.9 - ANEMIA, UNSPECIFIED (3) BPH (benign prostatic hyperplasia) Code(s): N40.0 - BENIGN PROSTATIC HYPERPLASIA WITHOUT LOWER URINRY TRACT SYMP Qualifiers: Lower urinary tract symptom presence: unspecified whether lower urinary tract symptoms present Qualified Code(s): N40.0 - Benign prostatic hyperplasia without lower urinary tract symptoms (4) Dementia Code(s): F03.90 - UNSPECIFIED DEMENTIA WITHOUT BEHAVIORAL DISTURBANCE Qualifiers: Dementia type: unspecified type (5) Diabetes mellitus Code(s): E11.9 - TYPE 2 DIABETES MELLITUS WITHOUT COMPLICATIONS Qualifiers: Diabetes mellitus type: type 2 (6) HLD (hyperlipidemia) Code(s): E78.5 - HYPERLIPIDEMIA, UNSPECIFIED
[2019-05-08] MEDS ORDERED: MAGNESIUM SULF 50% (8.12 MEQ/2 ML-1 GM VIAL) IVPB ONE (13:00)
[2019-05-08] MEDS ORDERED: MEROPENEM 1 GM in DEXTROSE 5%-WATER 100 ML IVPB ONE (13:00)
[2019-05-08] MEDS ORDERED: DEXTROSE 5%-WATER 100 ML IVPB ONE (13:04)
[2019-05-08] MEDS ORDERED: MEROPENEM 1 GM VIAL (RESTRICTED TO ID) IVPB ONE (13:04)
[2019-05-08] MEDS: SODIUM CHLORIDE 0.45%/POT 20 MEQ/1,000 ML INFUS.BAG IV SCH ×2 (13:34→22:56)
--- NOTE | 2019-05-08 15:12 | PN ---
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, Physician History of Present Illness: Pt seen and examined at bedside. He is awake and appears comfortable. He complains of edema. - Current Medication List Current Medications: Active Medications Acetaminophen (Tylenol -) 650 mg PO Q6H PRN PRN Reason: PAIN LEVEL 6-10 Last Admin: 05/07/19 03:17 Dose: 650 mg Amino Acids (Prosource No Carb Liquid Pkt) 30 ml PO BID@0800,1730 [facility] Last Admin: 05/08/19 08:22 Dose: 30 ml Amlodipine Besylate (Norvasc -) 5 mg PO DAILY [facility] Last Admin: 05/08/19 09:47 Dose: 5 mg Artificial Tears (Artificial Tears) 1 drop OU BID [facility] Last Admin: 05/08/19 11:32 Dose: 1 drop Atorvastatin Calcium (Lipitor -) 10 mg PO HS [facility] Last Admin: 05/07/19 21:56 Dose: 10 mg Famotidine (Pepcid -) 20 mg PO BID [facility] Last Admin: 05/08/19 09:47 Dose: 20 mg Finasteride (Proscar -) 5 mg PO DAILY [facility] Last Admin: 05/08/19 09:47 Dose: 5 mg Folic Acid (Folic Acid -) 1 mg PO DAILY [facility] Last Admin: 05/08/19 09:47 Dose: 1 mg IV Flush (Triple Lumen Flush) 4 ml IVPUSH PRN PRN PRN Reason: Protocol Last Admin: 05/08/19 06:15 Dose: 4 ml Potassium Chloride/Sodium Chloride (1/2ns+20meq Kcl) 20 meq in 1,000 mls @ 42 mls/hr IV ASDIR [facility] Last Admin: 05/07/19 16:44 Dose: 42 mls/hr Insulin Aspart (Novolog Vial Sliding Scale -) 1 vial SQ TIDAC [facility]; Protocol Last Admin: 05/08/19 11:33 Dose: Not Given Insulin Detemir (Levemir Vial) 10 units SQ BID@0700,2200 [facility] Last Admin: 05/07/19 22:53 Dose: Not Given Lidocaine (Lidoderm Patch -) 1 patch TP DAILY [facility] Last Admin: 05/08/19 09:47 Dose: 1 patch Miscellaneous (Lidoderm Patch Removal) 1 each MC DAILY@2200 [facility] Last Admin: 05/07/19 21:57 Dose: 1 each Multivitamins/Minerals (Certavite-Antioxidant Liquid) 15 ml PO DAILY [facility] Last Admin: 05/08/19 12:29 Dose: 15 ml Oxycodone HCl (Roxicodone -) 5 mg PO Q4H PRN PRN Reason: PAIN LEVEL 6-10 Last Admin: 05/08/19 12:28 Dose: 5 mg Polyethylene Glycol (Miralax (For Daily Use) -) 17 gm PO DAILY [facility] Last Admin: 05/08/19 09:47 Dose: 17 gm Tamsulosin HCl (Flomax -) 0.8 mg PO DAILY@0830 [facility] Last Admin: 05/08/19 08:22 Dose: 0.8 mg Thiamine HCl (Vitamin B1 -) 100 mg PO DAILY [facility] Last Admin: 05/08/19 09:47 Dose: 100 mg - Objective Vital Signs: Vital Signs Temperature 99.1 F 05/08/19 14:00 Pulse Rate 86 05/08/19 14:00 Respiratory Rate 17 05/08/19 14:00 Blood Pressure 133/50 L 05/08/19 14:00 O2 Sat by Pulse Oximetry (%) 100 05/07/19 21:00 Constitutional: Yes: Calm Eyes: Yes: Conjunctiva Clear HENT: Yes: Atraumatic Neck: Yes: Supple Cardiovascular: Yes: S1, S2 Respiratory: Yes: CTA Bilaterally Gastrointestinal: Yes: Soft Genitourinary: Yes: Thomas Present, Other (nephrostomy tubes) Musculoskeletal: Yes: WNL Edema: Yes Edema: LLE: 1+, RLE: 1+ Neurological: Yes: Oriented Psychiatric: Yes: Oriented Labs: CBC, BMP 05/08/19 06:20 05/08/19 06:00 INR, PTT INR 1.32 (0.83-1.09) H 04/26/19 07:52 Problem List - Problems (1) ROSA MARIA (acute kidney injury) Code(s): N17.9 - ACUTE KIDNEY FAILURE, UNSPECIFIED (2) BPH (benign prostatic hyperplasia) Code(s): N40.0 - BENIGN PROSTATIC HYPERPLASIA WITHOUT LOWER URINRY TRACT SYMP Qualifiers: Lower urinary tract symptom presence: unspecified whether lower urinary tract symptoms present Qualified Code(s): N40.0 - Benign prostatic hyperplasia without lower urinary tract symptoms (3) Bladder cancer Code(s): C67.9 - MALIGNANT NEOPLASM OF BLADDER, UNSPECIFIED Qualifiers: Bladder location: unspecified site Qualified Code(s): C67.9 - Malignant neoplasm of bladder, unspecified (4) CHF (congestive heart failure) Code(s): I50.9 - HEART FAILURE, UNSPECIFIED Qualifiers: Heart failure type: unspecified Assessment/Plan Current Medications Generic Name Dose Route Start Last Admin Trade Name Freq PRN Reason Stop Dose Admin Acetaminophen 650 mg 04/25/19 19:59 05/07/19 03:17 Tylenol - PO 650 mg Q6H PRN Administration PAIN LEVEL 6-10 Amino Acids 30 ml 05/07/19 17:30 05/08/19 08:22 Prosource No Carb Liquid Pkt PO 30 ml BID@0800,1730 [facility] Administration Amlodipine Besylate 5 mg 04/26/19 15:30 05/08/19 09:47 Norvasc - PO 5 mg DAILY [facility] Administration Artificial Tears 1 drop 04/24/19 10:00 05/08/19 11:32 Artificial Tears OU 1 drop BID [facility] Administration Atorvastatin Calcium 10 mg 04/24/19 22:00 05/07/19 21:56 Lipitor - PO 10 mg HS [facility] Administration Famotidine 20 mg 04/24/19 10:00 05/08/19 09:47 Pepcid - PO 20 mg BID [facility] Administration Finasteride 5 mg 04/25/19 10:00 05/08/19 09:47 Proscar - PO 5 mg DAILY [facility] Administration Folic Acid 1 mg 04/24/19 10:00 05/08/19 09:47 Folic Acid - PO 1 mg DAILY [facility] Administration IV Flush 4 ml 05/01/19 12:14 05/08/19 06:15 Triple Lumen Flush IVPUSH 4 ml PRN PRN Administration Protocol Potassium Chloride/Sodium Chloride 20 meq in 1,000 mls @ 42 mls/hr 05/07/19 13 :06 05/07/19 16:44 1/2ns+20meq Kcl IV 42 mls/hr ASDIR [facility] Administration Insulin Aspart 1 vial 04/24/19 16:30 05/08/19 11:33 Novolog Vial Sliding Scale - SQ Not Given TIDAC [facility] Protocol Insulin Detemir 10 units 04/24/19 22:00 05/07/19 22:53 Levemir Vial SQ Not Given BID@0700,2200 [facility] Lidocaine 1 patch 04/27/19 11:15 05/08/19 09:47 Lidoderm Patch - TP 1 patch DAILY [facility] Administration Miscellaneous 1 each 04/27/19 22:00 05/07/19 21:57 Lidoderm Patch Removal MC 1 each DAILY@2200 [facility] Administration Multivitamins/Minerals 15 ml 05/07/19 13:00 05/08/19 12:29 Certavite-Antioxidant Liquid PO 15 ml DAILY [facility] Administration Oxycodone HCl 5 mg 05/06/19 18:34 05/08/19 12:28 Roxicodone - PO 5 mg Q4H PRN Administration PAIN LEVEL 6-10 Polyethylene Glycol 17 gm 04/28/19 12:00 05/08/19 09:47 Miralax (For Daily Use) - PO 17 gm DAILY [facility] Administration Tamsulosin HCl 0.8 mg 04/24/19 08:30 05/08/19 08:22 Flomax - PO 0.8 mg DAILY@0830 [facility] Administration Thiamine HCl 100 mg 04/24/19 10:00 05/08/19 09:47 Vitamin B1 - PO 100 mg DAILY [facility] Administration Impression 1. ROSA MARIA 2. hydronephrosis 3. hematuria 4. dementia 5. chf 6. dm 7. gerd 8. anemia Plan - can stop fluids - repeat labs in am - urology/oncology follow up - renal function is stable - mental status improved - monitor output
--- NOTE | 2019-05-08 16:53 | PN ---
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 (short form) - Note 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: Iasked to see for fever overnight alert no complaints s/p cystoscopy 05/02- bleeding bladder tumor with complete ureeral obstruction on CBI- now clear urine s/p bilateral PCN placement as well chest ct done- ?scattered nodules (my read) received meropenem today Vital Signs Period Temp Pulse Resp BP Sys/Gordon Pulse Ox Last 24 Hr 98.2 F-101.1 F 81-97 17-20 122-145/50-75 100-100 cor-rrr lungs clear abd protuberant, soft,nt ext no edema fernandez bilateral pcn CBC, BMP 05/08/19 06:20 05/08/19 06:00 Microbiology 05/06/19 00:00 Blood - Peripheral Venous Blood Culture - Preliminary NO GROWTH OBTAINED AFTER 48 HOURS, INCUBATION TO CONTINUE FOR 3 DAYS. 05/06/19 00:00 Blood - Peripheral Venous Blood Culture - Preliminary NO GROWTH OBTAINED AFTER 48 HOURS, INCUBATION TO CONTINUE FOR 3 DAYS. 05/01/19 Unknown Urine - Urine Nephrostomy Tube Right Urine Culture - Final NO GROWTH OBTAINED 04/30/19 16:00 Urine - Urine Nephrostomy Tube Left Urine Culture - Final NO GROWTH OBTAINED 04/23/19 17:00 Urine - Urine Fernandez Urine Culture - Final NO GROWTH OBTAINED a/p fever- ?gu no signs lung disease continue meropenem, d/c if cultures are negative in am pen/ceph- allergy bladder cancer with hematuria and obstruction livercirrhosis with varices Problem List - Problems (1) Hematuria Code(s): R31.9 - HEMATURIA, UNSPECIFIED (2) Anemia Code(s): D64.9 - ANEMIA, UNSPECIFIED (3) Bladder cancer Code(s): C67.9 - MALIGNANT NEOPLASM OF BLADDER, UNSPECIFIED Qualifiers: Bladder location: unspecified site Qualified Code(s): C67.9 - Malignant neoplasm of bladder, unspecified (4) Allergy to multiple antibiotics Code(s): Z88.1 - ALLERGY STATUS TO OTHER ANTIBIOTIC AGENTS STATUS
[2019-05-08] MEDS: INSULIN (LEVEMIR) 100 UNITS/ML UNITS SQ SCH ×2 (17:35→22:48)
[2019-05-08] MEDS: ATORVASTATIN CA 10 MG TABLET (FP) PO SCH (22:48)
[2019-05-09] MEDS ORDERED: MEROPENEM 1 GM VIAL (RESTRICTED TO ID) IVPB ONE ×2 (00:53→13:13)
[2019-05-09] MEDS ORDERED: DEXTROSE 5%-WATER 100 ML IVPB ONE ×2 (00:53→13:13)
[2019-05-09] MEDS: MEROPENEM 1 GM in DEXTROSE 5%-WATER 100 ML IVPB SCH ×2 (01:04→13:16)
[2019-05-09] MEDS: LIDOCAINE PATCH REMOVAL MC SCH ×2 (01:04→21:04)
[2019-05-09] MEDS ORDERED: PT OWN MED DRAWER 7, Y5N ONE (05:10)
[2019-05-09] MEDS: INSULIN SLIDING SCALE (NOVOLOG) 1 VIAL SQ SCH ×3 (06:01→17:15)
[2019-05-09] MEDS: INSULIN (LEVEMIR) 100 UNITS/ML UNITS SQ SCH ×2 (06:03→21:04)
[2019-05-09] MEDS ORDERED: INSULIN (NOVOLOG) ASPART 100 UNITS/ML 10ML VIAL ONE (06:24)
[2019-05-09 08:34] LABS: HEMATOCRIT 21.3 % (35.4-49); HEMOGLOBIN 7.4 GM/dL (11.7-16.9); MCHC 34.5 g/dl (32.0-35.9); MEAN CELL VOLUME 86.9 fl (80-96); PLATELET COUNT 190 K/MM3 (134-434); RBC 2.46 M/mm3 (4.00-5.60); RDW 15.2 % (11.9-15.9); WHITE BLOOD COUNT 9.7 K/mm3 (4.0-10.0)
[2019-05-09] MEDS: AMINO ACIDS/PROTEIN HYDROLYS 30 ML LIQUID.PKT PO SCH ×2 (08:34→17:15)
[2019-05-09] MEDS: TAMSULOSIN HCL 0.4 MG CAP PO SCH (08:34)
[2019-05-09 08:50] LABS: ALBUMIN 1.3 g/dl (3.4-5.0); BILIRUBIN,TOTAL 0.7 mg/dL (0.2-1); BLOOD UREA NITROGEN 21.3 mg/dL (7-18); CALCIUM 7.1 mg/dL (8.5-10.1); CREATININE 1.2 mg/dL (0.55-1.3); POTASSIUM 3.8 mmol/L (3.5-5.1)
[2019-05-09] MEDS: FAMOTIDINE 20 MG TABLET PO SCH ×2 (10:48→21:04)
[2019-05-09] MEDS: THIAMINE HCL 100 MG TABLET (FP) PO SCH (10:48)
[2019-05-09] MEDS: FOLIC ACID 1 MG TABLET (FP) PO SCH (10:48)
[2019-05-09] MEDS: amLODIPine BESYLATE 5 MG TABLET (FP) PO SCH (10:48)
[2019-05-09] MEDS: FINASTERIDE 5 MG TABLET (FP) PO SCH (10:48)
[2019-05-09] MEDS: oxyCODONE HCL 5 MG TABLET PO PRN (10:48)
[2019-05-09] MEDS: LIDOCAINE 5% TOPICAL PATCH TP SCH (10:51)
[2019-05-09] MEDS: MULTIVIT-MINERALS ORAL LIQUID PO SCH (10:52)
[2019-05-09] MEDS: POLYETHYLENE GLYCOL 3350 119 GM BTL PO SCH (10:53)
[2019-05-09] MEDS: ARTIFICIAL TEARS (POLYVINYL ALCOHOL) OPTH DROPS OU SCH ×2 (10:53→21:03)
--- NOTE | 2019-05-09 11:39 | PN ---
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 (short form) - Note 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: Pt seen/ examined chart is reviewed all f/u noted Rad- onc consult noted- going to start palliative RT from Sunday ct chest --Metastatic disease refused ct abd yesterday low grade temp Vital Signs Temp 100.1 F H 05/09/19 06:00 Pulse 80 05/09/19 06:00 Resp 20 05/09/19 06:00 BP 120/46 L 05/09/19 06:00 Pulse Ox 100 05/08/19 21:00 Intake & Output 05/08/19 05/08/19 05/09/19 11:59 23:59 11:59 Intake Total 2000 900 Output Total 4200 4250 2150 Balance -2200 -4250 -1250 Intake: IV 400 1/2NS+20MEQ KCL 20 meq In 400 1,000 ml @ 42 mls/hr IV ASDIR [facility] Rx#:[id number] IVPB 100 Oral 400 CBI Intake 2000 Output: Urine 4200 4250 2150 Thomas 3700 3000 1200 Left Nephrostomy 200 650 300 Right Nephrostomy 300 600 650 Other: Voiding Method Indwelling Catheter Indwelling Catheter Indwelling Catheter Bowel Movement No No No Active Medications Acetaminophen (Tylenol -) 650 mg PO Q6H PRN PRN Reason: PAIN LEVEL 6-10 Last Admin: 05/07/19 03:17 Dose: 650 mg Amino Acids (Prosource No Carb Liquid Pkt) 30 ml PO BID@0800,1730 [facility] Last Admin: 05/09/19 08:34 Dose: 30 ml Amlodipine Besylate (Norvasc -) 5 mg PO DAILY [facility] Last Admin: 05/09/19 10:48 Dose: 5 mg Artificial Tears (Artificial Tears) 1 drop OU BID [facility] Last Admin: 05/09/19 10:53 Dose: 1 drop Atorvastatin Calcium (Lipitor -) 10 mg PO HS [facility] Last Admin: 05/08/19 22:48 Dose: 10 mg Famotidine (Pepcid -) 20 mg PO BID [facility] Last Admin: 05/09/19 10:48 Dose: 20 mg Finasteride (Proscar -) 5 mg PO DAILY [facility] Last Admin: 05/09/19 10:48 Dose: 5 mg Folic Acid (Folic Acid -) 1 mg PO DAILY [facility] Last Admin: 05/09/19 10:48 Dose: 1 mg IV Flush (Triple Lumen Flush) 4 ml IVPUSH PRN PRN PRN Reason: Protocol Last Admin: 05/08/19 06:15 Dose: 4 ml Potassium Chloride/Sodium Chloride (1/2ns+20meq Kcl) 20 meq in 1,000 mls @ 42 mls/hr IV ASDIR [facility] Last Admin: 05/08/19 22:56 Dose: 42 mls/hr Meropenem 1 gm/ Dextrose 100 mls @ 200 mls/hr IVPB Q12H [facility] Last Admin: 05/09/19 01:04 Dose: 200 mls/hr Insulin Aspart (Novolog Vial Sliding Scale -) 1 vial SQ TIDAC [facility]; Protocol Last Admin: 05/09/19 06:01 Dose: Not Given Insulin Detemir (Levemir Vial) 10 units SQ BID@0700,2200 [facility] Last Admin: 05/09/19 06:03 Dose: Not Given Lidocaine (Lidoderm Patch -) 1 patch TP DAILY [facility] Last Admin: 05/09/19 10:51 Dose: 1 patch Miscellaneous (Lidoderm Patch Removal) 1 each MC DAILY@2200 [facility] Last Admin: 05/09/19 01:04 Dose: 1 each Multivitamins/Minerals (Certavite-Antioxidant Liquid) 15 ml PO DAILY [facility] Last Admin: 05/09/19 10:52 Dose: 15 ml Oxycodone HCl (Roxicodone -) 5 mg PO Q4H PRN PRN Reason: PAIN LEVEL 6-10 Last Admin: 05/09/19 10:48 Dose: 5 mg Polyethylene Glycol (Miralax (For Daily Use) -) 17 gm PO DAILY [facility] Last Admin: 05/09/19 10:53 Dose: 17 gm Tamsulosin HCl (Flomax -) 0.8 mg PO DAILY@0830 [facility] Last Admin: 05/09/19 08:34 Dose: 0.8 mg Thiamine HCl (Vitamin B1 -) 100 mg PO DAILY [facility] Last Admin: 05/09/19 10:48 Dose: 100 mg CBC, BMP 05/09/19 08:00 05/09/19 08:00 Microbiology 05/08/19 06:00 Urine Culture - Final Urine - Urine - Catheterized NO GROWTH OBTAINED 05/06/19 00:00 Blood Culture - Preliminary Blood - Peripheral Venous NO GROWTH OBTAINED AFTER 72 HOURS, INCUBATION TO CONTINUE FOR 2 DAYS. 05/06/19 00:00 Blood Culture - Preliminary Blood - Peripheral Venous NO GROWTH OBTAINED AFTER 72 HOURS, INCUBATION TO CONTINUE FOR 2 DAYS. Physical Exam S1 S2 RRR Lungs -- diminished at bases Abd- soft, obese, NT no edema B/L nephrostomy + Thomas-+ PLAN stable Pre-Operative Diagnosis: bladder tumor, emilia. hydroureteralnephrosis,gross hematuria Operation: cysto, attempted emilia retrogrades, antigrade nephrotogram, turbt ( large) findings Large bleeding extensive bladder tumor with complete ureteral obstruction transfuse when necessary monitor cbc/ electrolytes abx Palliative RT Will consult Palliative care also Will follow Problem List - Problems (1) Bladder cancer Code(s): C67.9 - MALIGNANT NEOPLASM OF BLADDER, UNSPECIFIED Qualifiers: Bladder location: unspecified site Qualified Code(s): C67.9 - Malignant neoplasm of bladder, unspecified (2) Cirrhosis Code(s): K74.60 - UNSPECIFIED CIRRHOSIS OF LIVER (3) ROSA MARIA (acute kidney injury) Code(s): N17.9 - ACUTE KIDNEY FAILURE, UNSPECIFIED (4) Anemia Code(s): D64.9 - ANEMIA, UNSPECIFIED (5) HTN (hypertension) Code(s): I10 - ESSENTIAL (PRIMARY) HYPERTENSION (6) Hematuria Code(s): R31.9 - HEMATURIA, UNSPECIFIED
[2019-05-09] MEDS: SODIUM CHLORIDE 0.45%/POT 20 MEQ/1,000 ML INFUS.BAG IV SCH (13:17)
--- NOTE | 2019-05-09 13:47 | PN ---
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, Physician History of Present Illness: s/p PCN, hematuria undergoing CBI. Chest CT shows pulm mets. - Current Medication List Current Medications: Active Medications Acetaminophen (Tylenol -) 650 mg PO Q6H PRN PRN Reason: PAIN LEVEL 6-10 Last Admin: 05/07/19 03:17 Dose: 650 mg Amino Acids (Prosource No Carb Liquid Pkt) 30 ml PO BID@0800,1730 [facility] Last Admin: 05/09/19 08:34 Dose: 30 ml Amlodipine Besylate (Norvasc -) 5 mg PO DAILY [facility] Last Admin: 05/09/19 10:48 Dose: 5 mg Artificial Tears (Artificial Tears) 1 drop OU BID [facility] Last Admin: 05/09/19 10:53 Dose: 1 drop Atorvastatin Calcium (Lipitor -) 10 mg PO HS [facility] Last Admin: 05/08/19 22:48 Dose: 10 mg Famotidine (Pepcid -) 20 mg PO BID [facility] Last Admin: 05/09/19 10:48 Dose: 20 mg Finasteride (Proscar -) 5 mg PO DAILY [facility] Last Admin: 05/09/19 10:48 Dose: 5 mg Folic Acid (Folic Acid -) 1 mg PO DAILY [facility] Last Admin: 05/09/19 10:48 Dose: 1 mg IV Flush (Triple Lumen Flush) 4 ml IVPUSH PRN PRN PRN Reason: Protocol Last Admin: 05/08/19 06:15 Dose: 4 ml Potassium Chloride/Sodium Chloride (1/2ns+20meq Kcl) 20 meq in 1,000 mls @ 42 mls/hr IV ASDIR [facility] Last Admin: 05/09/19 13:17 Dose: 42 mls/hr Meropenem 1 gm/ Dextrose 100 mls @ 200 mls/hr IVPB Q12H [facility] Last Admin: 05/09/19 13:16 Dose: 200 mls/hr Insulin Aspart (Novolog Vial Sliding Scale -) 1 vial SQ TIDAC [facility]; Protocol Last Admin: 05/09/19 12:17 Dose: Not Given Insulin Detemir (Levemir Vial) 10 units SQ BID@0700,2200 [facility] Last Admin: 05/09/19 06:03 Dose: Not Given Lidocaine (Lidoderm Patch -) 1 patch TP DAILY [facility] Last Admin: 05/09/19 10:51 Dose: 1 patch Miscellaneous (Lidoderm Patch Removal) 1 each MC DAILY@0 [facility] Last Admin: 05/09/19 01:04 Dose: 1 each Multivitamins/Minerals (Certavite-Antioxidant Liquid) 15 ml PO DAILY [facility] Last Admin: 05/09/19 10:52 Dose: 15 ml Oxycodone HCl (Roxicodone -) 5 mg PO Q4H PRN PRN Reason: PAIN LEVEL 6-10 Last Admin: 05/09/19 10:48 Dose: 5 mg Polyethylene Glycol (Miralax (For Daily Use) -) 17 gm PO DAILY [facility] Last Admin: 05/09/19 10:53 Dose: 17 gm Tamsulosin HCl (Flomax -) 0.8 mg PO DAILY@0830 [facility] Last Admin: 05/09/19 08:34 Dose: 0.8 mg Thiamine HCl (Vitamin B1 -) 100 mg PO DAILY [facility] Last Admin: 05/09/19 10:48 Dose: 100 mg - Objective Vital Signs: Vital Signs Temperature 100.1 F H 05/09/19 10:00 Pulse Rate 80 05/09/19 10:00 Respiratory Rate 05/09/19 10:00 Blood Pressure 120/46 L 05/09/19 10:00 O2 Sat by Pulse Oximetry (%) 100 05/09/19 09:00 Constitutional: Yes: No Distress, Calm, Thin Neck: Yes: Supple Cardiovascular: Yes: Regular Rate and Rhythm Respiratory: Yes: Regular, Diminished Gastrointestinal: Yes: Normal Bowel Sounds, Soft Genitourinary: Yes: Thomas Present, Hematuria Edema: No Labs: CBC, BMP 05/09/19 08:00 05/09/19 08:00 INR, PTT INR 1.32 (0.83-1.09) H 04/26/19 07:52 - ....Imaging Chest X-ray: Report Reviewed (Min congestion) Cat Scan: Report Reviewed (Multiple pulm nodules developed since 02/05/2019. Small bilateral effusions, mediastinal, right axillary and upper abdomen LAD) Problem List - Problems (1) Hydronephrosis Code(s): N13.30 - UNSPECIFIED HYDRONEPHROSIS Qualifiers: Hydronephrosis type: unspecified Qualified Code(s): N13.30 - Unspecified hydronephrosis (2) ROSA MARIA (acute kidney injury) Code(s): N17.9 - ACUTE KIDNEY FAILURE, UNSPECIFIED (3) Anemia Code(s): D64.9 - ANEMIA, UNSPECIFIED (4) CHF (congestive heart failure) Code(s): I50.9 - HEART FAILURE, UNSPECIFIED Qualifiers: Heart failure type: unspecified (5) Diabetes mellitus Code(s): E11.9 - TYPE 2 DIABETES MELLITUS WITHOUT COMPLICATIONS Qualifiers: Diabetes mellitus type: type 2 (6) HLD (hyperlipidemia) Code(s): E78.5 - HYPERLIPIDEMIA, UNSPECIFIED (7) HTN (hypertension) Code(s): I10 - ESSENTIAL (PRIMARY) HYPERTENSION (8) Hematuria Code(s): R31.9 - HEMATURIA, UNSPECIFIED (9) Bladder cancer Code(s): C67.9 - MALIGNANT NEOPLASM OF BLADDER, UNSPECIFIED Qualifiers: Bladder location: unspecified site Qualified Code(s): C67.9 - Malignant neoplasm of bladder, unspecified (10) BPH (benign prostatic hyperplasia) Code(s): N40.0 - BENIGN PROSTATIC HYPERPLASIA WITHOUT LOWER URINRY TRACT SYMP Qualifiers: Lower urinary tract symptom presence: unspecified whether lower urinary tract symptoms present Qualified Code(s): N40.0 - Benign prostatic hyperplasia without lower urinary tract symptoms (11) Dementia Code(s): F03.90 - UNSPECIFIED DEMENTIA WITHOUT BEHAVIORAL DISTURBANCE Qualifiers: Dementia type: unspecified type Assessment/Plan 04/29/2019 Normal LV and RV size and fxn, mild MR, tr-mild TR, LVEF 61% 1. ROSA MARIA/CKD->obstructive hydronephrosis post percutaneous nephrostomy 2. 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 HTN 4. Hypercholesterolemia 5. DM 6. BPH 7. Dementia 8. MDD PLAN: 1. Continue Amlodipine 5 mg QD and Atorvastatin 10 mg QHS 2. Renal input noted, montor renal recovery 3. CBI pending hematuria clearance, planned for possible outpatient BCG or Mitomycin intravesical therapy, empiric abx course 4. Transfuse pRBC to maintain Hgb>8.0, GI protection 5. Palliative XRT
--- NOTE | 2019-05-09 16:46 | PN ---
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, Physician History of Present Illness: Pt seen and examined at bedside. He appears comfortable. He denies shortness of breath. - Current Medication List Current Medications: Active Medications Acetaminophen (Tylenol -) 650 mg PO Q6H PRN PRN Reason: PAIN LEVEL 6-10 Last Admin: 05/07/19 03:17 Dose: 650 mg Amino Acids (Prosource No Carb Liquid Pkt) 30 ml PO BID@0800,1730 [facility] Last Admin: 05/09/19 08:34 Dose: 30 ml Amlodipine Besylate (Norvasc -) 5 mg PO DAILY [facility] Last Admin: 05/09/19 10:48 Dose: 5 mg Artificial Tears (Artificial Tears) 1 drop OU BID [facility] Last Admin: 05/09/19 10:53 Dose: 1 drop Atorvastatin Calcium (Lipitor -) 10 mg PO HS [facility] Last Admin: 05/08/19 22:48 Dose: 10 mg Famotidine (Pepcid -) 20 mg PO BID [facility] Last Admin: 05/09/19 10:48 Dose: 20 mg Finasteride (Proscar -) 5 mg PO DAILY [facility] Last Admin: 05/09/19 10:48 Dose: 5 mg Folic Acid (Folic Acid -) 1 mg PO DAILY [facility] Last Admin: 05/09/19 10:48 Dose: 1 mg IV Flush (Triple Lumen Flush) 4 ml IVPUSH PRN PRN PRN Reason: Protocol Last Admin: 05/08/19 06:15 Dose: 4 ml Potassium Chloride/Sodium Chloride (1/2ns+20meq Kcl) 20 meq in 1,000 mls @ 42 mls/hr IV ASDIR [facility] Last Admin: 05/09/19 13:17 Dose: 42 mls/hr Meropenem 1 gm/ Dextrose 100 mls @ 200 mls/hr IVPB Q12H [facility] Last Admin: 05/09/19 13:16 Dose: 200 mls/hr Insulin Aspart (Novolog Vial Sliding Scale -) 1 vial SQ TIDAC [facility]; Protocol Last Admin: 05/09/19 12:17 Dose: Not Given Insulin Detemir (Levemir Vial) 10 units SQ BID@0700,2200 [facility] Last Admin: 05/09/19 06:03 Dose: Not Given Lidocaine (Lidoderm Patch -) 1 patch TP DAILY [facility] Last Admin: 05/09/19 10:51 Dose: 1 patch Miscellaneous (Lidoderm Patch Removal) 1 each MC DAILY@2200 [facility] Last Admin: 05/09/19 01:04 Dose: 1 each Multivitamins/Minerals (Certavite-Antioxidant Liquid) 15 ml PO DAILY [facility] Last Admin: 05/09/19 10:52 Dose: 15 ml Oxycodone HCl (Roxicodone -) 5 mg PO Q4H PRN PRN Reason: PAIN LEVEL 6-10 Last Admin: 05/09/19 10:48 Dose: 5 mg Polyethylene Glycol (Miralax (For Daily Use) -) 17 gm PO DAILY [facility] Last Admin: 05/09/19 10:53 Dose: 17 gm Tamsulosin HCl (Flomax -) 0.8 mg PO DAILY@0830 [facility] Last Admin: 05/09/19 08:34 Dose: 0.8 mg Thiamine HCl (Vitamin B1 -) 100 mg PO DAILY [facility] Last Admin: 05/09/19 10:48 Dose: 100 mg - Objective Vital Signs: Vital Signs Temperature 98.2 F 05/09/19 15:22 Pulse Rate 83 05/09/19 15:22 Respiratory Rate 20 05/09/19 15:22 Blood Pressure 122/55 L 05/09/19 15:22 O2 Sat by Pulse Oximetry (%) 100 05/09/19 09:00 Constitutional: Yes: Calm Eyes: Yes: Conjunctiva Clear HENT: Yes: Atraumatic Cardiovascular: Yes: S1, S2 Respiratory: Yes: CTA Bilaterally Gastrointestinal: Yes: Soft Genitourinary: Yes: Thomas Present, Other (nephrostomy tubes) Edema: Yes Edema: LLE: 1+, RLE: 1+ Neurological: Yes: Oriented Psychiatric: Yes: Oriented Labs: CBC, BMP 05/09/19 08:00 05/09/19 08:00 INR, PTT INR 1.32 (0.83-1.09) H 04/26/19 07:52 Problem List - Problems (1) ROSA MARIA (acute kidney injury) Code(s): N17.9 - ACUTE KIDNEY FAILURE, UNSPECIFIED (2) BPH (benign prostatic hyperplasia) Code(s): N40.0 - BENIGN PROSTATIC HYPERPLASIA WITHOUT LOWER URINRY TRACT SYMP Qualifiers: Lower urinary tract symptom presence: unspecified whether lower urinary tract symptoms present Qualified Code(s): N40.0 - Benign prostatic hyperplasia without lower urinary tract symptoms (3) Bladder cancer Code(s): C67.9 - MALIGNANT NEOPLASM OF BLADDER, UNSPECIFIED Qualifiers: Bladder location: unspecified site Qualified Code(s): C67.9 - Malignant neoplasm of bladder, unspecified (4) CHF (congestive heart failure) Code(s): I50.9 - HEART FAILURE, UNSPECIFIED Qualifiers: Heart failure type: unspecified Assessment/Plan Current Medications Generic Name Dose Route Start Last Admin Trade Name Freq PRN Reason Stop Dose Admin Acetaminophen 650 mg 04/25/19 19:59 05/07/19 03:17 Tylenol - PO 650 mg Q6H PRN Administration PAIN LEVEL 6-10 Amino Acids 30 ml 05/07/19 17:30 05/09/19 08:34 Prosource No Carb Liquid Pkt PO 30 ml BID@0800,1730 [facility] Administration Amlodipine Besylate 5 mg 04/26/19 15:30 05/09/19 10:48 Norvasc - PO 5 mg DAILY [facility] Administration Artificial Tears 1 drop 04/24/19 10:00 05/09/19 10:53 Artificial Tears OU 1 drop BID [facility] Administration Atorvastatin Calcium 10 mg 04/24/19 22:00 05/08/19 22:48 Lipitor - PO 10 mg HS [facility] Administration Famotidine 20 mg 04/24/19 10:00 05/09/19 10:48 Pepcid - PO 20 mg BID [facility] Administration Finasteride 5 mg 04/25/19 10:00 05/09/19 10:48 Proscar - PO 5 mg DAILY [facility] Administration Folic Acid 1 mg 04/24/19 10:00 05/09/19 10:48 Folic Acid - PO 1 mg DAILY [facility] Administration IV Flush 4 ml 05/01/19 12:14 05/08/19 06:15 Triple Lumen Flush IVPUSH 4 ml PRN PRN Administration Protocol Potassium Chloride/Sodium Chloride 20 meq in 1,000 mls @ 42 mls/hr 05/07/19 13 :06 05/09/19 13:17 1/2ns+20meq Kcl IV 42 mls/hr ASDIR [facility] Administration Meropenem 1 gm/ Dextrose 100 mls @ 200 mls/hr 05/09/19 01:00 05/09/19 13:16 IVPB 200 mls/hr Q12H [facility] Administration Insulin Aspart 1 vial 04/24/19 16:30 05/09/19 12:17 Novolog Vial Sliding Scale - SQ Not Given TIDAC [facility] Protocol Insulin Detemir 10 units 04/24/19 22:00 05/09/19 06:03 Levemir Vial SQ Not Given BID@0700,2200 [facility] Lidocaine 1 patch 04/27/19 11:15 05/09/19 10:51 Lidoderm Patch - TP 1 patch DAILY [facility] Administration Miscellaneous 1 each 04/27/19 22:00 05/09/19 01:04 Lidoderm Patch Removal MC 1 each DAILY@2199 [facility] Administration Multivitamins/Minerals 15 ml 05/07/19 13:00 05/09/19 10:52 Certavite-Antioxidant Liquid PO 15 ml DAILY [facility] Administration Oxycodone HCl 5 mg 05/06/19 18:34 05/09/19 10:48 Roxicodone - PO 5 mg Q4H PRN Administration PAIN LEVEL 6-10 Polyethylene Glycol 17 gm 04/28/19 12:00 05/09/19 10:53 Miralax (For Daily Use) - PO 17 gm DAILY [facility] Administration Tamsulosin HCl 0.8 mg 04/24/19 08:30 05/09/19 08:34 Flomax - PO 0.8 mg DAILY@0830 [facility] Administration Thiamine HCl 100 mg 04/24/19 10:00 05/09/19 10:48 Vitamin B1 - PO 100 mg DAILY [facility] Administration Impression 1. ROSA MARIA 2. hydronephrosis 3. hematuria 4. dementia 5. chf 6. dm 7. gerd 8. anemia Plan - d/c fluids - renal function stable - monitor lytes - urology follow up for cbi - mental status improved - monitor output
[2019-05-09] MEDS: ATORVASTATIN CA 10 MG TABLET (FP) PO SCH (21:04)
--- NOTE | 2019-05-09 21:04 | PN ---
DATE OF VISIT: DATE OF DICTATION: 05/09/2019 UROLOGY FOLLOWUP HISTORY OF PRESENT ILLNESS: The patient is a 74-year-old gentleman with a history of bladder cancer who recently came in with gross hematuria on May 02, 2019. The patient underwent cystoscopy and TUR bladder tumor. This was extensive and located at the trigone, the dome, the right and left lateral sprageu. Multiple attempts at cannulating the ureteral orifices were unsuccessful due to tumor burden. Therefore, the patient does have bilateral percutaneous tubes which are functioning fine. His urine is clear. A CT of his chest recently revealed multiple pulmonary nodules scattered throughout both lungs. They have developed since February 05, 2019, and are strongly suspicious for metastatic disease. There is also small bilateral pleural effusion, mediastinal right axillary and upper abdominal lymphadenopathy were also found. The patient has multiple comorbidities and has history of dementia, high blood pressure, diabetes, depression, GERD, and now with high-grade invasive generalized bladder tumor with possible pulmonary metastases. It is reasonable to consider hospice care. Surgical intervention is absolutely not an option. Will leave medical oncology decision to the medical oncologist. Will presently stop his today and if urine remains clear will discontinue Thomas in a.lesly. Guillermina [id number]
[2019-05-10] MEDS ORDERED: MEROPENEM 1 GM VIAL (RESTRICTED TO ID) IVPB ONE ×2 (01:40→11:43)
[2019-05-10] MEDS ORDERED: DEXTROSE 5%-WATER 100 ML IVPB ONE ×2 (01:41→11:43)
[2019-05-10] MEDS: MEROPENEM 1 GM in DEXTROSE 5%-WATER 100 ML IVPB SCH ×2 (01:54→12:08)
[2019-05-10] MEDS: INSULIN SLIDING SCALE (NOVOLOG) 1 VIAL SQ SCH ×3 (06:12→16:33)
[2019-05-10 08:41] LABS: BASO % 0.3 % (0-2.0); EOS % 1.1 % (0-4.5); HEMATOCRIT 23.9 % (35.4-49); HEMOGLOBIN 8.1 GM/dL (11.7-16.9); LYMPH % 8.9 % (8-40); MCH 29.5 pg (25.7-33.7); MCHC 33.8 g/dl (32.0-35.9); MEAN CELL VOLUME 87.2 fl (80-96); MEAN PLT VOLUME 8.2 fl (7.5-11.1); MONO % 14.8 % (3.8-10.2); NEUT % 74.9 % (42.8-82.8); PLATELET COUNT 212 K/MM3 (134-434); RBC 2.74 M/mm3 (4.00-5.60); RDW 14.8 % (11.9-15.9); WHITE BLOOD COUNT 10.1 K/mm3 (4.0-10.0)
[2019-05-10] MEDS: AMINO ACIDS/PROTEIN HYDROLYS 30 ML LIQUID.PKT PO SCH ×2 (08:54→17:34)
[2019-05-10] MEDS: TAMSULOSIN HCL 0.4 MG CAP PO SCH (08:54)
[2019-05-10] MEDS: INSULIN (LEVEMIR) 100 UNITS/ML UNITS SQ SCH ×2 (08:56→21:09)
[2019-05-10 09:22] LABS: ALBUMIN 1.4 g/dl (3.4-5.0); BILIRUBIN,TOTAL 0.9 mg/dL (0.2-1); BLOOD UREA NITROGEN 21.4 mg/dL (7-18); CALCIUM 7.6 mg/dL (8.5-10.1); CREATININE 1.2 mg/dL (0.55-1.3); POTASSIUM 3.7 mmol/L (3.5-5.1); TOT PROT 5.5 g/dl (6.4-8.2)
--- NOTE | 2019-05-10 10:03 | PN ---
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 (short form) - Note 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: Pt seen/ examined comfortable no new issues + hematurea low grade temp Vital Signs Temp 100.0 F H 05/10/19 05:25 Pulse 83 05/10/19 05:25 Resp 20 05/10/19 05:25 BP 144/55 L 05/10/19 05:25 Pulse Ox 100 05/09/19 22:00 Intake & Output 05/09/19 05/09/19 05/10/19 11:59 23:59 11:59 Intake Total 900 830 Output Total 2150 2700 400 Balance -1250 -1870 -400 Intake: IV 400 1/2NS+20MEQ KCL 20 meq In 400 1,000 ml @ 42 mls/hr IV ASDIR [facility] Rx#:[id number] IVPB 100 Oral 400 830 Output: Urine 2150 2700 400 Thomas 1200 1600 400 Left Nephrostomy 300 400 Right Nephrostomy 650 700 Other: Voiding Method Indwelling Catheter Indwelling Catheter Indwelling Catheter Bowel Movement No Yes # Bowel Movements 1 Active Medications Acetaminophen (Tylenol -) 650 mg PO Q6H PRN PRN Reason: PAIN LEVEL 6-10 Last Admin: 05/07/19 03:17 Dose: 650 mg Amino Acids (Prosource No Carb Liquid Pkt) 30 ml PO BID@0800,1730 [facility] Last Admin: 05/09/19 08:34 Dose: 30 ml Amlodipine Besylate (Norvasc -) 5 mg PO DAILY [facility] Last Admin: 05/09/19 10:48 Dose: 5 mg Artificial Tears (Artificial Tears) 1 drop OU BID [facility] Last Admin: 05/09/19 10:53 Dose: 1 drop Atorvastatin Calcium (Lipitor -) 10 mg PO HS [facility] Last Admin: 05/08/19 22:48 Dose: 10 mg Famotidine (Pepcid -) 20 mg PO BID [facility] Last Admin: 05/09/19 10:48 Dose: 20 mg Finasteride (Proscar -) 5 mg PO DAILY [facility] Last Admin: 05/09/19 10:48 Dose: 5 mg Folic Acid (Folic Acid -) 1 mg PO DAILY [facility] Last Admin: 05/09/19 10:48 Dose: 1 mg IV Flush (Triple Lumen Flush) 4 ml IVPUSH PRN PRN PRN Reason: Protocol Last Admin: 05/08/19 06:15 Dose: 4 ml Potassium Chloride/Sodium Chloride (1/2ns+20meq Kcl) 20 meq in 1,000 mls @ 42 mls/hr IV ASDIR [facility] Last Admin: 05/08/19 22:56 Dose: 42 mls/hr Meropenem 1 gm/ Dextrose 100 mls @ 200 mls/hr IVPB Q12H [facility] Last Admin: 05/09/19 01:04 Dose: 200 mls/hr Insulin Aspart (Novolog Vial Sliding Scale -) 1 vial SQ TIDAC [facility]; Protocol Last Admin: 05/09/19 06:01 Dose: Not Given Insulin Detemir (Levemir Vial) 10 units SQ BID@0700,2200 [facility] Last Admin: 05/09/19 06:03 Dose: Not Given Lidocaine (Lidoderm Patch -) 1 patch TP DAILY [facility] Last Admin: 05/09/19 10:51 Dose: 1 patch Miscellaneous (Lidoderm Patch Removal) 1 each MC DAILY@2200 [facility] Last Admin: 05/09/19 01:04 Dose: 1 each Multivitamins/Minerals (Certavite-Antioxidant Liquid) 15 ml PO DAILY [facility] Last Admin: 05/09/19 10:52 Dose: 15 ml Oxycodone HCl (Roxicodone -) 5 mg PO Q4H PRN PRN Reason: PAIN LEVEL 6-10 Last Admin: 05/09/19 10:48 Dose: 5 mg Polyethylene Glycol (Miralax (For Daily Use) -) 17 gm PO DAILY [facility] Last Admin: 05/09/19 10:53 Dose: 17 gm Tamsulosin HCl (Flomax -) 0.8 mg PO DAILY@0830 [facility] Last Admin: 05/09/19 08:34 Dose: 0.8 mg Thiamine HCl (Vitamin B1 -) 100 mg PO DAILY [facility] Last Admin: 05/09/19 10:48 Dose: 100 mg CBC, BMP 05/10/19 08:10 05/10/19 08:10 Microbiology 05/06/19 00:00 Blood Culture - Preliminary Blood - Peripheral Venous NO GROWTH OBTAINED AFTER 96 HOURS, INCUBATION TO CONTINUE FOR 1 DAYS. 05/06/19 00:00 Blood Culture - Preliminary Blood - Peripheral Venous NO GROWTH OBTAINED AFTER 96 HOURS, INCUBATION TO CONTINUE FOR 1 DAYS. 05/08/19 06:00 Urine Culture - Final Urine - Urine - Catheterized NO GROWTH OBTAINED Physical Exam S1 S2 RRR Lungs -- diminished at bases Abd- soft, obese, NT no edema B/L nephrostomy + Thomas-+ PLAN stable Pre-Operative Diagnosis: bladder tumor, emilia. hydroureteralnephrosis,gross hematuria Operation: cysto, attempted emilia retrogrades, antigrade nephrotogram, turbt ( large) findings Large bleeding extensive bladder tumor with complete ureteral obstruction transfuse when necessary monitor cbc/ electrolytes abx Palliative RT-- starting sunday Palliative care consult Will follow Problem List - Problems (1) Bladder cancer Code(s): C67.9 - MALIGNANT NEOPLASM OF BLADDER, UNSPECIFIED Qualifiers: Bladder location: unspecified site Qualified Code(s): C67.9 - Malignant neoplasm of bladder, unspecified (2) Cirrhosis Code(s): K74.60 - UNSPECIFIED CIRRHOSIS OF LIVER (3) ROSA MARIA (acute kidney injury) Code(s): N17.9 - ACUTE KIDNEY FAILURE, UNSPECIFIED (4) Anemia Code(s): D64.9 - ANEMIA, UNSPECIFIED (5) HTN (hypertension) Code(s): I10 - ESSENTIAL (PRIMARY) HYPERTENSION (6) Hematuria Code(s): R31.9 - HEMATURIA, UNSPECIFIED
[2019-05-10] MEDS: POLYETHYLENE GLYCOL 3350 119 GM BTL PO SCH (11:00)
[2019-05-10] MEDS: ARTIFICIAL TEARS (POLYVINYL ALCOHOL) OPTH DROPS OU SCH ×2 (11:23→21:02)
[2019-05-10] MEDS: FAMOTIDINE 20 MG TABLET PO SCH ×2 (11:24→21:02)
[2019-05-10] MEDS: FOLIC ACID 1 MG TABLET (FP) PO SCH (11:24)
[2019-05-10] MEDS: FINASTERIDE 5 MG TABLET (FP) PO SCH (11:24)
[2019-05-10] MEDS: amLODIPine BESYLATE 5 MG TABLET (FP) PO SCH (11:24)
[2019-05-10] MEDS: LIDOCAINE 5% TOPICAL PATCH TP SCH (11:25)
[2019-05-10] MEDS: THIAMINE HCL 100 MG TABLET (FP) PO SCH (11:26)
[2019-05-10] MEDS ORDERED: INSULIN (NOVOLOG) ASPART 100 UNITS/ML 10ML VIAL ONE (11:43)
--- NOTE | 2019-05-10 12:21 | PN ---
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 (short form) - Note 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: alert using incentive spirometry eating well CBI d/sravanthi alert no complaints s/p cystoscopy 05/02- bleeding bladder tumor with complete ureeral obstruction s/p bilateral PCN placement as well chest ct done- multiple pulmonary nodules +adenopathy Vital Signs Period Temp Pulse Resp BP Sys/Gordon Pulse Ox Last 24 Hr 98.2 F-100.0 F 81-89 20-20 120-144/51-68 100 cor-rrr lungs clear abd soft,nt ext no edema bilateral PCN, fernandez CBC, BMP 05/10/19 08:10 05/10/19 08:10 Microbiology 05/06/19 00:00 Blood - Peripheral Venous Blood Culture - Preliminary NO GROWTH OBTAINED AFTER 96 HOURS, INCUBATION TO CONTINUE FOR 1 DAYS. 05/06/19 00:00 Blood - Peripheral Venous Blood Culture - Preliminary NO GROWTH OBTAINED AFTER 96 HOURS, INCUBATION TO CONTINUE FOR 1 DAYS. 05/08/19 06:00 Urine - Urine - Catheterized Urine Culture - Final NO GROWTH OBTAINED 05/01/19 Unknown Urine - Urine Nephrostomy Tube Right Urine Culture - Final NO GROWTH OBTAINED 04/30/19 16:00 Urine - Urine Nephrostomy Tube Left Urine Culture - Final NO GROWTH OBTAINED 04/23/19 17:00 Urine - Urine Fernandez Urine Culture - Final NO GROWTH OBTAINED a/p fever- cultures negative d/c antiboitcs and observe metastatic bladder cancer pen/ceph- allergy livercirrhosis with varices Problem List - Problems (1) Hematuria Code(s): R31.9 - HEMATURIA, UNSPECIFIED (2) Anemia Code(s): D64.9 - ANEMIA, UNSPECIFIED (3) Bladder cancer Code(s): C67.9 - MALIGNANT NEOPLASM OF BLADDER, UNSPECIFIED Qualifiers: Bladder location: unspecified site Qualified Code(s): C67.9 - Malignant neoplasm of bladder, unspecified (4) Allergy to multiple antibiotics Code(s): Z88.1 - ALLERGY STATUS TO OTHER ANTIBIOTIC AGENTS STATUS
[2019-05-10] MEDS: MULTIVIT-MINERALS ORAL LIQUID PO SCH (14:15)
[2019-05-10] MEDS: ATORVASTATIN CA 10 MG TABLET (FP) PO SCH (21:02)
[2019-05-10] MEDS: LIDOCAINE PATCH REMOVAL MC SCH (22:10)
--- NOTE | 2019-05-10 23:13 | PN ---
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 (short form) - Note 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: Problems 1. ROSA MARIA 2. hydronephrosis 3. hematuria 4. dementia 5. chf 6. dm 7. gerd 8. anemia Current Medications Acetaminophen (Tylenol -) 650 mg PO Q6H PRN PRN Reason: PAIN LEVEL 6-10 Last Admin: 05/07/19 03:17 Dose: 650 mg Amino Acids (Prosource No Carb Liquid Pkt) 30 ml PO BID@0800,1730 [facility] Last Admin: 05/10/19 17:34 Dose: 30 ml Amlodipine Besylate (Norvasc -) 5 mg PO DAILY [facility] Last Admin: 05/10/19 11:24 Dose: 5 mg Artificial Tears (Artificial Tears) 1 drop OU BID [facility] Last Admin: 05/10/19 21:02 Dose: 1 drop Atorvastatin Calcium (Lipitor -) 10 mg PO HS [facility] Last Admin: 05/10/19 21:02 Dose: 10 mg Famotidine (Pepcid -) 20 mg PO BID [facility] Last Admin: 05/10/19 21:02 Dose: 20 mg Finasteride (Proscar -) 5 mg PO DAILY [facility] Last Admin: 05/10/19 11:24 Dose: 5 mg Folic Acid (Folic Acid -) 1 mg PO DAILY [facility] Last Admin: 05/10/19 11:24 Dose: 1 mg IV Flush (Triple Lumen Flush) 4 ml IVPUSH PRN PRN PRN Reason: Protocol Last Admin: 05/08/19 06:15 Dose: 4 ml Insulin Aspart (Novolog Vial Sliding Scale -) 1 vial SQ TIDAC [facility]; Protocol Last Admin: 05/10/19 16:33 Dose: 2 units Insulin Detemir (Levemir Vial) 10 units SQ [facility] Last Admin: 05/10/19 21:09 Dose: 10 units Lidocaine (Lidoderm Patch -) 1 patch TP DAILY [facility] Last Admin: 05/10/19 11:25 Dose: 1 patch Miscellaneous (Lidoderm Patch Removal) 1 each MC DAILY@2200 [facility] Last Admin: 05/10/19 22:10 Dose: 1 each Multivitamins/Minerals (Certavite-Antioxidant Liquid) 15 ml PO DAILY [facility] Last Admin: 05/10/19 14:15 Dose: 15 ml Oxycodone HCl (Roxicodone -) 5 mg PO Q4H PRN PRN Reason: PAIN LEVEL 6-10 Last Admin: 05/09/19 10:48 Dose: 5 mg Polyethylene Glycol (Miralax (For Daily Use) -) 17 gm PO DAILY [facility] Last Admin: 05/10/19 11:00 Dose: Not Given Tamsulosin HCl (Flomax -) 0.8 mg PO DAILY@0830 [facility] Last Admin: 05/10/19 08:54 Dose: 0.8 mg Thiamine HCl (Vitamin B1 -) 100 mg PO DAILY [facility] Last Admin: 05/10/19 11:26 Dose: 100 mg Last Vital Signs Temp Pulse Resp BP Pulse Ox 98.6 F 88 20 132/48 L 99 05/10/19 20:51 05/10/19 20:51 05/10/19 20:51 05/10/19 20:51 05/10/19 21:00 awake non verbal- somnolent? Lungs clear Heart reg Abd soft distended ?ascites ext no edema CBC, BMP 05/10/19 08:10 05/10/19 08:10 Plan - renal function stable - monitor lytes - mental status improved - monitor output
[2019-05-11] MEDS: INSULIN SLIDING SCALE (NOVOLOG) 1 VIAL SQ SCH ×3 (06:07→16:30)
[2019-05-11] MEDS ORDERED: INSULIN (NOVOLOG) ASPART 100 UNITS/ML 10ML VIAL ONE (06:52)
--- NOTE | 2019-05-11 08:22 | PN ---
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 (short form) - Note 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: PAtient seen and examined alert. oriented in person--not place/time Denies any complaints s/p bilateral PCN placement as well Vital Signs Period Temp Pulse Resp BP Sys/Gordon Pulse Ox Last 24 Hr 98.2 F-100.0 F 81-89 20-20 120-144/51-68 100 cor-rrr lungs clear abd soft,nt ext no edema bilateral PCN, fernandez LAbs/meds reviewed A/P Patient is a 74 year old male with a significant pmh of dementia, CHF, MDD, anemia, BPH, GERD, DM, HTN, HLD who presents via [facility] with a low hemoglobin level of 6.8 /hematuria s/p cystoscopy/ TURBT/fulguration BX c/w hih grade urothelial carcinoma with marked necrosis invading muscularis propria CT a/p -- Cirhosis/varices/splenomegaly on imaging / Pelvic sidewall adenopathy/ bladder base mass CT chest -- multiple pulmonary nodules/ mediastinal axillary and upper abdominal adenopethy Multiple comorbidities, dementia, very poor performance status -- ECOG 4, would recommend palliative care, goals of care discussion with carol
[2019-05-11] MEDS: TAMSULOSIN HCL 0.4 MG CAP PO SCH (08:29)
[2019-05-11] MEDS: AMINO ACIDS/PROTEIN HYDROLYS 30 ML LIQUID.PKT PO SCH ×2 (08:29→17:41)
[2019-05-11] MEDS: MULTIVIT-MINERALS ORAL LIQUID PO SCH (09:19)
[2019-05-11] MEDS: THIAMINE HCL 100 MG TABLET (FP) PO SCH (09:19)
[2019-05-11] MEDS: FINASTERIDE 5 MG TABLET (FP) PO SCH (09:19)
[2019-05-11] MEDS: FOLIC ACID 1 MG TABLET (FP) PO SCH (09:19)
[2019-05-11] MEDS: FAMOTIDINE 20 MG TABLET PO SCH ×2 (09:19→21:18)
[2019-05-11] MEDS: amLODIPine BESYLATE 5 MG TABLET (FP) PO SCH (09:19)
[2019-05-11] MEDS: ARTIFICIAL TEARS (POLYVINYL ALCOHOL) OPTH DROPS OU SCH ×2 (09:20→21:19)
[2019-05-11] MEDS: LIDOCAINE 5% TOPICAL PATCH TP SCH (09:20)
[2019-05-11] MEDS: POLYETHYLENE GLYCOL 3350 119 GM BTL PO SCH (09:32)
--- NOTE | 2019-05-11 10:03 | PN ---
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, Physician Chief Complaint: Events noted Not in distress History of Present Illness: Patient was seen and examined. Awake. Chart was reviewed Denies chest pain or SOB - Current Medication List Current Medications: Active Medications Acetaminophen (Tylenol -) 650 mg PO Q6H PRN PRN Reason: PAIN LEVEL 6-10 Last Admin: 05/07/19 03:17 Dose: 650 mg Amino Acids (Prosource No Carb Liquid Pkt) 30 ml PO BID@0800,1730 [facility] Last Admin: 05/11/19 08:29 Dose: 30 ml Amlodipine Besylate (Norvasc -) 5 mg PO DAILY [facility] Last Admin: 05/11/19 09:19 Dose: 5 mg Artificial Tears (Artificial Tears) 1 drop OU BID [facility] Last Admin: 05/11/19 09:20 Dose: 1 drop Atorvastatin Calcium (Lipitor -) 10 mg PO HS [facility] Last Admin: 05/10/19 21:02 Dose: 10 mg Famotidine (Pepcid -) 20 mg PO BID [facility] Last Admin: 05/11/19 09:19 Dose: 20 mg Finasteride (Proscar -) 5 mg PO DAILY [facility] Last Admin: 05/11/19 09:19 Dose: 5 mg Folic Acid (Folic Acid -) 1 mg PO DAILY [facility] Last Admin: 05/11/19 09:19 Dose: 1 mg IV Flush (Triple Lumen Flush) 4 ml IVPUSH PRN PRN PRN Reason: Protocol Last Admin: 05/08/19 06:15 Dose: 4 ml Insulin Aspart (Novolog Vial Sliding Scale -) 1 vial SQ TIDAC [facility]; Protocol Last Admin: 05/11/19 06:07 Dose: Not Given Insulin Detemir (Levemir Vial) 10 units SQ [facility] Last Admin: 05/10/19 21:09 Dose: 10 units Lidocaine (Lidoderm Patch -) 1 patch TP DAILY [facility] Last Admin: 05/11/19 09:20 Dose: 1 patch Miscellaneous (Lidoderm Patch Removal) 1 each MC DAILY@2200 [facility] Last Admin: 05/10/19 22:10 Dose: 1 each Multivitamins/Minerals (Certavite-Antioxidant Liquid) 15 ml PO DAILY [facility] Last Admin: 05/11/19 09:19 Dose: 15 ml Oxycodone HCl (Roxicodone -) 5 mg PO Q4H PRN PRN Reason: PAIN LEVEL 6-10 Last Admin: 05/09/19 10:48 Dose: 5 mg Polyethylene Glycol (Miralax (For Daily Use) -) 17 gm PO DAILY [facility] Last Admin: 05/11/19 09:32 Dose: 17 gm Tamsulosin HCl (Flomax -) 0.8 mg PO DAILY@0830 [facility] Last Admin: 05/11/19 08:29 Dose: 0.8 mg Thiamine HCl (Vitamin B1 -) 100 mg PO DAILY [facility] Last Admin: 05/11/19 09:19 Dose: 100 mg - Objective Vital Signs: Vital Signs Temperature 99.5 F 05/11/19 08:56 Pulse Rate 88 05/11/19 08:56 Respiratory Rate 20 05/11/19 08:56 Blood Pressure 136/57 L 05/11/19 08:56 O2 Sat by Pulse Oximetry (%) 99 05/10/19 21:00 Neck: Yes: Supple Cardiovascular: Yes: Regular Rate and Rhythm, S1, S2 Respiratory: Yes: CTA Bilaterally Gastrointestinal: Yes: Normal Bowel Sounds, Soft. No: Tenderness Edema: No Labs: CBC, BMP 05/10/19 08:10 05/10/19 08:10 Problem List - Problems (1) ROSA MARIA (acute kidney injury) Code(s): N17.9 - ACUTE KIDNEY FAILURE, UNSPECIFIED (2) Anemia Code(s): D64.9 - ANEMIA, UNSPECIFIED (3) BPH (benign prostatic hyperplasia) Code(s): N40.0 - BENIGN PROSTATIC HYPERPLASIA WITHOUT LOWER URINRY TRACT SYMP Qualifiers: Lower urinary tract symptom presence: unspecified whether lower urinary tract symptoms present Qualified Code(s): N40.0 - Benign prostatic hyperplasia without lower urinary tract symptoms (4) Dementia Code(s): F03.90 - UNSPECIFIED DEMENTIA WITHOUT BEHAVIORAL DISTURBANCE Qualifiers: Dementia type: unspecified type (5) Diabetes mellitus Code(s): E11.9 - TYPE 2 DIABETES MELLITUS WITHOUT COMPLICATIONS Qualifiers: Diabetes mellitus type: type 2 (6) GERD (gastroesophageal reflux disease) Code(s): K21.9 - GASTRO-ESOPHAGEAL REFLUX DISEASE WITHOUT ESOPHAGITIS (7) HLD (hyperlipidemia) Code(s): E78.5 - HYPERLIPIDEMIA, UNSPECIFIED (8) HTN (hypertension) Code(s): I10 - ESSENTIAL (PRIMARY) HYPERTENSION Assessment/Plan 1. ROSA MARIA/CKD, obstructive hydronephrosis post percutaneous nephrostomy 2. 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 HTN 4. Hypercholesterolemia 5. DM 6. BPH 7. Dementia 8. MDD PLAN: 1. Continue Amlodipine 5 mg QD and Atorvastatin 10 mg QHS 2. Mont[place] renal recovery 3. follow up 4. Transfuse PRBC to maintain Hgb>8.0 and GI protection Rigo Garrido MD
--- NOTE | 2019-05-11 11:37 | PN ---
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 (short form) - Note 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: Pt seen/ examined comfortable + hematurea/ passed clots -- back on cbi all f/u noted off abx Vital Signs Temp 99.5 F 05/11/19 08:56 Pulse 88 05/11/19 08:56 Resp 20 05/11/19 08:56 BP 136/57 L 05/11/19 08:56 Pulse Ox 99 05/10/19 21:00 Intake & Output 05/10/19 05/10/19 05/11/19 11:59 23:59 11:59 Intake Total 960 200 Output Total 400 3775 1175 Balance -400 -2815 -975 Intake: Oral 960 200 Output: Urine 400 3775 1175 Thomas 400 3100 800 Left Nephrostomy 325 200 Right Nephrostomy 350 175 Other: Voiding Method Indwelling Catheter Indwelling Catheter Indwelling Catheter # Unmeasured Voids Thomas 2 Bowel Movement Yes Yes # Bowel Movements 1 2 Active Medications Acetaminophen (Tylenol -) 650 mg PO Q6H PRN PRN Reason: PAIN LEVEL 6-10 Last Admin: 05/07/19 03:17 Dose: 650 mg Amino Acids (Prosource No Carb Liquid Pkt) 30 ml PO BID@0800,1730 [facility] Last Admin: 05/11/19 08:29 Dose: 30 ml Amlodipine Besylate (Norvasc -) 5 mg PO DAILY [facility] Last Admin: 05/11/19 09:19 Dose: 5 mg Artificial Tears (Artificial Tears) 1 drop OU BID [facility] Last Admin: 05/11/19 09:20 Dose: 1 drop Atorvastatin Calcium (Lipitor -) 10 mg PO HS [facility] Last Admin: 05/10/19 21:02 Dose: 10 mg Famotidine (Pepcid -) 20 mg PO BID [facility] Last Admin: 05/11/19 09:19 Dose: 20 mg Finasteride (Proscar -) 5 mg PO DAILY [facility] Last Admin: 05/11/19 09:19 Dose: 5 mg Folic Acid (Folic Acid -) 1 mg PO DAILY [facility] Last Admin: 05/11/19 09:19 Dose: 1 mg IV Flush (Triple Lumen Flush) 4 ml IVPUSH PRN PRN PRN Reason: Protocol Last Admin: 05/08/19 06:15 Dose: 4 ml Insulin Aspart (Novolog Vial Sliding Scale -) 1 vial SQ TIDAC [facility]; Protocol Last Admin: 05/11/19 06:07 Dose: Not Given Insulin Detemir (Levemir Vial) 10 units SQ HS [facility] Last Admin: 05/10/19 21:09 Dose: 10 units Lidocaine (Lidoderm Patch -) 1 patch TP DAILY [facility] Last Admin: 05/11/19 09:20 Dose: 1 patch Miscellaneous (Lidoderm Patch Removal) 1 each MC DAILY@2200 [facility] Last Admin: 05/10/19 22:10 Dose: 1 each Multivitamins/Minerals (Certavite-Antioxidant Liquid) 15 ml PO DAILY [facility] Last Admin: 05/11/19 09:19 Dose: 15 ml Oxycodone HCl (Roxicodone -) 5 mg PO Q4H PRN PRN Reason: PAIN LEVEL 6-10 Last Admin: 05/09/19 10:48 Dose: 5 mg Polyethylene Glycol (Miralax (For Daily Use) -) 17 gm PO DAILY [facility] Last Admin: 05/11/19 09:32 Dose: 17 gm Tamsulosin HCl (Flomax -) 0.8 mg PO DAILY@0830 [facility] Last Admin: 05/11/19 08:29 Dose: 0.8 mg Thiamine HCl (Vitamin B1 -) 100 mg PO DAILY [facility] Last Admin: 05/11/19 09:19 Dose: 100 mg CBC, BMP 05/10/19 08:10 05/10/19 08:10 Microbiology 05/06/19 00:00 Blood Culture - Preliminary Blood - Peripheral Venous NO GROWTH OBTAINED AFTER 96 HOURS, INCUBATION TO CONTINUE FOR 1 DAYS. 05/06/19 00:00 Blood Culture - Preliminary Blood - Peripheral Venous NO GROWTH OBTAINED AFTER 96 HOURS, INCUBATION TO CONTINUE FOR 1 DAYS. 05/08/19 06:00 Urine Culture - Final Urine - Urine - Catheterized NO GROWTH OBTAINED Physical Exam S1 S2 RRR Lungs -- diminished at bases Abd- soft, obese, NT no edema B/L nephrostomy + Thomas/cbi + PLAN Persistant Hematurea Pre-Operative Diagnosis: bladder tumor, emilia. hydroureteralnephrosis,gross hematuria Operation: cysto, attempted emilia retrogrades, antigrade nephrotogram, turbt ( large) findings Large bleeding extensive bladder tumor with complete ureteral obstruction transfuse when necessary monitor cbc/ electrolytes Palliative RT-- starting sunday Palliative care consult Will follow Problem List - Problems (1) Bladder cancer Code(s): C67.9 - MALIGNANT NEOPLASM OF BLADDER, UNSPECIFIED Qualifiers: Bladder location: unspecified site Qualified Code(s): C67.9 - Malignant neoplasm of bladder, unspecified (2) Cirrhosis Code(s): K74.60 - UNSPECIFIED CIRRHOSIS OF LIVER (3) ROSA MARIA (acute kidney injury) Code(s): N17.9 - ACUTE KIDNEY FAILURE, UNSPECIFIED (4) Anemia Code(s): D64.9 - ANEMIA, UNSPECIFIED (5) HTN (hypertension) Code(s): I10 - ESSENTIAL (PRIMARY) HYPERTENSION (6) Hematuria Code(s): R31.9 - HEMATURIA, UNSPECIFIED
[2019-05-11] MEDS ORDERED: ALBUTEROL SO4 2.5/IPRATROPIUM 0.5 INH SOL 3 ML VIAL.NEB. NEB ONE (14:20)
[2019-05-11] MEDS: ALBUTEROL SO4 2.5/IPRATROPIUM 0.5 INH SOL 3 ML VIAL.NEB. NEB PRN ×2 (14:50→20:40)
[2019-05-11] MEDS: TRIPLE LUMEN FLUSH 4 ML ML IVPUSH PRN (14:59)
[2019-05-11] MEDS: oxyCODONE HCL 5 MG TABLET PO PRN (15:18)
--- NOTE | 2019-05-11 18:42 | PN ---
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 (short form) - Note 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: Problems 1. ROSA MARIA 2. hydronephrosis 3. hematuria 4. dementia 5. chf 6. dm 7. gerd 8. anemia Current Medications Acetaminophen (Tylenol -) 650 mg PO Q6H PRN PRN Reason: PAIN LEVEL 6-10 Last Admin: 05/07/19 03:17 Dose: 650 mg Albuterol/Ipratropium (Duoneb -) 1 amp NEB Q6H PRN PRN Reason: SHORT OF BREATH/WHEEZING Last Admin: 05/11/19 14:50 Dose: 1 amp Amino Acids (Prosource No Carb Liquid Pkt) 30 ml PO BID@0800,1730 [facility] Last Admin: 05/11/19 17:41 Dose: 30 ml Amlodipine Besylate (Norvasc -) 5 mg PO DAILY [facility] Last Admin: 05/11/19 09:19 Dose: 5 mg Artificial Tears (Artificial Tears) 1 drop OU BID [facility] Last Admin: 05/11/19 09:20 Dose: 1 drop Atorvastatin Calcium (Lipitor -) 10 mg PO HS [facility] Last Admin: 05/10/19 21:02 Dose: 10 mg Famotidine (Pepcid -) 20 mg PO BID [facility] Last Admin: 05/11/19 09:19 Dose: 20 mg Finasteride (Proscar -) 5 mg PO DAILY [facility] Last Admin: 05/11/19 09:19 Dose: 5 mg Folic Acid (Folic Acid -) 1 mg PO DAILY [facility] Last Admin: 05/11/19 09:19 Dose: 1 mg IV Flush (Triple Lumen Flush) 4 ml IVPUSH PRN PRN PRN Reason: Protocol Last Admin: 05/11/19 14:59 Dose: 4 ml Insulin Aspart (Novolog Vial Sliding Scale -) 1 vial SQ TIDAC [facility]; Protocol Last Admin: 05/11/19 16:30 Dose: Not Given Insulin Detemir (Levemir Vial) 10 units SQ HS [facility] Last Admin: 05/10/19 21:09 Dose: 10 units Lidocaine (Lidoderm Patch -) 1 patch TP DAILY [facility] Last Admin: 05/11/19 09:20 Dose: 1 patch Miscellaneous (Lidoderm Patch Removal) 1 each MC DAILY@2200 [facility] Last Admin: 05/10/19 22:10 Dose: 1 each Multivitamins/Minerals (Certavite-Antioxidant Liquid) 15 ml PO DAILY [facility] Last Admin: 05/11/19 09:19 Dose: 15 ml Oxycodone HCl (Roxicodone -) 5 mg PO Q4H PRN PRN Reason: PAIN LEVEL 6-10 Last Admin: 05/11/19 15:18 Dose: 5 mg Polyethylene Glycol (Miralax (For Daily Use) -) 17 gm PO DAILY [facility] Last Admin: 05/11/19 09:32 Dose: 17 gm Tamsulosin HCl (Flomax -) 0.8 mg PO DAILY@0830 [facility] Last Admin: 05/11/19 08:29 Dose: 0.8 mg Thiamine HCl (Vitamin B1 -) 100 mg PO DAILY [facility] Last Admin: 05/11/19 09:19 Dose: 100 mg Last Vital Signs Temp Pulse Resp BP Pulse Ox 99.5 F 87 20 135/61 97 05/11/19 15:04 05/11/19 15:04 05/11/19 15:04 05/11/19 15:04 05/11/19 09:00 awake non verbal- Lungs clear Heart reg Abd soft distended ?ascites ext no edema CBC, BMP 05/10/19 08:10 05/10/19 08:10 CBC, BMP 05/10/19 08:10 05/10/19 08:10 IMP- s/p ROSA MARIA Prerenal azotemia Underlying CKD renal function stable Plan - monitor lytes - mental status improved - monitor output
[2019-05-11] MEDS: INSULIN (LEVEMIR) 100 UNITS/ML UNITS SQ SCH (21:18)
[2019-05-11] MEDS: ATORVASTATIN CA 10 MG TABLET (FP) PO SCH (21:18)
[2019-05-11] MEDS: ACETAMINOPHEN 325 MG TABLET (FP) PO PRN (22:51)
[2019-05-12] MEDS: LIDOCAINE PATCH REMOVAL MC SCH ×2 (01:00→22:17)
[2019-05-12] MEDS: INSULIN SLIDING SCALE (NOVOLOG) 1 VIAL SQ SCH ×3 (06:00→16:54)
--- NOTE | 2019-05-12 08:05 | PN ---
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 (short form) - Note 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: VASCULAR SURGERY Right IJ TLC placed 05/02. Catheter should be removed as it's been in for 10 days. If patient still needs IV access, contact Surgery PAs and we can perhaps try to place a midline today. Problem List - Problems (1) Difficult intravenous access Code(s): Z78.9 - OTHER SPECIFIED HEALTH STATUS (2) Bladder cancer Code(s): C67.9 - MALIGNANT NEOPLASM OF BLADDER, UNSPECIFIED Qualifiers: Bladder location: unspecified site Qualified Code(s): C67.9 - Malignant neoplasm of bladder, unspecified (3) Diabetes mellitus Code(s): E11.9 - TYPE 2 DIABETES MELLITUS WITHOUT COMPLICATIONS Qualifiers: Diabetes mellitus type: type 2
[2019-05-12] MEDS: AMINO ACIDS/PROTEIN HYDROLYS 30 ML LIQUID.PKT PO SCH ×2 (09:02→17:31)
[2019-05-12] MEDS: TAMSULOSIN HCL 0.4 MG CAP PO SCH (09:02)
[2019-05-12 09:27] LABS: BASO % 0.4 % (0-2.0); EOS % 1.3 % (0-4.5); HEMATOCRIT 21.2 % (35.4-49); HEMOGLOBIN 7.2 GM/dL (11.7-16.9); LYMPH % 6.6 % (8-40); MCH 29.6 pg (25.7-33.7); MCHC 34.2 g/dl (32.0-35.9); MEAN CELL VOLUME 86.7 fl (80-96); MEAN PLT VOLUME 8.7 fl (7.5-11.1); MONO % 12.7 % (3.8-10.2); PLATELET COUNT 229 K/MM3 (134-434); RBC 2.44 M/mm3 (4.00-5.60); RDW 15.3 % (11.9-15.9); WHITE BLOOD COUNT 10.4 K/mm3 (4.0-10.0)
[2019-05-12] MEDS ORDERED: PT OWN MED DRAWER 7, Y5N ONE (09:44)
[2019-05-12] MEDS: MULTIVIT-MINERALS ORAL LIQUID PO SCH (09:47)
[2019-05-12] MEDS: FOLIC ACID 1 MG TABLET (FP) PO SCH (09:47)
[2019-05-12] MEDS: FAMOTIDINE 20 MG TABLET PO SCH ×2 (09:47→22:14)
[2019-05-12] MEDS: FINASTERIDE 5 MG TABLET (FP) PO SCH (09:47)
[2019-05-12] MEDS: amLODIPine BESYLATE 5 MG TABLET (FP) PO SCH (09:47)
[2019-05-12] MEDS: ARTIFICIAL TEARS (POLYVINYL ALCOHOL) OPTH DROPS OU SCH ×2 (09:48→22:10)
[2019-05-12] MEDS: THIAMINE HCL 100 MG TABLET (FP) PO SCH (09:48)
[2019-05-12] MEDS: LIDOCAINE 5% TOPICAL PATCH TP SCH (09:51)
--- NOTE | 2019-05-12 10:01 | PN ---
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 (short form) - Note 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: Pt seen/ examined comfortable on cbi all f/u noted off abx Vital Signs Temp 98.6 F 05/12/19 06:00 Pulse 86 05/12/19 09:34 Resp 24 H 05/12/19 09:34 BP 129/50 L 05/12/19 09:34 Pulse Ox 97 05/11/19 21:00 Intake & Output 05/11/19 05/11/19 05/12/19 11:59 23:59 11:59 Intake Total 4200 1230 200 Output Total 1175 6890 1700 Balance 3026 -6890 -1500 Intake: Oral 200 1230 200 CBI Intake 4000 Output: Urine 1175 6890 1700 Thomas 800 6100 1400 Left Nephrostomy 200 365 200 Right Nephrostomy 175 425 100 Other: Voiding Method Indwelling Catheter Indwelling Catheter Indwelling Catheter Bowel Movement Yes Yes Yes # Bowel Movements 2 1 1 Active Medications Acetaminophen (Tylenol -) 650 mg PO Q6H PRN PRN Reason: PAIN LEVEL 6-10 Last Admin: 05/07/19 03:17 Dose: 650 mg Amino Acids (Prosource No Carb Liquid Pkt) 30 ml PO BID@0800,1730 [facility] Last Admin: 05/11/19 08:29 Dose: 30 ml Amlodipine Besylate (Norvasc -) 5 mg PO DAILY [facility] Last Admin: 05/11/19 09:19 Dose: 5 mg Artificial Tears (Artificial Tears) 1 drop OU BID [facility] Last Admin: 05/11/19 09:20 Dose: 1 drop Atorvastatin Calcium (Lipitor -) 10 mg PO HS [facility] Last Admin: 05/10/19 21:02 Dose: 10 mg Famotidine (Pepcid -) 20 mg PO BID [facility] Last Admin: 05/11/19 09:19 Dose: 20 mg Finasteride (Proscar -) 5 mg PO DAILY [facility] Last Admin: 05/11/19 09:19 Dose: 5 mg Folic Acid (Folic Acid -) 1 mg PO DAILY [facility] Last Admin: 05/11/19 09:19 Dose: 1 mg IV Flush (Triple Lumen Flush) 4 ml IVPUSH PRN PRN PRN Reason: Protocol Last Admin: 05/08/19 06:15 Dose: 4 ml Insulin Aspart (Novolog Vial Sliding Scale -) 1 vial SQ TIDAC [facility]; Protocol Last Admin: 05/11/19 06:07 Dose: Not Given Insulin Detemir (Levemir Vial) 10 units SQ HS [facility] Last Admin: 05/10/19 21:09 Dose: 10 units Lidocaine (Lidoderm Patch -) 1 patch TP DAILY [facility] Last Admin: 05/11/19 09:20 Dose: 1 patch Miscellaneous (Lidoderm Patch Removal) 1 each MC DAILY@2200 [facility] Last Admin: 05/10/19 22:10 Dose: 1 each Multivitamins/Minerals (Certavite-Antioxidant Liquid) 15 ml PO DAILY [facility] Last Admin: 05/11/19 09:19 Dose: 15 ml Oxycodone HCl (Roxicodone -) 5 mg PO Q4H PRN PRN Reason: PAIN LEVEL 6-10 Last Admin: 05/09/19 10:48 Dose: 5 mg Polyethylene Glycol (Miralax (For Daily Use) -) 17 gm PO DAILY [facility] Last Admin: 05/11/19 09:32 Dose: 17 gm Tamsulosin HCl (Flomax -) 0.8 mg PO DAILY@0830 [facility] Last Admin: 05/11/19 08:29 Dose: 0.8 mg Thiamine HCl (Vitamin B1 -) 100 mg PO DAILY [facility] Last Admin: 05/11/19 09:19 Dose: 100 mg CBC, BMP 05/12/19 06:00 Microbiology 05/06/19 00:00 Blood Culture - Preliminary Blood - Peripheral Venous NO GROWTH OBTAINED AFTER 96 HOURS, INCUBATION TO CONTINUE FOR 1 DAYS. 05/06/19 00:00 Blood Culture - Preliminary Blood - Peripheral Venous NO GROWTH OBTAINED AFTER 96 HOURS, INCUBATION TO CONTINUE FOR 1 DAYS. 05/08/19 06:00 Urine Culture - Final Urine - Urine - Catheterized NO GROWTH OBTAINED Physical Exam S1 S2 RRR central line + Lungs -- diminished at bases Abd- soft, obese, NT no edema B/L nephrostomy + Thomas/cbi + PLAN Persistant Hematurea Pre-Operative Diagnosis: bladder tumor, emilia. hydroureteralnephrosis,gross hematuria Operation: cysto, attempted emilia retrogrades, antigrade nephrotogram, turbt ( large) findings Large bleeding extensive bladder tumor with complete ureteral obstruction-- Metastatic transfuse when necessary monitor cbc/ electrolytes Palliative RT-- starting today Palliative care consult- Pending Surgical consult noted d/w Rn -- d/c central line when have access or need to replace it Will follow Problem List - Problems (1) Bladder cancer Code(s): C67.9 - MALIGNANT NEOPLASM OF BLADDER, UNSPECIFIED Qualifiers: Bladder location: unspecified site Qualified Code(s): C67.9 - Malignant neoplasm of bladder, unspecified (2) Cirrhosis Code(s): K74.60 - UNSPECIFIED CIRRHOSIS OF LIVER (3) ROSA MARIA (acute kidney injury) Code(s): N17.9 - ACUTE KIDNEY FAILURE, UNSPECIFIED (4) Anemia Code(s): D64.9 - ANEMIA, UNSPECIFIED (5) HTN (hypertension) Code(s): I10 - ESSENTIAL (PRIMARY) HYPERTENSION (6) Hematuria Code(s): R31.9 - HEMATURIA, UNSPECIFIED
[2019-05-12 10:02] LABS: ALBUMIN 1.3 g/dl (3.4-5.0); BILIRUBIN,TOTAL 0.6 mg/dL (0.2-1); BLOOD UREA NITROGEN 23.4 mg/dL (7-18); CALCIUM 7.6 mg/dL (8.5-10.1); CREATININE 1.2 mg/dL (0.55-1.3); POTASSIUM 3.9 mmol/L (3.5-5.1); TOT PROT 5.2 g/dl (6.4-8.2)
[2019-05-12] MEDS: POLYETHYLENE GLYCOL 3350 119 GM BTL PO SCH ×2 (12:40→12:43)
--- NOTE | 2019-05-12 12:58 | PN ---
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, Physician History of Present Illness: s/p PCN, hematuria undergoing CBI. Chest CT shows pulm mets. - Current Medication List Current Medications: Active Medications Acetaminophen (Tylenol -) 650 mg PO Q6H PRN PRN Reason: PAIN LEVEL 6-10 Last Admin: 05/11/19 22:51 Dose: 650 mg Albuterol/Ipratropium (Duoneb -) 1 amp NEB Q6H PRN PRN Reason: SHORT OF BREATH/WHEEZING Last Admin: 05/11/19 20:40 Dose: 1 amp Amino Acids (Prosource No Carb Liquid Pkt) 30 ml PO BID@0800,1730 [facility] Last Admin: 05/12/19 09:02 Dose: 30 ml Amlodipine Besylate (Norvasc -) 5 mg PO DAILY [facility] Last Admin: 05/12/19 09:47 Dose: 5 mg Artificial Tears (Artificial Tears) 1 drop OU BID [facility] Last Admin: 05/12/19 09:48 Dose: 1 drop Atorvastatin Calcium (Lipitor -) 10 mg PO HS [facility] Last Admin: 05/11/19 21:18 Dose: 10 mg Famotidine (Pepcid -) 20 mg PO BID [facility] Last Admin: 05/12/19 09:47 Dose: 20 mg Finasteride (Proscar -) 5 mg PO DAILY [facility] Last Admin: 05/12/19 09:47 Dose: 5 mg Folic Acid (Folic Acid -) 1 mg PO DAILY [facility] Last Admin: 05/12/19 09:47 Dose: 1 mg IV Flush (Triple Lumen Flush) 4 ml IVPUSH PRN PRN PRN Reason: Protocol Last Admin: 05/11/19 14:59 Dose: 4 ml Insulin Aspart (Novolog Vial Sliding Scale -) 1 vial SQ TIDAC [facility]; Protocol Last Admin: 05/12/19 12:16 Dose: Not Given Insulin Detemir (Levemir Vial) 10 units SQ HS [facility] Last Admin: 05/11/19 21:18 Dose: 10 units Lidocaine (Lidoderm Patch -) 1 patch TP DAILY [facility] Last Admin: 05/12/19 09:51 Dose: 1 patch Miscellaneous (Lidoderm Patch Removal) 1 each MC DAILY@2200 [facility] Last Admin: 05/12/19 01:00 Dose: 1 each Multivitamins/Minerals (Certavite-Antioxidant Liquid) 15 ml PO DAILY [facility] Last Admin: 05/12/19 09:47 Dose: 15 ml Oxycodone HCl (Roxicodone -) 5 mg PO Q4H PRN PRN Reason: PAIN LEVEL 6-10 Last Admin: 05/11/19 15:18 Dose: 5 mg Polyethylene Glycol (Miralax (For Daily Use) -) 17 gm PO DAILY [facility] Last Admin: 05/12/19 12:43 Dose: Not Given Tamsulosin HCl (Flomax -) 0.8 mg PO DAILY@0830 [facility] Last Admin: 05/12/19 09:02 Dose: 0.8 mg Thiamine HCl (Vitamin B1 -) 100 mg PO DAILY [facility] Last Admin: 05/12/19 09:48 Dose: 100 mg - Objective Vital Signs: Vital Signs Temperature 98.6 F 05/12/19 11:56 Pulse Rate 83 05/12/19 11:56 Respiratory Rate 24 H 05/12/19 11:56 Blood Pressure 113/46 L 05/12/19 11:56 O2 Sat by Pulse Oximetry (%) 97 05/11/19 21:00 Constitutional: Yes: No Distress, Calm Neck: Yes: Supple Cardiovascular: Yes: Regular Rate and Rhythm Respiratory: Yes: Regular, Diminished Gastrointestinal: Yes: Normal Bowel Sounds, Soft Genitourinary: Yes: Thomas Present, Hematuria Edema: No Labs: CBC, BMP 05/12/19 06:00 05/12/19 06:00 INR, PTT INR 1.32 (0.83-1.09) H 04/26/19 07:52 Problem List - Problems (1) Hydronephrosis Code(s): N13.30 - UNSPECIFIED HYDRONEPHROSIS Qualifiers: Hydronephrosis type: unspecified Qualified Code(s): N13.30 - Unspecified hydronephrosis (2) ROSA MARIA (acute kidney injury) Code(s): N17.9 - ACUTE KIDNEY FAILURE, UNSPECIFIED (3) Anemia Code(s): D64.9 - ANEMIA, UNSPECIFIED (4) CHF (congestive heart failure) Code(s): I50.9 - HEART FAILURE, UNSPECIFIED Qualifiers: Heart failure type: unspecified (5) Diabetes mellitus Code(s): E11.9 - TYPE 2 DIABETES MELLITUS WITHOUT COMPLICATIONS Qualifiers: Diabetes mellitus type: type 2 (6) HLD (hyperlipidemia) Code(s): E78.5 - HYPERLIPIDEMIA, UNSPECIFIED (7) HTN (hypertension) Code(s): I10 - ESSENTIAL (PRIMARY) HYPERTENSION (8) Hematuria Code(s): R31.9 - HEMATURIA, UNSPECIFIED (9) Bladder cancer Code(s): C67.9 - MALIGNANT NEOPLASM OF BLADDER, UNSPECIFIED Qualifiers: Bladder location: unspecified site Qualified Code(s): C67.9 - Malignant neoplasm of bladder, unspecified (10) BPH (benign prostatic hyperplasia) Code(s): N40.0 - BENIGN PROSTATIC HYPERPLASIA WITHOUT LOWER URINRY TRACT SYMP Qualifiers: Lower urinary tract symptom presence: unspecified whether lower urinary tract symptoms present Qualified Code(s): N40.0 - Benign prostatic hyperplasia without lower urinary tract symptoms (11) Dementia Code(s): F03.90 - UNSPECIFIED DEMENTIA WITHOUT BEHAVIORAL DISTURBANCE Qualifiers: Dementia type: unspecified type Assessment/Plan 04/29/2019 Normal LV and RV size and fxn, mild MR, tr-mild TR, LVEF 61% 1. ROSA MARIA/CKD->obstructive hydronephrosis post percutaneous nephrostomy 2. 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 HTN 4. Hypercholesterolemia 5. DM 6. BPH 7. Dementia 8. MDD PLAN: 1. Continue Amlodipine 5 mg QD and Atorvastatin 10 mg QHS 2. Renal input noted, monitor renal recovery 3. CBI pending hematuria clearance, planned for possible outpatient BCG or Mitomycin intravesical therapy, off empiric abx course 4. Transfuse pRBC to maintain Hgb>8.0, GI protection 5. Palliative XRT
--- NOTE | 2019-05-12 14:06 | PN ---
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, Physician History of Present Illness: Pt seen and examined at bedside. He is awake and alert. He denies shortness of breath. - Current Medication List Current Medications: Active Medications Acetaminophen (Tylenol -) 650 mg PO Q6H PRN PRN Reason: PAIN LEVEL 6-10 Last Admin: 05/11/19 22:51 Dose: 650 mg Albuterol/Ipratropium (Duoneb -) 1 amp NEB Q6H PRN PRN Reason: SHORT OF BREATH/WHEEZING Last Admin: 05/11/19 20:40 Dose: 1 amp Amino Acids (Prosource No Carb Liquid Pkt) 30 ml PO BID@0800,1730 [facility] Last Admin: 05/12/19 09:02 Dose: 30 ml Amlodipine Besylate (Norvasc -) 5 mg PO DAILY [facility] Last Admin: 05/12/19 09:47 Dose: 5 mg Artificial Tears (Artificial Tears) 1 drop OU BID [facility] Last Admin: 05/12/19 09:48 Dose: 1 drop Atorvastatin Calcium (Lipitor -) 10 mg PO HS [facility] Last Admin: 05/11/19 21:18 Dose: 10 mg Famotidine (Pepcid -) 20 mg PO BID [facility] Last Admin: 05/12/19 09:47 Dose: 20 mg Finasteride (Proscar -) 5 mg PO DAILY [facility] Last Admin: 05/12/19 09:47 Dose: 5 mg Folic Acid (Folic Acid -) 1 mg PO DAILY [facility] Last Admin: 05/12/19 09:47 Dose: 1 mg IV Flush (Triple Lumen Flush) 4 ml IVPUSH PRN PRN PRN Reason: Protocol Last Admin: 05/11/19 14:59 Dose: 4 ml Insulin Aspart (Novolog Vial Sliding Scale -) 1 vial SQ TIDAC [facility]; Protocol Last Admin: 05/12/19 12:16 Dose: Not Given Insulin Detemir (Levemir Vial) 10 units SQ HS [facility] Last Admin: 05/11/19 21:18 Dose: 10 units Lidocaine (Lidoderm Patch -) 1 patch TP DAILY [facility] Last Admin: 05/12/19 09:51 Dose: 1 patch Miscellaneous (Lidoderm Patch Removal) 1 each MC DAILY@2200 [facility] Last Admin: 05/12/19 01:00 Dose: 1 each Multivitamins/Minerals (Certavite-Antioxidant Liquid) 15 ml PO DAILY [facility] Last Admin: 05/12/19 09:47 Dose: 15 ml Oxycodone HCl (Roxicodone -) 5 mg PO Q4H PRN PRN Reason: PAIN LEVEL 6-10 Last Admin: 05/11/19 15:18 Dose: 5 mg Polyethylene Glycol (Miralax (For Daily Use) -) 17 gm PO DAILY [facility] Last Admin: 05/12/19 12:43 Dose: Not Given Tamsulosin HCl (Flomax -) 0.8 mg PO DAILY@0830 [facility] Last Admin: 05/12/19 09:02 Dose: 0.8 mg Thiamine HCl (Vitamin B1 -) 100 mg PO DAILY [facility] Last Admin: 05/12/19 09:48 Dose: 100 mg - Objective Vital Signs: Vital Signs Temperature 98.6 F 05/12/19 11:56 Pulse Rate 83 05/12/19 11:56 Respiratory Rate 24 H 05/12/19 11:56 Blood Pressure 113/46 L 05/12/19 11:56 O2 Sat by Pulse Oximetry (%) 97 05/11/19 21:00 Constitutional: Yes: Calm Eyes: Yes: Conjunctiva Clear HENT: Yes: Atraumatic Neck: Yes: Supple Cardiovascular: Yes: S1, S2 Respiratory: Yes: CTA Bilaterally Gastrointestinal: Yes: Soft Genitourinary: Yes: Thomas Present, Other (bilateral nephrostomy tubes, pt still on cbi) Musculoskeletal: Yes: WNL Edema: Yes Edema: LLE: 1+, RLE: 1+ Neurological: Yes: Oriented Psychiatric: Yes: Oriented Labs: CBC, BMP 05/12/19 06:00 05/12/19 06:00 INR, PTT INR 1.32 (0.83-1.09) H 04/26/19 07:52 Problem List - Problems (1) ROSA MARIA (acute kidney injury) Code(s): N17.9 - ACUTE KIDNEY FAILURE, UNSPECIFIED (2) BPH (benign prostatic hyperplasia) Code(s): N40.0 - BENIGN PROSTATIC HYPERPLASIA WITHOUT LOWER URINRY TRACT SYMP Qualifiers: Lower urinary tract symptom presence: unspecified whether lower urinary tract symptoms present Qualified Code(s): N40.0 - Benign prostatic hyperplasia without lower urinary tract symptoms (3) Bladder cancer Code(s): C67.9 - MALIGNANT NEOPLASM OF BLADDER, UNSPECIFIED Qualifiers: Bladder location: unspecified site Qualified Code(s): C67.9 - Malignant neoplasm of bladder, unspecified (4) CHF (congestive heart failure) Code(s): I50.9 - HEART FAILURE, UNSPECIFIED Qualifiers: Heart failure type: unspecified Assessment/Plan Current Medications Generic Name Dose Route Start Last Admin Trade Name Freq PRN Reason Stop Dose Admin Acetaminophen 650 mg 04/25/19 19:59 05/11/19 22:51 Tylenol - PO 650 mg Q6H PRN Administration PAIN LEVEL 6-10 Albuterol/Ipratropium 1 amp 05/11/19 14:49 05/11/19 20:40 Duoneb - NEB 1 amp Q6H PRN Administration SHORT OF BREATH/WHEEZING Amino Acids 30 ml 05/07/19 17:30 05/12/19 09:02 Prosource No Carb Liquid Pkt PO 30 ml BID@0800,1730 [facility] Administration Amlodipine Besylate 5 mg 04/26/19 15:30 05/12/19 09:47 Norvasc - PO 5 mg DAILY [facility] Administration Artificial Tears 1 drop 04/24/19 10:00 05/12/19 09:48 Artificial Tears OU 1 drop BID [facility] Administration Atorvastatin Calcium 10 mg 04/24/19 22:00 05/11/19 21:18 Lipitor - PO 10 mg HS [facility] Administration Famotidine 20 mg 04/24/19 10:00 05/12/19 09:47 Pepcid - PO 20 mg BID [facility] Administration Finasteride 5 mg 04/25/19 10:00 05/12/19 09:47 Proscar - PO 5 mg DAILY [facility] Administration Folic Acid 1 mg 04/24/19 10:00 05/12/19 09:47 Folic Acid - PO 1 mg DAILY [facility] Administration IV Flush 4 ml 05/01/19 12:14 05/11/19 14:59 Triple Lumen Flush IVPUSH 4 ml PRN PRN Administration Protocol Insulin Aspart 1 vial 04/24/19 16:30 05/12/19 12:16 Novolog Vial Sliding Scale - SQ Not Given TIDAC [facility] Protocol Insulin Detemir 10 units 05/10/19 22:00 05/11/19 21:18 Levemir Vial SQ 10 units HS [facility] Administration Lidocaine 1 patch 04/27/19 11:15 05/12/19 09:51 Lidoderm Patch - TP 1 patch DAILY [facility] Administration Miscellaneous 1 each 04/27/19 22:00 05/12/19 01:00 Lidoderm Patch Removal MC 1 each DAILY@2200 [facility] Administration Multivitamins/Minerals 15 ml 05/07/19 13:00 05/12/19 09:47 Certavite-Antioxidant Liquid PO 15 ml DAILY [facility] Administration Oxycodone HCl 5 mg 05/11/19 14:48 05/11/19 15:18 Roxicodone - PO 5 mg Q4H PRN Administration PAIN LEVEL 6-10 Polyethylene Glycol 17 gm 04/28/19 12:00 05/12/19 12:43 Miralax (For Daily Use) - PO Not Given DAILY [facility] Tamsulosin HCl 0.8 mg 04/24/19 08:30 05/12/19 09:02 Flomax - PO 0.8 mg DAILY@0830 [facility] Administration Thiamine HCl 100 mg 04/24/19 10:00 05/12/19 09:48 Vitamin B1 - PO 100 mg DAILY [facility] Administration Impression 1. ROSA MARIA 2. hydronephrosis 3. hematuria 4. dementia 5. chf 6. dm 7. gerd 8. anemia Plan - renal function stable - repeat labs in am - pt still on cbi until tomorrow - nephrostomy tube care
[2019-05-12] MEDS: ACETAMINOPHEN 325 MG TABLET (FP) PO PRN (20:51)
--- NOTE | 2019-05-12 21:31 | PN ---
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 (short form) - Note 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: Radiation Oncology Pt was seen for consultation by Dr. Art, covering for me last week (his consult placed on the physical chart and will be scanned into EMR). A 74 yo male with comorbidities and locally advanced bladder cancer associated with hematuria and pain. Palliative radiation therapy was advised by Dr. Art, he and HCP elected to proceed. RT was initiated today with good tolerance. Will cont daily RT until Sunday (5 fractions). Monitor HD and Hgb, transfuse prn. Supportive care, likely hospice candidate.
[2019-05-12] MEDS: INSULIN (LEVEMIR) 100 UNITS/ML UNITS SQ SCH (22:14)
[2019-05-12] MEDS: ATORVASTATIN CA 10 MG TABLET (FP) PO SCH (22:14)
[2019-05-12] MEDS ORDERED: INSULIN (NOVOLOG) ASPART 100 UNITS/ML 10ML VIAL ONE (22:16)
[2019-05-13] MEDS: INSULIN SLIDING SCALE (NOVOLOG) 1 VIAL SQ SCH ×3 (06:31→17:08)
[2019-05-13] MEDS: LIDOCAINE 5% TOPICAL PATCH TP SCH ×2 (10:22→12:13)
[2019-05-13] MEDS: FAMOTIDINE 20 MG TABLET PO SCH ×2 (10:23→21:26)
[2019-05-13] MEDS: FINASTERIDE 5 MG TABLET (FP) PO SCH (10:23)
[2019-05-13] MEDS: FOLIC ACID 1 MG TABLET (FP) PO SCH (10:23)
[2019-05-13] MEDS: AMINO ACIDS/PROTEIN HYDROLYS 30 ML LIQUID.PKT PO SCH ×2 (10:23→17:13)
[2019-05-13] MEDS: oxyCODONE HCL 5 MG TABLET PO PRN ×2 (10:23→16:08)
[2019-05-13] MEDS: amLODIPine BESYLATE 5 MG TABLET (FP) PO SCH (10:23)
[2019-05-13] MEDS: THIAMINE HCL 100 MG TABLET (FP) PO SCH (10:24)
[2019-05-13] MEDS: TAMSULOSIN HCL 0.4 MG CAP PO SCH (10:24)
[2019-05-13] MEDS: POLYETHYLENE GLYCOL 3350 119 GM BTL PO SCH (10:25)
--- NOTE | 2019-05-13 11:31 | PN ---
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 (short form) - Note 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: Attempted to place RUE midline catheter using ultrasound guidance. Wire passed with some resistance and no blood flow after dilation of the vein/wire removal. Will continue to use triple lumen catheter and attempt either another midline to LUE or periperal IV.
[2019-05-13] MEDS: ARTIFICIAL TEARS (POLYVINYL ALCOHOL) OPTH DROPS OU SCH ×2 (12:13→21:24)
--- NOTE | 2019-05-13 12:39 | PN ---
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 (short form) - Note 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: s/p TURBT pain better controlled sleepy Vital Signs - 24 hr 05/13/19 05/13/19 05/13/19 02:00 06:00 10:00 Temperature 98.1 F 99.0 F 99.6 F Temperature [ 99.6 F Prior to transport] Pulse Rate 75 82 90 Pulse Rate [ 90 Prior to transport] Respiratory 20 20 18 Rate Respiratory 18 Rate [Prior to transport] Blood Pressure 118/50 L 133/56 L 135/47 L Blood Pressure 135/47 L [Prior to transport] O2 Sat by Pulse 95 Oximetry (%) 05/13/19 05/13/19 05/13/19 14:00 18:18 20:54 Temperature 98.7 F 98.1 F 98.4 F Temperature [ Prior to transport] Pulse Rate 80 81 86 Pulse Rate [ Prior to transport] Respiratory 18 18 18 Rate Respiratory Rate [Prior to transport] Blood Pressure 132/63 119/47 L 116/40 L Blood Pressure [Prior to transport] O2 Sat by Pulse Oximetry (%) 05/13/19 21:04 Temperature Temperature [ Prior to transport] Pulse Rate Pulse Rate [ Prior to transport] Respiratory 18 Rate Respiratory Rate [Prior to transport] Blood Pressure Blood Pressure [Prior to transport] O2 Sat by Pulse 100 Oximetry (%) Current Medications Generic Name Dose Route Start Last Admin Trade Name Freq PRN Reason Stop Dose Admin Acetaminophen 650 mg 04/25/19 19:59 05/13/19 21:26 Tylenol - PO 650 mg Q6H PRN Administration PAIN LEVEL 6-10 Albuterol/Ipratropium 1 amp 05/11/19 14:49 05/11/19 20:40 Duoneb - NEB 1 amp Q6H PRN Administration SHORT OF BREATH/WHEEZING Amino Acids 30 ml 05/07/19 17:30 05/13/19 17:13 Prosource No Carb Liquid Pkt PO 30 ml BID@0800,1730 [facility] Administration Amlodipine Besylate 5 mg 04/26/19 15:30 05/13/19 10:23 Norvasc - PO 5 mg DAILY [facility] Administration Artificial Tears 1 drop 04/24/19 10:00 05/13/19 21:24 Artificial Tears OU 1 drop BID [facility] Administration Atorvastatin Calcium 10 mg 04/24/19 22:00 05/13/19 21:26 Lipitor - PO 10 mg HS [facility] Administration Famotidine 20 mg 04/24/19 10:00 05/13/19 21:26 Pepcid - PO 20 mg BID [facility] Administration Finasteride 5 mg 04/25/19 10:00 05/13/19 10:23 Proscar - PO 5 mg DAILY [facility] Administration Folic Acid 1 mg 04/24/19 10:00 05/13/19 10:23 Folic Acid - PO 1 mg DAILY [facility] Administration IV Flush 4 ml 05/01/19 12:14 05/11/19 14:59 Triple Lumen Flush IVPUSH 4 ml PRN PRN Administration Protocol Insulin Aspart 1 vial 04/24/19 16:30 05/13/19 17:08 Novolog Vial Sliding Scale - SQ Not Given TIDAC [facility] Protocol Insulin Detemir 10 units 05/10/19 22:00 05/13/19 21:25 Levemir Vial SQ 10 units HS [facility] Administration Lidocaine 1 patch 04/27/19 11:15 05/13/19 12:13 Lidoderm Patch - TP 1 patch DAILY [facility] Administration Miscellaneous 1 each 04/27/19 22:00 05/13/19 21:25 Lidoderm Patch Removal MC 1 each DAILY@2200 [facility] Administration Multivitamins/Minerals 15 ml 05/07/19 13:00 05/13/19 16:09 Certavite-Antioxidant Liquid PO 15 ml DAILY [facility] Administration Oxycodone HCl 5 mg 05/11/19 14:48 05/13/19 16:08 Roxicodone - PO 5 mg Q4H PRN Administration PAIN LEVEL 6-10 Polyethylene Glycol 17 gm 04/28/19 12:00 05/13/19 10:25 Miralax (For Daily Use) - PO Not Given DAILY [facility] Tamsulosin HCl 0.8 mg 04/24/19 08:30 05/13/19 10:24 Flomax - PO 0.8 mg DAILY@0830 [facility] Administration Thiamine HCl 100 mg 04/24/19 10:00 05/13/19 10:24 Vitamin B1 - PO 100 mg DAILY [facility] Administration Laboratory Results - last 24 hr 05/13/19 05/13/19 05/13/19 06:29 12:11 17:07 WBC RBC Hgb Hct MCV MCH MCHC RDW Plt Count MPV POC Glucometer 87 141 122 05/13/19 05/13/19 20:43 21:22 WBC 11.1 H RBC 2.62 L Hgb 7.4 L Hct 22.9 L MCV 87.4 MCH 28.4 MCHC 32.5 RDW 14.8 Plt Count 250 MPV 8.4 POC Glucometer 130 S1 S2 RRR Lungs clear Abd- soft, obese, NT no edema B/L nephrostomy + Thomas-+ PLAN PLAN add Oxycodone prn for pain for RT x 5 sessions hospice eval Pre-Operative Diagnosis: bladder tumor, emilia. hydroureteralnephrosis,gross hematuria Operation: cysto, attempted emilia retrogrades, antigrade nephrotogram, turbt ( large) findings Large bleeding extensive bladder tumor with complete ureteral obstruction transfuse when necessary monitor cbc/ electrolytes Problem List - Problems (1) ROSA MARIA (acute kidney injury) Code(s): N17.9 - ACUTE KIDNEY FAILURE, UNSPECIFIED (2) Anemia Code(s): D64.9 - ANEMIA, UNSPECIFIED (3) BPH (benign prostatic hyperplasia) Code(s): N40.0 - BENIGN PROSTATIC HYPERPLASIA WITHOUT LOWER URINRY TRACT SYMP Qualifiers: Lower urinary tract symptom presence: unspecified whether lower urinary tract symptoms present Qualified Code(s): N40.0 - Benign prostatic hyperplasia without lower urinary tract symptoms (4) Dementia Code(s): F03.90 - UNSPECIFIED DEMENTIA WITHOUT BEHAVIORAL DISTURBANCE Qualifiers: Dementia type: unspecified type (5) Diabetes mellitus Code(s): E11.9 - TYPE 2 DIABETES MELLITUS WITHOUT COMPLICATIONS Qualifiers: Diabetes mellitus type: type 2 (6) HLD (hyperlipidemia) Code(s): E78.5 - HYPERLIPIDEMIA, UNSPECIFIED
[2019-05-13] MEDS ORDERED: PT OWN MED DRAWER 7, Y5N ONE (15:32)
--- NOTE | 2019-05-13 16:04 | PN ---
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, Physician History of Present Illness: Pt seen and examined at bedside. He is awake and appears comfortable. - Current Medication List Current Medications: Active Medications Acetaminophen (Tylenol -) 650 mg PO Q6H PRN PRN Reason: PAIN LEVEL 6-10 Last Admin: 05/12/19 20:51 Dose: 650 mg Albuterol/Ipratropium (Duoneb -) 1 amp NEB Q6H PRN PRN Reason: SHORT OF BREATH/WHEEZING Last Admin: 05/11/19 20:40 Dose: 1 amp Amino Acids (Prosource No Carb Liquid Pkt) 30 ml PO BID@0800,1730 [facility] Last Admin: 05/13/19 10:23 Dose: 30 ml Amlodipine Besylate (Norvasc -) 5 mg PO DAILY [facility] Last Admin: 05/13/19 10:23 Dose: 5 mg Artificial Tears (Artificial Tears) 1 drop OU BID [facility] Last Admin: 05/13/19 12:13 Dose: 1 drop Atorvastatin Calcium (Lipitor -) 10 mg PO HS [facility] Last Admin: 05/12/19 22:14 Dose: 10 mg Famotidine (Pepcid -) 20 mg PO BID [facility] Last Admin: 05/13/19 10:23 Dose: 20 mg Finasteride (Proscar -) 5 mg PO DAILY [facility] Last Admin: 05/13/19 10:23 Dose: 5 mg Folic Acid (Folic Acid -) 1 mg PO DAILY [facility] Last Admin: 05/13/19 10:23 Dose: 1 mg IV Flush (Triple Lumen Flush) 4 ml IVPUSH PRN PRN PRN Reason: Protocol Last Admin: 05/11/19 14:59 Dose: 4 ml Insulin Aspart (Novolog Vial Sliding Scale -) 1 vial SQ TIDAC [facility]; Protocol Last Admin: 05/13/19 12:13 Dose: Not Given Insulin Detemir (Levemir Vial) 10 units SQ HS [facility] Last Admin: 05/12/19 22:14 Dose: 10 units Lidocaine (Lidoderm Patch -) 1 patch TP DAILY [facility] Last Admin: 05/13/19 12:13 Dose: 1 patch Miscellaneous (Lidoderm Patch Removal) 1 each MC DAILY@2200 [facility] Last Admin: 05/12/19 22:17 Dose: 1 each Multivitamins/Minerals (Certavite-Antioxidant Liquid) 15 ml PO DAILY [facility] Last Admin: 05/12/19 09:47 Dose: 15 ml Oxycodone HCl (Roxicodone -) 5 mg PO Q4H PRN PRN Reason: PAIN LEVEL 6-10 Last Admin: 05/13/19 10:23 Dose: 5 mg Polyethylene Glycol (Miralax (For Daily Use) -) 17 gm PO DAILY [facility] Last Admin: 05/13/19 10:25 Dose: Not Given Tamsulosin HCl (Flomax -) 0.8 mg PO DAILY@0830 [facility] Last Admin: 05/13/19 10:24 Dose: 0.8 mg Thiamine HCl (Vitamin B1 -) 100 mg PO DAILY [facility] Last Admin: 05/13/19 10:24 Dose: 100 mg - Objective Vital Signs: Vital Signs Temperature 98.7 F 05/13/19 14:00 Pulse Rate 80 05/13/19 14:00 Respiratory Rate 18 05/13/19 14:00 Blood Pressure 132/63 05/13/19 14:00 O2 Sat by Pulse Oximetry (%) 95 05/13/19 10:00 Constitutional: Yes: Calm Eyes: Yes: Conjunctiva Clear HENT: Yes: Atraumatic Neck: Yes: Supple Cardiovascular: Yes: S1, S2 Respiratory: Yes: CTA Bilaterally Gastrointestinal: Yes: Soft Genitourinary: Yes: Fernandez Present, Other (bilateral nephrostomy tubes) Musculoskeletal: Yes: WNL Edema: No Integumentary: Yes: WNL Neurological: Yes: Oriented Labs: CBC, BMP 05/12/19 06:00 05/12/19 06:00 INR, PTT INR 1.32 (0.83-1.09) H 04/26/19 07:52 Problem List - Problems (1) ROSA MARIA (acute kidney injury) Code(s): N17.9 - ACUTE KIDNEY FAILURE, UNSPECIFIED (2) BPH (benign prostatic hyperplasia) Code(s): N40.0 - BENIGN PROSTATIC HYPERPLASIA WITHOUT LOWER URINRY TRACT SYMP Qualifiers: Lower urinary tract symptom presence: unspecified whether lower urinary tract symptoms present Qualified Code(s): N40.0 - Benign prostatic hyperplasia without lower urinary tract symptoms (3) Bladder cancer Code(s): C67.9 - MALIGNANT NEOPLASM OF BLADDER, UNSPECIFIED Qualifiers: Bladder location: unspecified site Qualified Code(s): C67.9 - Malignant neoplasm of bladder, unspecified (4) CHF (congestive heart failure) Code(s): I50.9 - HEART FAILURE, UNSPECIFIED Qualifiers: Heart failure type: unspecified Assessment/Plan Current Medications Generic Name Dose Route Start Last Admin Trade Name Freq PRN Reason Stop Dose Admin Acetaminophen 650 mg 04/25/19 19:59 05/12/19 20:51 Tylenol - PO 650 mg Q6H PRN Administration PAIN LEVEL 6-10 Albuterol/Ipratropium 1 amp 05/11/19 14:49 05/11/19 20:40 Duoneb - NEB 1 amp Q6H PRN Administration SHORT OF BREATH/WHEEZING Amino Acids 30 ml 05/07/19 17:30 05/13/19 10:23 Prosource No Carb Liquid Pkt PO 30 ml BID@0800,1730 [facility] Administration Amlodipine Besylate 5 mg 04/26/19 15:30 05/13/19 10:23 Norvasc - PO 5 mg DAILY [facility] Administration Artificial Tears 1 drop 04/24/19 10:00 05/13/19 12:13 Artificial Tears OU 1 drop BID [facility] Administration Atorvastatin Calcium 10 mg 04/24/19 22:00 05/12/19 22:14 Lipitor - PO 10 mg HS [facility] Administration Famotidine 20 mg 04/24/19 10:00 05/13/19 10:23 Pepcid - PO 20 mg BID [facility] Administration Finasteride 5 mg 04/25/19 10:00 05/13/19 10:23 Proscar - PO 5 mg DAILY [facility] Administration Folic Acid 1 mg 04/24/19 10:00 05/13/19 10:23 Folic Acid - PO 1 mg DAILY [facility] Administration IV Flush 4 ml 05/01/19 12:14 05/11/19 14:59 Triple Lumen Flush IVPUSH 4 ml PRN PRN Administration Protocol Insulin Aspart 1 vial 04/24/19 16:30 05/13/19 12:13 Novolog Vial Sliding Scale - SQ Not Given TIDAC [facility] Protocol Insulin Detemir 10 units 05/10/19 22:00 05/12/19 22:14 Levemir Vial SQ 10 units HS [facility] Administration Lidocaine 1 patch 04/27/19 11:15 05/13/19 12:13 Lidoderm Patch - TP 1 patch DAILY [facility] Administration Miscellaneous 1 each 04/27/19 22:00 05/12/19 22:17 Lidoderm Patch Removal MC 1 each DAILY@2200 [facility] Administration Multivitamins/Minerals 15 ml 05/07/19 13:00 05/12/19 09:47 Certavite-Antioxidant Liquid PO 15 ml DAILY [facility] Administration Oxycodone HCl 5 mg 05/11/19 14:48 05/13/19 10:23 Roxicodone - PO 5 mg Q4H PRN Administration PAIN LEVEL 6-10 Polyethylene Glycol 17 gm 04/28/19 12:00 05/13/19 10:25 Miralax (For Daily Use) - PO Not Given DAILY [facility] Tamsulosin HCl 0.8 mg 04/24/19 08:30 05/13/19 10:24 Flomax - PO 0.8 mg DAILY@0830 [facility] Administration Thiamine HCl 100 mg 04/24/19 10:00 05/13/19 10:24 Vitamin B1 - PO 100 mg DAILY [facility] Administration Impression 1. ROSA MARIA 2. hydronephrosis 3. hematuria 4. dementia 5. chf 6. dm 7. gerd 8. anemia Plan - communications intern stable - monitor output from fernandez and nephrostomy tubes - CBI stopped - avoid nsaids - nephrostomy tube care
[2019-05-13] MEDS: MULTIVIT-MINERALS ORAL LIQUID PO SCH (16:09)
[2019-05-13 21:01] LABS: HEMATOCRIT 22.9 % (35.4-49); HEMOGLOBIN 7.4 GM/dL (11.7-16.9); MCH 28.4 pg (25.7-33.7); MCHC 32.5 g/dl (32.0-35.9); MEAN CELL VOLUME 87.4 fl (80-96); MEAN PLT VOLUME 8.4 fl (7.5-11.1); PLATELET COUNT 250 K/MM3 (134-434); RBC 2.62 M/mm3 (4.00-5.60); RDW 14.8 % (11.9-15.9); WHITE BLOOD COUNT 11.1 K/mm3 (4.0-10.0)
[2019-05-13] MEDS: INSULIN (LEVEMIR) 100 UNITS/ML UNITS SQ SCH (21:25)
[2019-05-13] MEDS: LIDOCAINE PATCH REMOVAL MC SCH (21:25)
[2019-05-13] MEDS: ATORVASTATIN CA 10 MG TABLET (FP) PO SCH (21:26)
[2019-05-13] MEDS: ACETAMINOPHEN 325 MG TABLET (FP) PO PRN (21:26)
[2019-05-14] MEDS: INSULIN SLIDING SCALE (NOVOLOG) 1 VIAL SQ SCH ×3 (06:26→17:17)
[2019-05-14] MEDS ORDERED: INSULIN (NOVOLOG) ASPART 100 UNITS/ML 10ML VIAL ONE (06:47)
[2019-05-14] MEDS ORDERED: INSULIN (LEVEMIR) 100 UNITS/ML UNITS SQ ONE (06:49)
[2019-05-14 08:35] LABS: HEMATOCRIT 22.1 % (35.4-49); HEMOGLOBIN 7.3 GM/dL (11.7-16.9); MCH 28.9 pg (25.7-33.7); MCHC 32.9 g/dl (32.0-35.9); MEAN CELL VOLUME 87.7 fl (80-96); MEAN PLT VOLUME 8.7 fl (7.5-11.1); PLATELET COUNT 240 K/MM3 (134-434); RBC 2.52 M/mm3 (4.00-5.60); RDW 15.1 % (11.9-15.9); WHITE BLOOD COUNT 11.6 K/mm3 (4.0-10.0)
[2019-05-14] MEDS: AMINO ACIDS/PROTEIN HYDROLYS 30 ML LIQUID.PKT PO SCH ×2 (09:03→17:25)
[2019-05-14] MEDS: TAMSULOSIN HCL 0.4 MG CAP PO SCH (09:03)
[2019-05-14] MEDS ORDERED: PT OWN MED DRAWER 7, Y5N ONE (09:56)
[2019-05-14] MEDS: FOLIC ACID 1 MG TABLET (FP) PO SCH (10:06)
[2019-05-14] MEDS: FINASTERIDE 5 MG TABLET (FP) PO SCH (10:06)
[2019-05-14] MEDS: FAMOTIDINE 20 MG TABLET PO SCH ×2 (10:06→22:07)
[2019-05-14] MEDS: LIDOCAINE 5% TOPICAL PATCH TP SCH (10:07)
[2019-05-14] MEDS: ARTIFICIAL TEARS (POLYVINYL ALCOHOL) OPTH DROPS OU SCH ×2 (10:09→22:06)
[2019-05-14] MEDS: THIAMINE HCL 100 MG TABLET (FP) PO SCH (10:12)
[2019-05-14] MEDS: oxyCODONE HCL 5 MG TABLET PO PRN (10:12)
--- NOTE | 2019-05-14 10:44 | PN ---
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 (short form) - Note 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: s/p TURBT pain better controlled sleepy went to RT Vital Signs - 24 hr 05/13/19 05/13/19 05/13/19 14:00 18:18 20:54 Temperature 98.7 F 98.1 F 98.4 F Temperature [ Prior to transport] Pulse Rate 80 81 86 Pulse Rate [ Prior to transport] Respiratory 18 18 18 Rate Respiratory Rate [Prior to transport] Blood Pressure 132/63 119/47 L 116/40 L Blood Pressure [Prior to transport] O2 Sat by Pulse Oximetry (%) 05/13/19 05/14/19 05/14/19 21:04 02:00 06:00 Temperature 98.4 F 98.7 F Temperature [ Prior to transport] Pulse Rate 74 87 Pulse Rate [ Prior to transport] Respiratory 18 18 18 Rate Respiratory Rate [Prior to transport] Blood Pressure 113/47 L 129/57 L Blood Pressure [Prior to transport] O2 Sat by Pulse 100 Oximetry (%) 05/14/19 05/14/19 05/14/19 09:57 10:20 11:05 Temperature 98.3 F Temperature [ 98.3 F 98.5 F Prior to transport] Pulse Rate 81 Pulse Rate [ 81 79 Prior to transport] Respiratory 24 H Rate Respiratory 24 H 24 H Rate [Prior to transport] Blood Pressure 124/47 L Blood Pressure 124/47 L 129/55 L [Prior to transport] O2 Sat by Pulse Oximetry (%) Current Medications Generic Name Dose Route Start Last Admin Trade Name Freq PRN Reason Stop Dose Admin Acetaminophen 650 mg 04/25/19 19:59 05/13/19 21:26 Tylenol - PO 650 mg Q6H PRN Administration PAIN LEVEL 6-10 Albuterol/Ipratropium 1 amp 05/11/19 14:49 05/11/19 20:40 Duoneb - NEB 1 amp Q6H PRN Administration SHORT OF BREATH/WHEEZING Amino Acids 30 ml 05/07/19 17:30 05/14/19 09:03 Prosource No Carb Liquid Pkt PO 30 ml BID@0800,1730 [facility] Administration Amlodipine Besylate 5 mg 04/26/19 15:30 05/14/19 11:27 Norvasc - PO 5 mg DAILY [facility] Administration Artificial Tears 1 drop 04/24/19 10:00 05/14/19 10:09 Artificial Tears OU 1 drop BID [facility] Administration Atorvastatin Calcium 10 mg 04/24/19 22:00 05/13/19 21:26 Lipitor - PO 10 mg HS [facility] Administration Famotidine 20 mg 04/24/19 10:00 05/14/19 10:06 Pepcid - PO 20 mg BID [facility] Administration Finasteride 5 mg 04/25/19 10:00 05/14/19 10:06 Proscar - PO 5 mg DAILY [facility] Administration Folic Acid 1 mg 04/24/19 10:00 05/14/19 10:06 Folic Acid - PO 1 mg DAILY [facility] Administration IV Flush 4 ml 05/01/19 12:14 05/11/19 14:59 Triple Lumen Flush IVPUSH 4 ml PRN PRN Administration Protocol Insulin Aspart 1 vial 04/24/19 16:30 05/14/19 06:26 Novolog Vial Sliding Scale - SQ Not Given [facility] Protocol Insulin Detemir 10 units 05/10/19 22:00 05/13/19 21:25 Levemir Vial SQ 10 units HS [facility] Administration Lidocaine 1 patch 04/27/19 11:15 05/14/19 10:07 Lidoderm Patch - TP 1 patch DAILY [facility] Administration Miscellaneous 1 each 04/27/19 22:00 05/13/19 21:25 Lidoderm Patch Removal MC 1 each DAILY@2199 [facility] Administration Multivitamins/Minerals 15 ml 05/07/19 13:00 05/13/19 16:09 Certavite-Antioxidant Liquid PO 15 ml DAILY [facility] Administration Oxycodone HCl 5 mg 05/11/19 14:48 05/14/19 10:12 Roxicodone - PO 5 mg Q4H PRN Administration PAIN LEVEL 6-10 Polyethylene Glycol 17 gm 04/28/19 12:00 05/13/19 10:25 Miralax (For Daily Use) - PO Not Given DAILY [facility] Tamsulosin HCl 0.8 mg 04/24/19 08:30 05/14/19 09:03 Flomax - PO 0.8 mg DAILY@0830 [facility] Administration Thiamine HCl 100 mg 04/24/19 10:00 05/14/19 10:12 Vitamin B1 - PO 100 mg DAILY [facility] Administration Laboratory Results - last 24 hr 05/13/19 05/13/19 05/13/19 12:11 17:07 20:43 WBC 11.1 H RBC 2.62 L Hgb 7.4 L Hct 22.9 L MCV 87.4 MCH 28.4 MCHC 32.5 RDW 14.8 Plt Count 250 MPV 8.4 POC Glucometer 141 122 05/13/19 05/14/19 05/14/19 21:22 06:22 06:30 WBC 11.6 H RBC 2.52 L Hgb 7.3 L Hct 22.1 L MCV 87.7 MCH 28.9 MCHC 32.9 RDW 15.1 Plt Count 240 MPV 8.7 POC Glucometer 130 103 S1 S2 RRR Lungs clear Abd- soft, obese, NT no edema B/L nephrostomy + Thomas-+ PLAN PLAN add Oxycodone prn for pain for RT x 5 sessions hospice eval Pre-Operative Diagnosis: bladder tumor, emilia. hydroureteralnephrosis,gross hematuria Operation: cysto, attempted emilia retrogrades, antigrade nephrotogram, turbt ( large) findings Large bleeding extensive bladder tumor with complete ureteral obstruction transfuse when necessary monitor cbc/ electrolytes Problem List - Problems (1) ROSA MARIA (acute kidney injury) Code(s): N17.9 - ACUTE KIDNEY FAILURE, UNSPECIFIED (2) Anemia Code(s): D64.9 - ANEMIA, UNSPECIFIED (3) BPH (benign prostatic hyperplasia) Code(s): N40.0 - BENIGN PROSTATIC HYPERPLASIA WITHOUT LOWER URINRY TRACT SYMP Qualifiers: Lower urinary tract symptom presence: unspecified whether lower urinary tract symptoms present Qualified Code(s): N40.0 - Benign prostatic hyperplasia without lower urinary tract symptoms (4) Dementia Code(s): F03.90 - UNSPECIFIED DEMENTIA WITHOUT BEHAVIORAL DISTURBANCE Qualifiers: Dementia type: unspecified type (5) Diabetes mellitus Code(s): E11.9 - TYPE 2 DIABETES MELLITUS WITHOUT COMPLICATIONS Qualifiers: Diabetes mellitus type: type 2 (6) HLD (hyperlipidemia) Code(s): E78.5 - HYPERLIPIDEMIA, UNSPECIFIED
[2019-05-14] MEDS: amLODIPine BESYLATE 5 MG TABLET (FP) PO SCH (11:27)
[2019-05-14] MEDS: POLYETHYLENE GLYCOL 3350 119 GM BTL PO SCH (12:18)
[2019-05-14] MEDS: MULTIVIT-MINERALS ORAL LIQUID PO SCH (14:17)
--- NOTE | 2019-05-14 14:47 | PN ---
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, Physician History of Present Illness: s/p PCN, hematuria undergoing CBI. Chest CT shows pulm mets. - Current Medication List Current Medications: Active Medications Acetaminophen (Tylenol -) 650 mg PO Q6H PRN PRN Reason: PAIN LEVEL 6-10 Last Admin: 05/13/19 21:26 Dose: 650 mg Albuterol/Ipratropium (Duoneb -) 1 amp NEB Q6H PRN PRN Reason: SHORT OF BREATH/WHEEZING Last Admin: 05/11/19 20:40 Dose: 1 amp Amino Acids (Prosource No Carb Liquid Pkt) 30 ml PO BID@0800,1730 [facility] Last Admin: 05/14/19 09:03 Dose: 30 ml Amlodipine Besylate (Norvasc -) 5 mg PO DAILY [facility] Last Admin: 05/14/19 11:27 Dose: 5 mg Artificial Tears (Artificial Tears) 1 drop OU BID [facility] Last Admin: 05/14/19 10:09 Dose: 1 drop Atorvastatin Calcium (Lipitor -) 10 mg PO HS [facility] Last Admin: 05/13/19 21:26 Dose: 10 mg Famotidine (Pepcid -) 20 mg PO BID [facility] Last Admin: 05/14/19 10:06 Dose: 20 mg Finasteride (Proscar -) 5 mg PO DAILY [facility] Last Admin: 05/14/19 10:06 Dose: 5 mg Folic Acid (Folic Acid -) 1 mg PO DAILY [facility] Last Admin: 05/14/19 10:06 Dose: 1 mg IV Flush (Triple Lumen Flush) 4 ml IVPUSH PRN PRN PRN Reason: Protocol Last Admin: 05/11/19 14:59 Dose: 4 ml Insulin Aspart (Novolog Vial Sliding Scale -) 1 vial SQ TIDAC [facility]; Protocol Last Admin: 05/14/19 12:13 Dose: 2 units Insulin Detemir (Levemir Vial) 10 units SQ HS [facility] Last Admin: 05/13/19 21:25 Dose: 10 units Lidocaine (Lidoderm Patch -) 1 patch TP DAILY [facility] Last Admin: 05/14/19 10:07 Dose: 1 patch Miscellaneous (Lidoderm Patch Removal) 1 each MC DAILY@2200 [facility] Last Admin: 05/13/19 21:25 Dose: 1 each Multivitamins/Minerals (Certavite-Antioxidant Liquid) 15 ml PO DAILY [facility] Last Admin: 05/14/19 14:17 Dose: 15 ml Oxycodone HCl (Roxicodone -) 5 mg PO Q4H PRN PRN Reason: PAIN LEVEL 6-10 Last Admin: 05/14/19 10:12 Dose: 5 mg Polyethylene Glycol (Miralax (For Daily Use) -) 17 gm PO DAILY [facility] Last Admin: 05/14/19 12:18 Dose: Not Given Tamsulosin HCl (Flomax -) 0.8 mg PO DAILY@0830 [facility] Last Admin: 05/14/19 09:03 Dose: 0.8 mg Thiamine HCl (Vitamin B1 -) 100 mg PO DAILY [facility] Last Admin: 05/14/19 10:12 Dose: 100 mg - Objective Vital Signs: Vital Signs Temperature 98.5 F 05/14/19 11:05 Pulse Rate 79 05/14/19 11:05 Respiratory Rate 24 H 05/14/19 11:05 Blood Pressure 129/55 L 05/14/19 11:05 O2 Sat by Pulse Oximetry (%) 100 05/13/19 21:04 Constitutional: Yes: No Distress, Calm, Thin Neck: Yes: Supple Cardiovascular: Yes: Regular Rate and Rhythm Respiratory: Yes: Regular, Diminished Gastrointestinal: Yes: Normal Bowel Sounds, Soft Genitourinary: Yes: Thomas Present, Hematuria Edema: No Labs: CBC, BMP 05/14/19 06:30 05/12/19 06:00 INR, PTT INR 1.32 (0.83-1.09) H 04/26/19 07:52 Problem List - Problems (1) Hydronephrosis Code(s): N13.30 - UNSPECIFIED HYDRONEPHROSIS Qualifiers: Hydronephrosis type: unspecified Qualified Code(s): N13.30 - Unspecified hydronephrosis (2) ROSA MARIA (acute kidney injury) Code(s): N17.9 - ACUTE KIDNEY FAILURE, UNSPECIFIED (3) Anemia Code(s): D64.9 - ANEMIA, UNSPECIFIED (4) CHF (congestive heart failure) Code(s): I50.9 - HEART FAILURE, UNSPECIFIED Qualifiers: Heart failure type: unspecified (5) Diabetes mellitus Code(s): E11.9 - TYPE 2 DIABETES MELLITUS WITHOUT COMPLICATIONS Qualifiers: Diabetes mellitus type: type 2 (6) HLD (hyperlipidemia) Code(s): E78.5 - HYPERLIPIDEMIA, UNSPECIFIED (7) HTN (hypertension) Code(s): I10 - ESSENTIAL (PRIMARY) HYPERTENSION (8) Hematuria Code(s): R31.9 - HEMATURIA, UNSPECIFIED (9) Bladder cancer Code(s): C67.9 - MALIGNANT NEOPLASM OF BLADDER, UNSPECIFIED Qualifiers: Bladder location: unspecified site Qualified Code(s): C67.9 - Malignant neoplasm of bladder, unspecified (10) BPH (benign prostatic hyperplasia) Code(s): N40.0 - BENIGN PROSTATIC HYPERPLASIA WITHOUT LOWER URINRY TRACT SYMP Qualifiers: Lower urinary tract symptom presence: unspecified whether lower urinary tract symptoms present Qualified Code(s): N40.0 - Benign prostatic hyperplasia without lower urinary tract symptoms (11) Dementia Code(s): F03.90 - UNSPECIFIED DEMENTIA WITHOUT BEHAVIORAL DISTURBANCE Qualifiers: Dementia type: unspecified type Assessment/Plan 04/29/2019 Normal LV and RV size and fxn, mild MR, tr-mild TR, LVEF 61% 1. ROSA MARIA/CKD->obstructive hydronephrosis post percutaneous nephrostomy 2. 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 HTN 4. Hypercholesterolemia 5. DM 6. BPH 7. Dementia 8. MDD PLAN: 1. Continue Amlodipine 5 mg QD and Atorvastatin 10 mg QHS 2. Renal input noted, monitor renal recovery 3. CBI pending hematuria clearance, planned for possible outpatient BCG or Mitomycin intravesical therapy, off empiric abx course 4. Transfuse pRBC to maintain Hgb>8.0, GI protection 5. Palliative XRT
--- NOTE | 2019-05-14 17:20 | PN ---
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, Physician History of Present Illness: Pt seen and examined at bedside. He is awake and appears comfortable. - Current Medication List Current Medications: Active Medications Acetaminophen (Tylenol -) 650 mg PO Q6H PRN PRN Reason: PAIN LEVEL 6-10 Last Admin: 05/13/19 21:26 Dose: 650 mg Albuterol/Ipratropium (Duoneb -) 1 amp NEB Q6H PRN PRN Reason: SHORT OF BREATH/WHEEZING Last Admin: 05/11/19 20:40 Dose: 1 amp Amino Acids (Prosource No Carb Liquid Pkt) 30 ml PO BID@0800,1730 [facility] Last Admin: 05/14/19 09:03 Dose: 30 ml Amlodipine Besylate (Norvasc -) 5 mg PO DAILY [facility] Last Admin: 05/14/19 11:27 Dose: 5 mg Artificial Tears (Artificial Tears) 1 drop OU BID [facility] Last Admin: 05/14/19 10:09 Dose: 1 drop Atorvastatin Calcium (Lipitor -) 10 mg PO HS [facility] Last Admin: 05/13/19 21:26 Dose: 10 mg Famotidine (Pepcid -) 20 mg PO BID [facility] Last Admin: 05/14/19 10:06 Dose: 20 mg Finasteride (Proscar -) 5 mg PO DAILY [facility] Last Admin: 05/14/19 10:06 Dose: 5 mg Folic Acid (Folic Acid -) 1 mg PO DAILY [facility] Last Admin: 05/14/19 10:06 Dose: 1 mg IV Flush (Triple Lumen Flush) 4 ml IVPUSH PRN PRN PRN Reason: Protocol Last Admin: 05/11/19 14:59 Dose: 4 ml Insulin Aspart (Novolog Vial Sliding Scale -) 1 vial SQ [facility]; Protocol Last Admin: 05/14/19 12:13 Dose: 2 units Insulin Detemir (Levemir Vial) 10 units SQ HS [facility] Last Admin: 05/13/19 21:25 Dose: 10 units Lidocaine (Lidoderm Patch -) 1 patch TP DAILY [facility] Last Admin: 05/14/19 10:07 Dose: 1 patch Miscellaneous (Lidoderm Patch Removal) 1 each MC DAILY@2200 [facility] Last Admin: 05/13/19 21:25 Dose: 1 each Multivitamins/Minerals (Certavite-Antioxidant Liquid) 15 ml PO DAILY [facility] Last Admin: 05/14/19 14:17 Dose: 15 ml Oxycodone HCl (Roxicodone -) 5 mg PO Q4H PRN PRN Reason: PAIN LEVEL 6-10 Last Admin: 05/14/19 10:12 Dose: 5 mg Polyethylene Glycol (Miralax (For Daily Use) -) 17 gm PO DAILY [facility] Last Admin: 05/14/19 12:18 Dose: Not Given Tamsulosin HCl (Flomax -) 0.8 mg PO DAILY@0830 [facility] Last Admin: 05/14/19 09:03 Dose: 0.8 mg Thiamine HCl (Vitamin B1 -) 100 mg PO DAILY [facility] Last Admin: 05/14/19 10:12 Dose: 100 mg - Objective Vital Signs: Vital Signs Temperature 98.6 F 05/14/19 13:00 Pulse Rate 84 05/14/19 13:00 Respiratory Rate 20 05/14/19 13:00 Blood Pressure 140/56 L 05/14/19 13:00 O2 Sat by Pulse Oximetry (%) 100 05/13/19 21:04 Constitutional: Yes: Calm Eyes: Yes: Conjunctiva Clear HENT: Yes: Atraumatic Neck: Yes: Supple Cardiovascular: Yes: S1, S2 Respiratory: Yes: CTA Bilaterally Gastrointestinal: Yes: Soft Genitourinary: Yes: Fernandez Present, Other (bilateral nephrostomy tubes) Musculoskeletal: Yes: WNL Edema: Yes Edema: LLE: Trace, RLE: Trace Neurological: Yes: Oriented Psychiatric: Yes: Oriented Labs: CBC, BMP 05/14/19 06:30 05/12/19 06:00 INR, PTT INR 1.32 (0.83-1.09) H 04/26/19 07:52 Problem List - Problems (1) ROSA MARIA (acute kidney injury) Code(s): N17.9 - ACUTE KIDNEY FAILURE, UNSPECIFIED (2) BPH (benign prostatic hyperplasia) Code(s): N40.0 - BENIGN PROSTATIC HYPERPLASIA WITHOUT LOWER URINRY TRACT SYMP Qualifiers: Lower urinary tract symptom presence: unspecified whether lower urinary tract symptoms present Qualified Code(s): N40.0 - Benign prostatic hyperplasia without lower urinary tract symptoms (3) Bladder cancer Code(s): C67.9 - MALIGNANT NEOPLASM OF BLADDER, UNSPECIFIED Qualifiers: Bladder location: unspecified site Qualified Code(s): C67.9 - Malignant neoplasm of bladder, unspecified (4) CHF (congestive heart failure) Code(s): I50.9 - HEART FAILURE, UNSPECIFIED Qualifiers: Heart failure type: unspecified Assessment/Plan Current Medications Generic Name Dose Route Start Last Admin Trade Name Freq PRN Reason Stop Dose Admin Acetaminophen 650 mg 04/25/19 19:59 05/13/19 21:26 Tylenol - PO 650 mg Q6H PRN Administration PAIN LEVEL 6-10 Albuterol/Ipratropium 1 amp 05/11/19 14:49 05/11/19 20:40 Duoneb - NEB 1 amp Q6H PRN Administration SHORT OF BREATH/WHEEZING Amino Acids 30 ml 05/07/19 17:30 05/14/19 09:03 Prosource No Carb Liquid Pkt PO 30 ml BID@0800,1730 [facility] Administration Amlodipine Besylate 5 mg 04/26/19 15:30 05/14/19 11:27 Norvasc - PO 5 mg DAILY [facility] Administration Artificial Tears 1 drop 04/24/19 10:00 05/14/19 10:09 Artificial Tears OU 1 drop BID [facility] Administration Atorvastatin Calcium 10 mg 04/24/19 22:00 05/13/19 21:26 Lipitor - PO 10 mg HS [facility] Administration Famotidine 20 mg 04/24/19 10:00 05/14/19 10:06 Pepcid - PO 20 mg BID [facility] Administration Finasteride 5 mg 04/25/19 10:00 05/14/19 10:06 Proscar - PO 5 mg DAILY [facility] Administration Folic Acid 1 mg 04/24/19 10:00 05/14/19 10:06 Folic Acid - PO 1 mg DAILY [facility] Administration IV Flush 4 ml 05/01/19 12:14 05/11/19 14:59 Triple Lumen Flush IVPUSH 4 ml PRN PRN Administration Protocol Insulin Aspart 1 vial 04/24/19 16:30 05/14/19 17:17 Novolog Vial Sliding Scale - SQ Not Given [facility] Protocol Insulin Detemir 10 units 05/10/19 22:00 05/13/19 21:25 Levemir Vial SQ 10 units HS [facility] Administration Lidocaine 1 patch 04/27/19 11:15 05/14/19 10:07 Lidoderm Patch - TP 1 patch DAILY [facility] Administration Miscellaneous 1 each 04/27/19 22:00 05/13/19 21:25 Lidoderm Patch Removal MC 1 each DAILY@2200 [facility] Administration Multivitamins/Minerals 15 ml 05/07/19 13:00 05/14/19 14:17 Certavite-Antioxidant Liquid PO 15 ml DAILY [facility] Administration Oxycodone HCl 5 mg 05/11/19 14:48 05/14/19 10:12 Roxicodone - PO 5 mg Q4H PRN Administration PAIN LEVEL 6-10 Polyethylene Glycol 17 gm 04/28/19 12:00 05/14/19 12:18 Miralax (For Daily Use) - PO Not Given DAILY [facility] Tamsulosin HCl 0.8 mg 04/24/19 08:30 05/14/19 09:03 Flomax - PO 0.8 mg DAILY@0830 [facility] Administration Thiamine HCl 100 mg 04/24/19 10:00 05/14/19 10:12 Vitamin B1 - PO 100 mg DAILY [facility] Administration Impression 1. ROSA MARIA 2. hydronephrosis 3. hematuria 4. dementia 5. chf 6. dm 7. gerd 8. 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
[2019-05-14] MEDS: ATORVASTATIN CA 10 MG TABLET (FP) PO SCH (22:07)
[2019-05-14] MEDS: LIDOCAINE PATCH REMOVAL MC SCH (22:07)
[2019-05-14] MEDS: INSULIN (LEVEMIR) 100 UNITS/ML UNITS SQ SCH (22:08)
[2019-05-15] MEDS: oxyCODONE HCL 5 MG TABLET PO PRN ×3 (05:49→16:06)
[2019-05-15] MEDS: INSULIN SLIDING SCALE (NOVOLOG) 1 VIAL SQ SCH ×3 (07:00→16:26)
--- NOTE | 2019-05-15 08:59 | PROC ---
Central Line Insertion - Procedure Note TIME OUT performed prior to this procedure with verbal confirmation of correct patient identity, correct side, agreement of the procedure, correct patient position, availability of necessary equipment. The consent form is complete and accurate. Risk of possible infection, bleeding have been discussed with the patient. Safety precautions based on patient history or medication use has been addressed. Indication: Poor Venous Access Consent on Chart: Yes Central Line: Other (Double lumen Midline catheter) Position: Supine Area prepped with Chlorhexidine solution then draped using sterile barrier protection. Anesthesia: Lidocaine 1% Technique used: Modified Seldinger Ultrasound Guided Assistance: Yes Site: Left Cephalic vein Dark venous non-pulsatile flow noted from hub of needle. The catheter was introduced. Guide wire removed intact. Each port aspirated then flushed with sterile normal saline and capped. Line secured to skin with secure device. Biopatch placed around base of line. Sterile occlusive dressing applied. No complications. Patient tolerated the procedure well. Clear to use immediately, NOT CENTRALLY LOCATED, PERIPHERAL ONLY
[2019-05-15] MEDS: FAMOTIDINE 20 MG TABLET PO SCH ×2 (09:50→21:13)
[2019-05-15] MEDS: TAMSULOSIN HCL 0.4 MG CAP PO SCH (09:50)
[2019-05-15] MEDS: AMINO ACIDS/PROTEIN HYDROLYS 30 ML LIQUID.PKT PO SCH ×2 (09:50→19:07)
[2019-05-15] MEDS: ARTIFICIAL TEARS (POLYVINYL ALCOHOL) OPTH DROPS OU SCH ×2 (09:51→21:11)
[2019-05-15] MEDS: THIAMINE HCL 100 MG TABLET (FP) PO SCH (09:51)
[2019-05-15] MEDS: FOLIC ACID 1 MG TABLET (FP) PO SCH (09:51)
[2019-05-15] MEDS: FINASTERIDE 5 MG TABLET (FP) PO SCH (09:51)
[2019-05-15] MEDS: amLODIPine BESYLATE 5 MG TABLET (FP) PO SCH (09:51)
[2019-05-15 10:00] LABS: ALBUMIN 1.4 g/dl (3.4-5.0); BILIRUBIN,TOTAL 0.7 mg/dL (0.2-1); BLOOD UREA NITROGEN 28.1 mg/dL (7-18); CALCIUM 8.1 mg/dL (8.5-10.1); CREATININE 1.1 mg/dL (0.55-1.3); POTASSIUM 4.1 mmol/L (3.5-5.1); TOT PROT 5.4 g/dl (6.4-8.2)
--- NOTE | 2019-05-15 10:31 | PN ---
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, Physician History of Present Illness: s/p PCN, hematuria. Chest CT shows pulm mets. - Current Medication List Current Medications: Active Medications Acetaminophen (Tylenol -) 650 mg PO Q6H PRN PRN Reason: PAIN LEVEL 6-10 Last Admin: 05/13/19 21:26 Dose: 650 mg Albuterol/Ipratropium (Duoneb -) 1 amp NEB Q6H PRN PRN Reason: SHORT OF BREATH/WHEEZING Last Admin: 05/11/19 20:40 Dose: 1 amp Amino Acids (Prosource No Carb Liquid Pkt) 30 ml PO BID@0800,1730 [facility] Last Admin: 05/15/19 09:50 Dose: 30 ml Amlodipine Besylate (Norvasc -) 5 mg PO DAILY [facility] Last Admin: 05/15/19 09:51 Dose: 5 mg Artificial Tears (Artificial Tears) 1 drop OU BID [facility] Last Admin: 05/15/19 09:51 Dose: 1 drop Atorvastatin Calcium (Lipitor -) 10 mg PO HS [facility] Last Admin: 05/14/19 22:07 Dose: 10 mg Famotidine (Pepcid -) 20 mg PO BID [facility] Last Admin: 05/15/19 09:50 Dose: 20 mg Finasteride (Proscar -) 5 mg PO DAILY [facility] Last Admin: 05/15/19 09:51 Dose: 5 mg Folic Acid (Folic Acid -) 1 mg PO DAILY [facility] Last Admin: 05/15/19 09:51 Dose: 1 mg IV Flush (Triple Lumen Flush) 4 ml IVPUSH PRN PRN PRN Reason: Protocol Last Admin: 05/11/19 14:59 Dose: 4 ml Insulin Aspart (Novolog Vial Sliding Scale -) 1 vial SQ TIDAC [facility]; Protocol Last Admin: 05/15/19 07:00 Dose: Not Given Insulin Detemir (Levemir Vial) 10 units SQ HS [facility] Last Admin: 05/14/19 22:08 Dose: 10 units Lidocaine (Lidoderm Patch -) 1 patch TP DAILY [facility] Last Admin: 05/14/19 10:07 Dose: 1 patch Miscellaneous (Lidoderm Patch Removal) 1 each MC DAILY@2200 [facility] Last Admin: 05/14/19 22:07 Dose: 1 each Multivitamins/Minerals (Certavite-Antioxidant Liquid) 15 ml PO DAILY [facility] Last Admin: 05/14/19 14:17 Dose: 15 ml Oxycodone HCl (Roxicodone -) 5 mg PO Q4H PRN PRN Reason: PAIN LEVEL 6-10 Last Admin: 05/15/19 09:55 Dose: 5 mg Polyethylene Glycol (Miralax (For Daily Use) -) 17 gm PO DAILY [facility] Last Admin: 05/14/19 12:18 Dose: Not Given Tamsulosin HCl (Flomax -) 0.8 mg PO DAILY@0830 [facility] Last Admin: 05/15/19 09:50 Dose: 0.8 mg Thiamine HCl (Vitamin B1 -) 100 mg PO DAILY [facility] Last Admin: 05/15/19 09:51 Dose: 100 mg - Objective Vital Signs: Vital Signs Temperature 98.8 F 05/15/19 06:00 Pulse Rate 87 05/15/19 06:00 Respiratory Rate 20 05/15/19 06:00 Blood Pressure 140/65 05/15/19 06:00 O2 Sat by Pulse Oximetry (%) 99 05/14/19 21:00 Constitutional: Yes: No Distress, Calm Neck: Yes: Supple Cardiovascular: Yes: Regular Rate and Rhythm Respiratory: Yes: Regular, Diminished Gastrointestinal: Yes: Normal Bowel Sounds, Soft Genitourinary: Yes: Thomas Present, Hematuria Edema: No Labs: CBC, BMP 05/14/19 06:30 05/15/19 07:45 INR, PTT INR 1.32 (0.83-1.09) H 04/26/19 07:52 Problem List - Problems (1) Hydronephrosis Code(s): N13.30 - UNSPECIFIED HYDRONEPHROSIS Qualifiers: Hydronephrosis type: unspecified Qualified Code(s): N13.30 - Unspecified hydronephrosis (2) ROSA MARIA (acute kidney injury) Code(s): N17.9 - ACUTE KIDNEY FAILURE, UNSPECIFIED (3) Anemia Code(s): D64.9 - ANEMIA, UNSPECIFIED (4) CHF (congestive heart failure) Code(s): I50.9 - HEART FAILURE, UNSPECIFIED Qualifiers: Heart failure type: unspecified (5) Diabetes mellitus Code(s): E11.9 - TYPE 2 DIABETES MELLITUS WITHOUT COMPLICATIONS Qualifiers: Diabetes mellitus type: type 2 (6) HLD (hyperlipidemia) Code(s): E78.5 - HYPERLIPIDEMIA, UNSPECIFIED (7) HTN (hypertension) Code(s): I10 - ESSENTIAL (PRIMARY) HYPERTENSION (8) Hematuria Code(s): R31.9 - HEMATURIA, UNSPECIFIED (9) Bladder cancer Code(s): C67.9 - MALIGNANT NEOPLASM OF BLADDER, UNSPECIFIED Qualifiers: Bladder location: unspecified site Qualified Code(s): C67.9 - Malignant neoplasm of bladder, unspecified (10) BPH (benign prostatic hyperplasia) Code(s): N40.0 - BENIGN PROSTATIC HYPERPLASIA WITHOUT LOWER URINRY TRACT SYMP Qualifiers: Lower urinary tract symptom presence: unspecified whether lower urinary tract symptoms present Qualified Code(s): N40.0 - Benign prostatic hyperplasia without lower urinary tract symptoms (11) Dementia Code(s): F03.90 - UNSPECIFIED DEMENTIA WITHOUT BEHAVIORAL DISTURBANCE Qualifiers: Dementia type: unspecified type Assessment/Plan 04/29/2019 Normal LV and RV size and fxn, mild MR, tr-mild TR, LVEF 61% 1. ROSA MARIA/CKD->obstructive hydronephrosis post percutaneous nephrostomy 2. 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 HTN 4. Hypercholesterolemia 5. DM 6. BPH 7. Dementia 8. MDD PLAN: 1. Continue Amlodipine 5 mg QD and Atorvastatin 10 mg QHS 2. Renal input noted, monitor renal recovery 3. Awaiting hematuria clearance, planned for possible outpatient BCG or Mitomycin intravesical therapy, off empiric abx course 4. Transfuse pRBC to maintain Hgb>8.0, GI protection 5. Palliative XRT
[2019-05-15] MEDS: MULTIVIT-MINERALS ORAL LIQUID PO SCH (11:47)
[2019-05-15] MEDS: POLYETHYLENE GLYCOL 3350 119 GM BTL PO SCH (11:47)
[2019-05-15] MEDS: LIDOCAINE 5% TOPICAL PATCH TP SCH (11:48)
--- NOTE | 2019-05-15 12:13 | PN ---
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 (short form) - Note 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: s/p TURBT pain better controlled sleepy went to RT Vital Signs - 24 hr 05/14/19 05/14/19 05/14/19 18:00 21:00 22:00 Temperature 98.7 F 99.0 F Pulse Rate 85 85 Respiratory 20 20 Rate Blood Pressure 132/60 120/44 L O2 Sat by Pulse 99 Oximetry (%) 05/15/19 05/15/19 05/15/19 06:00 09:30 10:00 Temperature 98.8 F 98.6 F Pulse Rate 87 79 Respiratory 20 18 Rate Blood Pressure 140/65 129/46 L O2 Sat by Pulse 98 Oximetry (%) 05/15/19 13:00 Temperature 98.9 F Pulse Rate 85 Respiratory 18 Rate Blood Pressure 137/53 L O2 Sat by Pulse Oximetry (%) Current Medications Generic Name Dose Route Start Last Admin Trade Name Freq PRN Reason Stop Dose Admin Acetaminophen 650 mg 04/25/19 19:59 05/15/19 16:06 Tylenol - PO 650 mg Q6H PRN Administration PAIN LEVEL 6-10 Albuterol/Ipratropium 1 amp 05/11/19 14:49 05/11/19 20:40 Duoneb - NEB 1 amp Q6H PRN Administration SHORT OF BREATH/WHEEZING Amino Acids 30 ml 05/07/19 17:30 05/15/19 09:50 Prosource No Carb Liquid Pkt PO 30 ml BID@0800,1730 [facility] Administration Amlodipine Besylate 5 mg 04/26/19 15:30 05/15/19 09:51 Norvasc - PO 5 mg DAILY CHAVEZ Administration Artificial Tears 1 drop 04/24/19 10:00 05/15/19 09:51 Artificial Tears OU 1 drop BID CHAVEZ Administration Atorvastatin Calcium 10 mg 04/24/19 22:00 05/14/19 22:07 Lipitor - PO 10 mg HS CHAVEZ Administration Famotidine 20 mg 04/24/19 10:00 05/15/19 09:50 Pepcid - PO 20 mg BID CHAVEZ Administration Finasteride 5 mg 04/25/19 10:00 05/15/19 09:51 Proscar - PO 5 mg DAILY CHAVEZ Administration Folic Acid 1 mg 04/24/19 10:00 05/15/19 09:51 Folic Acid - PO 1 mg DAILY [facility]Z Administration IV Flush 4 ml 05/01/19 12:14 05/11/19 14:59 Triple Lumen Flush IVPUSH 4 ml PRN PRN Administration Protocol Insulin Aspart 1 vial 04/24/19 16:30 05/15/19 11:50 Novolog Vial Sliding Scale - SQ Not Given TIDAC [facility] Protocol Insulin Detemir 10 units 05/10/19 22:00 05/14/19 22:08 Levemir Vial SQ 10 units HS CHAVEZ Administration Lidocaine 1 patch 04/27/19 11:15 05/15/19 11:48 Lidoderm Patch - TP 1 patch DAILY [facility]Z Administration Miscellaneous 1 each 04/27/19 22:00 05/14/19 22:07 Lidoderm Patch Removal MC 1 each DAILY@2200 [facility] Administration Multivitamins/Minerals 15 ml 05/07/19 13:00 05/15/19 11:47 Certavite-Antioxidant Liquid PO 15 ml DAILY CHAVEZ Administration Oxycodone HCl 5 mg 05/11/19 14:48 05/15/19 16:06 Roxicodone - PO 5 mg Q4H PRN Administration PAIN LEVEL 6-10 Polyethylene Glycol 17 gm 04/28/19 12:00 05/15/19 11:47 Miralax (For Daily Use) - PO 17 gm DAILY CHAVEZ Administration Tamsulosin HCl 0.8 mg 04/24/19 08:30 05/15/19 09:50 Flomax - PO 0.8 mg DAILY@0830 [facility] Administration Thiamine HCl 100 mg 04/24/19 10:00 05/15/19 09:51 Vitamin B1 - PO 100 mg DAILY CHAVEZ Administration Laboratory Results - last 24 hr 05/14/19 05/14/19 05/15/19 17:16 22:20 05:58 Sodium Potassium Chloride Carbon Dioxide Anion Gap BUN Creatinine Est GFR (CKD-EPI)AfAm Est GFR (CKD-EPI)NonAf POC Glucometer 130 147 93 Random Glucose Calcium Total Bilirubin AST ALT Alkaline Phosphatase Total Protein Albumin 05/15/19 05/15/19 07:45 11:49 Sodium 141 Potassium 4.1 Chloride 115 H Carbon Dioxide 18 L Anion Gap 8 BUN 28.1 H Creatinine 1.1 Est GFR (CKD-EPI)AfAm 75.18 Est GFR (CKD-EPI)NonAf 64.86 POC Glucometer 108 Random Glucose 80 Calcium 8.1 L Total Bilirubin 0.7 AST 70 H ALT 42 Alkaline Phosphatase 162 H Total Protein 5.4 L Albumin 1.4 L S1 S2 RRR Lungs clear Abd- soft, obese, NT no edema B/L nephrostomy + Thomas-+ PLAN PLAN add Oxycodone prn for pain for RT x 5 sessions hospice eval Pre-Operative Diagnosis: bladder tumor, emilia. hydroureteralnephrosis,gross hematuria Operation: cysto, attempted emilia retrogrades, antigrade nephrotogram, turbt ( large) findings Large bleeding extensive bladder tumor with complete ureteral obstruction transfuse today monitor cbc/ electrolytes last radiation tomorrow Palliative care Discharge planning after radiation Problem List - Problems (1) ROSA MARIA (acute kidney injury) Code(s): N17.9 - ACUTE KIDNEY FAILURE, UNSPECIFIED (2) Anemia Code(s): D64.9 - ANEMIA, UNSPECIFIED (3) BPH (benign prostatic hyperplasia) Code(s): N40.0 - BENIGN PROSTATIC HYPERPLASIA WITHOUT LOWER URINRY TRACT SYMP Qualifiers: Lower urinary tract symptom presence: unspecified whether lower urinary tract symptoms present Qualified Code(s): N40.0 - Benign prostatic hyperplasia without lower urinary tract symptoms (4) Dementia Code(s): F03.90 - UNSPECIFIED DEMENTIA WITHOUT BEHAVIORAL DISTURBANCE Qualifiers: Dementia type: unspecified type (5) Diabetes mellitus Code(s): E11.9 - TYPE 2 DIABETES MELLITUS WITHOUT COMPLICATIONS Qualifiers: Diabetes mellitus type: type 2 (6) HLD (hyperlipidemia) Code(s): E78.5 - HYPERLIPIDEMIA, UNSPECIFIED
--- NOTE | 2019-05-15 13:38 | CONSULT ---
Admitting History and Physical - Primary Care Physician PCP: Lacy High - Admission History of Present Illness: 74 year old male with underlying history of HTN, hypercholesterolemia, diabetes mellitus, GERD, BPH, MDD, anemia and dementia who presented from CT with anemia and hematuria Per Oncology- s/p cystoscopy/ TURBT/fulguration BX c/w hih grade urothelial carcinoma with marked necrosis invading muscularis propria CT a/p -- Cirhosis/varices/splenomegaly on imaging / Pelvic sidewall adenopathy/ bladder base mass CT chest -- multiple pulmonary nodules/ mediastinal axillary and upper abdominal adenopethy Multiple comorbidities, dementia, very poor performance status -- ECOG 4, would recommend palliative care, goals of care discussion with family Selected Entries 05/12/19 05/12/19 05/13/19 15:00 17:20 15:00 Breakfast 25% 25% Lunch 25% 0 Supper 75% Temperature Temperature [ Prior to transport] 05/13/19 05/14/19 05/14/19 19:55 02:00 06:00 Breakfast Lunch Supper 75% Temperature 98.4 F 98.7 F Temperature [ Prior to transport] 05/14/19 05/14/19 05/14/19 09:57 10:20 11:05 Breakfast Lunch Supper Temperature 98.3 F Temperature [ 98.3 F 98.5 F Prior to transport] 05/14/19 05/14/19 05/14/19 13:00 17:30 18:00 Breakfast 25% Lunch 25% Supper 25% Temperature 98.6 F 98.7 F Temperature [ Prior to transport] 05/14/19 05/15/19 05/15/19 22:00 06:00 09:30 Breakfast Lunch Supper Temperature 99.0 F 98.8 F 98.6 F Temperature [ Prior to transport] Laboratory Tests 05/12/19 05/13/19 05/14/19 06:00 20:43 06:30 WBC 10.4 H 11.1 H 11.6 H On Reg diet/poor appetite, started just drinking. Thickened liquids added today as pt coughing on liquids This is my first consult with this pt. 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 Cardiovascular: Yes: CHF, HTN, Hyperlipdemia Gastrointestinal: Yes: GERD Renal/: Yes: BPH Heme/Onc: Yes: Anemia Psych: Yes: Depression Endocrine: Yes: Diabetes Mellitus - Advance Directives Advance Directives: Yes: Health Care Proxy - Smoking History Smoking history: Former smoker Have you smoked in the past 12 months: No If you are a former smoker, when did you quit?: 25 yrs ago - Alcohol/Substance Use Hx Alcohol Use: Yes (Former) History of Substance Use: reports: None - Social History ADL: Support Services History of Recent Travel: No History - Admission Reason For Visit: ACUTE KIDNEY INJURY/HEMATURIA/AMEMIA - Diagnostics CT Scan: Report Reviewed (Chest CT shows pulm mets.) - General Mental Status: Alert and Oriented, Awake and Alert, Able to Follow Commands Attention: Intact Ability to Follow Directions: Good Head/Neck Control: Good - Hearing Hearing: Functional Hearing: Normal Hearing Aide: No Speech Evaluation - Communication Primary Language: TELUGU Secondary Language: YI (ESL) Communication: Yes: Within Normal Limits Oral Expression Ability: Yes: No Impairment - Speech Production Able to Make Needs Known: Yes: WNL Intelligibility: Yes: WNL - Speech Characteristics Voice Loudness: Normal Voice Pitch: Yes: Normal Voice Phonatory-based Quality: Yes: Normal Speech Pattern: Normal Speech Clarity: < 100% Nasal Resonance: Normal Articulation: Yes: Precise Rate of Speech: Intact - Language/Auditory Comprehension Follows: Yes: 1 Stage Simple Commands Observation: Able to respond to yes/no queries: Yes, Yes/No Confusion: No, Comprehends Conversational Speech: Yes (better function in [place]) - Language/Verbal Expression Able to Respond to Simple Queries: Yes: WNL Able to Communicate Wants and Needs: Yes: WNL Functional Communication Status: Yes: WNL - Swallow Evaluation/Bedside Assessment Current Nutritional Intake: Regular, [place] Textured Liquids Oral Secretions: Yes: WFL Dentition: Yes: Missing Teeth Facial Symmetry at Rest: Symmetrical Facial Symmetry on Retraction: Symmetrical Against Resistance Opening: Normal Against Resistance Closing: Normal Pucker Lips: Normal Smile: Normal Lingual Movement: Normal, Symmetric Lingual Speed of Movement: Normal Lingual Movement Strgth Against Opposition: Normal Lingual Movement Characteristics: Normal Laryngeal Elevation: WFL Laryngeal Movement: Able to Palpate Rate of Intake: WFL Bolus Size: WFL Labial Seal: WFL Chewing: WFL (missing dentition but functional with soft foods) Oral Prep Time: WFL A-P Transit: WFL Pocketing: None Timing of Swallow: WFL Coughing/Throat Clear: No Change in Voice: No Recommendations - Speech Evaluation, Impression/Plan Impression: Noted to cough earlier with Miralax in water. Limited appetite. Metastatic Ca. Brisk swallow with 6 oz water, rapidly completed without difficulty - Disposition Discharge to: Assisted Facility - Dysphagia Impressions/Plan Dysphagia Impressions: Minimal Impairment *Silent aspiration: cannot be R/O at bedside Dysphagia Treatment Plan: Elevate HOB during feed, OOB for meals, OOB for 1 h. after meals Recommendations: Other (Consider appetite stimulant) - Recommendations Diet Consistency: Regular (soft, easy to chew) Medication Administration: Whole with water Liquids: Thin Liquids Supplement: Ensure, Magic Cup
--- NOTE | 2019-05-15 13:43 | PN ---
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, Physician History of Present Illness: Pt seen and examined at bedside. He is awake and alert. He denies shortness of breath. - Current Medication List Current Medications: Active Medications Acetaminophen (Tylenol -) 650 mg PO Q6H PRN PRN Reason: PAIN LEVEL 6-10 Last Admin: 05/13/19 21:26 Dose: 650 mg Albuterol/Ipratropium (Duoneb -) 1 amp NEB Q6H PRN PRN Reason: SHORT OF BREATH/WHEEZING Last Admin: 05/11/19 20:40 Dose: 1 amp Amino Acids (Prosource No Carb Liquid Pkt) 30 ml PO BID@0800,1730 [facility] Last Admin: 05/15/19 09:50 Dose: 30 ml Amlodipine Besylate (Norvasc -) 5 mg PO DAILY [facility] Last Admin: 05/15/19 09:51 Dose: 5 mg Artificial Tears (Artificial Tears) 1 drop OU BID [facility] Last Admin: 05/15/19 09:51 Dose: 1 drop Atorvastatin Calcium (Lipitor -) 10 mg PO HS [facility] Last Admin: 05/14/19 22:07 Dose: 10 mg Famotidine (Pepcid -) 20 mg PO BID [facility] Last Admin: 05/15/19 09:50 Dose: 20 mg Finasteride (Proscar -) 5 mg PO DAILY [facility] Last Admin: 05/15/19 09:51 Dose: 5 mg Folic Acid (Folic Acid -) 1 mg PO DAILY [facility] Last Admin: 05/15/19 09:51 Dose: 1 mg IV Flush (Triple Lumen Flush) 4 ml IVPUSH PRN PRN PRN Reason: Protocol Last Admin: 05/11/19 14:59 Dose: 4 ml Insulin Aspart (Novolog Vial Sliding Scale -) 1 vial SQ TIDAC [facility]; Protocol Last Admin: 05/15/19 11:50 Dose: Not Given Insulin Detemir (Levemir Vial) 10 units SQ HS [facility] Last Admin: 05/14/19 22:08 Dose: 10 units Lidocaine (Lidoderm Patch -) 1 patch TP DAILY [facility] Last Admin: 05/15/19 11:48 Dose: 1 patch Miscellaneous (Lidoderm Patch Removal) 1 each MC DAILY@2200 [facility] Last Admin: 05/14/19 22:07 Dose: 1 each Multivitamins/Minerals (Certavite-Antioxidant Liquid) 15 ml PO DAILY [facility] Last Admin: 05/15/19 11:47 Dose: 15 ml Oxycodone HCl (Roxicodone -) 5 mg PO Q4H PRN PRN Reason: PAIN LEVEL 6-10 Last Admin: 05/15/19 09:55 Dose: 5 mg Polyethylene Glycol (Miralax (For Daily Use) -) 17 gm PO DAILY [facility] Last Admin: 05/15/19 11:47 Dose: 17 gm Tamsulosin HCl (Flomax -) 0.8 mg PO DAILY@0830 [facility] Last Admin: 05/15/19 09:50 Dose: 0.8 mg Thiamine HCl (Vitamin B1 -) 100 mg PO DAILY [facility] Last Admin: 05/15/19 09:51 Dose: 100 mg - Objective Vital Signs: Vital Signs Temperature 98.6 F 05/15/19 09:30 Pulse Rate 79 05/15/19 09:30 Respiratory Rate 18 05/15/19 09:30 Blood Pressure 129/46 L 05/15/19 09:30 O2 Sat by Pulse Oximetry (%) 99 05/14/19 21:00 Constitutional: Yes: Calm Eyes: Yes: Conjunctiva Clear HENT: Yes: Atraumatic Neck: Yes: Supple Cardiovascular: Yes: S1, S2 Respiratory: Yes: CTA Bilaterally Gastrointestinal: Yes: Soft Genitourinary: Yes: Fernandez Present, Other (bilateral nephrostomy tubes) Edema: Yes Edema: LLE: Trace, RLE: Trace Neurological: Yes: Oriented Psychiatric: Yes: Oriented Labs: CBC, BMP 05/14/19 06:30 05/15/19 07:45 INR, PTT INR 1.32 (0.83-1.09) H 04/26/19 07:52 Problem List - Problems (1) ROSA MARIA (acute kidney injury) Code(s): N17.9 - ACUTE KIDNEY FAILURE, UNSPECIFIED (2) BPH (benign prostatic hyperplasia) Code(s): N40.0 - BENIGN PROSTATIC HYPERPLASIA WITHOUT LOWER URINRY TRACT SYMP Qualifiers: Lower urinary tract symptom presence: unspecified whether lower urinary tract symptoms present Qualified Code(s): N40.0 - Benign prostatic hyperplasia without lower urinary tract symptoms (3) Bladder cancer Code(s): C67.9 - MALIGNANT NEOPLASM OF BLADDER, UNSPECIFIED Qualifiers: Bladder location: unspecified site Qualified Code(s): C67.9 - Malignant neoplasm of bladder, unspecified (4) CHF (congestive heart failure) Code(s): I50.9 - HEART FAILURE, UNSPECIFIED Qualifiers: Heart failure type: unspecified Assessment/Plan Current Medications Generic Name Dose Route Start Last Admin Trade Name Freq PRN Reason Stop Dose Admin Acetaminophen 650 mg 04/25/19 19:59 05/13/19 21:26 Tylenol - PO 650 mg Q6H PRN Administration PAIN LEVEL 6-10 Albuterol/Ipratropium 1 amp 05/11/19 14:49 05/11/19 20:40 Duoneb - NEB 1 amp Q6H PRN Administration SHORT OF BREATH/WHEEZING Amino Acids 30 ml 05/07/19 17:30 05/15/19 09:50 Prosource No Carb Liquid Pkt PO 30 ml BID@0800,1730 CHAVEZ Administration Amlodipine Besylate 5 mg 04/26/19 15:30 05/15/19 09:51 Norvasc - PO 5 mg DAILY CHAVEZ Administration Artificial Tears 1 drop 04/24/19 10:00 05/15/19 09:51 Artificial Tears OU 1 drop BID CHAVEZ Administration Atorvastatin Calcium 10 mg 04/24/19 22:00 05/14/19 22:07 Lipitor - PO 10 mg HS CHAVEZ Administration Famotidine 20 mg 04/24/19 10:00 05/15/19 09:50 Pepcid - PO 20 mg BID CHAVEZ Administration Finasteride 5 mg 04/25/19 10:00 05/15/19 09:51 Proscar - PO 5 mg DAILY CHAVEZ Administration Folic Acid 1 mg 04/24/19 10:00 05/15/19 09:51 Folic Acid - PO 1 mg DAILY CHAVEZ Administration IV Flush 4 ml 05/01/19 12:14 05/11/19 14:59 Triple Lumen Flush IVPUSH 4 ml PRN PRN Administration Protocol Insulin Aspart 1 vial 04/24/19 16:30 05/15/19 11:50 Novolog Vial Sliding Scale - SQ Not Given TIDAC [facility] Protocol Insulin Detemir 10 units 05/10/19 22:00 05/14/19 22:08 Levemir Vial SQ 10 units HS CH[facility]Z Administration Lidocaine 1 patch 04/27/19 11:15 05/15/19 11:48 Lidoderm Patch - TP 1 patch DAILY CHAVEZ Administration Miscellaneous 1 each 04/27/19 22:00 05/14/19 22:07 Lidoderm Patch Removal MC 1 each DAILY@2200 CHAVEZ Administration Multivitamins/Minerals 15 ml 05/07/19 13:00 05/15/19 11:47 Certavite-Antioxidant Liquid PO 15 ml DAILY CHAVEZ Administration Oxycodone HCl 5 mg 05/11/19 14:48 05/15/19 09:55 Roxicodone - PO 5 mg Q4H PRN Administration PAIN LEVEL 6-10 Polyethylene Glycol 17 gm 04/28/19 12:00 05/15/19 11:47 Miralax (For Daily Use) - PO 17 gm DAILY CH[facility]Z Administration Tamsulosin HCl 0.8 mg 04/24/19 08:30 05/15/19 09:50 Flomax - PO 0.8 mg DAILY@0830 CHAVEZ Administration Thiamine HCl 100 mg 04/24/19 10:00 05/15/19 09:51 Vitamin B1 - PO 100 mg DAILY CHAVEZ Administration Impression 1. ROSA MARIA 2. hydronephrosis 3. hematuria 4. dementia 5. chf 6. dm 7. gerd 8. anemia Plan - labs reviewed - monitor bicarb - keep off of fluids - repeat labs in am - avoid nsaids - monitor output from fernandez and nephrostomy tubes - nephrostomy tube care
[2019-05-15] MEDS: ACETAMINOPHEN 325 MG TABLET (FP) PO PRN ×2 (16:06→21:13)
[2019-05-15] MEDS: MORPHINE SULFATE 2 MG/ML VIAL IVPUSH PRN (16:50)
[2019-05-15] MEDS ORDERED: INSULIN (NOVOLOG) ASPART 100 UNITS/ML 10ML VIAL ONE (21:10)
[2019-05-15] MEDS: LIDOCAINE PATCH REMOVAL MC SCH (21:12)
[2019-05-15] MEDS: INSULIN (LEVEMIR) 100 UNITS/ML UNITS SQ SCH (21:12)
[2019-05-15] MEDS: ATORVASTATIN CA 10 MG TABLET (FP) PO SCH (21:13)
[2019-05-16] MEDS: oxyCODONE HCL 5 MG TABLET PO PRN ×3 (01:30→16:58)
[2019-05-16] MEDS: INSULIN SLIDING SCALE (NOVOLOG) 1 VIAL SQ SCH ×3 (05:59→16:57)
[2019-05-16] MEDS ORDERED: INSULIN (NOVOLOG) ASPART 100 UNITS/ML 10ML VIAL ONE (06:30)
[2019-05-16] MEDS ORDERED: INSULIN (LEVEMIR) 100 UNITS/ML UNITS SQ ONE (06:30)
[2019-05-16] MEDS: POLYETHYLENE GLYCOL 3350 119 GM BTL PO SCH (09:07)
[2019-05-16] MEDS: THIAMINE HCL 100 MG TABLET (FP) PO SCH (09:08)
[2019-05-16] MEDS: amLODIPine BESYLATE 5 MG TABLET (FP) PO SCH (09:08)
[2019-05-16] MEDS: FOLIC ACID 1 MG TABLET (FP) PO SCH (09:08)
[2019-05-16] MEDS: FINASTERIDE 5 MG TABLET (FP) PO SCH (09:09)
[2019-05-16] MEDS: MORPHINE SULFATE 2 MG/ML VIAL IVPUSH PRN ×3 (09:09→22:58)
[2019-05-16] MEDS: TAMSULOSIN HCL 0.4 MG CAP PO SCH (09:09)
[2019-05-16] MEDS: AMINO ACIDS/PROTEIN HYDROLYS 30 ML LIQUID.PKT PO SCH ×2 (09:10→16:57)
[2019-05-16] MEDS: LIDOCAINE 5% TOPICAL PATCH TP SCH (09:10)
[2019-05-16] MEDS: ARTIFICIAL TEARS (POLYVINYL ALCOHOL) OPTH DROPS OU SCH ×2 (09:11→21:53)
[2019-05-16] MEDS: FAMOTIDINE 20 MG TABLET PO SCH ×2 (09:12→21:54)
--- NOTE | 2019-05-16 09:39 | PN ---
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 (short form) - Note 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: No cardiac events, hemodynamically stable Assessment: 04/29/2019 Normal LV and RV size and fxn, mild MR, tr-mild TR, LVEF 61% 1. ROSA MARIA/CKD->obstructive hydronephrosis post percutaneous nephrostomy 2. 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 HTN 4. Hypercholesterolemia 5. DM 6. BPH 7. Dementia 8. MDD PLAN: Stable cardiacwise 1. Continue Amlodipine 5 mg QD and Atorvastatin 10 mg QHS 2.Hematuria as per urology
--- NOTE | 2019-05-16 10:11 | PN ---
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 (short form) - Note 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: pt seen/ examined all f/u noted awake/ comfortable at present but then has pains all over RN reports same also for last palliative RT today Palliative care note noted appreciated Pt is DNR/DI NOW Vital Signs Temp 98.0 F 05/16/19 09:00 Pulse 88 05/16/19 09:00 Resp 18 05/16/19 09:00 BP 127/55 L 05/16/19 09:00 Pulse Ox 99 05/15/19 21:00 Intake & Output 05/15/19 05/15/19 05/16/19 11:59 23:59 11:59 Intake Total 225 Output Total 500 975 300 Balance -500 -750 -300 Intake: Oral 225 Output: Urine 500 975 300 Thomas 100 200 Left Nephrostomy 200 450 200 Right Nephrostomy 200 325 100 Other: Voiding Method Indwelling Catheter Indwelling Catheter # Unmeasured Voids Right Nephrostomy 1 Bowel Movement Yes No No # Bowel Movements 1 Active Medications Acetaminophen (Tylenol -) 650 mg PO Q6H PRN PRN Reason: PAIN LEVEL 1-3 Last Admin: 05/15/19 21:13 Dose: 650 mg Albuterol/Ipratropium (Duoneb -) 1 amp NEB Q6H PRN PRN Reason: SHORT OF BREATH/WHEEZING Last Admin: 05/11/19 20:40 Dose: 1 amp Amino Acids (Prosource No Carb Liquid Pkt) 30 ml PO BID@0800,1730 [facility] Last Admin: 05/16/19 09:10 Dose: 30 ml Amlodipine Besylate (Norvasc -) 5 mg PO DAILY [facility] Last Admin: 05/16/19 09:08 Dose: 5 mg Artificial Tears (Artificial Tears) 1 drop OU BID [facility] Last Admin: 05/16/19 09:11 Dose: 1 drop Atorvastatin Calcium (Lipitor -) 10 mg PO HS [facility] Last Admin: 05/15/19 21:13 Dose: 10 mg Famotidine (Pepcid -) 20 mg PO BID [facility] Last Admin: 05/16/19 09:12 Dose: 20 mg Finasteride (Proscar -) 5 mg PO DAILY [facility] Last Admin: 05/16/19 09:09 Dose: 5 mg Folic Acid (Folic Acid -) 1 mg PO DAILY [facility] Last Admin: 05/16/19 09:08 Dose: 1 mg Insulin Aspart (Novolog Vial Sliding Scale -) 1 vial SQ TIDAC [facility]; Protocol Last Admin: 05/16/19 05:59 Dose: Not Given Insulin Detemir (Levemir Vial) 10 units SQ HS [facility] Last Admin: 05/15/19 21:12 Dose: 10 units Lidocaine (Lidoderm Patch -) 1 patch TP DAILY [facility] Last Admin: 05/16/19 09:10 Dose: 1 patch Miscellaneous (Lidoderm Patch Removal) 1 each MC DAILY@2200 [facility] Last Admin: 05/15/19 21:12 Dose: 1 each Morphine Sulfate (Morphine Sulfate) 1 mg IVPUSH Q4H PRN PRN Reason: PAIN LEVEL 4-6 Last Admin: 05/16/19 09:09 Dose: 1 mg Multivitamins/Minerals (Certavite-Antioxidant Liquid) 15 ml PO DAILY [facility] Last Admin: 05/15/19 11:47 Dose: 15 ml Oxycodone HCl (Roxicodone -) 5 mg PO Q4H PRN PRN Reason: PAIN LEVEL 7-10 Last Admin: 05/16/19 01:30 Dose: 5 mg Polyethylene Glycol (Miralax (For Daily Use) -) 17 gm PO DAILY [facility] Last Admin: 05/16/19 09:07 Dose: 17 gm Tamsulosin HCl (Flomax -) 0.8 mg PO DAILY@0830 [facility] Last Admin: 05/16/19 09:09 Dose: 0.8 mg Thiamine HCl (Vitamin B1 -) 100 mg PO DAILY [facility] Last Admin: 05/16/19 09:08 Dose: 100 mg CBC, BMP 05/14/19 06:30 05/15/19 07:45 Physical Exam S1 S2 RRR Lungs clear Abd- soft, obese, NT no edema B/L nephrostomy + Thomas-+ A/P Continue current management refused labs today Last RT today Add Fentanyl patch and observe D/C planning-- Later today or tomorrow Will follow d/w rn also Problem List - Problems (1) Bladder cancer Code(s): C67.9 - MALIGNANT NEOPLASM OF BLADDER, UNSPECIFIED Qualifiers: Bladder location: unspecified site Qualified Code(s): C67.9 - Malignant neoplasm of bladder, unspecified (2) Cirrhosis Code(s): K74.60 - UNSPECIFIED CIRRHOSIS OF LIVER (3) ROSA MARIA (acute kidney injury) Code(s): N17.9 - ACUTE KIDNEY FAILURE, UNSPECIFIED (4) Anemia Code(s): D64.9 - ANEMIA, UNSPECIFIED (5) HTN (hypertension) Code(s): I10 - ESSENTIAL (PRIMARY) HYPERTENSION (6) Hematuria Code(s): R31.9 - HEMATURIA, UNSPECIFIED
--- NOTE | 2019-05-16 10:59 | PN ---
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: Selected Entries 05/15/19 05/15/19 05/15/19 06:00 09:30 10:00 Supper Temperature 98.8 F 98.6 F Temperature [ 98.6 F Prior to transport] 05/15/19 05/15/19 05/15/19 13:00 17:25 18:00 Supper 0 Temperature 98.9 F 99.4 F Temperature [ Prior to transport] 05/15/19 05/16/19 05/16/19 22:00 02:00 06:00 Supper Temperature 98.6 F 98.5 F 98.4 F Temperature [ Prior to transport] 05/16/19 09:00 Supper Temperature 98.0 F Temperature [ Prior to transport] Laboratory Tests 05/13/19 05/14/19 20:43 06:30 WBC 11.1 H 11.6 H Poor appetite- Consider appetite stimulant, if not medically contraindicated. Nursing reports occasional cough drinking rapidly with straw. Not demonstrated yester drinking rapidly with cup drinking. Suggest eliminate straw usage, HOB elevated with po intake, and encourage pt to eat and drink slowly and carefully. For RT today.
[2019-05-16] MEDS ORDERED: FENTANYL PATCH WASTE MC PRN (11:09)
--- NOTE | 2019-05-16 11:33 | PN ---
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, Physician History of Present Illness: Pt seen and examined. He refused labs. - Current Medication List Current Medications: Active Medications Acetaminophen (Tylenol -) 650 mg PO Q6H PRN PRN Reason: PAIN LEVEL 1-3 Last Admin: 05/15/19 21:13 Dose: 650 mg Albuterol/Ipratropium (Duoneb -) 1 amp NEB Q6H PRN PRN Reason: SHORT OF BREATH/WHEEZING Last Admin: 05/11/19 20:40 Dose: 1 amp Amino Acids (Prosource No Carb Liquid Pkt) 30 ml PO BID@0800,1730 [facility] Last Admin: 05/16/19 09:10 Dose: 30 ml Amlodipine Besylate (Norvasc -) 5 mg PO DAILY [facility] Last Admin: 05/16/19 09:08 Dose: 5 mg Artificial Tears (Artificial Tears) 1 drop OU BID [facility] Last Admin: 05/16/19 09:11 Dose: 1 drop Atorvastatin Calcium (Lipitor -) 10 mg PO [facility] Last Admin: 05/15/19 21:13 Dose: 10 mg Famotidine (Pepcid -) 20 mg PO BID [facility] Last Admin: 05/16/19 09:12 Dose: 20 mg Fentanyl (Duragesic 25mcg Patch -) 1 patch TD Q72H [facility] Stop: 05/23/19 11:09 Finasteride (Proscar -) 5 mg PO DAILY [facility] Last Admin: 05/16/19 09:09 Dose: 5 mg Folic Acid (Folic Acid -) 1 mg PO DAILY [facility] Last Admin: 05/16/19 09:08 Dose: 1 mg Insulin Aspart (Novolog Vial Sliding Scale -) 1 vial SQ TIDAC [facility]; Protocol Last Admin: 05/16/19 05:59 Dose: Not Given Insulin Detemir (Levemir Vial) 10 units SQ [facility] Last Admin: 05/15/19 21:12 Dose: 10 units Lidocaine (Lidoderm Patch -) 1 patch TP DAILY [facility] Last Admin: 05/16/19 09:10 Dose: 1 patch Mirtazapine (Remeron -) 15 mg PO [facility] Miscellaneous (Lidoderm Patch Removal) 1 each MC DAILY@2200 [facility] Last Admin: 05/15/19 21:12 Dose: 1 each Miscellaneous (Duragesic Patch Waste) 1 each MC PRN PRN PRN Reason: PAIN Morphine Sulfate (Morphine Sulfate) 1 mg IVPUSH Q4H PRN PRN Reason: PAIN LEVEL 4-6 Last Admin: 05/16/19 09:09 Dose: 1 mg Multivitamins/Minerals (Certavite-Antioxidant Liquid) 15 ml PO DAILY [facility] Last Admin: 05/15/19 11:47 Dose: 15 ml Oxycodone HCl (Roxicodone -) 5 mg PO Q4H PRN PRN Reason: PAIN LEVEL 7-10 Last Admin: 05/16/19 01:30 Dose: 5 mg Polyethylene Glycol (Miralax (For Daily Use) -) 17 gm PO DAILY [facility] Last Admin: 05/16/19 09:07 Dose: 17 gm Tamsulosin HCl (Flomax -) 0.8 mg PO DAILY@0830 [facility] Last Admin: 05/16/19 09:09 Dose: 0.8 mg Thiamine HCl (Vitamin B1 -) 100 mg PO DAILY [facility] Last Admin: 05/16/19 09:08 Dose: 100 mg - Objective Vital Signs: Vital Signs Temperature 98.0 F 05/16/19 09:00 Pulse Rate 88 05/16/19 09:00 Respiratory Rate 18 05/16/19 09:00 Blood Pressure 127/55 L 05/16/19 09:00 O2 Sat by Pulse Oximetry (%) 99 05/15/19 21:00 Constitutional: Yes: Calm Eyes: Yes: Conjunctiva Clear Cardiovascular: Yes: S1, S2 Respiratory: Yes: CTA Bilaterally Genitourinary: Yes: Fernandez Present, Other (nephrostomy tubes) Musculoskeletal: Yes: WNL Edema: LLE: Trace, RLE: Trace Neurological: Yes: Oriented Psychiatric: Yes: Oriented Labs: CBC, BMP 05/14/19 06:30 05/15/19 07:45 INR, PTT INR 1.32 (0.83-1.09) H 04/26/19 07:52 Problem List - Problems (1) ROSA MARIA (acute kidney injury) Code(s): N17.9 - ACUTE KIDNEY FAILURE, UNSPECIFIED (2) BPH (benign prostatic hyperplasia) Code(s): N40.0 - BENIGN PROSTATIC HYPERPLASIA WITHOUT LOWER URINRY TRACT SYMP Qualifiers: Lower urinary tract symptom presence: unspecified whether lower urinary tract symptoms present Qualified Code(s): N40.0 - Benign prostatic hyperplasia without lower urinary tract symptoms (3) Bladder cancer Code(s): C67.9 - MALIGNANT NEOPLASM OF BLADDER, UNSPECIFIED Qualifiers: Bladder location: unspecified site Qualified Code(s): C67.9 - Malignant neoplasm of bladder, unspecified (4) CHF (congestive heart failure) Code(s): I50.9 - HEART FAILURE, UNSPECIFIED Qualifiers: Heart failure type: unspecified Assessment/Plan Current Medications Generic Name Dose Route Start Last Admin Trade Name Freq PRN Reason Stop Dose Admin Acetaminophen 650 mg 04/25/19 19:59 05/15/19 21:13 Tylenol - PO 650 mg Q6H PRN Administration PAIN LEVEL 1-3 Albuterol/Ipratropium 1 amp 05/11/19 14:49 05/11/19 20:40 Duoneb - NEB 1 amp Q6H PRN Administration SHORT OF BREATH/WHEEZING Amino Acids 30 ml 05/07/19 17:30 05/16/19 09:10 Prosource No Carb Liquid Pkt PO 30 ml BID@0800,1730 [facility] Administration Amlodipine Besylate 5 mg 04/26/19 15:30 05/16/19 09:08 Norvasc - PO 5 mg DAILY [facility] Administration Artificial Tears 1 drop 04/24/19 10:00 05/16/19 09:11 Artificial Tears OU 1 drop BID [facility] Administration Atorvastatin Calcium 10 mg 04/24/19 22:00 05/15/19 21:13 Lipitor - PO 10 mg HS [facility] Administration Famotidine 20 mg 04/24/19 10:00 05/16/19 09:12 Pepcid - PO 20 mg BID [facility] Administration Fentanyl 1 patch 05/16/19 11:15 Duragesic 25mcg Patch - TD 05/23/19 11:09 Q72H [facility] Finasteride 5 mg 04/25/19 10:00 05/16/19 09:09 Proscar - PO 5 mg DAILY [facility] Administration Folic Acid 1 mg 04/24/19 10:00 05/16/19 09:08 Folic Acid - PO 1 mg DAILY [facility] Administration Insulin Aspart 1 vial 04/24/19 16:30 05/16/19 05:59 Novolog Vial Sliding Scale - SQ Not Given TIDAC [facility] Protocol Insulin Detemir 10 units 05/10/19 22:00 05/15/19 21:12 Levemir Vial SQ 10 units HS [facility] Administration Lidocaine 1 patch 04/27/19 11:15 05/16/19 09:10 Lidoderm Patch - TP 1 patch DAILY [facility] Administration Mirtazapine 15 mg 05/16/19 22:00 Remeron - PO HS [facility] Miscellaneous 1 each 04/27/19 22:00 05/15/19 21:12 Lidoderm Patch Removal MC 1 each DAILY@2200 [facility] Administration Miscellaneous 1 each 05/16/19 11:09 Duragesic Patch Waste MC PRN PRN PAIN Morphine Sulfate 1 mg 05/15/19 16:20 05/16/19 09:09 Morphine Sulfate IVPUSH 1 mg Q4H PRN Administration PAIN LEVEL 4-6 Multivitamins/Minerals 15 ml 05/07/19 13:00 05/15/19 11:47 Certavite-Antioxidant Liquid PO 15 ml DAILY [facility] Administration Oxycodone HCl 5 mg 05/11/19 14:48 05/16/19 01:30 Roxicodone - PO 5 mg Q4H PRN Administration PAIN LEVEL 7-10 Polyethylene Glycol 17 gm 04/28/19 12:00 05/16/19 09:07 Miralax (For Daily Use) - PO 17 gm DAILY [facility] Administration Tamsulosin HCl 0.8 mg 04/24/19 08:30 05/16/19 09:09 Flomax - PO 0.8 mg DAILY@0830 [facility] Administration Thiamine HCl 100 mg 04/24/19 10:00 05/16/19 09:08 Vitamin B1 - PO 100 mg DAILY [facility] Administration Impression 1. ROSA MARIA 2. hydronephrosis 3. hematuria 4. dementia 5. chf 6. dm 7. gerd 8. anemia Plan - renal function had improved - monitor bicarb - monitor output - avoid nsaids - monitor output from fernandez and nephrostomy tubes - nephrostomy tube care - will follow prn
[2019-05-16] MEDS ORDERED: PT OWN MED DRAWER 7, Y5N ONE (12:25)
[2019-05-16] MEDS: fentaNYL 25mcg/hr PATCH.TD72 TD SCH (12:27)
[2019-05-16] MEDS: MULTIVIT-MINERALS ORAL LIQUID PO SCH (12:28)
[2019-05-16] MEDS: ACETAMINOPHEN 325 MG TABLET (FP) PO PRN (16:58)
[2019-05-16] MEDS: INSULIN (LEVEMIR) 100 UNITS/ML UNITS SQ SCH (21:53)
[2019-05-16] MEDS: LIDOCAINE PATCH REMOVAL MC SCH (21:53)
[2019-05-16] MEDS: MIRTAZAPINE 15 MG TABLET (FP) PO SCH (21:54)
[2019-05-16] MEDS: ATORVASTATIN CA 10 MG TABLET (FP) PO SCH (21:54)
[2019-05-17] MEDS: INSULIN SLIDING SCALE (NOVOLOG) 1 VIAL SQ SCH ×3 (06:29→17:27)
[2019-05-17] MEDS ORDERED: INSULIN (LEVEMIR) 100 UNITS/ML UNITS SQ ONE (06:36)
[2019-05-17] MEDS ORDERED: INSULIN (NOVOLOG) ASPART 100 UNITS/ML 10ML VIAL ONE (06:36)
[2019-05-17] MEDS: ALBUTEROL SO4 2.5/IPRATROPIUM 0.5 INH SOL 3 ML VIAL.NEB. NEB PRN ×2 (07:25→20:24)
[2019-05-17] MEDS: AMINO ACIDS/PROTEIN HYDROLYS 30 ML LIQUID.PKT PO SCH ×2 (09:05→17:34)
[2019-05-17] MEDS: FOLIC ACID 1 MG TABLET (FP) PO SCH (09:07)
[2019-05-17] MEDS: FINASTERIDE 5 MG TABLET (FP) PO SCH (09:07)
[2019-05-17] MEDS: FAMOTIDINE 20 MG TABLET PO SCH ×2 (09:07→22:06)
[2019-05-17] MEDS: TAMSULOSIN HCL 0.4 MG CAP PO SCH (09:07)
[2019-05-17] MEDS: LIDOCAINE 5% TOPICAL PATCH TP SCH (09:07)
[2019-05-17] MEDS: THIAMINE HCL 100 MG TABLET (FP) PO SCH (09:07)
[2019-05-17] MEDS: amLODIPine BESYLATE 5 MG TABLET (FP) PO SCH (09:07)
--- NOTE | 2019-05-17 13:42 | PN ---
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 (short form) - Note 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: pt seen/ examined drowsy today but arousable much more comfortable low grade fever today Vital Signs Temp 99.6 F 05/17/19 10:00 Pulse 84 05/17/19 10:00 Resp 18 05/17/19 10:00 BP 140/72 05/17/19 10:00 Pulse Ox 98 05/17/19 09:00 Intake & Output 05/16/19 05/17/19 05/17/19 23:59 11:59 23:59 Intake Total 1040 Output Total 800 400 Balance 240 -400 Intake: Oral 1040 Output: Urine 800 400 Thomas 100 Left Nephrostomy 425 200 Right Nephrostomy 375 100 Other: Voiding Method Indwelling Catheter Indwelling Catheter Bowel Movement No No Active Medications Acetaminophen (Tylenol -) 650 mg PO Q6H PRN PRN Reason: PAIN LEVEL 1-3 Last Admin: 05/16/19 16:58 Dose: 650 mg Albuterol/Ipratropium (Duoneb -) 1 amp NEB Q6H PRN PRN Reason: SHORT OF BREATH/WHEEZING Last Admin: 05/17/19 07:25 Dose: 1 amp Amino Acids (Prosource No Carb Liquid Pkt) 30 ml PO BID@0800,1730 [facility] Last Admin: 05/17/19 09:05 Dose: 30 ml Amlodipine Besylate (Norvasc -) 5 mg PO DAILY [facility] Last Admin: 05/17/19 09:07 Dose: 5 mg Artificial Tears (Artificial Tears) 1 drop OU BID [facility] Last Admin: 05/16/19 21:53 Dose: 1 drop Atorvastatin Calcium (Lipitor -) 10 mg PO [facility] Last Admin: 05/16/19 21:54 Dose: 10 mg Famotidine (Pepcid -) 20 mg PO BID [facility] Last Admin: 05/17/19 09:07 Dose: 20 mg Fentanyl (Duragesic 25mcg Patch -) 1 patch TD Q72H [facility] Stop: 05/23/19 11:09 Last Admin: 05/16/19 12:27 Dose: 1 patch Finasteride (Proscar -) 5 mg PO DAILY [facility] Last Admin: 05/17/19 09:07 Dose: 5 mg Folic Acid (Folic Acid -) 1 mg PO DAILY [facility] Last Admin: 05/17/19 09:07 Dose: 1 mg Insulin Aspart (Novolog Vial Sliding Scale -) 1 vial SQ TIDAC [facility]; Protocol Last Admin: 05/17/19 11:10 Dose: Not Given Insulin Detemir (Levemir Vial) 10 units SQ [facility] Last Admin: 05/16/19 21:53 Dose: 10 units Lidocaine (Lidoderm Patch -) 1 patch TP DAILY [facility] Last Admin: 05/17/19 09:07 Dose: 1 patch Mirtazapine (Remeron -) 15 mg PO [facility] Last Admin: 05/16/19 21:54 Dose: 15 mg Miscellaneous (Lidoderm Patch Removal) 1 each MC DAILY@2200 [facility] Last Admin: 05/16/19 21:53 Dose: 1 each Miscellaneous (Duragesic Patch Waste) 1 each MC PRN PRN PRN Reason: PAIN Morphine Sulfate (Morphine Sulfate) 1 mg IVPUSH Q4H PRN PRN Reason: PAIN LEVEL 4-6 Last Admin: 05/16/19 22:58 Dose: 1 mg Multivitamins/Minerals (Certavite-Antioxidant Liquid) 15 ml PO DAILY [facility] Last Admin: 05/16/19 12:28 Dose: 15 ml Oxycodone HCl (Roxicodone -) 5 mg PO Q4H PRN PRN Reason: PAIN LEVEL 7-10 Last Admin: 05/16/19 16:58 Dose: 5 mg Polyethylene Glycol (Miralax (For Daily Use) -) 17 gm PO DAILY [facility] Last Admin: 05/16/19 09:07 Dose: 17 gm Tamsulosin HCl (Flomax -) 0.8 mg PO DAILY@0830 [facility] Last Admin: 05/17/19 09:07 Dose: 0.8 mg Thiamine HCl (Vitamin B1 -) 100 mg PO DAILY [facility] Last Admin: 05/17/19 09:07 Dose: 100 mg CBC, BMP 05/14/19 06:30 05/15/19 07:45 Physical Exam S1 S2 RRR Neck- Midline catheter + Lungs clear Abd- soft, obese, NT no edema B/L nephrostomy + Thomas-+ A/P Continue current management monitor today D/C planning--hold 2 to fever-- likely on sunday labs tomorrow Will follow d/w rn also pt is DNR/ DNI Midline Catheter t be removed before discharge Problem List - Problems (1) Bladder cancer Code(s): C67.9 - MALIGNANT NEOPLASM OF BLADDER, UNSPECIFIED Qualifiers: Bladder location: unspecified site Qualified Code(s): C67.9 - Malignant neoplasm of bladder, unspecified (2) Cirrhosis Code(s): K74.60 - UNSPECIFIED CIRRHOSIS OF LIVER (3) ROSA MARIA (acute kidney injury) Code(s): N17.9 - ACUTE KIDNEY FAILURE, UNSPECIFIED (4) Anemia Code(s): D64.9 - ANEMIA, UNSPECIFIED (5) HTN (hypertension) Code(s): I10 - ESSENTIAL (PRIMARY) HYPERTENSION (6) Hematuria Code(s): R31.9 - HEMATURIA, UNSPECIFIED
--- NOTE | 2019-05-17 14:14 | PN ---
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, Physician History of Present Illness: s/p PCN, hematuria clearing. Chest CT shows pulm mets. Lethargic. - Current Medication List Current Medications: Active Medications Acetaminophen (Tylenol -) 650 mg PO Q6H PRN PRN Reason: PAIN LEVEL 1-3 Last Admin: 05/16/19 16:58 Dose: 650 mg Albuterol/Ipratropium (Duoneb -) 1 amp NEB Q6H PRN PRN Reason: SHORT OF BREATH/WHEEZING Last Admin: 05/17/19 07:25 Dose: 1 amp Amino Acids (Prosource No Carb Liquid Pkt) 30 ml PO BID@0800,1730 [facility] Last Admin: 05/17/19 09:05 Dose: 30 ml Amlodipine Besylate (Norvasc -) 5 mg PO DAILY [facility] Last Admin: 05/17/19 09:07 Dose: 5 mg Artificial Tears (Artificial Tears) 1 drop OU BID [facility] Last Admin: 05/16/19 21:53 Dose: 1 drop Atorvastatin Calcium (Lipitor -) 10 mg PO [facility] Last Admin: 05/16/19 21:54 Dose: 10 mg Famotidine (Pepcid -) 20 mg PO BID [facility] Last Admin: 05/17/19 09:07 Dose: 20 mg Fentanyl (Duragesic 25mcg Patch -) 1 patch TD Q72H [facility] Stop: 05/23/19 11:09 Last Admin: 05/16/19 12:27 Dose: 1 patch Finasteride (Proscar -) 5 mg PO DAILY [facility] Last Admin: 05/17/19 09:07 Dose: 5 mg Folic Acid (Folic Acid -) 1 mg PO DAILY [facility] Last Admin: 05/17/19 09:07 Dose: 1 mg Insulin Aspart (Novolog Vial Sliding Scale -) 1 vial SQ TIDAC [facility]; Protocol Last Admin: 05/17/19 11:10 Dose: Not Given Insulin Detemir (Levemir Vial) 10 units SQ [facility] Last Admin: 05/16/19 21:53 Dose: 10 units Lidocaine (Lidoderm Patch -) 1 patch TP DAILY [facility] Last Admin: 05/17/19 09:07 Dose: 1 patch Mirtazapine (Remeron -) 15 mg PO [facility] Last Admin: 05/16/19 21:54 Dose: 15 mg Miscellaneous (Lidoderm Patch Removal) 1 each MC DAILY@2200 [facility] Last Admin: 05/16/19 21:53 Dose: 1 each Miscellaneous (Duragesic Patch Waste) 1 each MC PRN PRN PRN Reason: PAIN Morphine Sulfate (Morphine Sulfate) 1 mg IVPUSH Q4H PRN PRN Reason: PAIN LEVEL 4-6 Last Admin: 05/16/19 22:58 Dose: 1 mg Multivitamins/Minerals (Certavite-Antioxidant Liquid) 15 ml PO DAILY [facility] Last Admin: 05/16/19 12:28 Dose: 15 ml Oxycodone HCl (Roxicodone -) 5 mg PO Q4H PRN PRN Reason: PAIN LEVEL 7-10 Last Admin: 05/16/19 16:58 Dose: 5 mg Polyethylene Glycol (Miralax (For Daily Use) -) 17 gm PO DAILY [facility] Last Admin: 05/16/19 09:07 Dose: 17 gm Tamsulosin HCl (Flomax -) 0.8 mg PO DAILY@0830 [facility] Last Admin: 05/17/19 09:07 Dose: 0.8 mg Thiamine HCl (Vitamin B1 -) 100 mg PO DAILY [facility] Last Admin: 05/17/19 09:07 Dose: 100 mg - Objective Vital Signs: Vital Signs Temperature 99.6 F 05/17/19 10:00 Pulse Rate 84 05/17/19 10:00 Respiratory Rate 18 05/17/19 10:00 Blood Pressure 140/72 05/17/19 10:00 O2 Sat by Pulse Oximetry (%) 98 05/17/19 09:00 Constitutional: Yes: No Distress, Calm Neck: Yes: Supple Cardiovascular: Yes: Regular Rate and Rhythm Respiratory: Yes: Regular, Diminished Gastrointestinal: Yes: Soft, Hypoactive Bowel Sounds Genitourinary: Yes: Thomas Present Edema: No Labs: CBC, BMP 05/14/19 06:30 05/15/19 07:45 INR, PTT INR 1.32 (0.83-1.09) H 04/26/19 07:52 Problem List - Problems (1) Hydronephrosis Code(s): N13.30 - UNSPECIFIED HYDRONEPHROSIS Qualifiers: Hydronephrosis type: unspecified Qualified Code(s): N13.30 - Unspecified hydronephrosis (2) ROSA MARIA (acute kidney injury) Code(s): N17.9 - ACUTE KIDNEY FAILURE, UNSPECIFIED (3) Anemia Code(s): D64.9 - ANEMIA, UNSPECIFIED (4) CHF (congestive heart failure) Code(s): I50.9 - HEART FAILURE, UNSPECIFIED Qualifiers: Heart failure type: unspecified (5) Diabetes mellitus Code(s): E11.9 - TYPE 2 DIABETES MELLITUS WITHOUT COMPLICATIONS Qualifiers: Diabetes mellitus type: type 2 (6) HLD (hyperlipidemia) Code(s): E78.5 - HYPERLIPIDEMIA, UNSPECIFIED (7) HTN (hypertension) Code(s): I10 - ESSENTIAL (PRIMARY) HYPERTENSION (8) Hematuria Code(s): R31.9 - HEMATURIA, UNSPECIFIED (9) Bladder cancer Code(s): C67.9 - MALIGNANT NEOPLASM OF BLADDER, UNSPECIFIED Qualifiers: Bladder location: unspecified site Qualified Code(s): C67.9 - Malignant neoplasm of bladder, unspecified (10) BPH (benign prostatic hyperplasia) Code(s): N40.0 - BENIGN PROSTATIC HYPERPLASIA WITHOUT LOWER URINRY TRACT SYMP Qualifiers: Lower urinary tract symptom presence: unspecified whether lower urinary tract symptoms present Qualified Code(s): N40.0 - Benign prostatic hyperplasia without lower urinary tract symptoms (11) Dementia Code(s): F03.90 - UNSPECIFIED DEMENTIA WITHOUT BEHAVIORAL DISTURBANCE Qualifiers: Dementia type: unspecified type Assessment/Plan 04/29/2019 Normal LV and RV size and fxn, mild MR, tr-mild TR, LVEF 61% 1. ROSA MARIA/CKD->obstructive hydronephrosis post percutaneous nephrostomy 2. 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 HTN 4. Hypercholesterolemia 5. DM 6. BPH 7. Dementia 8. MDD PLAN: 1. Continue Amlodipine 5 mg QD and Atorvastatin 10 mg QHS 2. Renal input noted, monitor renal recovery 3. Awaiting hematuria clearance, planned for possible outpatient BCG or Mitomycin intravesical therapy, off empiric abx course 4. Transfuse pRBC to maintain Hgb>8.0, GI protection 5. Palliative XRT
[2019-05-17] MEDS ORDERED: PT OWN MED DRAWER 7, Y5N ONE (14:57)
[2019-05-17] MEDS: MULTIVIT-MINERALS ORAL LIQUID PO SCH (15:02)
[2019-05-17] MEDS: ARTIFICIAL TEARS (POLYVINYL ALCOHOL) OPTH DROPS OU SCH ×2 (15:02→22:07)
[2019-05-17] MEDS: POLYETHYLENE GLYCOL 3350 119 GM BTL PO SCH (17:27)
[2019-05-17] MEDS: oxyCODONE HCL 5 MG TABLET PO PRN (17:45)
[2019-05-17] MEDS: MIRTAZAPINE 15 MG TABLET (FP) PO SCH (22:06)
[2019-05-17] MEDS: ATORVASTATIN CA 10 MG TABLET (FP) PO SCH (22:06)
[2019-05-17] MEDS: LIDOCAINE PATCH REMOVAL MC SCH (22:06)
[2019-05-17] MEDS: INSULIN (LEVEMIR) 100 UNITS/ML UNITS SQ SCH (22:07)
[2019-05-18] MEDS: INSULIN SLIDING SCALE (NOVOLOG) 1 VIAL SQ SCH ×3 (06:23→17:33)
[2019-05-18] MEDS: AMINO ACIDS/PROTEIN HYDROLYS 30 ML LIQUID.PKT PO SCH ×2 (09:39→17:29)
[2019-05-18] MEDS: TAMSULOSIN HCL 0.4 MG CAP PO SCH (09:41)
[2019-05-18] MEDS: MULTIVIT-MINERALS ORAL LIQUID PO SCH (09:42)
[2019-05-18] MEDS: amLODIPine BESYLATE 5 MG TABLET (FP) PO SCH (09:43)
[2019-05-18] MEDS: FINASTERIDE 5 MG TABLET (FP) PO SCH (09:43)
[2019-05-18] MEDS: THIAMINE HCL 100 MG TABLET (FP) PO SCH (09:43)
[2019-05-18] MEDS: FAMOTIDINE 20 MG TABLET PO SCH ×2 (09:43→23:03)
[2019-05-18] MEDS: FOLIC ACID 1 MG TABLET (FP) PO SCH (09:43)
[2019-05-18] MEDS: LIDOCAINE 5% TOPICAL PATCH TP SCH (09:44)
[2019-05-18] MEDS: ARTIFICIAL TEARS (POLYVINYL ALCOHOL) OPTH DROPS OU SCH ×2 (09:44→23:03)
[2019-05-18] MEDS: POLYETHYLENE GLYCOL 3350 119 GM BTL PO SCH (10:10)
[2019-05-18 11:33] LABS: BASO % 0.6 % (0-2.0); HEMATOCRIT 23.2 % (35.4-49); HEMOGLOBIN 7.7 GM/dL (11.7-16.9); LYMPH % 8.6 % (8-40); MCH 29.4 pg (25.7-33.7); MCHC 33.1 g/dl (32.0-35.9); MEAN CELL VOLUME 88.6 fl (80-96); MEAN PLT VOLUME 8.1 fl (7.5-11.1); MONO % 9.6 % (3.8-10.2); NEUT % 80.2 % (42.8-82.8); PLATELET COUNT 172 K/MM3 (134-434); RBC 2.62 M/mm3 (4.00-5.60); RDW 15.6 % (11.9-15.9); WHITE BLOOD COUNT 7.2 K/mm3 (4.0-10.0)
[2019-05-18 12:36] LABS: ALBUMIN 1.3 g/dl (3.4-5.0); BILIRUBIN,TOTAL 0.8 mg/dL (0.2-1); BLOOD UREA NITROGEN 24.9 mg/dL (7-18); CALCIUM 7.6 mg/dL (8.5-10.1); CREATININE 1.3 mg/dL (0.55-1.3); POTASSIUM 4.2 mmol/L (3.5-5.1); TOT PROT 5.8 g/dl (6.4-8.2)
[2019-05-18] MEDS ORDERED: SENNOSIDES 8.6MG TABLET (FP) PO PRN (13:13)
--- NOTE | 2019-05-18 13:13 | PN ---
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 (short form) - Note 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: pt seen/ examined awake/ comfortable had breakfast/ lunch Also had small bm much more comfortable afebrile Vital Signs Period Temp Pulse Resp BP Sys/Gordon Pulse Ox Last 24 Hr 97.5 F-98.6 F 80-93 18-19 122-148/52-60 98-98 Active Medications Acetaminophen (Tylenol -) 650 mg PO Q6H PRN PRN Reason: PAIN LEVEL 1-3 Last Admin: 05/16/19 16:58 Dose: 650 mg Albuterol/Ipratropium (Duoneb -) 1 amp NEB Q6H PRN PRN Reason: SHORT OF BREATH/WHEEZING Last Admin: 05/17/19 20:24 Dose: 1 amp Amino Acids (Prosource No Carb Liquid Pkt) 30 ml PO BID@0800,1730 [facility] Last Admin: 05/18/19 09:39 Dose: 30 ml Amlodipine Besylate (Norvasc -) 5 mg PO DAILY [facility] Last Admin: 05/18/19 09:43 Dose: 5 mg Artificial Tears (Artificial Tears) 1 drop OU BID [facility] Last Admin: 05/18/19 09:44 Dose: 1 drop Atorvastatin Calcium (Lipitor -) 10 mg PO HS [facility] Last Admin: 05/17/19 22:06 Dose: 10 mg Famotidine (Pepcid -) 20 mg PO BID [facility] Last Admin: 05/18/19 09:43 Dose: 20 mg Fentanyl (Duragesic 25mcg Patch -) 1 patch TD Q72H [facility] Stop: 05/23/19 11:09 Last Admin: 05/16/19 12:27 Dose: 1 patch Finasteride (Proscar -) 5 mg PO DAILY [facility] Last Admin: 05/18/19 09:43 Dose: 5 mg Folic Acid (Folic Acid -) 1 mg PO DAILY [facility] Last Admin: 05/18/19 09:43 Dose: 1 mg Insulin Aspart (Novolog Vial Sliding Scale -) 1 vial SQ TIDAC [facility]; Protocol Last Admin: 05/18/19 11:52 Dose: 4 units Insulin Detemir (Levemir Vial) 10 units SQ HS [facility] Last Admin: 05/17/19 22:07 Dose: 10 units Lidocaine (Lidoderm Patch -) 1 patch TP DAILY [facility] Last Admin: 05/18/19 09:44 Dose: 1 patch Mirtazapine (Remeron -) 15 mg PO HS [facility] Last Admin: 05/17/19 22:06 Dose: 15 mg Miscellaneous (Lidoderm Patch Removal) 1 each MC DAILY@2200 [facility] Last Admin: 05/17/19 22:06 Dose: 1 each Miscellaneous (Duragesic Patch Waste) 1 each MC PRN PRN PRN Reason: PAIN Multivitamins/Minerals (Certavite-Antioxidant Liquid) 15 ml PO DAILY [facility] Last Admin: 05/18/19 09:42 Dose: 15 ml Polyethylene Glycol (Miralax (For Daily Use) -) 17 gm PO DAILY [facility] Last Admin: 05/18/19 10:10 Dose: 17 gm Senna (Senna -) 2 tab PO HS PRN PRN Reason: CONSTIPATION Tamsulosin HCl (Flomax -) 0.8 mg PO DAILY@0830 [facility] Last Admin: 05/18/19 09:41 Dose: 0.8 mg Thiamine HCl (Vitamin B1 -) 100 mg PO DAILY [facility] Last Admin: 05/18/19 09:43 Dose: 100 mg CBC, BMP 05/18/19 11:20 05/18/19 10:37 Physical Exam S1 S2 RRR Neck- Midline catheter + Lungs clear Abd- soft, obese, NT no edema B/L nephrostomy + Thomas-+ A/P Continue current management monitor today D/C planning---- likely on sunday add senna d/c morphine much better on Fentanyl patch Will follow d/w rn also pt is DNR/ DNI Midline Catheter to be removed before discharge Problem List - Problems (1) Bladder cancer Code(s): C67.9 - MALIGNANT NEOPLASM OF BLADDER, UNSPECIFIED Qualifiers: Bladder location: unspecified site Qualified Code(s): C67.9 - Malignant neoplasm of bladder, unspecified (2) Cirrhosis Code(s): K74.60 - UNSPECIFIED CIRRHOSIS OF LIVER (3) ROSA MARIA (acute kidney injury) Code(s): N17.9 - ACUTE KIDNEY FAILURE, UNSPECIFIED (4) Anemia Code(s): D64.9 - ANEMIA, UNSPECIFIED (5) HTN (hypertension) Code(s): I10 - ESSENTIAL (PRIMARY) HYPERTENSION (6) Hematuria Code(s): R31.9 - HEMATURIA, UNSPECIFIED
--- NOTE | 2019-05-18 13:50 | PN ---
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, Physician History of Present Illness: s/p PCN, hematuria clearing. Chest CT shows pulm mets. Sensorium improved today. - Current Medication List Current Medications: Active Medications Acetaminophen (Tylenol -) 650 mg PO Q6H PRN PRN Reason: PAIN LEVEL 1-3 Last Admin: 05/16/19 16:58 Dose: 650 mg Albuterol/Ipratropium (Duoneb -) 1 amp NEB Q6H PRN PRN Reason: SHORT OF BREATH/WHEEZING Last Admin: 05/17/19 20:24 Dose: 1 amp Amino Acids (Prosource No Carb Liquid Pkt) 30 ml PO BID@0800,1730 [facility] Last Admin: 05/18/19 09:39 Dose: 30 ml Amlodipine Besylate (Norvasc -) 5 mg PO DAILY [facility] Last Admin: 05/18/19 09:43 Dose: 5 mg Artificial Tears (Artificial Tears) 1 drop OU BID [facility] Last Admin: 05/18/19 09:44 Dose: 1 drop Atorvastatin Calcium (Lipitor -) 10 mg PO [facility] Last Admin: 05/17/19 22:06 Dose: 10 mg Famotidine (Pepcid -) 20 mg PO BID [facility] Last Admin: 05/18/19 09:43 Dose: 20 mg Fentanyl (Duragesic 25mcg Patch -) 1 patch TD Q72H [facility] Stop: 05/23/19 11:09 Last Admin: 05/16/19 12:27 Dose: 1 patch Finasteride (Proscar -) 5 mg PO DAILY [facility] Last Admin: 05/18/19 09:43 Dose: 5 mg Folic Acid (Folic Acid -) 1 mg PO DAILY [facility] Last Admin: 05/18/19 09:43 Dose: 1 mg Insulin Aspart (Novolog Vial Sliding Scale -) 1 vial SQ TIDAC [facility]; Protocol Last Admin: 05/18/19 11:52 Dose: 4 units Insulin Detemir (Levemir Vial) 10 units SQ [facility] Last Admin: 05/17/19 22:07 Dose: 10 units Lidocaine (Lidoderm Patch -) 1 patch TP DAILY [facility] Last Admin: 05/18/19 09:44 Dose: 1 patch Mirtazapine (Remeron -) 15 mg PO [facility] Last Admin: 05/17/19 22:06 Dose: 15 mg Miscellaneous (Lidoderm Patch Removal) 1 each MC DAILY@2200 [facility] Last Admin: 05/17/19 22:06 Dose: 1 each Miscellaneous (Duragesic Patch Waste) 1 each MC PRN PRN PRN Reason: PAIN Multivitamins/Minerals (Certavite-Antioxidant Liquid) 15 ml PO DAILY [facility] Last Admin: 05/18/19 09:42 Dose: 15 ml Polyethylene Glycol (Miralax (For Daily Use) -) 17 gm PO DAILY [facility] Last Admin: 05/18/19 10:10 Dose: 17 gm Senna (Senna -) 2 tab PO HS PRN PRN Reason: CONSTIPATION Tamsulosin HCl (Flomax -) 0.8 mg PO DAILY@0830 [facility] Last Admin: 05/18/19 09:41 Dose: 0.8 mg Thiamine HCl (Vitamin B1 -) 100 mg PO DAILY [facility] Last Admin: 05/18/19 09:43 Dose: 100 mg - Objective Vital Signs: Vital Signs Temperature 98.6 F 05/18/19 10:00 Pulse Rate 88 05/18/19 10:00 Respiratory Rate 18 05/18/19 10:00 Blood Pressure 132/52 L 05/18/19 10:00 O2 Sat by Pulse Oximetry (%) 98 05/18/19 09:00 Constitutional: Yes: No Distress, Calm, Thin Neck: Yes: Supple Cardiovascular: Yes: Regular Rate and Rhythm Respiratory: Yes: Regular, Diminished Gastrointestinal: Yes: Normal Bowel Sounds, Soft Genitourinary: Yes: Thomas Present Edema: No Labs: CBC, BMP 05/18/19 11:20 05/18/19 10:37 INR, PTT INR 1.32 (0.83-1.09) H 04/26/19 07:52 Problem List - Problems (1) Hydronephrosis Code(s): N13.30 - UNSPECIFIED HYDRONEPHROSIS Qualifiers: Hydronephrosis type: unspecified Qualified Code(s): N13.30 - Unspecified hydronephrosis (2) ROSA MARIA (acute kidney injury) Code(s): N17.9 - ACUTE KIDNEY FAILURE, UNSPECIFIED (3) Anemia Code(s): D64.9 - ANEMIA, UNSPECIFIED (4) CHF (congestive heart failure) Code(s): I50.9 - HEART FAILURE, UNSPECIFIED Qualifiers: Heart failure type: unspecified (5) Diabetes mellitus Code(s): E11.9 - TYPE 2 DIABETES MELLITUS WITHOUT COMPLICATIONS Qualifiers: Diabetes mellitus type: type 2 (6) HLD (hyperlipidemia) Code(s): E78.5 - HYPERLIPIDEMIA, UNSPECIFIED (7) HTN (hypertension) Code(s): I10 - ESSENTIAL (PRIMARY) HYPERTENSION (8) Hematuria Code(s): R31.9 - HEMATURIA, UNSPECIFIED (9) Bladder cancer Code(s): C67.9 - MALIGNANT NEOPLASM OF BLADDER, UNSPECIFIED Qualifiers: Bladder location: unspecified site Qualified Code(s): C67.9 - Malignant neoplasm of bladder, unspecified (10) BPH (benign prostatic hyperplasia) Code(s): N40.0 - BENIGN PROSTATIC HYPERPLASIA WITHOUT LOWER URINRY TRACT SYMP Qualifiers: Lower urinary tract symptom presence: unspecified whether lower urinary tract symptoms present Qualified Code(s): N40.0 - Benign prostatic hyperplasia without lower urinary tract symptoms (11) Dementia Code(s): F03.90 - UNSPECIFIED DEMENTIA WITHOUT BEHAVIORAL DISTURBANCE Qualifiers: Dementia type: unspecified type Assessment/Plan 04/29/2019 Normal LV and RV size and fxn, mild MR, tr-mild TR, LVEF 61% 1. ROSA MARIA/CKD->obstructive hydronephrosis post percutaneous nephrostomy 2. 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 HTN 4. Hypercholesterolemia 5. DM 6. BPH 7. Dementia 8. MDD PLAN: 1. Continue Amlodipine 5 mg QD and Atorvastatin 10 mg QHS 2. Renal input noted, monitor renal recovery 3. Awaiting hematuria clearance, planned for possible outpatient BCG or Mitomycin intravesical therapy, off empiric abx course 4. Transfuse pRBC to maintain Hgb>8.0, GI protection 5. Palliative XRT 6. Midline Catheter to be removed before discharge, d/c planning for Sunday
[2019-05-18] MEDS ORDERED: oxyCODONE HCL 5 MG TABLET PO PRN (14:02)
[2019-05-18] MEDS ORDERED: INSULIN (NOVOLOG) ASPART 100 UNITS/ML 10ML VIAL ONE (17:57)
[2019-05-18] MEDS: INSULIN (LEVEMIR) 100 UNITS/ML UNITS SQ SCH (23:03)
[2019-05-18] MEDS: LIDOCAINE PATCH REMOVAL MC SCH (23:03)
[2019-05-18] MEDS: MIRTAZAPINE 15 MG TABLET (FP) PO SCH (23:04)
[2019-05-18] MEDS: ATORVASTATIN CA 10 MG TABLET (FP) PO SCH (23:04)
[2019-05-19] MEDS: INSULIN SLIDING SCALE (NOVOLOG) 1 VIAL SQ SCH ×2 (06:11→12:02)
[2019-05-19] MEDS: LIDOCAINE 5% TOPICAL PATCH TP SCH (10:04)
[2019-05-19] MEDS: amLODIPine BESYLATE 5 MG TABLET (FP) PO SCH (10:05)
[2019-05-19] MEDS: FINASTERIDE 5 MG TABLET (FP) PO SCH (10:05)
[2019-05-19] MEDS: FOLIC ACID 1 MG TABLET (FP) PO SCH (10:05)
[2019-05-19] MEDS: TAMSULOSIN HCL 0.4 MG CAP PO SCH (10:05)
[2019-05-19] MEDS: MULTIVIT-MINERALS ORAL LIQUID PO SCH (10:06)
[2019-05-19] MEDS: AMINO ACIDS/PROTEIN HYDROLYS 30 ML LIQUID.PKT PO SCH (10:06)
[2019-05-19] MEDS: POLYETHYLENE GLYCOL 3350 119 GM BTL PO SCH (10:06)
[2019-05-19] MEDS: THIAMINE HCL 100 MG TABLET (FP) PO SCH (10:06)
[2019-05-19] MEDS: ARTIFICIAL TEARS (POLYVINYL ALCOHOL) OPTH DROPS OU SCH (10:06)
[2019-05-19] MEDS: FAMOTIDINE 20 MG TABLET PO SCH (10:07)
[2019-05-19] MEDS ORDERED: INSULIN (NOVOLOG) ASPART 100 UNITS/ML 10ML VIAL ONE (10:20)
[2019-05-19] MEDS: fentaNYL 25mcg/hr PATCH.TD72 TD SCH (10:24)
--- NOTE | 2019-05-19 11:34 | DS ---
Physical Examination Vital Signs: Vital Signs Temperature 97.9 F 05/19/19 06:00 Pulse Rate 76 05/19/19 06:00 Respiratory Rate 18 05/19/19 06:00 Blood Pressure 126/57 L 05/19/19 06:00 O2 Sat by Pulse Oximetry (%) 98 05/18/19 21:00 Findings/Remarks: awake/ comfortable pain well controlled Constitutional: Yes: No Distress Cardiovascular: Yes: Regular Rate and Rhythm Respiratory: Yes: CTA Bilaterally Gastrointestinal: Yes: Abdomen, Obese Edema: No Neurological: Yes: Alert Psychiatric: Yes: Alert Labs: CBC, BMP 05/18/19 11:20 05/18/19 10:37 Discharge Summary Problems reviewed: Yes Reason For Visit: ACUTE KIDNEY INJURY/HEMATURIA/AMEMIA Current Active Problems ROSA MARIA (acute kidney injury) (Acute) Allergy to multiple antibiotics (Acute) Anemia (Acute) BPH (benign prostatic hyperplasia) (Acute) Bladder cancer (Acute) CHF (congestive heart failure) (Acute) Cirrhosis (Acute) Dementia (Acute) Diabetes mellitus (Acute) Difficult intravenous access (Acute) GERD (gastroesophageal reflux disease) (Acute) HLD (hyperlipidemia) (Acute) HTN (hypertension) (Acute) Hematuria (Acute) Hydronephrosis (Acute) Lactic acidosis (Acute) MDD (major depressive disorder) (Acute) UTI (urinary tract infection) (Acute) Hospital Course: Admitted form [facility] for ARF Diagnosed with Metastatic Bladder ca s/p cystoscopy 05/02- bleeding bladder tumor with complete ureteral obstruction s/p bilateral PCN placement chest ct done- multiple pulmonary nodules +adenopathy Transfused few times Plan now d/c to [facility] --Hospice D/c Rn also Meds reconcilled Condition: Guarded - Instructions Referrals: Davide Alvarado MD [Primary Care Provider] - Disposition: RETIREMENT FACILITY - Home Medications Comprehensive Discharge Medication List: Ambulatory Orders Ascorbic Acid [Vitamin C -] 500 mg PO DAILY 10/06/18 Famotidine 20 mg PO BID 10/06/18 Ferrous Sulfate [Feosol] 325 mg PO DAILY 10/06/18 Finasteride [Proscar -] 5 mg PO DAILY 10/06/18 Folic Acid - 1 mg PO DAILY 10/06/18 Folic Acid/Multivit,Iron,[place] [One Daily Complete Tablet] 1 each PO DAILY 10/06 Lactulose (Oral Use) [Cephulac -] 20 gm PO BID 10/06/18 Polyvinyl Alcohol [Tears Again] 1 drop OU BID 10/06/18 Simethicone [Mylicon -] 80 mg PO TID 10/06/18 Simvastatin [Zocor -] 20 mg PO HS 10/06/18 Tamsulosin HCl [Flomax -] 0.8 mg PO DAILY 10/06/18 Thiamine HCl [Vitamin B1 -] 100 mg PO DAILY 10/06/18 Guaifenesin [Christina-Tussin] 300 mg PO QID PRN 11/17/18 Albuterol 2.5/Ipratropium 0.5 [Duoneb -] 1 amp NEB Q6H PRN amp 05/15/19 Amino Acids/Protein Hydrolys [Prosource No Carb Liquid Pkt] 30 ml PO BID@0800, 1730 #60 packet 05/15/19 Insulin (Levemir) [Levemir Vial] 10 units SQ HS #30 units 05/15/19 Lidocaine 5% Patch [Lidoderm -] 1 patch TP DAILY #30 patch 05/15/19 oxyCODONE HCL [Roxicodone -] 5 mg PO Q4H PRN tablet MDD 5 05/15/19
[2019-05-19 12:31] VITALS: PULSE 85
--- NOTE | 2019-05-19 14:44 | PN ---
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 - Note 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: Selected Entries 05/15/19 05/15/19 05/15/19 06:00 09:30 10:00 Supper Temperature 98.8 F 98.6 F Temperature [ 98.6 F Prior to transport] 05/15/19 05/15/19 05/15/19 13:00 17:25 18:00 Supper 0 Temperature 98.9 F 99.4 F Temperature [ Prior to transport] 05/15/19 05/16/19 05/16/19 22:00 02:00 06:00 Supper Temperature 98.6 F 98.5 F 98.4 F Temperature [ Prior to transport] 05/16/19 09:00 Supper Temperature 98.0 F Temperature [ Prior to transport] Laboratory Tests 05/13/19 05/14/19 20:43 06:30 WBC 11.1 H 11.6 H Selected Entries 05/18/19 05/18/19 05/18/19 05:18 10:00 14:00 Breakfast 100% Lunch 25% Supper Temperature 97.5 F L 98.6 F 98.9 F 05/18/19 05/18/19 05/19/19 18:00 22:00 06:00 Breakfast Lunch Supper 75% Temperature 99.4 F 98.0 F 97.9 F 05/19/19 09:00 Breakfast Lunch Supper Temperature 99.0 F Laboratory Tests 05/18/19 11:20 WBC 7.2 improving appetite- Nursing reports improved swallowing function with straw elimination. Pending d/c today. f/u sp path at [facility]
[2019-05-19 15:03] VITALS: BP 140/68; TEMP 98.5
--- NOTE | 2019-05-19 15:18 | PN ---
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, Physician History of Present Illness: Pt seen and examined at bedside. He is awake and appears comfortable. He denies shortness of breath. - Objective Vital Signs: Vital Signs Temperature 98.5 F 05/19/19 14:00 Pulse Rate 85 05/19/19 14:00 Respiratory Rate 18 05/19/19 14:00 Blood Pressure 140/68 05/19/19 14:00 O2 Sat by Pulse Oximetry (%) 99 05/19/19 10:00 Constitutional: Yes: Calm Eyes: Yes: Conjunctiva Clear HENT: Yes: Atraumatic Neck: Yes: Supple Cardiovascular: Yes: S1, S2 Respiratory: Yes: CTA Bilaterally Gastrointestinal: Yes: Soft Genitourinary: Yes: Thomas Present, Other (bilateral nephrostomy tubes) Musculoskeletal: Yes: WNL Edema: No Neurological: Yes: Oriented Psychiatric: Yes: Oriented Labs: CBC, BMP 05/18/19 11:20 05/18/19 10:37 INR, PTT INR 1.32 (0.83-1.09) H 04/26/19 07:52 Problem List - Problems (1) ROSA MARIA (acute kidney injury) Code(s): N17.9 - ACUTE KIDNEY FAILURE, UNSPECIFIED (2) BPH (benign prostatic hyperplasia) Code(s): N40.0 - BENIGN PROSTATIC HYPERPLASIA WITHOUT LOWER URINRY TRACT SYMP Qualifiers: Lower urinary tract symptom presence: unspecified whether lower urinary tract symptoms present Qualified Code(s): N40.0 - Benign prostatic hyperplasia without lower urinary tract symptoms (3) Bladder cancer Code(s): C67.9 - MALIGNANT NEOPLASM OF BLADDER, UNSPECIFIED Qualifiers: Bladder location: unspecified site Qualified Code(s): C67.9 - Malignant neoplasm of bladder, unspecified (4) CHF (congestive heart failure) Code(s): I50.9 - HEART FAILURE, UNSPECIFIED Qualifiers: Heart failure type: unspecified Assessment/Plan Impression 1. ROSA MARIA 2. hydronephrosis 3. hematuria 4. dementia 5. chf 6. dm 7. gerd 8. anemia Plan - monitor renal function as outpt - nephrostomy tube care - will need urology follow up - volume status stable - avoid nsaids - will follow prn
== END 2019-05-19 15:06 | DRG 669 ==
LOC: JER 17:32 → JERBED 20:51 → J5S 04-24 16:55
PROVIDERS: ADMIT Internal Medicine; ATTEND Internal Medicine
PROC: 30233N1 Transfusion of Nonautologous Red Blood Cells into Peripheral Vein, Percutaneous Approach (ICD-10-PCS; 2019-04-23)
PROC: 0T903ZZ Drainage of Right Kidney, Percutaneous Approach (ICD-10-PCS; 2019-04-30)
PROC: 0T913ZZ Drainage of Left Kidney, Percutaneous Approach (ICD-10-PCS; 2019-04-30)
PROC: 0T903ZZ Drainage of Right Kidney, Percutaneous Approach (ICD-10-PCS; 2019-05-01)
PROC: 05HM33Z Insertion of Infusion Device into Right Internal Jugular Vein, Percutaneous Approach (ICD-10-PCS; 2019-05-02)
PROC: 0TBB8ZX Excision of Bladder, Via Natural or Artificial Opening Endoscopic, Diagnostic (ICD-10-PCS; principal; 2019-05-02 12:00)
PROC: 0TCB8ZZ Extirpation of Matter from Bladder, Via Natural or Artificial Opening Endoscopic (ICD-10-PCS; 2019-05-02 12:00)
PROC: 02HV33Z Insertion of Infusion Device into Superior Vena Cava, Percutaneous Approach (ICD-10-PCS; 2019-05-15)
DX: C67.9 Malignant neoplasm of bladder, unspecified (principal); N17.9 Acute kidney failure, unspecified; E87.2 Acidosis; N13.30 Unspecified hydronephrosis; D62 Acute posthemorrhagic anemia; C78.02 Secondary malignant neoplasm of left lung; C78.01 Secondary malignant neoplasm of right lung; N39.0 Urinary tract infection, site not specified; I50.9 Heart failure, unspecified; E11.9 Type 2 diabetes mellitus without complications; E78.5 Hyperlipidemia, unspecified; I10 Essential (primary) hypertension; F03.90 Unspecified dementia, unspecified severity, without behavioral disturbance, psychotic disturbance, mood disturbance, and anxiety; F32.9 Major depressive disorder, single episode, unspecified; N40.0 Benign prostatic hyperplasia without lower urinary tract symptoms; K21.9 Gastro-esophageal reflux disease without esophagitis; D64.9 Anemia, unspecified; K74.60 Unspecified cirrhosis of liver; R31.0 Gross hematuria
CPT/HCPCS: 36415; 36430; 36511; 50432; 71045-TC-FY; 71250-TC; 74176-TC; 76000-TC-FY; 76098-TC-FY; 76700-TC; 76775-TC; 76856-TC; 76937; 76998-TC; 80048; 80053; 81003; 82272; 82550; 82962; 83605; 83735; 83880; 84484; 85025; 85027; 85610; 85730; 86850; 86900; 86901; 86922; 87040; 87070; 87075; 87086; 87205; 87899; 88307-TC; 93005; 93010; 93306-TC; 94010; 94640; 94760; 99285-25; A4358; C1729; C1769; J3480; J7030; P9038; P9058; Q9968